=== PATIENT | female | born 1980 | race Caucasian/White ===

== ENCOUNTER 2017-05-31 22:15 | Emergency (ER) | payer BC ==
[~2017-05-31] VITALS: Ht 154.9 cm; Wt 86.5 kg
[~2017-05-31 22:15] MED LIST: CRAN500C4 PO; DICY10CA88 PO; FENO48TA15 PO; METF500T PO
[2017-06-01] MEDS ORDERED: CLIN-100 PO (00:19)
[2017-06-01] MEDS ORDERED: ACET1TAB12 PO (00:19)
[2017-06-01 00:26] VITALS: BP 128/90
== END 2017-06-01 00:27 | disposition home or self-care (01) ==
LOC: ER 22:15
DX: L03.011 Cellulitis of right finger (principal); E78.00 Pure hypercholesterolemia, unspecified; E11.9 Type 2 diabetes mellitus without complications; F17.200 Nicotine dependence, unspecified, uncomplicated; Z88.2 Allergy status to sulfonamides
CPT/HCPCS: 99283

== ENCOUNTER 2017-09-29 09:29 | Emergency (ER) | payer BC ==
[~2017-09-29] VITALS: Ht 162.6 cm; Wt 79.4 kg
[~2017-09-29 09:29] MED LIST changes: +ACET1TAB12 PO
[2017-09-29 09:58] LABS: BASOPHILS # (AUTO) 0.1 X10'3 (0-0.2); BASOPHILS % (AUTO) 0.5 % (0-1); EOSINOPHILS # (AUTO) 0.2 X10'3 (0-0.9); EOSINOPHILS % (AUTO) 1.8 % (0-6); HEMATOCRIT 43.6 % (35.0-45.0); HEMOGLOBIN 15.1 g/dl (12.0-16.0); LYMPHOCYTES # (AUTO) 2.4 X10'3 (1.1-4.8); LYMPHOCYTES % (AUTO) 25.5 % (21-51); MEAN CORPUSCULAR HEMOGLOBIN 31.7 PG (27.0-31.0); MEAN CORPUSCULAR HGB CONC 34.7 % (33.0-36.5); MEAN CORPUSCULAR VOLUME 91.3 FL (78-98); MEAN PLATELET VOLUME 8.1 FL (7.4-10.4); MONOCYTES # (AUTO) 0.6 X10'3 (0-0.9); MONOCYTES % (AUTO) 5.9 % (2-12); NEUTROPHILS # (AUTO) 6.3 X10'3 (1.8-7.7); NEUTROPHILS % (AUTO) 66.3 % (42-75); PLATELET COUNT 318 X10'3 (140-440); RED BLOOD COUNT 4.77 X10'6 (4.20-5.60); RED CELL DISTRIBUTION WIDTH 13.4 % (11.5-14.5); WHITE BLOOD COUNT 9.6 X10'3 (4.5-11.0)
[2017-09-29 10:09] LABS: URINE HCG NEGATIVE (NEG)
[2017-09-29 10:11] LABS: CLARITY,URINE CLEAR (Clear); COLOR,URINE YELLOW (Yellow); GLUCOSE, URINE NEGATIVE (Neg); KETONES,URINE NEGATIVE (Neg); LEUKOCYTE ESTERASE ,URINE NEGATIVE (Neg); NITRITES, URINE NEGATIVE (Neg); OCCULT BLOOD,URINE NEGATIVE (Neg); PROTEIN,URINE NEGATIVE (Neg); UROBILINOGEN,URINE 0.2 E.U/dL (0.2-1.0)
[2017-09-29 10:16] LABS: UA COLLECTION TYPE CLN CATCH MIDSTREAM
[2017-09-29 10:20] LABS: ALANINE AMINOTRANSFERASE 19 U/L (12-78); ALBUMIN 3.6 G/DL (3.4-5.0); ALKALINE PHOSPHATASE 49 IU/L (46-116); ANION GAP 10 (8-16); ASPARTATE AMINO TRANSFERASE 11 U/L (10-37); BILIRUBIN,TOTAL 0.3 MG/DL (0.1-1.0); BLOOD UREA NITROGEN 7 MG/DL (7-18); BUN/CREATININE RATIO 8.2 (6.6-38.0); CALCIUM 8.6 MG/DL (8.5-10.1); CHLORIDE 107 MMOL/L (99-107); CREATININE 0.85 MG/DL (0.40-0.90); GLUCOSE 108 MG/DL (70-104); POTASSIUM 4.6 MMOL/L (3.5-5.1); SODIUM 142 MMOL/L (135-145); TOTAL CARBON DIOXIDE 25.5 MMOL/L (24-32); TOTAL PROTEIN 7.3 G/DL (6.4-8.2); eGFR 74 ML/MIN
[2017-09-29] MEDS ORDERED: HYDROcodone/acetaminophen 10/325mg tab PO ONE (10:45)
[2017-09-29] MEDS ORDERED: METR500T4 PO (11:53)
[2017-09-29] MEDS ORDERED: DOXY100C43 PO (11:53)
[2017-09-29 12:23] VITALS: BP 120/74
== END 2017-09-29 12:26 | disposition home or self-care (01) ==
LOC: ER 09:30
DX: R10.30 Lower abdominal pain, unspecified (principal); F17.210 Nicotine dependence, cigarettes, uncomplicated; E78.00 Pure hypercholesterolemia, unspecified; E11.9 Type 2 diabetes mellitus without complications; Z90.49 Acquired absence of other specified parts of digestive tract; Z88.2 Allergy status to sulfonamides; Z79.899 Other long term (current) drug therapy; Z79.84 Long term (current) use of oral hypoglycemic drugs
CPT/HCPCS: 36415; 76856; 80053; 81003; 81025; 85025; 85610; 87210; 87491; 99285

== ENCOUNTER 2017-12-25 23:30 | Emergency (ER) | payer BC, OTHER ==
[~2017-12-25] VITALS: Ht 160 cm; Wt 91.0 kg
[2017-12-25 23:43] VITALS: BP 116/80
[2017-12-26] MEDS ORDERED: ondansetron 4mg rapidly disintigrating tab PO ONE (00:05)
[2017-12-26] MEDS ORDERED: acetaminophen 325mg tablet PO ONE (00:35)
== END 2017-12-26 00:42 | disposition home or self-care (01) ==
LOC: ER 23:31
DX: S06.0X0A Concussion without loss of consciousness, initial encounter (principal); E78.00 Pure hypercholesterolemia, unspecified; E11.9 Type 2 diabetes mellitus without complications; Z90.49 Acquired absence of other specified parts of digestive tract; Z88.2 Allergy status to sulfonamides; Z79.84 Long term (current) use of oral hypoglycemic drugs; Z79.899 Other long term (current) drug therapy; W22.8XXA Striking against or struck by other objects, initial encounter; Y93.89 Activity, other specified; Y92.89 Other specified places as the place of occurrence of the external cause; Y99.8 Other external cause status
CPT/HCPCS: 99283

== ENCOUNTER 2018-02-20 08:28 | Emergency (ER) | payer BC, OTHER ==
[~2018-02-20] VITALS: Ht 157.5 cm; Wt 92.0 kg
[2018-02-20 08:30] VITALS: BP 126/87
[2018-02-20] MEDS ORDERED: ipratropium/albuterol 3ml nebule NEB ONE (08:50)
[2018-02-20] MEDS ORDERED: BENZ-16 PO (08:57)
[2018-02-20] MEDS ORDERED: AMOX-580 PO (09:25)
[2018-02-20] MEDS ORDERED: ALBU8.5H8 IH (09:34)
== END 2018-02-20 09:39 | disposition home or self-care (01) ==
LOC: ER 08:28
DX: J20.9 Acute bronchitis, unspecified (principal); R09.81 Nasal congestion; H92.03 Otalgia, bilateral; E78.00 Pure hypercholesterolemia, unspecified; E11.9 Type 2 diabetes mellitus without complications; F17.200 Nicotine dependence, unspecified, uncomplicated; Z88.2 Allergy status to sulfonamides; Z90.49 Acquired absence of other specified parts of digestive tract; Z87.11 Personal history of peptic ulcer disease; Z87.440 Personal history of urinary (tract) infections; Z79.899 Other long term (current) drug therapy
CPT/HCPCS: 94640; 94760; 99283

== ENCOUNTER 2018-06-15 18:38 | Emergency (ER) | payer MEDICAID ==
[~2018-06-15] VITALS: Ht 157.5 cm; Wt 88.4 kg
[~2018-06-15 18:38] MED LIST changes: +ALBU8.5H8 IH; +BENZ-16 PO; +MONVCR VG
[2018-06-15 19:07] VITALS: BP 138/90
[2018-06-15 19:44] LABS: BASOPHILS # (AUTO) 0.1 X10'3 (0-0.2); BASOPHILS % (AUTO) 0.5 % (0-1); EOSINOPHILS # (AUTO) 0.3 X10'3 (0-0.9); EOSINOPHILS % (AUTO) 1.8 % (0-6); HEMATOCRIT 47.4 % (35.0-45.0); LYMPHOCYTES # (AUTO) 3.6 X10'3 (1.1-4.8); LYMPHOCYTES % (AUTO) 24.4 % (21-51); MEAN CORPUSCULAR HEMOGLOBIN 31.1 PG (27.0-31.0); MEAN CORPUSCULAR HGB CONC 33.7 g/dL (33.0-36.5); MEAN CORPUSCULAR VOLUME 92.1 FL (78-98); MEAN PLATELET VOLUME 8.3 FL (7.4-10.4); MONOCYTES # (AUTO) 0.7 X10'3 (0-0.9); NEUTROPHILS # (AUTO) 10.2 X10'3 (1.8-7.7); NEUTROPHILS % (AUTO) 68.3 % (42-75); PLATELET COUNT 407 X10'3 (140-440); RED BLOOD COUNT 5.14 X10'6 (4.20-5.60); RED CELL DISTRIBUTION WIDTH 13.3 % (11.5-14.5); WHITE BLOOD COUNT 14.9 X10'3 (4.5-11.0)
[2018-06-15 19:54] LABS: ALANINE AMINOTRANSFERASE 27 U/L (12-78); ALBUMIN 4.1 G/DL (3.4-5.0); ALBUMIN/GLOBULIN RATIO 0.9 (1.1-1.5); ALKALINE PHOSPHATASE 61 IU/L (46-116); ANION GAP 10 (8-16); ASPARTATE AMINO TRANSFERASE 14 U/L (10-37); BILIRUBIN,TOTAL 0.5 MG/DL (0.1-1.0); BLOOD UREA NITROGEN 12 MG/DL (7-18); BUN/CREATININE RATIO 13.2 (6.6-38.0); CALCIUM 9.9 MG/DL (8.5-10.1); CHLORIDE 102 MMOL/L (99-107); CREATININE 0.91 MG/DL (0.40-0.90); GLUCOSE 108 MG/DL (70-104); POTASSIUM 4.1 MMOL/L (3.5-5.1); PROTHROMBIN TIME 9.9 SECONDS (9.0-12.0); SODIUM 140 MMOL/L (135-145); TOTAL CARBON DIOXIDE 28.3 MMOL/L (24-32); TOTAL PROTEIN 8.5 G/DL (6.4-8.2); eGFR 68 ML/MIN
[2018-06-15 20:11] LABS: TOTAL CELLS COUNTED 100
[2018-06-15 20:12] LABS: PLATELET ESTIMATE NORMAL
[2018-06-15] MEDS ORDERED: HYDROcodone/acetaminophen 10/325mg tab PO ONE (21:50)
[2018-06-15 21:56] LABS: CLARITY,URINE CLEAR (Clear); COLOR,URINE YELLOW (Yellow); GLUCOSE, URINE NEGATIVE (Neg); KETONES,URINE NEGATIVE (Neg); LEUKOCYTE ESTERASE ,URINE NEGATIVE (Neg); NITRITES, URINE NEGATIVE (Neg); OCCULT BLOOD,URINE NEGATIVE (Neg); PH,URINE 5.5 (4.8-8.0); PROTEIN,URINE NEGATIVE (Neg); UROBILINOGEN,URINE 0.2 E.U/dL (0.2-1.0)
[2018-06-15 21:57] LABS: UA COLLECTION TYPE CLN CATCH MIDSTREAM; URINE HCG NEGATIVE (NEG)
== END 2018-06-15 22:17 | disposition home or self-care (01) ==
LOC: ER 18:39
DX: T81.89XA Other complications of procedures, not elsewhere classified, initial encounter (principal); R10.30 Lower abdominal pain, unspecified; R30.9 Painful micturition, unspecified; R68.83 Chills (without fever); E78.00 Pure hypercholesterolemia, unspecified; E11.9 Type 2 diabetes mellitus without complications; F17.200 Nicotine dependence, unspecified, uncomplicated; Z88.2 Allergy status to sulfonamides; Z79.899 Other long term (current) drug therapy; Z90.49 Acquired absence of other specified parts of digestive tract; Z87.11 Personal history of peptic ulcer disease; Z87.440 Personal history of urinary (tract) infections; Z98.890 Other specified postprocedural states; Y83.8 Other surgical procedures as the cause of abnormal reaction of the patient, or of later complication, without mention of misadventure at the time of the procedure; Y92.89 Other specified places as the place of occurrence of the external cause
CPT/HCPCS: 36415; 80053; 81003; 81025; 85025; 85610; 99283

== ENCOUNTER 2019-02-08 19:07 | Emergency (ER) | payer BC, MEDICAID ==
[~2019-02-08] VITALS: Ht 157.5 cm; Wt 100.0 kg
[~2019-02-08 19:07] MED LIST changes: -MONVCR VG; +ONDA4TAB6 PO
[2019-02-08 19:33] LABS: BASOPHILS # (AUTO) 0.1 X10'3 (0-0.2); EOSINOPHILS # (AUTO) 0.3 X10'3 (0-0.9); NEUTROPHILS # (AUTO) 10.5 X10'3 (1.8-7.7)
[2019-02-08 19:35] LABS: HEMATOCRIT 44.5 % (35.0-45.0); HEMOGLOBIN 15.2 g/dl (12.0-16.0); LYMPHOCYTES # (AUTO) 3.5 X10'3 (1.1-4.8); LYMPHOCYTES % (AUTO) 22.7 % (21-51); MEAN CORPUSCULAR HEMOGLOBIN 31.2 PG (27.0-31.0); MEAN CORPUSCULAR HGB CONC 34.2 g/dL (33.0-36.5); MEAN CORPUSCULAR VOLUME 91.2 FL (78-98); MEAN PLATELET VOLUME 8.5 FL (7.4-10.4); MONOCYTES % (AUTO) 6.6 % (2-12); NEUTROPHILS % (AUTO) 67.7 % (42-75); PLATELET COUNT 426 X10'3 (140-440); RED BLOOD COUNT 4.87 X10'6 (4.20-5.60); RED CELL DISTRIBUTION WIDTH 13.8 % (11.5-14.5); WHITE BLOOD COUNT 15.4 X10'3 (4.5-11.0)
[2019-02-08 19:43] LABS: CLARITY,URINE CLEAR (Clear); COLOR,URINE YELLOW (Yellow); GLUCOSE, URINE NEGATIVE (Neg); KETONES,URINE TRACE mg/dl (Neg); LEUKOCYTE ESTERASE ,URINE NEGATIVE (Neg); NITRITES, URINE NEGATIVE (Neg); OCCULT BLOOD,URINE NEGATIVE (Neg); PH,URINE 5.5 (4.8-8.0); PROTEIN,URINE NEGATIVE (Neg); UA COLLECTION TYPE CLN CATCH MIDSTREAM; UROBILINOGEN,URINE 0.2 E.U/dL (0.2-1.0)
[2019-02-08 19:48] LABS: ALANINE AMINOTRANSFERASE 42 U/L (12-78); ALBUMIN 3.9 G/DL (3.4-5.0); ALBUMIN/GLOBULIN RATIO 0.9 (1.1-1.5); ALKALINE PHOSPHATASE 72 IU/L (46-116); ANION GAP 9 (8-16); ASPARTATE AMINO TRANSFERASE 18 U/L (10-37); BILIRUBIN,TOTAL 0.3 MG/DL (0.1-1.0); BLOOD UREA NITROGEN 14 MG/DL (7-18); BUN/CREATININE RATIO 14.9 (6.6-38.0); CALCIUM 9.1 MG/DL (8.5-10.1); CHLORIDE 104 MMOL/L (99-107); CREATININE 0.94 MG/DL (0.40-0.90); GLUCOSE 128 MG/DL (70-104); POTASSIUM 4.4 MMOL/L (3.5-5.1); SODIUM 141 MMOL/L (135-145); TOTAL CARBON DIOXIDE 28.5 MMOL/L (24-32); TOTAL PROTEIN 8.2 G/DL (6.4-8.2); eGFR 66 ML/MIN
[2019-02-08 19:52] LABS: URINE HCG NEGATIVE (NEG)
[2019-02-08 20:18] LABS: LIPASE 188 U/L (73-393)
[2019-02-08] MEDS ORDERED: ondansetron/PF 4mg/2ml inj IV ONE (20:25)
[2019-02-08] MEDS ORDERED: normal saline 1000ML IV soln IVB ONE (20:25)
[2019-02-08] MEDS: morphine 4 MG/ML inj SYRINge IV PRN ×2 (20:54→22:11)
[2019-02-08] MEDS ORDERED: SUCR1TAB34 PO (22:06)
[2019-02-08 22:23] VITALS: BP 117/91
== END 2019-02-08 22:27 | disposition home or self-care (01) ==
LOC: ER 19:08
DX: R10.13 Epigastric pain (principal); R11.0 Nausea; E78.00 Pure hypercholesterolemia, unspecified; E11.9 Type 2 diabetes mellitus without complications; Z90.49 Acquired absence of other specified parts of digestive tract; Z98.890 Other specified postprocedural states; Z88.2 Allergy status to sulfonamides; Z79.84 Long term (current) use of oral hypoglycemic drugs; Z79.899 Other long term (current) drug therapy
CPT/HCPCS: 36415; 74176; 80053; 81003; 81025; 83690; 85025; 85610; 93005; 96374; 96375; 96376; 99284; J2270; J2405; J7030

== ENCOUNTER 2019-02-11 22:22 | Emergency (ER) | payer BC ==
[~2019-02-11] VITALS: Ht 157.5 cm; Wt 96.0 kg
[~2019-02-11 22:22] MED LIST changes: +SUCR1TAB34 PO
--- NOTE | 2019-02-11 22:59 | NUR ---
relieving RN for break, clinical laboratory director at bedside
--- NOTE | 2019-02-11 23:00 | NUR ---
pt is 38 yo female c/o upper abd pain, bilateral flank pain, "constant", gallbladder removed 2 years ago, last bowel mvt was today "small...runny and mucous", no dysuria, no fever/chills
--- NOTE | 2019-02-11 23:08 | NUR ---
pt amb with steady gait to restroom
[2019-02-11 23:40] LABS: ALANINE AMINOTRANSFERASE 41 U/L (12-78); ALBUMIN 3.6 G/DL (3.4-5.0); ALBUMIN/GLOBULIN RATIO 0.9 (1.1-1.5); ALKALINE PHOSPHATASE 55 IU/L (46-116); ANION GAP 10 (8-16); ASPARTATE AMINO TRANSFERASE 16 U/L (10-37); BILIRUBIN,TOTAL 0.4 MG/DL (0.1-1.0); BLOOD UREA NITROGEN 12 MG/DL (7-18); CALCIUM 8.9 MG/DL (8.5-10.1); CHLORIDE 105 MMOL/L (99-107); CREATININE 0.86 MG/DL (0.40-0.90); GLUCOSE 110 MG/DL (70-104); LIPASE 120 U/L (73-393); POTASSIUM 3.6 MMOL/L (3.5-5.1); SODIUM 141 MMOL/L (135-145); TOTAL CARBON DIOXIDE 26.3 MMOL/L (24-32); TOTAL PROTEIN 7.5 G/DL (6.4-8.2); eGFR 73 ML/MIN
[2019-02-11 23:49] LABS: URINE HCG NEGATIVE (NEG)
[2019-02-11 23:49] LABS: BASOPHILS # (AUTO) 0.1 X10'3 (0-0.2); BASOPHILS % (AUTO) 0.6 % (0-1); EOSINOPHILS # (AUTO) 0.3 X10'3 (0-0.9); EOSINOPHILS % (AUTO) 2.1 % (0-6); HEMATOCRIT 40.5 % (35.0-45.0); HEMOGLOBIN 13.7 g/dl (12.0-16.0); LYMPHOCYTES # (AUTO) 3.8 X10'3 (1.1-4.8); LYMPHOCYTES % (AUTO) 28.1 % (21-51); MEAN CORPUSCULAR HEMOGLOBIN 30.8 PG (27.0-31.0); MEAN CORPUSCULAR HGB CONC 33.8 g/dL (33.0-36.5); MEAN CORPUSCULAR VOLUME 91.2 FL (78-98); MEAN PLATELET VOLUME 8.5 FL (7.4-10.4); MONOCYTES % (AUTO) 7.3 % (2-12); NEUTROPHILS # (AUTO) 8.5 X10'3 (1.8-7.7); NEUTROPHILS % (AUTO) 61.9 % (42-75); PLATELET COUNT 363 X10'3 (140-440); RED BLOOD COUNT 4.44 X10'6 (4.20-5.60); RED CELL DISTRIBUTION WIDTH 13.8 % (11.5-14.5); WHITE BLOOD COUNT 13.7 X10'3 (4.5-11.0)
[2019-02-12] LABS: CLARITY,URINE CLEAR (Clear); COLOR,URINE YELLOW (Yellow); GLUCOSE, URINE NEGATIVE (Neg); KETONES,URINE NEGATIVE (Neg); LEUKOCYTE ESTERASE ,URINE NEGATIVE (Neg); NITRITES, URINE NEGATIVE (Neg); OCCULT BLOOD,URINE NEGATIVE (Neg); PROTEIN,URINE NEGATIVE (Neg); UROBILINOGEN,URINE 0.2 E.U/dL (0.2-1.0)
[2019-02-12 00:02] LABS: UA COLLECTION TYPE CLN CATCH MIDSTREAM
[2019-02-12] MEDS ORDERED: LIDOcaine Viscous 15ml cup PO ONE (00:05)
[2019-02-12] MEDS ORDERED: mag hydrox/Alum hydrox/simeth 30ml oral suspension PO ONE (00:05)
[2019-02-12] MEDS ORDERED: famotidine 20mg tablet PO ONE (00:05)
[2019-02-12] MEDS ORDERED: FAMO-129 PO (00:20)
[2019-02-12 01:27] VITALS: BP 103/73
== END 2019-02-12 01:30 | disposition home or self-care (01) ==
LOC: ER 22:22
DX: R10.84 Generalized abdominal pain (principal); E78.00 Pure hypercholesterolemia, unspecified; E11.9 Type 2 diabetes mellitus without complications; Z90.49 Acquired absence of other specified parts of digestive tract; Z98.890 Other specified postprocedural states; Z88.2 Allergy status to sulfonamides; Z79.84 Long term (current) use of oral hypoglycemic drugs; Z79.899 Other long term (current) drug therapy
CPT/HCPCS: 36415; 80053; 81003; 81025; 83690; 85025; 99283

== ENCOUNTER 2019-07-05 19:53 | Emergency (ER) | payer BC ==
[~2019-07-05] VITALS: Ht 157.5 cm; Wt 95.5 kg
[~2019-07-05 19:53] MED LIST changes: +FAMO-129 PO
[2019-07-05] MEDS ORDERED: ketorolac trometh inj. 60 MG/2 ML VIAL IM ONE (20:25)
[2019-07-05] MEDS ORDERED: ondansetron 4mg rapidly disintigrating tab PO ONE (20:25)
[2019-07-05 20:34] LABS: BASOPHILS # (AUTO) 0.1 X10'3 (0-0.2); BASOPHILS % (AUTO) 0.9 % (0-1); EOSINOPHILS # (AUTO) 0.2 X10'3 (0-0.9); EOSINOPHILS % (AUTO) 1.6 % (0-6); HEMATOCRIT 43.4 % (35.0-45.0); HEMOGLOBIN 14.6 g/dl (12.0-16.0); LYMPHOCYTES # (AUTO) 3.9 X10'3 (1.1-4.8); MEAN CORPUSCULAR HEMOGLOBIN 29.9 PG (27.0-31.0); MEAN CORPUSCULAR HGB CONC 33.7 g/dL (33.0-36.5); MEAN CORPUSCULAR VOLUME 88.6 FL (78-98); MEAN PLATELET VOLUME 8.2 FL (7.4-10.4); MONOCYTES # (AUTO) 0.8 X10'3 (0-0.9); NEUTROPHILS # (AUTO) 8.3 X10'3 (1.8-7.7); NEUTROPHILS % (AUTO) 62.5 % (42-75); PLATELET COUNT 395 X10'3 (140-440); RED BLOOD COUNT 4.89 X10'6 (4.20-5.60); RED CELL DISTRIBUTION WIDTH 14.1 % (11.5-14.5); WHITE BLOOD COUNT 13.3 X10'3 (4.5-11.0)
[2019-07-05 20:45] LABS: ALANINE AMINOTRANSFERASE 22 U/L (12-78); ALBUMIN 3.7 G/DL (3.4-5.0); ALKALINE PHOSPHATASE 59 IU/L (46-116); ANION GAP 9 (8-16); ASPARTATE AMINO TRANSFERASE 11 U/L (10-37); BILIRUBIN,TOTAL 0.3 MG/DL (0.1-1.0); BLOOD UREA NITROGEN 10 MG/DL (7-18); BUN/CREATININE RATIO 10.9 (6.6-38.0); CALCIUM 9.2 MG/DL (8.5-10.1); CHLORIDE 106 MMOL/L (99-107); CREATININE 0.92 MG/DL (0.40-0.90); GLUCOSE 131 MG/DL (70-104); LIPASE 144 U/L (73-393); POTASSIUM 3.6 MMOL/L (3.5-5.1); SODIUM 141 MMOL/L (135-145); TOTAL CARBON DIOXIDE 25.6 MMOL/L (24-32); TOTAL PROTEIN 7.5 G/DL (6.4-8.2); eGFR 67 ML/MIN
[2019-07-05 21:15] LABS: CLARITY,URINE CLEAR (Clear); COLOR,URINE YELLOW (Yellow); GLUCOSE, URINE NEGATIVE (Neg); KETONES,URINE NEGATIVE (Neg); LEUKOCYTE ESTERASE ,URINE NEGATIVE (Neg); NITRITES, URINE NEGATIVE (Neg); OCCULT BLOOD,URINE TRACE-INTACT (Neg); PROTEIN,URINE NEGATIVE (Neg); UROBILINOGEN,URINE 0.2 E.U/dL (0.2-1.0)
[2019-07-05 21:16] LABS: URINE HCG NEGATIVE (NEG)
[2019-07-05 21:20] LABS: UA COLLECTION TYPE CLN CATCH MIDSTREAM
[2019-07-05 21:22] LABS: WBC,URINE 0-4 /HPF (0-4)
[2019-07-05 21:23] LABS: BACTERIA,URINE FEW /HPF (Neg); MUCUS STRANDS MODERATE /LPF (Neg); RBC,URINE NONE SEEN /HPF (0-2); SQUAMOUS EPITHELIAL CELL,UR MODERATE /LPF (FEW)
[2019-07-05] MEDS ORDERED: HYDR-3965 PO (21:28)
[2019-07-05] MEDS ORDERED: ONDA8TAB6 PO (21:28)
[2019-07-05] MEDS ORDERED: BISA-78 PO (21:28)
[2019-07-05 21:40] VITALS: BP 110/67
== END 2019-07-05 21:42 | disposition home or self-care (01) ==
LOC: ER 19:57
DX: R10.31 Right lower quadrant pain (principal); R11.2 Nausea with vomiting, unspecified; E78.00 Pure hypercholesterolemia, unspecified; K21.9 Gastro-esophageal reflux disease without esophagitis; E11.9 Type 2 diabetes mellitus without complications; Z90.49 Acquired absence of other specified parts of digestive tract; Z98.890 Other specified postprocedural states; Z88.2 Allergy status to sulfonamides; Z79.899 Other long term (current) drug therapy
CPT/HCPCS: 36415; 80053; 81001; 81025; 83690; 85025; 96372; 99283; J1885

== ENCOUNTER 2020-02-13 19:27 | Emergency (ER) | payer BC ==
[~2020-02-13] VITALS: Ht 157.5 cm; Wt 93.0 kg
[~2020-02-13 19:27] MED LIST changes: +BISA-78 PO; +ONDA8TAB6 PO
[2020-02-13 19:56] VITALS: BP 130/87
[2020-02-13 20:25] LABS: CLARITY,URINE CLEAR (Clear); COLOR,URINE YELLOW (Yellow); GLUCOSE, URINE NEGATIVE (Neg); KETONES,URINE NEGATIVE (Neg); LEUKOCYTE ESTERASE ,URINE NEGATIVE (Neg); NITRITES, URINE NEGATIVE (Neg); OCCULT BLOOD,URINE NEGATIVE (Neg); PH,URINE 5.5 (4.8-8.0); PROTEIN,URINE NEGATIVE (Neg); UROBILINOGEN,URINE 0.2 E.U/dL (0.2-1.0)
[2020-02-13 20:26] LABS: UA COLLECTION TYPE CLN CATCH MIDSTREAM
[2020-02-13 20:27] LABS: URINE HCG NEGATIVE (NEG)
[2020-02-13] MEDS ORDERED: ketorolac tromethamine 15mg/ml inj. IM ONE (20:40)
[2020-02-13] MEDS ORDERED: orphenadrine citrate 60mg/2ml inj. IM ONE (20:40)
[2020-02-13] MEDS ORDERED: NAPR-56 PO (20:59)
[2020-02-13] MEDS ORDERED: CYCL-1 PO (20:59)
[2020-02-13] MEDS ORDERED: diazepam 5mg tablet PO ONE (21:00)
== END 2020-02-13 21:28 | disposition home or self-care (01) ==
LOC: ER 19:28
DX: S39.012A Strain of muscle, fascia and tendon of lower back, initial encounter (principal); E78.00 Pure hypercholesterolemia, unspecified; K21.9 Gastro-esophageal reflux disease without esophagitis; E11.9 Type 2 diabetes mellitus without complications; Z87.11 Personal history of peptic ulcer disease; Z87.440 Personal history of urinary (tract) infections; Z90.49 Acquired absence of other specified parts of digestive tract; Z98.890 Other specified postprocedural states; Z88.2 Allergy status to sulfonamides; Z79.899 Other long term (current) drug therapy; X58.XXXA Exposure to other specified factors, initial encounter; Y93.89 Activity, other specified; Y92.89 Other specified places as the place of occurrence of the external cause; Y99.8 Other external cause status
CPT/HCPCS: 81003; 81025; 96372; 99283; J1885

== ENCOUNTER 2020-03-29 11:28 | Emergency (ER) | payer BC ==
[~2020-03-29] VITALS: Ht 162.6 cm; Wt 90.0 kg
[~2020-03-29 11:28] MED LIST changes: +CYCL-1 PO
[2020-03-29] MEDS ORDERED: AMOX-422 PO (12:39)
[2020-03-29] MEDS ORDERED: HYDR-4353 PO (12:39)
[2020-03-29] MEDS ORDERED: IBUP-1984 PO (12:39)
== END 2020-03-29 13:39 | disposition home or self-care (01) ==
LOC: ER 11:28
DX: J36 Peritonsillar abscess (principal); R43.8 Other disturbances of smell and taste; R50.9 Fever, unspecified; E78.00 Pure hypercholesterolemia, unspecified; K21.9 Gastro-esophageal reflux disease without esophagitis; E11.9 Type 2 diabetes mellitus without complications; Z87.11 Personal history of peptic ulcer disease; Z87.440 Personal history of urinary (tract) infections; Z90.49 Acquired absence of other specified parts of digestive tract; Z98.890 Other specified postprocedural states; Z88.2 Allergy status to sulfonamides; Z79.2 Long term (current) use of antibiotics; Z79.899 Other long term (current) drug therapy
CPT/HCPCS: 87081; 87880; 99283

== ENCOUNTER 2020-10-11 12:15 | Emergency (ER) | payer BC ==
[~2020-10-11] VITALS: Ht 154.9 cm; Wt 89.5 kg
[2020-10-11 12:21] VITALS: BP 141/86
[2020-10-11] MEDS ORDERED: AMOX-422 PO (14:35)
[2020-10-11] MEDS ORDERED: PRED20TA PO (14:35)
== END 2020-10-11 14:53 | disposition home or self-care (01) ==
LOC: ER 12:16
DX: J01.80 Other acute sinusitis (principal); K21.9 Gastro-esophageal reflux disease without esophagitis; E11.9 Type 2 diabetes mellitus without complications; E78.00 Pure hypercholesterolemia, unspecified; Z20.822 Contact with and (suspected) exposure to COVID-19; Z88.0 Allergy status to penicillin; Z79.899 Other long term (current) drug therapy
CPT/HCPCS: 87635; 99283; C9803

== ENCOUNTER 2020-11-02 15:21 | Emergency (ER) | payer BC ==
[~2020-11-02] VITALS: Ht 154.9 cm; Wt 90.8 kg
[2020-11-02 15:30] VITALS: BP 143/91
[2020-11-02] MEDS ORDERED: ketorolac trometh. 30mg/ml inj. IM ONE (17:40)
[2020-11-02] MEDS ORDERED: CYCL-1 PO (17:46)
== END 2020-11-02 17:55 | disposition home or self-care (01) ==
LOC: ER 15:22
DX: M25.511 Pain in right shoulder (principal); E78.00 Pure hypercholesterolemia, unspecified; K21.9 Gastro-esophageal reflux disease without esophagitis; Z88.2 Allergy status to sulfonamides; Z79.899 Other long term (current) drug therapy; X58.XXXA Exposure to other specified factors, initial encounter; Y93.89 Activity, other specified; Y92.89 Other specified places as the place of occurrence of the external cause; Y99.8 Other external cause status
CPT/HCPCS: 73030; 96372; 99283; J1885

== ENCOUNTER 2020-12-30 16:12 | Emergency (ER) | payer BC ==
[~2020-12-30] VITALS: Ht 157.5 cm; Wt 92.4 kg
[~2020-12-30 16:12] MED LIST changes: +ALBU8.5H17 IH; -ALBU8.5H8 IH
[2020-12-30 18:09] LABS: BASOPHILS # (AUTO) 0.1 X10'3 (0-0.2); BASOPHILS % (AUTO) 0.9 % (0-1); EOSINOPHILS # (AUTO) 0.2 X10'3 (0-0.9); EOSINOPHILS % (AUTO) 1.5 % (0-6); HEMATOCRIT 43.7 % (35.0-45.0); HEMOGLOBIN 14.7 g/dl (12.0-16.0); LYMPHOCYTES # (AUTO) 4.4 X10'3 (1.1-4.8); MEAN CORPUSCULAR HEMOGLOBIN 30.4 PG (27.0-31.0); MEAN CORPUSCULAR HGB CONC 33.6 g/dL (33.0-36.5); MEAN CORPUSCULAR VOLUME 90.5 FL (78-98); MONOCYTES # (AUTO) 1.1 X10'3 (0-0.9); MONOCYTES % (AUTO) 7.4 % (2-12); NEUTROPHILS # (AUTO) 9.3 X10'3 (1.8-7.7); NEUTROPHILS % (AUTO) 61.2 % (42-75); PLATELET COUNT 389 X10'3 (140-440); RED BLOOD COUNT 4.83 X10'6 (4.20-5.60); RED CELL DISTRIBUTION WIDTH 14.1 % (11.5-14.5); WHITE BLOOD COUNT 15.2 X10'3 (4.5-11.0)
[2020-12-30 18:24] LABS: ALANINE AMINOTRANSFERASE 29 U/L (12-78); ALBUMIN 3.9 G/DL (3.4-5.0); ALKALINE PHOSPHATASE 55 IU/L (46-116); ANION GAP 11 (8-16); ASPARTATE AMINO TRANSFERASE 16 U/L (10-37); BILIRUBIN,TOTAL 0.4 MG/DL (0.1-1.0); BLOOD UREA NITROGEN 12 MG/DL (7-18); BUN/CREATININE RATIO 13.6 (6.6-38.0); CHLORIDE 106 MMOL/L (99-107); CREATININE 0.88 MG/DL (0.40-0.90); GLUCOSE 96 MG/DL (70-104); MAGNESIUM 2.2 MG/DL (1.5-2.4); POTASSIUM 3.9 MMOL/L (3.5-5.1); SODIUM 143 MMOL/L (135-145); TOTAL CARBON DIOXIDE 25.9 MMOL/L (24-32); TOTAL PROTEIN 7.7 G/DL (6.4-8.2); eGFR 70 ML/MIN
[2020-12-30] MEDS ORDERED: ondansetron 4mg rapidly disintigrating tab PO ONE (20:50)
[2020-12-30] MEDS ORDERED: morphine 4 MG/ML inj SYRINge IM ONE (20:50)
[2020-12-30 21:08] VITALS: BP 120/86
[2020-12-30] MEDS ORDERED: ONDA4TAB6 PO (21:45)
[2020-12-30] MEDS ORDERED: HYDR-3965 PO (21:45)
== END 2020-12-30 21:56 | disposition home or self-care (01) ==
LOC: ER 16:13
DX: M50.21 Other cervical disc displacement, high cervical region (principal); R51.9 Headache, unspecified; E78.00 Pure hypercholesterolemia, unspecified; K21.9 Gastro-esophageal reflux disease without esophagitis; E11.9 Type 2 diabetes mellitus without complications; Z87.11 Personal history of peptic ulcer disease; Z87.440 Personal history of urinary (tract) infections; Z88.2 Allergy status to sulfonamides; Z79.899 Other long term (current) drug therapy
CPT/HCPCS: 36415; 72125; 80053; 83735; 84145; 85025; 85651; 96372; 99284; J2270

== ENCOUNTER 2021-02-01 06:07 | Emergency (ER) | payer BC, OTHER ==
[~2021-02-01] VITALS: Ht 157.5 cm; Wt 90.9 kg
[2021-02-01] MEDS ORDERED: iohexol 300mg/ml 100ml inj. ONE (07:03)
[2021-02-01 07:53] LABS: CLARITY,URINE SLIGHTLY CLOUDY (Clear); COLOR,URINE YELLOW (Yellow); GLUCOSE, URINE NEGATIVE (Neg); PROTEIN,URINE NEGATIVE (Neg); UA COLLECTION TYPE OTHER
[2021-02-01 07:56] LABS: KETONES,URINE NEGATIVE (Neg); OCCULT BLOOD,URINE NEGATIVE (Neg)
[2021-02-01 07:57] LABS: LEUKOCYTE ESTERASE ,URINE NEGATIVE (Neg); NITRITES, URINE NEGATIVE (Neg); UROBILINOGEN,URINE 0.2 E.U/dL (0.2-1.0)
[2021-02-01 07:58] LABS: SQUAMOUS EPITHELIAL CELL,UR FEW /LPF (FEW)
[2021-02-01 07:59] LABS: BACTERIA,URINE 1+ /HPF (Neg); RBC,URINE 0-2 /HPF (0-2); WBC,URINE 0-4 /HPF (0-4)
[2021-02-01] MEDS ORDERED: ketorolac trometh inj. 60 MG/2 ML VIAL IM ONE (08:50)
[2021-02-01] MEDS ORDERED: HYDROcodone/acetaminophen 5mg/325mg tablet PO ONE (08:50)
[2021-02-01] MEDS ORDERED: diazepam 5mg tablet PO ONE (08:50)
[2021-02-01 08:52] LABS: BASOPHILS # (AUTO) 0.1 X10'3 (0-0.2); BASOPHILS % (AUTO) 0.9 % (0-1); EOSINOPHILS # (AUTO) 0.2 X10'3 (0-0.9); EOSINOPHILS % (AUTO) 2.3 % (0-6); HEMATOCRIT 42.4 % (35.0-45.0); LYMPHOCYTES # (AUTO) 2.5 X10'3 (1.1-4.8); LYMPHOCYTES % (AUTO) 27.9 % (21-51); MEAN CORPUSCULAR HEMOGLOBIN 30.7 PG (27.0-31.0); MEAN CORPUSCULAR HGB CONC 33.1 g/dL (33.0-36.5); MEAN CORPUSCULAR VOLUME 92.9 FL (78-98); MEAN PLATELET VOLUME 8.4 FL (7.4-10.4); MONOCYTES # (AUTO) 0.8 X10'3 (0-0.9); NEUTROPHILS # (AUTO) 5.4 X10'3 (1.8-7.7); NEUTROPHILS % (AUTO) 59.9 % (42-75); PLATELET COUNT 312 X10'3 (140-440); RED BLOOD COUNT 4.57 X10'6 (4.20-5.60); RED CELL DISTRIBUTION WIDTH 13.6 % (11.5-14.5)
[2021-02-01] MEDS: MESSAGE TO NURSING PO NR ×2 (08:54→09:21)
[2021-02-01 08:58] LABS: HCG SERUM QL NEGATIVE
[2021-02-01 09:02] LABS: PARTIAL THROMBOPLASTIN TIME 26 SECONDS (22-32)
[2021-02-01 09:07] LABS: ALANINE AMINOTRANSFERASE 23 U/L (12-78); ALBUMIN 3.6 G/DL (3.4-5.0); ALKALINE PHOSPHATASE 54 IU/L (46-116); ANION GAP 13 (8-16); ASPARTATE AMINO TRANSFERASE 10 U/L (10-37); BILIRUBIN,TOTAL 0.4 MG/DL (0.1-1.0); BLOOD UREA NITROGEN 13 MG/DL (7-18); BUN/CREATININE RATIO 14.8 (6.6-38.0); CALCIUM 8.6 MG/DL (8.5-10.1); CHLORIDE 107 MMOL/L (99-107); CREATININE 0.88 MG/DL (0.40-0.90); GLUCOSE 88 MG/DL (70-104); POTASSIUM 4.5 MMOL/L (3.5-5.1); SODIUM 144 MMOL/L (135-145); TOTAL CARBON DIOXIDE 23.8 MMOL/L (24-32); TOTAL PROTEIN 7.1 G/DL (6.4-8.2); eGFR 70 ML/MIN
[2021-02-01 09:09] VITALS: BP 124/87
[2021-02-01] MEDS ORDERED: CYCL-1 PO (09:26)
[2021-02-01] MEDS ORDERED: HYDR-3964 PO (09:26)
== END 2021-02-01 09:47 | disposition home or self-care (01) ==
LOC: ER 06:07
DX: S16.1XXA Strain of muscle, fascia and tendon at neck level, initial encounter (principal); S20.219A Contusion of unspecified front wall of thorax, initial encounter; R51.9 Headache, unspecified; E78.00 Pure hypercholesterolemia, unspecified; K21.9 Gastro-esophageal reflux disease without esophagitis; F17.200 Nicotine dependence, unspecified, uncomplicated; Z90.49 Acquired absence of other specified parts of digestive tract; Z87.11 Personal history of peptic ulcer disease; Z88.2 Allergy status to sulfonamides; Z79.899 Other long term (current) drug therapy; V87.7XXA Person injured in collision between other specified motor vehicles (traffic), initial encounter; Y93.89 Activity, other specified; Y92.89 Other specified places as the place of occurrence of the external cause; Y99.8 Other external cause status
CPT/HCPCS: 36415; 70450; 71250; 72125; 74176; 80053; 81001; 84703; 85025; 85610; 85730; 96372; 99285; J1885; Q9967

== ENCOUNTER 2022-02-04 14:03 | Emergency (ER) | payer BC ==
[~2022-02-04] VITALS: Ht 157.5 cm; Wt 85.5 kg
[~2022-02-04 14:03] MED LIST changes: +CIPR7.5D EACH EAR; +FLUT16SP2 BOTHNARES
[2022-02-04 14:26] VITALS: BP 146/92
[2022-02-04] MEDS: morphine 4 MG/ML inj SYRINge IM ONE ×2 (16:00→16:10)
[2022-02-04] MEDS ORDERED: diazepam 5mg tablet PO ONE (16:25)
--- NOTE | 2022-02-04 16:47 | NUR ---
po med given
[2022-02-04] MEDS ORDERED: HYDR-3965 PO (18:13)
== END 2022-02-04 18:30 | disposition home or self-care (01) ==
LOC: ER 14:03
DX: G89.29 Other chronic pain (principal); M54.6 Pain in thoracic spine; E78.00 Pure hypercholesterolemia, unspecified; K21.9 Gastro-esophageal reflux disease without esophagitis; E11.9 Type 2 diabetes mellitus without complications; Z88.2 Allergy status to sulfonamides; Z79.899 Other long term (current) drug therapy; Z79.2 Long term (current) use of antibiotics; Z79.1 Long term (current) use of non-steroidal anti-inflammatories (NSAID)
CPT/HCPCS: 96372; 99283; J2270

== ENCOUNTER 2022-10-15 13:01 | Emergency (ER) | payer BC ==
[~2022-10-15] VITALS: Ht 154.9 cm; Wt 90.9 kg
[2022-10-15 13:08] VITALS: BP 138/86
[2022-10-15] MEDS ORDERED: ondansetron 4mg rapidly disintigrating tab PO ONE (17:00)
[2022-10-15] MEDS ORDERED: HYDROcodone/acetaminophen 5mg/325mg tablet PO ONE (17:00)
[2022-10-15] MEDS ORDERED: ketorolac trometh inj. 60 MG/2 ML VIAL IM ONE (17:05)
[2022-10-15] MEDS ORDERED: IBUP-1984 PO (17:59)
== END 2022-10-15 18:37 | disposition home or self-care (01) ==
LOC: ER 13:02
DX: M25.461 Effusion, right knee (principal); E78.00 Pure hypercholesterolemia, unspecified; K21.9 Gastro-esophageal reflux disease without esophagitis; E11.9 Type 2 diabetes mellitus without complications; F17.200 Nicotine dependence, unspecified, uncomplicated; Z90.49 Acquired absence of other specified parts of digestive tract; Z98.890 Other specified postprocedural states; Z88.2 Allergy status to sulfonamides; Z79.899 Other long term (current) drug therapy
CPT/HCPCS: 73564; 96372; 99283; J1885; A6449

== ENCOUNTER 2023-02-12 18:04 | Emergency (ER) | payer BC ==
[~2023-02-12] VITALS: Ht 157.5 cm; Wt 95.0 kg
[2023-02-12] MEDS ORDERED: dexamethasone sod phosphate 10mg/ml inj PO STA (19:28)
[2023-02-12 19:52] VITALS: TEMP 99.9
[2023-02-12 19:57] LABS: STREP A SCREEN POSITIVE (Neg)
[2023-02-12] MEDS ORDERED: amox tr/potassium clavulanate 875/125mg TAB PO ONE (20:20)
[2023-02-12] MEDS ORDERED: AMOX-580 PO (20:21)
--- NOTE | 2023-02-12 20:29 | NUR ---
MD aware of elevated heart rate upon discharge. No further oders obtained.
[2023-02-12 21:27] VITALS: BP 132/67; PULSE 118; RESP 16; O2SAT 98
--- NOTE | 2023-02-12 21:35 | NUR ---
REVIEWED LVNS ASSESSMENT, AGREE WITH ASSESSMENT.
== END 2023-02-12 20:33 | disposition home or self-care (01) ==
LOC: ER 18:04
DX: J02.0 Streptococcal pharyngitis (principal); Z20.822 Contact with and (suspected) exposure to COVID-19; E78.00 Pure hypercholesterolemia, unspecified; K21.9 Gastro-esophageal reflux disease without esophagitis; E11.9 Type 2 diabetes mellitus without complications; Z88.2 Allergy status to sulfonamides; Z79.2 Long term (current) use of antibiotics; Z79.1 Long term (current) use of non-steroidal anti-inflammatories (NSAID); Z79.899 Other long term (current) drug therapy; Z90.49 Acquired absence of other specified parts of digestive tract
CPT/HCPCS: 36415; 87502; 87503; 87811; 87880; 99283; J1100

== ENCOUNTER 2023-04-04 08:15 | Emergency (ER) | payer BC ==
[~2023-04-04] VITALS: Ht 157.5 cm; Wt 93.0 kg
[2023-04-04 08:18] VITALS: BP 129/85; PULSE 96; TEMP 98.5; O2SAT 100
[2023-04-04] MEDS ORDERED: acetaminophen 325mg tablet PO ONE (09:40)
[2023-04-04] MEDS ORDERED: ondansetron 4mg rapidly disintigrating tab PO ONE (09:40)
[2023-04-04 09:44] LABS: BASOPHILS # (AUTO) 0.1 X10'3 (0-0.2); BASOPHILS % (AUTO) 1.1 % (0-1); EOSINOPHILS # (AUTO) 0.5 X10'3 (0-0.9); EOSINOPHILS % (AUTO) 4.2 % (0-6); HEMATOCRIT 44.6 % (35.0-45.0); HEMOGLOBIN 15.1 g/dl (12.0-16.0); LYMPHOCYTES # (AUTO) 3.7 X10'3 (1.1-4.8); MEAN CORPUSCULAR HGB CONC 33.9 g/dL (33.0-36.5); MEAN CORPUSCULAR VOLUME 91.4 FL (78-98); MEAN PLATELET VOLUME 7.9 FL (7.4-10.4); MONOCYTES # (AUTO) 0.9 X10'3 (0-0.9); MONOCYTES % (AUTO) 7.4 % (2-12); NEUTROPHILS # (AUTO) 7.4 X10'3 (1.8-7.7); NEUTROPHILS % (AUTO) 58.3 % (42-75); PLATELET COUNT 430 X10'3 (140-440); RED BLOOD COUNT 4.88 X10'6 (4.20-5.60); RED CELL DISTRIBUTION WIDTH 14.7 % (11.5-14.5); WHITE BLOOD COUNT 12.7 X10'3 (4.5-11.0)
[2023-04-04 09:54] LABS: ALANINE AMINOTRANSFERASE 42 U/L (12-78); ALBUMIN 3.6 G/DL (3.4-5.0); ALBUMIN/GLOBULIN RATIO 0.8 (1.1-1.5); ALKALINE PHOSPHATASE 56 IU/L (46-116); ANION GAP 10 (8-16); ASPARTATE AMINO TRANSFERASE 30 U/L (10-37); BILIRUBIN,TOTAL 0.6 MG/DL (0.1-1.0); BLOOD UREA NITROGEN 9 MG/DL (7-18); BUN/CREATININE RATIO 11.4 (10.0-20.0); C-REACTIVE PROTEIN 0.53 MG/DL (0.0-0.5); CALCIUM 8.8 MG/DL (8.5-10.1); CHLORIDE 101 MMOL/L (99-107); CREATININE 0.79 MG/DL (0.40-0.90); GLUCOSE 118 MG/DL (70-104); POTASSIUM 4.1 MMOL/L (3.5-5.1); SODIUM 137 MMOL/L (135-145); TOTAL CARBON DIOXIDE 25.9 MMOL/L (24-32); TOTAL PROTEIN 8.2 G/DL (6.4-8.2); eCRCL 72 ML/MIN; eGFR 79 ML/MIN
[2023-04-04 09:55] LABS: HCG SERUM QL NEGATIVE
[2023-04-04 10:09] VITALS: RESP 17
[2023-04-04] MEDS ORDERED: ALBU18HF2 INH (10:11)
[2023-04-04] MEDS ORDERED: METH4TAB81 PO (10:11)
[2023-04-04] MEDS ORDERED: GUAI400T92 PO (10:11)
== END 2023-04-04 10:30 | disposition home or self-care (01) ==
LOC: ER 08:16
DX: B34.9 Viral infection, unspecified (principal); E78.00 Pure hypercholesterolemia, unspecified; K21.9 Gastro-esophageal reflux disease without esophagitis; Z88.5 Allergy status to narcotic agent; Z79.899 Other long term (current) drug therapy
CPT/HCPCS: 36415; 71045; 80053; 84703; 85025; 86140; 87502; 87503; 87811; 99284; J7030

== ENCOUNTER 2023-06-17 22:19 | Emergency (ER) | payer BC ==
[~2023-06-17] VITALS: Ht 157.5 cm; Wt 94.5 kg
[~2023-06-17 22:19] MED LIST changes: +ALBU18HF2 INH; +GUAI400T92 PO; +METH4TAB81 PO
[2023-06-17 22:31] VITALS: BP 146/94; PULSE 88; TEMP 97.6; O2SAT 98
[2023-06-17] MEDS: dicyclomine 10 MG capsule PO ONE (22:40)
[2023-06-17] MEDS: mag hydrox/Alum hydrox/simeth 30ml oral suspension PO ONE (22:40)
[2023-06-17 23:08] LABS: BASOPHILS % (AUTO) 0.2 % (0-1); EOSINOPHILS # (AUTO) 0.5 X10'3 (0-0.9); EOSINOPHILS % (AUTO) 4.3 % (0-6); HEMATOCRIT 39.1 % (35.0-45.0); HEMOGLOBIN 13.1 g/dl (12.0-16.0); LYMPHOCYTES # (AUTO) 4.8 X10'3 (1.1-4.8); LYMPHOCYTES % (AUTO) 38.7 % (21-51); MEAN CORPUSCULAR HEMOGLOBIN 30.7 PG (27.0-31.0); MEAN CORPUSCULAR HGB CONC 33.5 g/dL (33.0-36.5); MEAN CORPUSCULAR VOLUME 91.7 FL (78-98); MEAN PLATELET VOLUME 7.7 FL (7.4-10.4); MONOCYTES # (AUTO) 0.8 X10'3 (0-0.9); MONOCYTES % (AUTO) 6.5 % (2-12); NEUTROPHILS # (AUTO) 6.2 X10'3 (1.8-7.7); NEUTROPHILS % (AUTO) 50.3 % (42-75); PLATELET COUNT 419 X10'3 (140-440); RED BLOOD COUNT 4.27 X10'6 (4.20-5.60); RED CELL DISTRIBUTION WIDTH 14.2 % (11.5-14.5); WHITE BLOOD COUNT 12.3 X10'3 (4.5-11.0)
[2023-06-17 23:17] LABS: HCG SERUM QL NEGATIVE
[2023-06-17 23:18] LABS: BILIRUBIN,URINE NEGATIVE (Neg); CLARITY,URINE CLEAR (Clear); COLOR,URINE YELLOW (Yellow); GLUCOSE, URINE NEGATIVE (Neg); KETONES,URINE NEGATIVE (Neg); LEUKOCYTE ESTERASE ,URINE NEGATIVE (Neg); NITRITES, URINE NEGATIVE (Neg); OCCULT BLOOD,URINE NEGATIVE (Neg); PROTEIN,URINE NEGATIVE (Neg); UROBILINOGEN,URINE 0.2 E.U/dL (0.2-1.0)
[2023-06-17 23:20] LABS: ALANINE AMINOTRANSFERASE 39 U/L (12-78); ALBUMIN 3.6 G/DL (3.4-5.0); ALBUMIN/GLOBULIN RATIO 0.9 (1.1-1.5); ALKALINE PHOSPHATASE 58 IU/L (46-116); ANION GAP 6 (8-16); ASPARTATE AMINO TRANSFERASE 25 U/L (10-37); BILIRUBIN,TOTAL 0.3 MG/DL (0.1-1.0); BLOOD UREA NITROGEN 16 MG/DL (7-18); BUN/CREATININE RATIO 16.2 (10.0-20.0); CALCIUM 8.2 MG/DL (8.5-10.1); CHLORIDE 104 MMOL/L (99-107); CREATININE 0.99 MG/DL (0.40-0.90); GLUCOSE 101 MG/DL (70-104); LIPASE 33 U/L (16-77); POTASSIUM 3.9 MMOL/L (3.5-5.1); SODIUM 139 MMOL/L (135-145); TOTAL CARBON DIOXIDE 29.2 MMOL/L (24-32); TOTAL PROTEIN 7.6 G/DL (6.4-8.2); eCRCL 57 ML/MIN; eGFR 61 ML/MIN
[2023-06-17 23:23] LABS: UA COLLECTION TYPE CLN CATCH MIDSTREAM
[2023-06-18] MEDS ORDERED: PRED20TA PO (00:14)
[2023-06-18] MEDS: LIDOcaine Viscous 15ml cup MM PRN (00:15)
[2023-06-18 00:19] VITALS: RESP 16
== END 2023-06-18 00:20 | disposition home or self-care (01) ==
LOC: ER 22:20
DX: R10.13 Epigastric pain (principal); J06.9 Acute upper respiratory infection, unspecified; E78.00 Pure hypercholesterolemia, unspecified; K21.9 Gastro-esophageal reflux disease without esophagitis; E03.9 Hypothyroidism, unspecified; E11.9 Type 2 diabetes mellitus without complications; Z88.5 Allergy status to narcotic agent; Z88.2 Allergy status to sulfonamides; Z79.899 Other long term (current) drug therapy
CPT/HCPCS: 36415; 80053; 81003; 83690; 84703; 85025; 99283

== ENCOUNTER 2023-06-23 22:19 | Emergency (ER) | payer BC ==
[~2023-06-23] VITALS: Ht 157.5 cm; Wt 100.0 kg
[~2023-06-23 22:19] MED LIST changes: +PRED20TA PO
[2023-06-24] MEDS ORDERED: HYDR-3965 PO (00:09)
[2023-06-24] MEDS: ketorolac trometh inj. 60 MG/2 ML VIAL IM ONE (00:30)
[2023-06-24 00:32] VITALS: BP 138/78; PULSE 82; RESP 17; TEMP 98; O2SAT 98
== END 2023-06-24 00:35 | disposition home or self-care (01) ==
LOC: ER 22:20
DX: R07.89 Other chest pain (principal); E78.00 Pure hypercholesterolemia, unspecified; K21.9 Gastro-esophageal reflux disease without esophagitis; E11.9 Type 2 diabetes mellitus without complications; Z88.5 Allergy status to narcotic agent; Z88.2 Allergy status to sulfonamides; Z79.2 Long term (current) use of antibiotics; Z79.1 Long term (current) use of non-steroidal anti-inflammatories (NSAID); Z79.899 Other long term (current) drug therapy
CPT/HCPCS: 71101; 96372; 99283; J1885

== ENCOUNTER 2023-10-11 15:30 | Emergency (ER) | payer BC ==
[~2023-10-11] VITALS: Ht 157.5 cm; Wt 110.7 kg
[~2023-10-11 15:30] MED LIST changes: -PRED20TA PO
[2023-10-11 15:37] VITALS: TEMP 99.3
[2023-10-11 16:01] LABS: URINE HCG NEGATIVE (NEG)
[2023-10-11 16:02] LABS: BILIRUBIN,URINE NEGATIVE (Neg); CLARITY,URINE SLIGHTLY CLOUDY (Clear); COLOR,URINE YELLOW (Yellow); GLUCOSE, URINE NEGATIVE (Neg); KETONES,URINE NEGATIVE (Neg); LEUKOCYTE ESTERASE ,URINE NEGATIVE (Neg); NITRITES, URINE NEGATIVE (Neg); OCCULT BLOOD,URINE NEGATIVE (Neg); PROTEIN,URINE NEGATIVE (Neg); UROBILINOGEN,URINE 0.2 E.U/dL (0.2-1.0)
[2023-10-11 16:13] LABS: UA COLLECTION TYPE CLN CATCH MIDSTREAM
[2023-10-11 16:14] LABS: SQUAMOUS EPITHELIAL CELL,UR MODERATE /LPF (FEW)
[2023-10-11 16:15] LABS: BACTERIA,URINE FEW /HPF (Neg); RBC,URINE 0-2 /HPF (0-2); WBC,URINE 0-4 /HPF (0-4)
[2023-10-11 16:16] LABS: AMORPHOUS PHOSPHATES 1+
[2023-10-11] MEDS: mag hydrox/Alum hydrox/simeth 30ml oral suspension PO ONE (17:23)
[2023-10-11] MEDS: LIDOcaine 2% Viscous 15ml cup MM PRN (17:23)
[2023-10-11] MEDS: dicyclomine 10 MG capsule PO ONE (17:25)
[2023-10-11 17:32] LABS: BASOPHILS # (AUTO) 0.1 X10'3 (0-0.2); BASOPHILS % (AUTO) 0.6 % (0-1); EOSINOPHILS # (AUTO) 0.4 X10'3 (0-0.9); EOSINOPHILS % (AUTO) 4.5 % (0-6); HEMATOCRIT 36.5 % (35.0-45.0); HEMOGLOBIN 12.4 g/dl (12.0-16.0); LYMPHOCYTES # (AUTO) 2.3 X10'3 (1.1-4.8); LYMPHOCYTES % (AUTO) 22.6 % (21-51); MEAN CORPUSCULAR HEMOGLOBIN 31.2 PG (27.0-31.0); MEAN CORPUSCULAR HGB CONC 33.9 g/dL (33.0-36.5); MEAN CORPUSCULAR VOLUME 92.3 FL (78-98); MONOCYTES # (AUTO) 0.8 X10'3 (0-0.9); MONOCYTES % (AUTO) 7.6 % (2-12); NEUTROPHILS # (AUTO) 6.4 X10'3 (1.8-7.7); NEUTROPHILS % (AUTO) 64.7 % (42-75); PLATELET COUNT 397 X10'3 (140-440); RED BLOOD COUNT 3.96 X10'6 (4.20-5.60); RED CELL DISTRIBUTION WIDTH 14.1 % (11.5-14.5); WHITE BLOOD COUNT 9.9 X10'3 (4.5-11.0)
[2023-10-11 17:44] LABS: APTT 26 SECONDS (22-32); INR 0.9 INR; PROTHROMBIN TIME 10.2 SECONDS (9.0-12.0)
[2023-10-11 17:48] LABS: ALANINE AMINOTRANSFERASE 63 U/L (12-78); ALBUMIN 3.3 G/DL (3.4-5.0); ALBUMIN/GLOBULIN RATIO 0.8 (1.1-1.5); ALKALINE PHOSPHATASE 63 IU/L (46-116); ANION GAP 10 (8-16); ASPARTATE AMINO TRANSFERASE 38 U/L (10-37); BILIRUBIN,TOTAL 0.3 MG/DL (0.1-1.0); BLOOD UREA NITROGEN 9 MG/DL (7-18); BUN/CREATININE RATIO 10.6 (10.0-20.0); CALCIUM 8.4 MG/DL (8.5-10.1); CHLORIDE 100 MMOL/L (99-107); CREATININE 0.85 MG/DL (0.40-0.90); GLUCOSE 122 MG/DL (70-104); POTASSIUM 4.1 MMOL/L (3.5-5.1); SODIUM 135 MMOL/L (135-145); TOTAL CARBON DIOXIDE 25.3 MMOL/L (24-32); TOTAL PROTEIN 7.3 G/DL (6.4-8.2); eCRCL 66 ML/MIN; eGFR 72 ML/MIN
[2023-10-11 17:53] LABS: LIPASE 22 U/L (16-77); PRO BRAIN NATRIURETIC PEPTIDE 56 PG/ML (0-125)
[2023-10-11 18:06] LABS: HCG SERUM QL NEGATIVE
[2023-10-11 20:10] VITALS: BP 149/96; PULSE 94; RESP 14; O2SAT 94
== END 2023-10-11 20:33 | disposition home or self-care (01) ==
LOC: ER 15:31
DX: K21.9 Gastro-esophageal reflux disease without esophagitis (principal); R60.0 Localized edema; E78.00 Pure hypercholesterolemia, unspecified; E11.9 Type 2 diabetes mellitus without complications; Z90.49 Acquired absence of other specified parts of digestive tract; Z88.2 Allergy status to sulfonamides; Z88.8 Allergy status to other drugs, medicaments and biological substances; Z79.899 Other long term (current) drug therapy; Z79.84 Long term (current) use of oral hypoglycemic drugs
CPT/HCPCS: 36415; 71045; 80053; 81001; 81025; 83690; 83880; 84484; 84703; 85025; 85610; 85730; 93005; 93970; 99285

== ENCOUNTER 2024-02-08 08:57 | Emergency (ER) | payer BC ==
[~2024-02-08] VITALS: Ht 157.5 cm; Wt 105.9 kg
[2024-02-08] MEDS: ketorolac trometh 15mg/ml vial 15 MG/ML ML IM ONE (11:08)
[2024-02-08] MEDS: diphenhydrAMINE 25mg capsule PO ONE (11:08)
[2024-02-08] MEDS: HYDROcodone/acetaminophen 5mg/325mg tablet PO ONE (11:09)
[2024-02-08] MEDS: metoclopramide 10mg tablet PO ONE (11:09)
[2024-02-08] MEDS ORDERED: FIOCOC PO (11:26)
[2024-02-08 11:42] VITALS: BP 128/78; PULSE 70; RESP 18; TEMP 98.1; O2SAT 99
== END 2024-02-08 11:44 | disposition home or self-care (01) ==
LOC: ER 08:59
DX: G43.909 Migraine, unspecified, not intractable, without status migrainosus (principal); E78.00 Pure hypercholesterolemia, unspecified; K21.9 Gastro-esophageal reflux disease without esophagitis; E11.9 Type 2 diabetes mellitus without complications; E03.9 Hypothyroidism, unspecified; Z87.442 Personal history of urinary calculi; Z98.890 Other specified postprocedural states; Z90.49 Acquired absence of other specified parts of digestive tract; Z79.899 Other long term (current) drug therapy; Z88.6 Allergy status to analgesic agent; Z88.2 Allergy status to sulfonamides; Z88.8 Allergy status to other drugs, medicaments and biological substances; Z88.1 Allergy status to other antibiotic agents
CPT/HCPCS: 96372; 99284; J1885; Q0163

== ENCOUNTER 2024-02-17 12:33 | Emergency (ER) | payer BC ==
[~2024-02-17] VITALS: Ht 157.5 cm; Wt 100.0 kg
[~2024-02-17 12:33] MED LIST changes: +FIOCOC PO
[2024-02-17 12:36] VITALS: TEMP 97.5
[2024-02-17] MEDS: diphenhydrAMINE 50 mg/ml inj IM ONE (15:18)
[2024-02-17] MEDS: acetaminophen 325mg tablet PO ONE (15:19)
[2024-02-17] MEDS: ketorolac trometh 15mg/ml vial 15 MG/ML ML IM ONE (15:19)
[2024-02-17] MEDS ORDERED: CYCL-1 PO (15:44)
[2024-02-17] MEDS ORDERED: IBUP-1984 PO (15:44)
[2024-02-17 16:01] VITALS: BP 135/83; PULSE 84; RESP 16; O2SAT 93
== END 2024-02-17 16:07 | disposition home or self-care (01) ==
LOC: ER 12:33
DX: R51.9 Headache, unspecified (principal); E78.00 Pure hypercholesterolemia, unspecified; E11.9 Type 2 diabetes mellitus without complications; G89.29 Other chronic pain; K21.9 Gastro-esophageal reflux disease without esophagitis; E07.9 Disorder of thyroid, unspecified; F17.210 Nicotine dependence, cigarettes, uncomplicated; Z88.2 Allergy status to sulfonamides; Z88.8 Allergy status to other drugs, medicaments and biological substances; Z79.1 Long term (current) use of non-steroidal anti-inflammatories (NSAID); Z79.899 Other long term (current) drug therapy; Z88.5 Allergy status to narcotic agent; Z90.49 Acquired absence of other specified parts of digestive tract
CPT/HCPCS: 70450; 96372; 99285; J1200; J1885

== ENCOUNTER 2024-06-27 11:09 | Emergency (ER) | payer BC ==
[~2024-06-27] VITALS: Ht 157.5 cm; Wt 98.2 kg
[2024-06-27 11:35] VITALS: BP 136/83; PULSE 100; RESP 18; TEMP 97.6; O2SAT 98
== END 2024-06-27 13:48 | disposition left against medical advice (07) ==
LOC: ER 11:10
DX: R61 Generalized hyperhidrosis (principal); Z88.2 Allergy status to sulfonamides; Z88.5 Allergy status to narcotic agent; Z53.21 Procedure and treatment not carried out due to patient leaving prior to being seen by health care provider

== ENCOUNTER 2024-09-18 20:58 | Inpatient (IN) | payer BC ==
[~2024-09-18] VITALS: Ht 157.5 cm; Wt 96.2 kg
[2024-09-18 21:22] LABS: BASOPHILS % (AUTO) 0.5 % (0-1); EOSINOPHILS # (AUTO) 0.1 X10'3 (0-0.9); EOSINOPHILS % (AUTO) 1.5 % (0-6); HEMATOCRIT 43.6 % (35.0-45.0); HEMOGLOBIN 15.3 g/dl (12.0-16.0); LYMPHOCYTES # (AUTO) 0.7 X10'3 (1.1-4.8); LYMPHOCYTES % (AUTO) 10.4 % (21-51); MEAN CORPUSCULAR HEMOGLOBIN 30.7 PG (27.0-31.0); MEAN CORPUSCULAR HGB CONC 35.1 g/dL (33.0-36.5); MEAN CORPUSCULAR VOLUME 87.4 FL (78-98); MEAN PLATELET VOLUME 7.9 FL (7.4-10.4); MONOCYTES # (AUTO) 0.9 X10'3 (0-0.9); MONOCYTES % (AUTO) 12.6 % (2-12); NEUTROPHILS # (AUTO) 5.3 X10'3 (1.8-7.7); PLATELET COUNT 553 X10'3 (140-440); RED BLOOD COUNT 4.98 X10'6 (4.20-5.60); RED CELL DISTRIBUTION WIDTH 13.9 % (11.5-14.5)
[2024-09-18 21:37] LABS: ALANINE AMINOTRANSFERASE 81 U/L (12-78); ALBUMIN 3.4 G/DL (3.4-5.0); ALBUMIN/GLOBULIN RATIO 0.8 (1.1-1.5); ALKALINE PHOSPHATASE 57 IU/L (46-116); ANION GAP 8 (8-16); ASPARTATE AMINO TRANSFERASE 40 U/L (10-37); BILIRUBIN,TOTAL 1.3 MG/DL (0.1-1.0); BLOOD UREA NITROGEN 25 MG/DL (7-18); BUN/CREATININE RATIO 23.6 (10.0-20.0); CALCIUM 8.8 MG/DL (8.5-10.1); CHLORIDE 90 MMOL/L (99-107); CREATININE 1.06 MG/DL (0.40-0.90); GLUCOSE 140 MG/DL (70-104); LIPASE 12 U/L (16-77); POTASSIUM 3.8 MMOL/L (3.5-5.1); SODIUM 129 MMOL/L (135-145); TOTAL PROTEIN 7.7 G/DL (6.4-8.2); eCRCL 52 ML/MIN; eGFR 56 ML/MIN
[2024-09-18 22:54] LABS: URINE HCG NEGATIVE (NEG)
[2024-09-18 22:57] LABS: BILIRUBIN,URINE SMALL (Neg); CLARITY,URINE CLEAR (Clear); COLOR,URINE YELLOW (Yellow); GLUCOSE, URINE 100 mg/dl (Neg); KETONES,URINE NEGATIVE (Neg); LEUKOCYTE ESTERASE ,URINE NEGATIVE (Neg); NITRITES, URINE NEGATIVE (Neg); OCCULT BLOOD,URINE NEGATIVE (Neg); PH,URINE 5.5 (4.8-8.0); PROTEIN,URINE TRACE mg/dl (Neg)
[2024-09-18 23:02] LABS: UA COLLECTION TYPE CLN CATCH MIDSTREAM
[2024-09-18 23:08] LABS: BACTERIA,URINE 1+ /HPF (Neg); SQUAMOUS EPITHELIAL CELL,UR FEW /LPF (FEW); WBC CLUMPS,URINE FEW /HPF (NEGATIVE)
[2024-09-18 23:09] LABS: WBC CASTS 0-3 /LPF (NEGATIVE)
[2024-09-18] MEDS: fentaNYL/PF 50MCG/1 ML 2ML syringe IV ONE (23:25)
[2024-09-19] VITALS (22 sets, daily range): BP systolic 104–147; BP diastolic 55–88; PULSE 84–105; RESP 14–18; TEMP 96.5–98.6; O2SAT 92–99
--- NOTE | 2024-09-19 01:52 | Physician Documentation ---
History of Present Illness ~ Chief Complaint: Abdominal Pain w/vomiting Stated Complaint: ABD PAIN Time Seen by MD: 01:49 Primary Medical Doctor: DONIS Mode of Arrival: EMS HPI Patient presents to the emergency room for evaluation of abdominal pain and vomiting. Patient had recent hysterectomy that has laparoscopic in reports that they removed everything out of the vagina. No fevers. Not passing gas. She had her surgery performed in [facility] in [place] by Dr. Gold Medication Reconciliation Allergies: Coded Allergies: morphine (Verified Allergy, Mild, itchy, 09/18/24) Sulfa (Sulfonamide Antibiotics) (Verified Allergy, Unknown, 09/18/24) latex (Verified Allergy, Unknown, 09/18/24) Scheduled Acetaminophen with Codeine (Tylenol with Codeine #3 Tablet), 1 TAB PO Q4HPRN Benzonatate* (Tessalon Perles*), 1 TAB-CAP PO TID Bisacodyl (Dulcolax), 4 TAB PO ONCE Ciprofloxacin HCl/Dexameth (Ciprodex Otic Suspension), 2 DROP EACH EAR TID Codeine/Butalbit/Acetamin/Caff (Dnjvvo-Lnbm-Wqbavqbrvch-Codein), 1 CAP PO Q12H Cranberry Extract (Cranberry), 1 CAP PO DAILY, (Reported) Cyclobenzaprine* (Cyclobenzaprine*), 1 TAB PO Q8H Cyclobenzaprine* (Cyclobenzaprine*), 1 TAB PO HS Cyclobenzaprine* (Cyclobenzaprine*), 1 TAB PO HS Famotidine (Pepcid), 1 TAB PO DAILY Fenofibrate Nanocrystallized* (Tricor*), 134 MG PO DAILY, (Reported) Fluticasone Propionate (Flonase), 2 SPRAYS BOTHNARES DAILY Guaifenesin (Guaifenesin), 1 TAB PO Q8H Metformin Hcl* (Glucophage*), 1 TAB PO BIDAC, (Reported) Methylprednisolone (Medrol Dosepak), 0 PO UD Ondansetron Hcl (Zofran), 1 TAB PO Q6H Ondansetron Hcl (Zofran), 1 TAB PO Q8H Ondansetron Hcl (Zofran), 1 TAB PO Q6H Sucralfate (Carafate), 1 TAB PO Q6H Scheduled PRN Albuterol Sulfate (Proair Hfa), 2 PUFFS IH Q6H PRN for SOB or wheezing Albuterol Sulfate (Ventolin Hfa), 2 PUFFS INH Q4HPRN PRN for wheezing Cyclobenzaprine* (Cyclobenzaprine*), 1 TAB PO TID PRN for muscle spasms Dicyclomine Hcl* (Bentyl*), 1 CAP PO PRN PRN for IBS, (Reported) Past Medical History Past Medical History: High Cholesterol, GERD, Inflammatory Bowel Dz, Peptic Ulcer Disease, UTI, Diabetes, Thyroid (unspecified) Past Surgical History: abdominal surgery, cholecystectomy, other Smoking Status: Never smoker Alcohol Use: None Drug Use: none Lives with: Family Lives In: Home Occupation: employed Review of Systems ROS All review of systems negative except as per HPI Physical Exam Vital Signs: Temperature: 98.7, Source: Temporal, Heart Rate: 100, Respiratory Rate: 16, BP: 121/61, Pulse Oximetry: 95, Weight: 96.250 Oxygen Flow Rate: 0 Physical Exam General: Patient is awake, alert, oriented x4 in no acute distress, actively vomiting Head: Normocephalic and atraumatic. Eyes: Conjunctival normal. EOMI. PERRL. ENT: Mucous membranes moist. Neck: Supple, trachea is midline. Chest: Clear to auscultation bilaterally without rales, rhonchi, or wheezes. There is no accessory muscle use or retractions. Cardiac: Tachycardic and regular without murmurs, gallops, or rubs. Abd: Soft, nondistended, diffuse abdominal tenderness to palpation without peritonitis Progress Results/Orders Results/Orders Orders - BRIAN MUNOZ MD Cult Urine + [place] Ct (09/18/24 23:09) Ct Abdomen Pelvis (09/19/24 02:26) Nasal Gastric Tube (09/19/24 03:14) Completed Orders - BRIAN MUNOZ MD Hcg, Ur Ql (09/18/24 21:08) Cbc/Diff (09/18/24 21:08) BMP (09/18/24 21:08) Lipase (09/18/24 21:08) CMP (09/18/24 21:08) Ua W/Microscopic, Cult If Ind (09/18/24 22:35) Fentanyl/Pf (Fentanyl 0.05 Mg/Ml Syringe (09/18/24 23:20) Fentanyl/Pf (Fentanyl 0.05 Mg/Ml Syringe (09/19/24 01:50) Prochlorperazine Inj (Compazine Inj) (09/19/24 01:55) Diphenhydramine Inj (Benadryl Inj.) (09/19/24 01:55) Ct Abdomen Pelvis (09/19/24 02:26) Normal Saline 1000ml (Sodium Chloride 10 (09/19/24 02:00) Iohexol 300mg/Ml 100ml Inj. (Omnipaque-3 (09/19/24 02:00) LA (09/19/24 03:10) Fentanyl/Pf (Fentanyl 0.05 Mg/Ml Syringe (09/19/24 03:15) Ceftriaxone/C5x-Qbuclfna 1gm (Rocephin 1 (09/19/24 03:45) Medications Received in ER Medications (Trade) Dose Ordered Sig/Aaron Route PRN Reason Start Time Stop Time Status Last Admin Dose Admin (fentaNYL 0.05 MG/ML syringe) 50 mcg ONCE ONCE IV 09/18/24 23:20 09/18/24 23:21 DC 09/18/24 23:25 50 MCG (fentaNYL 0.05 MG/ML syringe) 50 mcg ONCE ONCE IV 09/19/24 01:50 09/19/24 02:09 DC 09/19/24 02:25 50 MCG (Compazine inj) 10 mg ONCE ONCE IV 09/19/24 01:55 09/19/24 01:56 DC 09/19/24 02:02 10 MG (Benadryl inj.) 25 mg ONCE ONCE IV 09/19/24 01:55 09/19/24 01:56 DC 09/19/24 02:02 25 MG (sodium chloride 1000ml IV soln) 2,000 ml ONCE ONCE IVB 09/19/24 02:00 09/19/24 02:01 DC 09/19/24 02:26 2,000 ML (fentaNYL 0.05 MG/ML syringe) 50 mcg ONCE ONCE IV 09/19/24 03:15 09/19/24 03:18 DC 09/19/24 04:47 50 MCG Ceftriaxone Sodium 50 ml @ 100 mls/hr ONCE ONCE IV 09/19/24 03:45 09/19/24 04:14 DC 09/19/24 04:55 100 MLS/HR Vital Signs 09/18/24 09/18/24 09/18/24 09/18/24 21:03 21:25 21:26 22:56 Temp 98.7 98.7 Pulse 100 100 104 Resp 16 16 16 18 B/P (MAP) 139/84 139/114 (122) 151/92 (111) Pulse Ox 95 95 95 O2 Flow Rate 0 0 09/19/24 09/19/24 09/19/24 09/19/24 00:04 01:34 02:29 05:18 Pulse 100 100 101 96 Resp 14 16 16 18 B/P (MAP) 127/83 (98) 121/61 (81) 144/87 (106) 122/66 (84) Pulse Ox 92 95 94 93 O2 Flow Rate 2.0 Laboratory Tests Test 09/18/24 21:15 09/18/24 22:35 09/19/24 00:42 White Blood Count 7.0 Red Blood Count 4.98 Hemoglobin 15.3 Hematocrit 43.6 Mean Corpuscular Volume 87.4 Mean Corpuscular Hemoglobin 30.7 Mean Corpuscular Hemoglobin Concent 35.1 Red Cell Distribution Width 13.9 Platelet Count 553 H Mean Platelet Volume 7.9 Neutrophils (%) (Auto) 75.0 Lymphocytes (%) (Auto) 10.4 L Monocytes (%) (Auto) 12.6 H Eosinophils (%) (Auto) 1.5 Basophils (%) (Auto) 0.5 Neutrophils # (Auto) 5.3 Lymphocytes # (Auto) 0.7 L Monocytes # (Auto) 0.9 Eosinophils # (Auto) 0.1 Basophils # (Auto) 0.0 CBC Comment Sodium Level 129 L Potassium Level 3.8 Chloride Level 90 L Carbon Dioxide Level 31.0 Anion Gap 8 Blood Urea Nitrogen 25 H Creatinine 1.06 H Estimated GFR/1.73 m2 56 BUN/Creatinine Ratio 23.6 H Glucose Level 140 H Calcium Level 8.8 Total Bilirubin 1.3 H Aspartate Amino Transf (AST/SGOT) 40 H Alanine Aminotransferase (ALT/SGPT) 81 H Alkaline Phosphatase 57 Total Protein 7.7 Albumin 3.4 Globulin 4.3 Albumin/Globulin Ratio 0.8 L Lipase 12 L Chemistry Comments Urine Specimen Description Cln catch midstream Urine Color Yellow Urine Clarity Clear Urine pH 5.5 Urine Specific [place] 1.025 Urine Protein Trace Urine Glucose (UA) 100 H Urine Ketones Negative Urine Occult Blood Negative Urine Nitrite Negative Urine Bilirubin Small Urine Urobilinogen 1.0 Urine Leukocyte Esterase Negative Urine RBC 3-10 Urine WBC 10-20 H Urine WBC Clumps Few Urine Squamous Epithelial Cells Few Urine Bacteria 1+ Urine White Blood Cell Casts 0-3 Urine Culture Indicated Indicated Volume Urine Centrifuged 10 ml Urine HCG, Qualitative Negative Urine Comment Lactic Acid Level 1.2 Microbiology Date/Time Source Procedure Growth Status 09/18/24 23:09 Urine Clean Catch Midstream Urine Culture - Preliminary Culture received. Resulted Medical Decision Making Findings Patient presented to the emergency room with abdominal pain and vomiting status post hysterectomy. Differentials include but are not limited to intra-abdominal infection, small-bowel obstruction, pancreatitis, gastritis, adverse medication reaction, dehydration therefore emergent labs and imaging indicated. CT scan shows small bowel obstruction affiliated with periumbilical hernia. NG tube place along with IV fluids initiated. I have personally spoken with Dr. Foley he will be seeing patient today as she will need surgical intervention. Patient also noted to have a urinary tract infection antibiotics initiated. Departure Impression: Primary Impression: Small bowel obstruction Additional Impressions: Urinary tract infection Hernia Referrals: NO PRIMARY CARE PROVIDER (PCP) Critical Care Note Total Time (mins): 54 Critical Care Note The very real possibility of a deterioration of this patient's condition required the highest level of my preparedness for sudden, emergent intervention. I provided critical care services, which included medication orders, frequent reevaluations of the patient's condition and response to treatment, ordering and reviewing test results, and discussing the case with various consultants. Excludes time spent performing separately billable procedures. The critical care time associated with the care of the patient was 54 minutes not counting procedures Signature Scribe Signature: No scribe Attestation: The note accurately reflects work and decisions made by me.Brian Munoz MD 09/19/24 05:54 BRIAN MUNOZ MD September 19, 2024 01:52
[2024-09-19] MEDS ORDERED: iohexol 300mg/ml 100ml inj. ONE (02:00)
[2024-09-19] MEDS: diphenhydrAMINE 50 mg/ml inj IV ONE (02:02)
[2024-09-19] MEDS: proCHLORperazine 10 MG/2 ml inj IV ONE (02:02)
[2024-09-19] MEDS: fentaNYL/PF 50MCG/1 ML 2ML syringe IV ONE ×2 (02:25→04:47)
[2024-09-19] MEDS: normal saline 1000ML IV soln IVB ONE (02:26)
--- NOTE | 2024-09-19 03:00 | RADIOLOGY REPORT ---
Exam: CT CT ABDOMEN PELVIS W/ IV CONTRAST History: abd pain, rescent hysterectomy Comparison Study: CT CHEST ABDOMEN PELVIS on DOS: 02/01/21, CT ABDOMEN PELVIS on DOS: 02/08/19 TECHNIQUE: A digital supervisor pairing and inspecting image was obtained. During the uneventful, intravenous administration of 1 00 cc contrast material, multislice data acquisition was obtained through the abdomen and pelvis. The data set was subsequently reconstructed into axial images. Images were reviewed on a work station us ing a combination of axial and multiplanar using a variety of window levels and settings. All CT scans at this medical facility are performed using dose modulation techniques as appropriate t o a performed exam including the following: Automated exposure control was utilized; adjustment of th e MA and/or KV according to patient size; and use of iterative reconstruction technique. Radiation Dose Information: CT Dose: CTDI volume is 34.4 mGy. Dose-length product is 1790.8 mGy*cm FINDINGS: Imaged portions of the lung bases appear unremarkable. There is hepatic steatosis along the falciform ligament. Previous cholecystectomy without intra or extrahepatic biliary dilatation. Spleen, pancrea s and adrenal glands appear unremarkable. The kidneys enhance symmetrically without hydronephrosis o r focal lesion. Multiple dilated loops of small bowel measuring up to 4.3 cm. There is small bowel containing 6.4 x 3.3 cm ventral abdominal wall hernia just lateral to the umbilicus on the left resulting in small-bow el obstruction. No evidence of pneumatosis or perforation. The colon appears collapsed. No free flui d. No suspicious osseous lesion. IMPRESSION: 1. 6.4 x 3.3 cm obstructing small bowel containing ventral abdominal wall hernia just left lateral to the umbilicus 2. Mild hepatic steatosis.
[2024-09-19] MEDS: CefTRIAXone/D5W-Rocephin 1gm 50 ML IV ONE (04:55)
[2024-09-19] MEDS ORDERED: hydrALAZINE 20mg/ml inj. IV PRN (06:25)
[2024-09-19] MEDS ORDERED: labetalol 20mg/4ml (5mg/ml) syringe IV PRN (06:25)
[2024-09-19] MEDS ORDERED: ondansetron/PF 4mg/2ml inj IV PRN ×2 (06:25→08:35)
[2024-09-19] MEDS ORDERED: HYDROmorphone/PF 0.2 MG/ML SYRINGE IV PRN ×2 (06:25)
[2024-09-19] MEDS: ringers solution, lacted 1,000 ML IV SCH ×2 (06:25→10:39)
[2024-09-19] MEDS ORDERED: BUPIVAcaine 2.5mg/ml inj 50ml vial (contains preservative) ONE (06:33)
[2024-09-19] MEDS ORDERED: BUPIVACAINE liposomal/PF 13.3 MG/ML 10mL vial IM ONE (06:33)
[2024-09-19] MEDS ORDERED: LIDOcaine 1% 30ml preserv. free vial ONE (06:33)
[2024-09-19] MEDS: ceFAZolin 2gm in dextrose, iso 50 ML IV ONE (06:55)
[2024-09-19] MEDS ORDERED: fentaNYL /PF 50mcg/ml 5ml ampule ONE (06:57)
[2024-09-19] MEDS ORDERED: MIDAZolam 1 MG/ML 5ML VIAL ONE (06:57)
[2024-09-19] MEDS ORDERED: succinylcholine 20mg/ml inj IV ONE (06:58)
[2024-09-19] MEDS ORDERED: rocuronium 10mg/ml inj IV ONE (06:58)
[2024-09-19] MEDS ORDERED: propofol inj 20 ML IV ONE (06:59)
[2024-09-19] MEDS ORDERED: dexamethasone sod phosphate 4mg/ml inj. ONE (06:59)
[2024-09-19] MEDS ORDERED: LIDOcaine 2% (20mg/ml) 5ml vial ONE (06:59)
[2024-09-19] MEDS ORDERED: sevoflurane 250ml liquid IH ONE (07:00)
--- NOTE | 2024-09-19 07:10 | HISTORY AND PHYSICAL ---
History & Physical Providers to CC CC: SHELDON MANSFIELD MD ~ History of Present Illness Reason for Admit\Complaint: Incarcerated incisional hernia with bowel obstruction History of Present Illness 44-year-old woman presents to the emergency room. This is her 3rd reported returned to the emergency room since laparoscopic-assisted hysterectomy one week ago. Nausea, vomiting and food intolerance. Abdominal distention and periumbilical pain. CT scan today/this morning shows loop of small bowel herniated through a ventral defect near the umbilicus with resulting small bowel obstruction. Urgent surgical consultation Evaluating the patient, she has a nasogastric tube in place draining dark green thick fluid She is visibly uncomfortable but awake and alert No dyspnea Patient reports noted surgery one week ago today. Since two days after surgery she has had periumbilical worsening pain, nausea and vomiting. Abdominal distention. No fevers or chills No black or bloody stools No hematemesis I reviewed the CT scan that shows an infraumbilical fascial defect with loop of small intestine herniated through this area with resulting small bowel obstruction Allergies: Coded Allergies: morphine (Verified Allergy, Mild, itchy, 09/18/24) Sulfa (Sulfonamide Antibiotics) (Verified Allergy, Unknown, 09/18/24) latex (Verified Allergy, Unknown, 09/18/24) Home Medications Home Medications Active Cyclobenzaprine* (Cyclobenzaprine HCl) 10 Mg Tablet 1 Tab PO HS 30 Days Gvvlhb-Vlcp-Aygcklcgwpr-Codein (Acetam/Butalbital/Caffeine/Codeine) 50 Mg-325 Mg-40 Mg-30 Mg Capsule 1 Cap PO Q12H 30 Days FALL RISK Guaifenesin 400 Mg Tablet 1 Tab PO Q8H 5 Days Ventolin Hfa (Albuterol Sulfate) 90 Mcg Hfa.aer.ad 2 Puffs INH Q4HPRN PRN 30 Days Medrol Dosepak (Methylprednisolone) 4 Mg Tab.ds.pk 0 PO UD take 6 Pills Day 1, 5 Pills Day 2, 4 Pills Day 3, 3 Pills Day 4, 2 Pills Day 5 and 1 pill Day 6 Ciprodex Otic Suspension (Ciprofloxacin HCl/Dexameth) 7.5 Ml Drops.susp 2 Drop EACH EAR TID 7 Days Flonase (Fluticasone Propionate) 16 Gm [place].susp 2 Sprays BOTHNARES DAILY 30 Days Cyclobenzaprine* (Cyclobenzaprine HCl) 10 Mg Tablet 1 Tab PO TID PRN 5 Days Zofran (Ondansetron Hcl) 4 Mg Tablet 1 Tab PO Q6H 5 Days Cyclobenzaprine* (Cyclobenzaprine HCl) 10 Mg Tablet 1 Tab PO HS 30 Days Cyclobenzaprine* (Cyclobenzaprine HCl) 10 Mg Tablet 1 Tab PO Q8H 10 Days Zofran (Ondansetron Hcl) 8 Mg Tablet 1 Tab PO Q8H Dulcolax (Bisacodyl) 5 Mg Tablet.dr 4 Tab PO ONCE 1 Days Pepcid (Famotidine) 20 Mg Tablet 1 Tab PO DAILY Carafate (Sucralfate) 1 Gm Tablet 1 Tab PO Q6H 30 Days Zofran (Ondansetron Hcl) 4 Mg Tablet 1 Tab PO Q6H 5 Days Proair Hfa (Albuterol Sulfate) 1 Puff Inh 2 Puffs IH Q6H PRN Tessalon Perles* (Benzonatate) 100 Mg Capsule 1 Tab-Cap PO TID 20 Days Tylenol with Codeine #3 Tablet (Acetaminophen with Codeine) 1 Each Tablet 1 Tab PO Q4HPRN 5 Days 1 - 2 tabs po Q 4 - 6 hours PRN pain Reported Bentyl* (Dicyclomine HCl) 10 Mg Capsule 1 Cap PO PRN PRN Cranberry (Cranberry Extract) 500 Mg Capsule 1 Cap PO DAILY Tricor* (Fenofibrate) 48 Mg Tablet 134 Mg PO DAILY Glucophage* (Metformin HCl) 500 Mg Tablet 1 Tab PO BIDAC Past Medical History Past Medical History Hypercholesterolemia Gastroesophageal reflux disease Inflammatory bowel disease Gastroesophageal reflux disease Peptic ulcer disease Type 2 diabetes Hypothyroidism Past Surgical History Surgical History Comment Laparoscopic-assisted vaginal hysterectomy Laparoscopic cholecystectomy Past Social History Social History Comment Negative x3 Health Maintenance Health Maintenance Not applicable ROS ROS Reviewed and negative with the exception of those found in the history of present illness Exam Vitals: Vital Signs Date Time Temp Pulse Resp B/P (MAP) Pulse Ox O2 Delivery O2 Flow Rate FiO2 09/19/24 05:18 96 18 122/66 (84) 93 09/19/24 02:29 2.0 09/18/24 21:25 98.7 General: 44-year-old female She is overweight No acute distress Visibly uncomfortable HEENT: No scleral icterus or conjunctival injection Neck: Supple and nontender Chest: Lungs clear to auscultation bilaterally Cardiovascular: Regular rate and rhythm Abdomen: Abdomen softly distended There are surgical incisions, fresh, with Steri-Strips in place Periumbilical ecchymosis There is a supraumbilical incision Extremities: Well-perfused without edema Central Nervous System: Grossly intact Musculoskeletal: 5/5 strength in all four extremities Skin: Warm and dry Diagnostic Data Last Recorded Lab Results: [id number]/18/[id number] Counseling Services Smoking & Tobacco Cessation: N/A Advance Care Planning Advanced Care planning: N/A Problems: (1) Incarcerated incisional hernia (2) Small bowel obstruction Status: Acute Assessment & Plan: This appears to be related, despite her recent surgery, to a previous surgical scar just below the umbilicus. Likely from her previous cholecystectomy The risks, benefits, and alternatives to a robotic assisted, laparoscopic possible open incarcerated incisional hernia repair, possible laparotomy and bowel resection were discussed with the patient. Risks include, but are not limited to, bleeding, infection, injury to intra-abdominal structures, leakage from the intestine and the need for additional surgery. Patient verbalized understanding and wishes to proceed with surgery. We will do so urgently this morning. SHELDON MANSFIELD MD September 19, 2024 07:10
[2024-09-19] MEDS ORDERED: ceFAZolin 1000mg inj ONE ×2 (07:30)
[2024-09-19] MEDS ORDERED: sugammadex 200mg/2ml injection IV ONE (08:06)
[2024-09-19] MEDS: BUPIVAcaine/PF 2.5 mg/ml (0.25%) 30ml vial IJ ONE (08:30)
--- NOTE | 2024-09-19 08:30 | OPERATIVE REPORT ---
Operative Report Providers to CC CC: RD MANSFIELD MD ~ Date of Procedure: September 19, 2024 Pre-Operative Diagnosis: Incarcerated incisional hernia with sbo Post-Operative Diagnosis SAME as PRE-Op Procedure Performed Robotic assisted, laparoscopic repair of 4 cm incarcerated incisional hernia Bilateral transversus abdominis plane nerve blocks by injection using 266 mg of Exparel Surgeon: Rd Mansfield MD FACS Aircraft Engine Mechanic Supervisor None Anesthesiologist: Bobby Mauricio Type of Anesthesia: General Findings: Infraumbilical fascial defect with incarcerated loop of small intestine Viable small bowel Wound Class I Complications None Prosthetics\Implants used: None Estimated Blood Loss: Minimal Specimen Removed: Large hernia sac excised and discarded Description of Procedure: Patient was brought to the operating room and identified by the nursing staff and the attending physician. Patient was placed supine and a general anesthesia was induced. Preoperative antibiotics were given. The abdomen was prepped and draped in the standard sterile fashion. Through a left subcostal stab incision the abdomen was accessed with a Veress needle technique. Abdomen was insufflated without incident. The incision was lengthened to accommodate a 12 mm optical trocar and the abdomen was entered under laparoscopic visualization. The abdomen was surveyed laparoscopically. There was a loop of small bowel tented up and herniated through the fascial defect just below the level of the umbilicus. Multiple attempts at reducing this with external compr ession were unsuccessful consistent with incarcerated state. Under laparoscopic visualization, robotic trochars were placed in the left lateral and left lower quadrant. The da John robotic arm was docked to the patient and instruments guided intra-abdominally under laparoscopic visualization. Using an atraumatic grasper and gentle traction, I was not able to reduce the bowel, even with external compression. I was able to slide a robotic grasper along side the bowel, exposing the abdominal wall. The midline fascia was divided with monopolar michelle, expanding the fascial defect. With this expansion, I was able to successfully reduce the small bowel. There was slight evidence of some strangulation, however, the bowel appeared completely viable without any evidence of perforation. There was a fair amount of inflammatory fluid within the hernia sac. Peristalsis was noted through the reduced segment. Defect measured 4 cm in length. Fascial edges were freshened and the hernia sac was mobilized out of the hernia space, completely excised and set aside. No mesh was used. Fascial defect(s) were then reapproximated with running, nonabsorbable, 0V lock suture. Good fascial apposition was obtained without significant tension. The da John instruments were then removed and the robot undocked from the patient. Bilateral transversus abdominis plane nerve blocks by injection were then placed under laparoscopic visualization using a combination of Marcaine and 266 mg of Exparel. The left subcostal trocar was removed and its fascia closed percutaneously with 0 Vicryl suture under laparoscopic visualization. Remaining trochars were removed after the abdomen was allowed to deflate. Skin was closed at all sites with 4-0 Monocryl sutures and dressed with sterile dressings. Patient was awakened and taken to the postanesthesia care unit in stable condition. Counts repoted as correct: Yes RD MANSFIELD MD September 19, 2024 08:30
[2024-09-19] MEDS ORDERED: dextrose 50%-water 50ml dispensing syringe IV PRN ×4 (08:35→10:10)
[2024-09-19] MEDS ORDERED: naloxone 0.4 mg/ml inj IV PRN (08:35)
[2024-09-19] MEDS ORDERED: DEXTROSE 15 GM of carb/4 tabs (each vial/BOTTLE has 4 tablets) PO PRN ×4 (08:35→10:10)
[2024-09-19] MEDS ORDERED: glucagon, human recombinant 1mg kit SUBCUT PRN ×2 (08:35→10:10)
[2024-09-19] MEDS ORDERED: HYDROmorphone inj. 0.5 MG/0.5 ML DISP.SYRIN IV PRN (08:35)
[2024-09-19] MEDS: fentaNYL/PF 50MCG/1 ML 2ML syringe IV PRN ×2 (08:49→09:40)
[2024-09-19 09:33] LABS: HEMOGLOBIN A1C 5.7 % (4.5-6.2)
[2024-09-19] MEDS ORDERED: potassium Cl 40MEQ/1/2NS 520ml 520 ML IV PRN (10:10)
[2024-09-19] MEDS ORDERED: magnesium sulf-water 2g/50mL 50 ML IV PRN (10:10)
[2024-09-19] MEDS ORDERED: magnesium Cl slow-release 64mg tablet PO PRN ×2 (10:10)
[2024-09-19] MEDS ORDERED: magnesium sulf-water 4G/100mL 100 ML IV PRN ×2 (10:10)
[2024-09-19] MEDS ORDERED: potassium Cl 20 mEq SR tablet PO PRN (10:10)
--- NOTE | 2024-09-19 10:11 | CONSULTATION REPORT ---
Consult Providers to CC ~ History of Present Illness Reason for Admit\Complaint: ABDOMINAL PAIN History of Present Illness HISTORY OF PRESENT ILLNESS PATIENT IS A 44-YEAR-OLD FEMALE THAT HAD A LAPAROSCOPIC CHOLECYSTECTOMY DONE WITH DR. MANSFIELD IN 2017. PATIENT RETURNS WITH ABDOMINAL PAIN DISCOMFORT NOTED TO HAVE AN INCARCERATED INCISIONAL HERNIA DR. MANSFIELD TOOK HER TO THE OR FOR REPAIR OF HERNIA. PATIENT POSTOP HAS AN NG-TUBE IN PLACE SHE STATES THE PAIN IS BEARABLE THE COMES AND GOES. PAIN MEDICATIONS ARE HELPING. HAD SOME NAUSEA EARLY HERE AREA WHICH IS NOW SETTLED. SHE DENIES ANY OTHER ASSOCIATED SYMPTOMS. SHE DENIES ANY FLATULENCE OR BOWEL MOVEMENT YET. SHE DOES NOT REMEMBER WHEN HER LAST BOWEL MOVEMENT WAS. Allergies: Coded Allergies: morphine (Verified Allergy, Mild, itchy, 09/18/24) Sulfa (Sulfonamide Antibiotics) (Verified Allergy, Unknown, 09/18/24) latex (Verified Allergy, Unknown, 09/18/24) Home Medications Home Medications Active Cyclobenzaprine* (Cyclobenzaprine HCl) 10 Mg Tablet 1 Tab PO HS 30 Days Cxyzos-Gugo-Ehmelsppwxv-Codein (Acetam/Butalbital/Caffeine/Codeine) 50 Mg-325 Mg-40 Mg-30 Mg Capsule 1 Cap PO Q12H 30 Days FALL RISK Guaifenesin 400 Mg Tablet 1 Tab PO Q8H 5 Days Ventolin Hfa (Albuterol Sulfate) 90 Mcg Hfa.aer.ad 2 Puffs INH Q4HPRN PRN 30 Days Medrol Dosepak (Methylprednisolone) 4 Mg Tab.ds.pk 0 PO UD take 6 Pills Day 1, 5 Pills Day 2, 4 Pills Day 3, 3 Pills Day 4, 2 Pills Day 5 and 1 pill Day 6 Ciprodex Otic Suspension (Ciprofloxacin HCl/Dexameth) 7.5 Ml Drops.susp 2 Drop EACH EAR TID 7 Days Flonase (Fluticasone Propionate) 16 Gm Poneto.susp 2 Sprays BOTHNARES DAILY 30 Days Cyclobenzaprine* (Cyclobenzaprine HCl) 10 Mg Tablet 1 Tab PO TID PRN 5 Days Zofran (Ondansetron Hcl) 4 Mg Tablet 1 Tab PO Q6H 5 Days Cyclobenzaprine* (Cyclobenzaprine HCl) 10 Mg Tablet 1 Tab PO HS 30 Days Cyclobenzaprine* (Cyclobenzaprine HCl) 10 Mg Tablet 1 Tab PO Q8H 10 Days Zofran (Ondansetron Hcl) 8 Mg Tablet 1 Tab PO Q8H Dulcolax (Bisacodyl) 5 Mg Tablet.dr 4 Tab PO ONCE 1 Days Pepcid (Famotidine) 20 Mg Tablet 1 Tab PO DAILY Carafate (Sucralfate) 1 Gm Tablet 1 Tab PO Q6H 30 Days Zofran (Ondansetron Hcl) 4 Mg Tablet 1 Tab PO Q6H 5 Days Proair Hfa (Albuterol Sulfate) 1 Puff Inh 2 Puffs IH Q6H PRN Tessalon Perles* (Benzonatate) 100 Mg Capsule 1 Tab-Cap PO TID 20 Days Tylenol with Codeine #3 Tablet (Acetaminophen with Codeine) 1 Each Tablet 1 Tab PO Q4HPRN 5 Days 1 - 2 tabs po Q 4 - 6 hours PRN pain Reported Bentyl* (Dicyclomine HCl) 10 Mg Capsule 1 Cap PO PRN PRN Cranberry (Cranberry Extract) 500 Mg Capsule 1 Cap PO DAILY Tricor* (Fenofibrate) 48 Mg Tablet 134 Mg PO DAILY Glucophage* (Metformin HCl) 500 Mg Tablet 1 Tab PO BIDAC Past Medical History Past Medical History PAST MEDICAL HISTORY SIGNIFICANT FOR PREDIABETES MORBID OBESITY HYPERTENSION PAST SURGICAL HISTORY SHE HAS HAD C-SPINE TO DISC SURGERY TOTAL HYSTERECTOMY A CHOLECYSTOSTOMY LAPAROSCOPICALLY IN [address] MANSFIELD AND HER MOST RECENT TODAY INCARCERATED INCISIONAL HERNIA REPAIR SOCIAL HISTORY QUIT SMOKING THREE YEARS AGO DENIES ANY RECENT ETOH ABUSE HAS A 4-YEAR-OLD CHILD AT HOME SHE IS TRYING TO MAKE A GOOD EXAMPLE FOR DENIES ANY HISTORY OF DRUG ABUSE HAS A BOYFRIEND THAT SHE LIVES WITH. FAMILY HISTORY-BOTH PARENTS HAVE HYPERTENSION AND FATHER ALSO HAS HYPER CHOLESTEROLEMIA SHE THINKS SHE HAS SOME CANCER IN THE FAMILY BUT SHE DOES NOT KNOW WHO HAS WHAT. REVIEW OF SYSTEMS IS NEGATIVE FOR ALL 10 SYSTEMS REVIEWED EXCEPT FOR HISTORY OF PRESENT ILLNESS. Exam Vitals: Vital Signs Date Time Temp Pulse Resp B/P (MAP) Pulse Ox O2 Delivery O2 Flow Rate FiO2 09/19/24 09:40 16 09/19/24 09:40 93 119/73 (88) 94 Nasal Cannula 2.0 09/19/24 08:25 99.0 General: PATIENT IS ALERT AND ORIENTED X4 IN NO ACUTE DISTRESS LYING DOWN COMFORTABLY SPEAKING IN FULL SENTENCES NG-TUBE IN PLACE TO WALL SUCTIONING HEENT NORMOCEPHALIC NONTRAUMATIC HEAD PERRLA. EOMI. HAS EITHER A SUNBURN ON HER CHEEKS OR HAS ROSACEA. [facility] FIRST AND SECOND HEART SOUNDS ARE REGULAR RATE RHYTHM NO MURMURS GALLOPS OR RUBS RESPIRATORY SYSTEM IS CLEAR TO AUSCULTATE BILATERALLY NO RALES RHONCHI CRACKLES OR WHEEZING ABDOMEN IS SOFT OBESE BOWEL SOUNDS ARE DIMINISHED SURGICAL SITE BANDAGING IS CLEAN PLUS ONE TENDERNESS ON THE SURGICAL SITE EXTREMITIES NO CLUBBING CYANOSIS OR EDEMA NEUROLOGICAL EXAM NO FOCAL DEFICITS Diagnostic Data Last Recorded Lab Results: 09/18/[id number] Additional Plan Assessment and plan -incarcerated incisional hernia STATUS POST REPAIR WITH DR. MANSFIELD PATIENT IS DOING WELL POSTOP NG-TUBE TO SUCTION -PAIN CONTINUE P.R.N. PAIN MEDS -NAUSEA CONTINUE P.R.N. NAUSEA MEDICATIONS -DIABETES VERSUS PREDIABETES CHECK HEMOGLOBIN A1C CHECK ACCU-CHEKS Q.A.C. Q.H.S. START THE PATIENT ON HYPER/HYPOGLYCEMIA PROTOCOL -MORBID OBESITY PATIENT WOULD BENEFIT FROM WEIGHT LOSS --HYPERTENSION UNABLE TO RESUME HOME MEDS AT THIS TIME WE WILL CONTINUE HYDRALAZINE P.R.N. --NUTRITION PATIENT IS NPO STATUS POST SURGERY --PATIENT HAS BEEN STARTED ON DVT PROPHYLAXIS WITH THE SCDS --HYPONATREMIA MONITOR PATIENT IS ON RINGER LACTATE RIGHT NOW --THROMBOCYTOSIS-PROBABLY REACTIVE MONITOR I WOULD LIKE TO TAKE THIS OPPORTUNITY TO THANK DR. MANSFIELD FOR ALLOWING ME THE CARE OF THIS PATIENT WE WILL CONTINUE TO FOLLOW THE PATIENT ALONG WITH YOU DEBRA BARBOSA MD September 19, 2024 10:11
[2024-09-19] MEDS: HYDROmorphone 1 mg/ml syringe IV PRN (10:35)
--- NOTE | 2024-09-19 11:56 | Visit Coding Note ---
Date of Service: September 19, 2024 Billing Provider: DEBRA BARBOSA MD Common Visit Codes: [id number] INP/OBS CARE (HIGH) Inpatient Consultation Codes: [id number] CONSULT <45MIN DEBRA BARBOSA MD September 19, 2024 11:56
[2024-09-19] MEDS: heparin, porcine 5000 units/ml vial SQ SCH (20:38)
[2024-09-20] VITALS (8 sets, daily range): BP systolic 107–129; BP diastolic 71–72; PULSE 76–89; RESP 18–20; TEMP 98–98.1; O2SAT 93–97
[2024-09-20 04:21] LABS: BASOPHILS # (AUTO) 0.1 X10'3 (0-0.2); BASOPHILS % (AUTO) 0.7 % (0-1); EOSINOPHILS # (AUTO) 0.3 X10'3 (0-0.9); EOSINOPHILS % (AUTO) 3.8 % (0-6); HEMATOCRIT 36.3 % (35.0-45.0); HEMOGLOBIN 12.4 g/dl (12.0-16.0); LYMPHOCYTES # (AUTO) 1.5 X10'3 (1.1-4.8); MEAN CORPUSCULAR HEMOGLOBIN 30.2 PG (27.0-31.0); MEAN CORPUSCULAR HGB CONC 34.2 g/dL (33.0-36.5); MEAN CORPUSCULAR VOLUME 88.3 FL (78-98); MEAN PLATELET VOLUME 7.8 FL (7.4-10.4); MONOCYTES # (AUTO) 1.1 X10'3 (0-0.9); MONOCYTES % (AUTO) 14.9 % (2-12); NEUTROPHILS # (AUTO) 4.6 X10'3 (1.8-7.7); NEUTROPHILS % (AUTO) 60.6 % (42-75); PLATELET COUNT 406 X10'3 (140-440); RED BLOOD COUNT 4.11 X10'6 (4.20-5.60); RED CELL DISTRIBUTION WIDTH 13.8 % (11.5-14.5); WHITE BLOOD COUNT 7.5 X10'3 (4.5-11.0)
[2024-09-20 04:37] LABS: ALANINE AMINOTRANSFERASE 38 U/L (12-78); ALBUMIN 2.6 G/DL (3.4-5.0); ALBUMIN/GLOBULIN RATIO 0.8 (1.1-1.5); ALKALINE PHOSPHATASE 40 IU/L (46-116); ANION GAP 7 (8-16); ASPARTATE AMINO TRANSFERASE 21 U/L (10-37); BILIRUBIN,TOTAL 0.4 MG/DL (0.1-1.0); BLOOD UREA NITROGEN 12 MG/DL (7-18); BUN/CREATININE RATIO 16.7 (10.0-20.0); CALCIUM 7.6 MG/DL (8.5-10.1); CHLORIDE 99 MMOL/L (99-107); CREATININE 0.72 MG/DL (0.40-0.90); GLUCOSE 114 MG/DL (70-104); MAGNESIUM 2.3 MG/DL (1.5-2.4); POTASSIUM 3.4 MMOL/L (3.5-5.1); SODIUM 137 MMOL/L (135-145); TOTAL CARBON DIOXIDE 30.9 MMOL/L (24-32); eCRCL 77 ML/MIN; eGFR 87 ML/MIN
[2024-09-20] MEDS: potassium Cl 20 mEq SR tablet PO PRN (07:03)
--- NOTE | 2024-09-20 11:01 | DISCHARGE SUMMARY ---
Discharge Summary Providers to CC CC: RD MANSFIELD MD ~ Discharge Summary Admission Diagnosis: Incarcerated incisional hernia with sbo Hospital Course DATE OF ADMISSION: September 19, 2024 DATE OF DISCHARGE: September 20, 2024 Discharge Diagnosis\Comment: Incarcerated incisional hernia Operations\Procedures: Robotic assisted, laparoscopic incarcerated incisional hernia repair Consultants: Rd Mansfield MD FACS Complications: None Condition on DC: Stable Discharge Summary: Patient was admitted with CT scan findings of incarcerated midline hernia with t he small bowel and small bowel obstruction. One week prior she had undergone laparoscopic-assisted vaginal hysterectomy. Intraoperatively, she was found to have an infraumbilical hernia that was containing omentum. This was reduced by the surgeon during surgery to allow access to the pelvis for his surgical approach. Postoperatively, patient developed abdominal pain, nausea and vomiting. Apparently, a loop of small intestine re herniated fat through that fascial defect and caused a bowel obstruction. This was reduced by me surgically yesterday and patient had resolution of her obstructive symptoms. Hernia was primarily repaired and has a moderate likelihood of recurrence. She will follow up with me as an outpatient. *Problems/Diagnosis: (1) Incarcerated incisional hernia Status: Acute (2) Small bowel obstruction Status: Acute Total Time Spent on D/C: Up to 30 Minutes Counseling Services Smoking & Tobacco Cessation: N/A RD MANSFIELD MD September 20, 2024 11:01
[2024-09-20] MEDS ORDERED: PER5325T PO (11:02)
[2024-09-20] MEDS: oxyCODONE/APAP 5-325mg tablet PO PRN (11:37)
[2024-09-20] MEDS: albuterol 2.5 MG/3 ML nebule NEB PRN (14:24)
--- NOTE | 2024-09-20 15:34 | PROGRESS NOTE ---
Daily Progress Note Providers to CC ~ Antibiotic Timeout Antibiotic Ordered?: No Subjective Chief complaint none I have had four small bowel movements that were soft. Positive flatulence decreased abdominal pain Review of systems negative for all 10 systems reviewed Objective Vital Signs Date Time Temp Pulse Resp B/P (MAP) Pulse Ox O2 Delivery O2 Flow Rate FiO2 09/20/24 15:28 20 09/20/24 14:33 80 Room Air 0.0 21 09/20/24 14:26 97 09/20/24 11:00 98.1 129/72 (91) Result Diagram: 09/20/24 0407 09/20/24 040 Patient is alert and oriented x4 in no acute distress HEENT normocephalic nontraumatic head CVS first and second heart sounds are regular rate rhythm no murmurs gallops or rubs Respiratory system is clear to auscultate bilaterally Abdomen is soft surgical sites clean bandaging in place abdominal binder in place bowel sounds are positive Extremities no clubbing cyanosis or edema Problem\Assessment\Plan Additional Plan Assessment and plan -incarcerated incisional hernia postop day 1. Today STATUS POST REPAIR WITH DR. MANSFIELD PATIENT IS DOING WELL POSTOP NG-TUBE TO SUCTION was discontinued Plan is for discharge home later today -PAIN CONTINUE P.R.N. PAIN MEDS -NAUSEA CONTINUE P.R.N. NAUSEA MEDICATIONS -DIABETES VERSUS PREDIABETES CHECK HEMOGLOBIN A1C CHECK ACCU-CHEKS Q.A.C. Q.H.S. START THE PATIENT ON HYPER/HYPOGLYCEMIA PROTOCOL -MORBID OBESITY PATIENT WOULD BENEFIT FROM WEIGHT LOSS --HYPERTENSION UNABLE TO RESUME HOME MEDS AT THIS TIME WE WILL CONTINUE HYDRALAZINE P.R.N. --NUTRITION PATIENT IS NPO STATUS POST SURGERY --PATIENT HAS BEEN STARTED ON DVT PROPHYLAXIS WITH THE SCDS --HYPONATREMIA resolved MONITOR PATIENT IS ON RINGER LACTATE RIGHT NOW --THROMBOCYTOSIS-PROBABLY REACTIVE Resolved Date of Service: September 20, 2024 Billing Provider: DEBRA BARBOSA MD Common Visit Codes: [id number] INP/OBS CARE(HIGH) DEBRA BARBOSA MD September 20, 2024 15:34
== END 2024-09-20 17:14 | disposition home or self-care (01) | DRG 354 ==
LOC: ER 20:59 → PAS IN 09-19 06:57 → SUR 3N 09-19 09:59
PROVIDERS: ADMIT Surgery; ATTEND Surgery
PROC: 8E0W4CZ Robotic Assisted Procedure of Trunk Region, Percutaneous Endoscopic Approach (ICD-10-PCS; 2024-09-19)
PROC: 0D9670Z Drainage of Stomach with Drainage Device, Via Natural or Artificial Opening (ICD-10-PCS; 2024-09-19)
PROC: 3E0T3BZ Introduction of Anesthetic Agent into Peripheral Nerves and Plexi, Percutaneous Approach (ICD-10-PCS; 2024-09-19)
PROC: BW211ZZ Computerized Tomography (CT Scan) of Abdomen and Pelvis using Low Osmolar Contrast (ICD-10-PCS; 2024-09-19)
PROC: 0WQF4ZZ Repair Abdominal Wall, Percutaneous Endoscopic Approach (ICD-10-PCS; principal; 2024-09-19 07:00)
DX: K43.0 Incisional hernia with obstruction, without gangrene (principal); E87.1 Hypo-osmolality and hyponatremia; N39.0 Urinary tract infection, site not specified; E03.9 Hypothyroidism, unspecified; E66.01 Morbid (severe) obesity due to excess calories; E11.9 Type 2 diabetes mellitus without complications; I10 Essential (primary) hypertension; D75.839 Thrombocytosis, unspecified; E78.00 Pure hypercholesterolemia, unspecified; K21.9 Gastro-esophageal reflux disease without esophagitis; Z88.5 Allergy status to narcotic agent; Z88.2 Allergy status to sulfonamides; Z91.040 Latex allergy status; Z79.899 Other long term (current) drug therapy; Z79.84 Long term (current) use of oral hypoglycemic drugs; Z90.49 Acquired absence of other specified parts of digestive tract; Z87.11 Personal history of peptic ulcer disease; Z90.710 Acquired absence of both cervix and uterus
CPT/HCPCS: 99291; Z7506; Z7508; 36415; 74177; 80053; 81001; 81025; 82948; 83036; 83605; 83690; 83735; 85025; 87081; 87088; 94640; 94760; A4215; A4615; A4618; G0378; J0330; J0666; J0690; J0696; J0780; J1100; J1171; J1200; J1644; J2003; J2250; J2405; J2704; J3010; J3490; J7030; J7120; Q9967

== ENCOUNTER 2024-09-24 20:43 | Emergency (ER) | payer BC ==
[~2024-09-24] VITALS: Ht 157.5 cm; Wt 91.8 kg
[~2024-09-24 20:43] MED LIST changes: -ACET1TAB12 PO; -BENZ-16 PO; -BISA-78 PO; -CIPR7.5D EACH EAR; -CRAN500C4 PO; -CYCL-1 PO; -DICY10CA88 PO; -FAMO-129 PO; -FIOCOC PO; -FLUT16SP2 BOTHNARES; -GUAI400T92 PO; -METH4TAB81 PO; +PER5325T PO; -SUCR1TAB34 PO
[2024-09-24 21:54] LABS: BASOPHILS % (AUTO) 0.1 % (0-1); EOSINOPHILS # (AUTO) 0.3 X10'3 (0-0.9); EOSINOPHILS % (AUTO) 3.6 % (0-6); HEMATOCRIT 38.2 % (35.0-45.0); HEMOGLOBIN 12.7 g/dl (12.0-16.0); LYMPHOCYTES # (AUTO) 3.3 X10'3 (1.1-4.8); LYMPHOCYTES % (AUTO) 38.4 % (21-51); MEAN CORPUSCULAR HEMOGLOBIN 29.7 PG (27.0-31.0); MEAN CORPUSCULAR HGB CONC 33.4 g/dL (33.0-36.5); MEAN CORPUSCULAR VOLUME 88.8 FL (78-98); MEAN PLATELET VOLUME 8.1 FL (7.4-10.4); MONOCYTES # (AUTO) 0.8 X10'3 (0-0.9); MONOCYTES % (AUTO) 9.7 % (2-12); NEUTROPHILS # (AUTO) 4.1 X10'3 (1.8-7.7); NEUTROPHILS % (AUTO) 48.2 % (42-75); PLATELET COUNT 545 X10'3 (140-440); RED CELL DISTRIBUTION WIDTH 13.5 % (11.5-14.5); WHITE BLOOD COUNT 8.6 X10'3 (4.5-11.0)
[2024-09-24 22:10] LABS: ALANINE AMINOTRANSFERASE 27 U/L (12-78); ALBUMIN/GLOBULIN RATIO 0.7 (1.1-1.5); ALKALINE PHOSPHATASE 69 IU/L (46-116); ANION GAP 7 (8-16); ASPARTATE AMINO TRANSFERASE 13 U/L (10-37); BILIRUBIN,TOTAL 0.3 MG/DL (0.1-1.0); BLOOD UREA NITROGEN 7 MG/DL (7-18); BUN/CREATININE RATIO 10.8 (10.0-20.0); CALCIUM 8.6 MG/DL (8.5-10.1); CHLORIDE 106 MMOL/L (99-107); CREATININE 0.65 MG/DL (0.40-0.90); GLUCOSE 101 MG/DL (70-104); LIPASE 94 U/L (16-77); POTASSIUM 3.8 MMOL/L (3.5-5.1); SODIUM 143 MMOL/L (135-145); TOTAL PROTEIN 7.3 G/DL (6.4-8.2); eCRCL 86 ML/MIN; eGFR > 90 ML/MIN
--- NOTE | 2024-09-25 00:27 | Physician Documentation ---
History of Present Illness Chief Complaint: Abdominal Pain Stated Complaint: POST OP COMPLICATIONS Time Seen by MD: 23:59 Primary Medical Doctor: DONIS Source: patient HPI 44-year-old female presenting with abdominal pain. She tells me that within the last week, she has had 2 abdominal surgeries including for a small-bowel obstruction as well as a hysterectomy. Both were laparoscopic. She presents today with severe generalized abdominal pain, left worse than right. She states that she had been on Percocet for a couple of days after surgery but no longer has any pain medication. The pain has become severe, it is difficult for her to move. She has only been drinking fluids and a clear liquid diet. No definite fevers. No vomiting. Last bowel movement was small. No dysuria. No other infectious symptoms. No vaginal bleeding or discharge. Medication Reconciliation Allergies: Coded Allergies: morphine (Verified Allergy, Mild, itchy, 09/18/24) Sulfa (Sulfonamide Antibiotics) (Verified Allergy, Unknown, 09/18/24) latex (Verified Allergy, Unknown, 09/18/24) Scheduled Fenofibrate Nanocrystallized* (Tricor*), 134 MG PO DAILY, (Reported) Metformin Hcl* (Glucophage*), 1 TAB PO BIDAC, (Reported) Ondansetron Hcl (Zofran), 1 TAB PO Q6H Ondansetron Hcl (Zofran), 1 TAB PO Q8H Ondansetron Hcl (Zofran), 1 TAB PO Q6H Scheduled PRN Albuterol Sulfate (Proair Hfa), 2 PUFFS IH Q6H PRN for SOB or wheezing Albuterol Sulfate (Ventolin Hfa), 2 PUFFS INH Q4HPRN PRN for wheezing Oxycodone Hcl IR* (Oxycodone IR*), 1 TAB PO TID PRN PRN for pain Oxycodone Hcl/Acetaminophen 5/325 MG* (Percocet 5/325 MG*), 1 TAB PO Q4H PRN for moderate or severe pain 4-10 Discontinued Medications Acetaminophen with Codeine (Tylenol with Codeine #3 Tablet), 1 TAB PO Q4HPRN Discontinued Reason: patient no longer taking Benzonatate* (Tessalon Perles*), 1 TAB-CAP PO TID Discontinued Reason: patient no longer taking Bisacodyl (Dulcolax), 4 TAB PO ONCE Discontinued Reason: patient no longer taking Codeine/Butalbit/Acetamin/Caff (Liuaoh-Qxix-Vyltlwvkwvj-Codein), 1 CAP PO Q12H Discontinued Reason: patient no longer taking Cranberry Extract (Cranberry), 1 CAP PO DAILY, (Reported) Discontinued Reason: ADR (Adverse Drug Rxn) Cyclobenzaprine* (Cyclobenzaprine*), 1 TAB PO Q8H Discontinued Reason: patient no longer taking Cyclobenzaprine* (Cyclobenzaprine*), 1 TAB PO HS Discontinued Reason: patient no longer taking Cyclobenzaprine* (Cyclobenzaprine*), 1 TAB PO TID PRN for muscle spasms Discontinued Reason: ADR (Adverse Drug Rxn) Cyclobenzaprine* (Cyclobenzaprine*), 1 TAB PO HS Discontinued Reason: patient no longer taking Dicyclomine Hcl* (Bentyl*), 1 CAP PO PRN PRN for IBS, (Reported) Discontinued Reason: patient no longer taking Famotidine (Pepcid), 1 TAB PO DAILY Discontinued Reason: patient no longer taking Fluticasone Propionate (Flonase), 2 SPRAYS BOTHNARES DAILY Discontinued Reason: patient no longer taking Guaifenesin (Guaifenesin), 1 TAB PO Q8H Discontinued Reason: patient no longer taking Methylprednisolone (Medrol Dosepak), 0 PO UD Discontinued Reason: patient no longer taking Sucralfate (Carafate), 1 TAB PO Q6H Discontinued Reason: patient no longer taking Past Medical History Past Medical History: High Cholesterol, GERD, Inflammatory Bowel Dz, Peptic Ulcer Disease, UTI, Diabetes, Thyroid (unspecified) Past Surgical History: abdominal surgery, cholecystectomy, other Patient History: Patient reports no known family medical history. Alcohol Use: None Drug Use: none Lives with: Family Lives In: Home Occupation: employed Review of Systems Constitutional: Denies: fever Gastrointestinal: Reports: abdomen distended, abdominal pain; Denies: vomiting Physical Exam Vital Signs: Temperature: 98.6, Heart Rate: 86, Respiratory Rate: 16, BP: 145/85, Pulse Oximetry: 97, Weight: 91.820 Oxygen Flow Rate: 0 Physical Exam General: This is a very uncomfortable appearing middle-aged woman lying in bed, does not appear to want to move HEENT: Atraumatic, oropharynx appears dry Heart: Regular rate and rhythm, normal-appearing peripheral perfusion Lungs: normal work of breathing, normal oxygen saturation on room air Abdomen: The abdomen is soft and mildly distended. She has multiple p ostsurgical scars with Steri-Strips in place. No significant surrounding erythema at these sites. She has significant tenderness to palpation diffusely, left worse than right Skin: She does appear somewhat diaphoretic Neuro: Alert and oriented, no focal deficits Psychiatric: Appears uncomfortable but is cooperative with exam Progress Results/Orders Results/Orders Orders - LIZETTE HANEY MD Urinalysis, Cult If Indicated (09/24/24 21:05) Hcg, Ur Ql (09/24/24 21:05) Normal Saline 1000ml (Sodium Chloride 10 (09/25/24 00:15) Ct Abdomen Pelvis (09/25/24 00:18) Completed Orders - LIZETTE HANEY MD Cbc/Diff (09/24/24 21:05) Lipase (09/24/24 21:05) CMP (09/24/24 21:05) Hydromorphone 1 Mg/Ml/Pf (Dilaudid Inj.) (09/25/24 00:15) Ondansetron Inj. (Zofran 4mg/2ml Vial) (09/25/24 00:15) Vital Signs 09/24/24 21:00 Temp 98.6 Pulse 86 Resp 16 B/P (MAP) 145/85 Pulse Ox 97 O2 Flow Rate 0 Laboratory Tests Test 09/24/24 21:37 White Blood Count 8.6 Red Blood Count 4.30 Hemoglobin 12.7 Hematocrit 38.2 Mean Corpuscular Volume 88.8 Mean Corpuscular Hemoglobin 29.7 Mean Corpuscular Hemoglobin Concent 33.4 Red Cell Distribution Width 13.5 Platelet Count 545 H Mean Platelet Volume 8.1 Neutrophils (%) (Auto) 48.2 Lymphocytes (%) (Auto) 38.4 Monocytes (%) (Auto) 9.7 Eosinophils (%) (Auto) 3.6 Basophils (%) (Auto) 0.1 Neutrophils # (Auto) 4.1 Lymphocytes # (Auto) 3.3 Monocytes # (Auto) 0.8 Eosinophils # (Auto) 0.3 Basophils # (Auto) 0.0 CBC Comment Sodium Level 143 Potassium Level 3.8 Chloride Level 106 Carbon Dioxide Level 30.0 Anion Gap 7 L Blood Urea Nitrogen 7 Creatinine 0.65 Estimated GFR/1.73 m2 > 90 BUN/Creatinine Ratio 10.8 Glucose Level 101 Calcium Level 8.6 Total Bilirubin 0.3 Aspartate Amino Transf (AST/SGOT) 13 Alanine Aminotransferase (ALT/SGPT) 27 Alkaline Phosphatase 69 Total Protein 7.3 Albumin 3.0 L Globulin 4.3 Albumin/Globulin Ratio 0.7 L Lipase 94 H Chemistry Comments Re-Evaluation Re-Evaluation : Re-Evaluation Time: 04:54 Re-Evaluation: Improved Progress The patient is sitting up in bed, states that her pain is significantly improved. I had a shared decision-making conversation with her, after which she would like to try to just have pain medicine and go home. On repeat abdominal exam at this time, she does not have peritoneal findings. She also tells me that she actually has chronic pain in multiple locations and has been on chronic opiate pain medications although she currently is out. EKG/XRAY/CT/US/VASC/MRI CT : Impression I personally reviewed the CT scan, and this shows inflammatory changes around the bowel, with some mild fluid, and a fluid collection in the abdominal wall, possibly seroma related to recent surgery Medical Decision Making Additional Comments Differential includes postsurgical complication including abscess or infection, bowel obstruction or ileus, constipation, recurrent hernia, colitis, dehydration, electrolyte derangement, UTI, pyelonephritis Assessment The patient presents with significant abdominal pain after recent surgeries and in the setting of running out of her pain medications. She was given IV fluids, pain and nausea medications. Labs were obtained which show no significant leukocytosis, and only very mildly elevated lipase. A CT scan was obtained which shows inflammatory changes as well as postsurgical changes. Given her lack of fever, leukocytosis, or overlying skin changes to the abdomen, I feel that it postsurgical infection seems less likely. She was given symptomatic treatment with good improvement. I had a shared decision-making conversation with her, I did offer to have her stay and have a surgeon evaluate her in the morning. I discussed the option for antibiotics. Following this discussion, she told me she would prefer to just go home with pain medication. She will continue with a liquid diet. She will follow up with her primary doctor on Wednesday as scheduled. I will prescribe her pain medications to get her through the weekend. She will return to the ER if she does develop worsening symptoms. Departure Disposition: HOME / SELF CARE / HOMELESS Impression: Primary Impression: Abdominal pain Condition: Improved Referrals: NO PRIMARY CARE PROVIDER (PCP) Prescriptions Oxycodone Hcl IR* (Oxycodone IR*) 5 Mg Tablet 1 TAB PO TID PRN PRN for pain for 3 Days, #9 TAB Prov: LIZETTE HANEY MD 09/25/24 Education Educated: Patient Educated regarding: diagnosis, treatment, need for follow up Signature Scribe Signature: dinora Attestation: LIZETTE Castellanos MD September 25, 2024 00:27
[2024-09-25] MEDS ORDERED: iohexol 300mg/ml 100ml inj. ONE (00:39)
[2024-09-25 00:56] LABS: URINE HCG NEGATIVE (NEG)
[2024-09-25 01:09] LABS: BILIRUBIN,URINE NEGATIVE (Neg); CLARITY,URINE CLEAR (Clear); COLOR,URINE YELLOW (Yellow); GLUCOSE, URINE NEGATIVE (Neg); KETONES,URINE NEGATIVE (Neg); LEUKOCYTE ESTERASE ,URINE NEGATIVE (Neg); NITRITES, URINE NEGATIVE (Neg); OCCULT BLOOD,URINE NEGATIVE (Neg); PROTEIN,URINE NEGATIVE (Neg); UROBILINOGEN,URINE 0.2 E.U/dL (0.2-1.0)
[2024-09-25 01:11] LABS: UA COLLECTION TYPE CLN CATCH MIDSTREAM
[2024-09-25] MEDS: HYDROmorphone 1 mg/ml syringe IV ONE ×2 (01:31→02:19)
[2024-09-25] MEDS: ondansetron/PF 4mg/2ml inj IV ONE (01:31)
[2024-09-25] MEDS: normal saline 1000ml 1,000 ML IV ONE (01:31)
--- NOTE | 2024-09-25 01:41 | RADIOLOGY REPORT ---
CLINICAL HISTORY: Significant left-sided abdominal pain, recent abdominal surgery, hysterectomy. Smal l-bowel obstruction and umbilical hernia repair on September 18 TECHNIQUE: CT of the abdomen and pelvis was performed with intravenous contrast. 100 mL Omnipaque 300 injected This exam was performed according to our departmental dose optimization program. Up-to-date CT equipment and radiation dose reduction techniques are utilized as appropriate. CTDIVol: 0.14 + 33.77 mGy DLP: 1745.7 mGy-cm WID: COMPARISON: CT CT ABDOMEN PELVIS W/ IV CONTRAST on DOS: 09/19/24 FINDINGS: Lower Thorax: Normal-sized heart without pericardial effusion. Sub 5 mm subpleural left lower lobe pu lmonary nodule on series 2, image 9. Linear bibasilar scarring or atelectasis. Liver and Biliary system: Hepatomegaly with the right lobe of the liver measuring 23 cm craniocaudal. Focal steatosis in the hepatic parenchyma adjacent to the fissure for the falciform ligament. Major portal veins are patent. Prior cholecystectomy. There is no biliary ductal dilatation. Spleen: Unremarkable. Adrenal Glands and Kidneys: Mild thickening of the jnov-dvharfr-hbnf-right adrenal glands. No hydrone phrosis or nephrolithiasis. Pancreas and Retroperitoneum: Unremarkable. Aorta and Major Vessels: Aortoiliac vessels are patent and normal caliber. Bowel, Mesentery and Peritoneal space: The small and large bowel loops are normal caliber. Appendix i s unremarkable. There are scattered fluid-filled small and large bowel loops. Wall thickening of scat tered small bowel loops. Mild ascites. No free intraperitoneal air or well-formed fluid collection. Pelvis: Prior hysterectomy. Urinary bladder is mildly distended. There is no pelvic lymphadenopathy. Abdominal wall and Osseous Structures: Body wall edema. There has been interval repair of an infraumb ilical abdominal wall hernia to the left of midline. There is a fluid and gas collection in the left anterior abdominal wall at the location of the hernia repair, measuring 2.2 x 6.3 by 8.3 cm on series 2, image 95 and series 602, image 82. Multilevel lower thoracic and lumbar spondylosis. IMPRESSION: 1. Interval repair of an infraumbilical abdominal wall hernia, to the left of midline. Resolution of small bowel obstruction since prior. 2. Fluid and gas collection in the left anterior abdominal wall at the site of hernia repair which co uld be a postoperative fluid collection or developing abscess. 3. Wall thickening of scattered small bowel loops and fluid-filled small and large bowel loops which could be infectious or inflammatory enterocolitis. 4. Hepatomegaly. 5. Mild ascites and body wall edema.
[2024-09-25] MEDS ORDERED: OXYC-658 PO (04:56)
[2024-09-25] MEDS: oxyCODONE IR 5mg (immed. release) tablet PO ONE (05:18)
[2024-09-25 05:28] VITALS: BP 134/80; PULSE 70; RESP 16; TEMP 97.6; O2SAT 99
== END 2024-09-25 05:36 | disposition home or self-care (01) ==
LOC: ER 20:44
DX: R10.84 Generalized abdominal pain (principal); E11.9 Type 2 diabetes mellitus without complications; E78.00 Pure hypercholesterolemia, unspecified; Z88.2 Allergy status to sulfonamides; Z88.5 Allergy status to narcotic agent; Z88.8 Allergy status to other drugs, medicaments and biological substances; Z90.49 Acquired absence of other specified parts of digestive tract
CPT/HCPCS: 36415; 74177; 80053; 81003; 81025; 83690; 85025; 96361; 96374; 96375; 96376; 99285; J1171; J2405; J7030; Q9967

== ENCOUNTER 2024-10-03 11:21 | Emergency (ER) | payer BC ==
[~2024-10-03] VITALS: Ht 157.5 cm; Wt 85.7 kg
[2024-10-03 11:57] LABS: BASOPHILS # (AUTO) 0.1 X10'3 (0-0.2); EOSINOPHILS # (AUTO) 0.5 X10'3 (0-0.9); EOSINOPHILS % (AUTO) 5.8 % (0-6); HEMATOCRIT 37.6 % (35.0-45.0); HEMOGLOBIN 12.4 g/dl (12.0-16.0); LYMPHOCYTES # (AUTO) 2.3 X10'3 (1.1-4.8); LYMPHOCYTES % (AUTO) 26.4 % (21-51); MEAN CORPUSCULAR HEMOGLOBIN 29.5 PG (27.0-31.0); MEAN CORPUSCULAR HGB CONC 33.1 g/dL (33.0-36.5); MEAN CORPUSCULAR VOLUME 89.2 FL (78-98); MONOCYTES # (AUTO) 0.6 X10'3 (0-0.9); MONOCYTES % (AUTO) 6.4 % (2-12); NEUTROPHILS # (AUTO) 5.2 X10'3 (1.8-7.7); NEUTROPHILS % (AUTO) 60.4 % (42-75); PLATELET COUNT 467 X10'3 (140-440); RED BLOOD COUNT 4.22 X10'6 (4.20-5.60); RED CELL DISTRIBUTION WIDTH 14.5 % (11.5-14.5); WHITE BLOOD COUNT 8.6 X10'3 (4.5-11.0)
[2024-10-03 12:27] LABS: ALANINE AMINOTRANSFERASE 42 U/L (12-78); ALBUMIN 3.5 G/DL (3.4-5.0); ALBUMIN/GLOBULIN RATIO 0.9 (1.1-1.5); ALKALINE PHOSPHATASE 62 IU/L (46-116); ANION GAP 8 (8-16); ASPARTATE AMINO TRANSFERASE 22 U/L (10-37); BILIRUBIN,TOTAL 0.3 MG/DL (0.1-1.0); BLOOD UREA NITROGEN 8 MG/DL (7-18); CALCIUM 9.3 MG/DL (8.5-10.1); CHLORIDE 104 MMOL/L (99-107); CREATININE 0.73 MG/DL (0.40-0.90); GLUCOSE 101 MG/DL (70-104); LIPASE 54 U/L (16-77); SODIUM 139 MMOL/L (135-145); TOTAL CARBON DIOXIDE 27.2 MMOL/L (24-32); TOTAL PROTEIN 7.5 G/DL (6.4-8.2); eCRCL 76 ML/MIN; eGFR 86 ML/MIN
[2024-10-03] MEDS ORDERED: iohexol 300mg/ml 100ml inj. ONE (15:07)
[2024-10-03] MEDS: ondansetron/PF 4mg/2ml inj IV ONE (15:45)
[2024-10-03] MEDS: HYDROmorphone 1 mg/ml syringe IV ONE (15:46)
[2024-10-03 15:51] LABS: BILIRUBIN,URINE NEGATIVE (Neg); CLARITY,URINE CLEAR (Clear); COLOR,URINE YELLOW (Yellow); GLUCOSE, URINE NEGATIVE (Neg); KETONES,URINE NEGATIVE (Neg); LEUKOCYTE ESTERASE ,URINE NEGATIVE (Neg); NITRITES, URINE NEGATIVE (Neg); OCCULT BLOOD,URINE NEGATIVE (Neg); PROTEIN,URINE NEGATIVE (Neg); UROBILINOGEN,URINE 0.2 E.U/dL (0.2-1.0)
[2024-10-03 15:53] LABS: UA COLLECTION TYPE CLN CATCH MIDSTREAM
--- NOTE | 2024-10-03 15:59 | RADIOLOGY REPORT ---
Exam: CT CT ABDOMEN PELVIS W/ IV CONTRAST History: post-op abdominal pain Comparison Study: CT CT ABDOMEN PELVIS W/ IV CONTRAST on DOS: 09/25/24, CT CT ABDOMEN PELVIS W/ IV CON TRAST on DOS: 09/19/24, CT CHEST ABDOMEN PELVIS on DOS: 02/01/21 TECHNIQUE: Multidetector CT of the abdomen and pelvis with IV contrast. Axial, coronal and sagittal m ultiplanar reformats were obtained from the axial data set by the technologist. Radiation Dose Information: CT Dose: CTDI volume is 33.42 mGy. Dose-length product is 1750.41 mGy*cm FINDINGS: The lung bases are clear. Partially visualized heart is unremarkable. Status post cholecystectomy. Moderate hepatomegaly. Spleen, pancreas and adrenal glands unremarkable. Mild bilateral pelviectasis. Bilateral ureters and urinary bladder unremarkable. Status post hysterectomy. Stomach is unremarkable. Mild wall thickening of proximal and mid small bowel loops. The small-bowel loops are fluid-filled and nondistended. Appendix is not definitely visualized. Mild distal rectal wall thickening. Otherwise, large bowel is unremarkable. No evidence of intraperitoneal free air. Trace ascites. No evidence of aortic aneurysm or dissection. No significant lymphadenopathy. There is marginal increase in size of the fluid collection over the left paramedian ventral abdominal subcutaneous fat adjacent to the area of hernia repair measuring about 2.9 x 6.8 by 8.4 cm with inte rval resolution of the internal focus of air. The fluid collection previously measured 3.1 x 6.1 x 7 .8 cm. Line minimal body wall edema. Small fat containing midline ventral upper abdominal hernia. Sma ll fat containing umbilical hernia. No destructive osseous lesions are noted. IMPRESSION: Slight interval increase in size in the fluid collection of the left ventral lower abdominal subcutan eous fat area of prior hernia with interval resolution of the internal Foci of air. Finding may repr esent postoperative seroma with abscess thought less likely but not completely excluded. Mild wall thickening proximal and mid small bowel loops which may represent enteritis. Mild distal rectal wall thickening which may be due to inadequate distention proctitis not excluded. Trace ascites.
[2024-10-03 16:03] LABS: URINE HCG NEGATIVE (NEG)
[2024-10-03 16:37] VITALS: BP 114/85; PULSE 84; RESP 16; O2SAT 97
--- NOTE | 2024-10-03 17:37 | Physician Documentation ---
History of Present Illness Chief Complaint: Abdominal Pain Stated Complaint: POST OP PAIN Time Seen by MD: 13:43 Primary Medical Doctor: DONIS Mode of Arrival: Ambulatory HPI Patient is here for abdominal pain. She recently had a hysterectomy for a uterine cancer. She did not need chemoradiation therapy. Last week she had a hernia and a bowel obstruction that has repaired. It is today she has a abdominal pain. She has been vomiting. Does not feel like her obstruction seems to be worse in the left upper quadrant. No fever or chills or any other symptoms. Medication Reconciliation Allergies: Coded Allergies: morphine (Verified Allergy, Mild, itchy, 09/18/24) Sulfa (Sulfonamide Antibiotics) (Verified Allergy, Unknown, 09/18/24) latex (Verified Allergy, Unknown, 09/18/24) Scheduled Fenofibrate Nanocrystallized* (Tricor*), 134 MG PO DAILY, (Reported) Metformin Hcl* (Glucophage*), 1 TAB PO BIDAC, (Reported) Ondansetron Hcl (Zofran), 1 TAB PO Q6H Ondansetron Hcl (Zofran), 1 TAB PO Q8H Ondansetron Hcl (Zofran), 1 TAB PO Q6H Scheduled PRN Albuterol Sulfate (Proair Hfa), 2 PUFFS IH Q6H PRN for SOB or wheezing Albuterol Sulfate (Ventolin Hfa), 2 PUFFS INH Q4HPRN PRN for wheezing Oxycodone Hcl/Acetaminophen 5/325 MG* (Percocet 5/325 MG*), 1 TAB PO Q4H PRN for moderate or severe pain 4-10 Discontinued Medications Oxycodone Hcl IR* (Oxycodone IR*), 1 TAB PO TID PRN PRN for pain Discontinued Reason: Auto Discontinued Past Medical History Past Medical History: High Cholesterol, GERD, Inflammatory Bowel Dz, Peptic Ulcer Disease, UTI, Diabetes, Thyroid (unspecified) Past Surgical History: abdominal surgery, cholecystectomy, other Patient History: Patient reports no known family medical history. Alcohol Use: None Drug Use: none Lives with: Family Lives In: Home Occupation: employed Physical Exam Vital Signs: Temperature: 97.3, Source: Temporal, Heart Rate: 84, Respiratory Rate: 16, BP: 114/85, Pulse Oximetry: 97, Weight: 85.700 Oxygen Flow Rate: 0 Physical Exam General: Awake and Alert, no acute distress. HEENT: Conjunctiva pink, Sclera clear, Mucus Membranes moist. Neck: Supple without masses and tenderness. Resp: Unlabored. Lungs clear to auscultation bilaterally. Heart: Regular Rate and rhythm, normal S1 and S2 without murmur, rub or gallop. Abdomen: Soft nondistended some mild tenderness in the left upper quadrant without rebound or guarding or peritoneal signs. Extremities: No cyanosis,clubbing or edema. Skin: Warm and Dry. Neuro: GCS 15; no focal deficits Progress Results/Orders Results/Orders Orders - JODY YORK MD Ct Abdomen Pelvis (10/03/24 15:22) Completed Orders - JODY YORK MD Urinalysis, Cult If Indicated (10/03/24 11:27) Hcg, Ur Ql (10/03/24 11:27) Cbc/Diff (10/03/24 11:27) BMP (10/03/24 11:27) Lipase (10/03/24 11:27) CMP (10/03/24 11:27) Ct Abdomen Pelvis (10/03/24 15:22) Iohexol 300mg/Ml 100ml Inj. (Omnipaque-3 (10/03/24 15:07) Hydromorphone 1 Mg/Ml/Pf (Dilaudid Inj.) (10/03/24 15:35) Ondansetron Inj. (Zofran 4mg/2ml Vial) (10/03/24 15:35) Medications Received in ER Medications (Trade) Dose Ordered Sig/Aaron Route PRN Reason Start Time Stop Time Status Last Admin Dose Admin (Dilaudid inj.) 1 mg ONCE ONCE IV 10/03/24 15:35 10/03/24 15:36 DC 10/03/24 15:46 1 MG (Zofran 4mg/2ml vial) 4 mg ONCE ONCE IV 10/03/24 15:35 10/03/24 15:36 DC 10/03/24 15:45 4 MG Vital Signs 10/03/24 10/03/24 10/03/24 10/03/24 11:23 13:42 13:43 15:39 Temp 97.3 97.3 97.3 Pulse 95 87 80 Resp 15 16 15 B/P (MAP) 131/91 127/84 (98) 126/84 (98) Pulse Ox 98 97 98 O2 Flow Rate 0 0 10/03/24 10/03/24 15:46 16:37 Temp 97.3 Pulse 84 Resp 16 16 B/P (MAP) 114/85 (95) Pulse Ox 97 O2 Flow Rate 0 Laboratory Tests Test 10/03/24 11:49 10/03/24 15:08 White Blood Count 8.6 Red Blood Count 4.22 Hemoglobin 12.4 Hematocrit 37.6 Mean Corpuscular Volume 89.2 Mean Corpuscular Hemoglobin 29.5 Mean Corpuscular Hemoglobin Concent 33.1 Red Cell Distribution Width 14.5 Platelet Count 467 H Mean Platelet Volume 8.0 Neutrophils (%) (Auto) 60.4 Lymphocytes (%) (Auto) 26.4 Monocytes (%) (Auto) 6.4 Eosinophils (%) (Auto) 5.8 Basophils (%) (Auto) 1.0 Neutrophils # (Auto) 5.2 Lymphocytes # (Auto) 2.3 Monocytes # (Auto) 0.6 Eosinophils # (Auto) 0.5 Basophils # (Auto) 0.1 CBC Comment Sodium Level 139 Potassium Level 4.0 Chloride Level 104 Carbon Dioxide Level 27.2 Anion Gap 8 Blood Urea Nitrogen 8 Creatinine 0.73 Estimated GFR/1.73 m2 86 BUN/Creatinine Ratio 11.0 Glucose Level 101 Calcium Level 9.3 Total Bilirubin 0.3 Aspartate Amino Transf (AST/SGOT) 22 Alanine Aminotransferase (ALT/SGPT) 42 Alkaline Phosphatase 62 Total Protein 7.5 Albumin 3.5 Globulin 4.0 Albumin/Globulin Ratio 0.9 L Lipase 54 Chemistry Comments Urine Specimen Description Cln catch midstream Urine Color Yellow Urine Clarity Clear Urine pH 6.0 Urine Specific [place] <=1.005 Urine Protein Negative Urine Glucose (UA) Negative Urine Ketones Negative Urine Occult Blood Negative Urine Nitrite Negative Urine Bilirubin Negative Urine Urobilinogen 0.2 Urine Leukocyte Esterase Negative Urine Culture Indicated Not ind Volume Urine Centrifuged 10 ml Urine HCG, Qualitative Negative Urine Comment Medical Decision Making Findings Patient is here for abdominal pain had surgery last week to repair a hernia causing obstruction. She was given IV Dilaudid for pain fluids. Patient's labs are all normal. CT scan shows a small fluid collection in the ventral but does not appear to be an abscess she is afebrile. There is a small amount of thickening of the small bowel wall consistent with enteritis. This point she does not have anything that requires surgery are IV antibiotics patient is going to be discharged clear liquids Zofran I wrote a script for a few [place]. Returned for fever worsening symptoms or any concerns follow up with her PCP. Departure Disposition: HOME / SELF CARE / HOMELESS Impression: Primary Impression: Abdominal pain Condition: Stable Discharge Instructions: Abdominal Pain (Nonspecific) Referrals: NO PRIMARY CARE PROVIDER (PCP) Education Educated: Patient Educated regarding: diagnosis, treatment, prognosis, need for follow up Signature Scribe Signature: no scribe Attestation: no geneibe JODY YORK MD Oct 03, 2024 17:37
[2024-10-03] MEDS ORDERED: HYDR-3965 PO (17:39)
[2024-10-03] MEDS ORDERED: ONDA-243 PO (17:39)
[2024-10-03 17:52] VITALS: TEMP 97.3
== END 2024-10-03 17:52 | disposition home or self-care (01) ==
LOC: ER 11:22
DX: R10.84 Generalized abdominal pain (principal); R11.10 Vomiting, unspecified; E11.9 Type 2 diabetes mellitus without complications; E78.00 Pure hypercholesterolemia, unspecified; K21.9 Gastro-esophageal reflux disease without esophagitis; Z85.42 Personal history of malignant neoplasm of other parts of uterus; Z88.2 Allergy status to sulfonamides; Z88.5 Allergy status to narcotic agent; Z90.49 Acquired absence of other specified parts of digestive tract; Z91.040 Latex allergy status; Z79.84 Long term (current) use of oral hypoglycemic drugs; Z79.899 Other long term (current) drug therapy
CPT/HCPCS: 36415; 74177; 80053; 81003; 81025; 83690; 85025; 96374; 96375; 99285; J1171; J2405; Q9967

== ENCOUNTER 2024-10-10 19:13 | Inpatient (IN) | payer BC ==
[~2024-10-10] VITALS: Ht 157.5 cm; Wt 87.0 kg
[~2024-10-10 19:13] MED LIST changes: +HYDR-3965 PO; +ONDA-243 PO
[2024-10-10 19:40] LABS: BASOPHILS # (AUTO) 0.1 X10'3 (0-0.2); BASOPHILS % (AUTO) 1.2 % (0-1); EOSINOPHILS # (AUTO) 0.5 X10'3 (0-0.9); EOSINOPHILS % (AUTO) 5.2 % (0-6); HEMATOCRIT 38.6 % (35.0-45.0); LYMPHOCYTES # (AUTO) 3.5 X10'3 (1.1-4.8); LYMPHOCYTES % (AUTO) 36.1 % (21-51); MEAN CORPUSCULAR HEMOGLOBIN 29.8 PG (27.0-31.0); MEAN CORPUSCULAR HGB CONC 33.8 g/dL (33.0-36.5); MEAN CORPUSCULAR VOLUME 88.3 FL (78-98); MEAN PLATELET VOLUME 8.4 FL (7.4-10.4); MONOCYTES # (AUTO) 0.8 X10'3 (0-0.9); MONOCYTES % (AUTO) 8.1 % (2-12); NEUTROPHILS # (AUTO) 4.8 X10'3 (1.8-7.7); NEUTROPHILS % (AUTO) 49.4 % (42-75); PLATELET COUNT 387 X10'3 (140-440); RED BLOOD COUNT 4.37 X10'6 (4.20-5.60); RED CELL DISTRIBUTION WIDTH 14.1 % (11.5-14.5); WHITE BLOOD COUNT 9.7 X10'3 (4.5-11.0)
[2024-10-10 19:55] LABS: ALANINE AMINOTRANSFERASE 32 U/L (12-78); ALKALINE PHOSPHATASE 60 IU/L (46-116); ANION GAP 8 (8-16); ASPARTATE AMINO TRANSFERASE 20 U/L (10-37); BILIRUBIN,TOTAL 0.6 MG/DL (0.1-1.0); BLOOD UREA NITROGEN 14 MG/DL (7-18); BUN/CREATININE RATIO 14.9 (10.0-20.0); CALCIUM 9.7 MG/DL (8.5-10.1); CHLORIDE 105 MMOL/L (99-107); CREATININE 0.94 MG/DL (0.40-0.90); GLUCOSE 101 MG/DL (70-104); LIPASE 87 U/L (16-77); POTASSIUM 4.9 MMOL/L (3.5-5.1); SODIUM 144 MMOL/L (135-145); TOTAL CARBON DIOXIDE 31.3 MMOL/L (24-32); eCRCL 59 ML/MIN; eGFR 64 ML/MIN
[2024-10-10 23:38] LABS: BILIRUBIN,URINE NEGATIVE (Neg); CLARITY,URINE CLEAR (Clear); COLOR,URINE YELLOW (Yellow); GLUCOSE, URINE NEGATIVE (Neg); KETONES,URINE NEGATIVE (Neg); LEUKOCYTE ESTERASE ,URINE SMALL (Neg); NITRITES, URINE NEGATIVE (Neg); OCCULT BLOOD,URINE NEGATIVE (Neg); PROTEIN,URINE NEGATIVE (Neg); UROBILINOGEN,URINE 0.2 E.U/dL (0.2-1.0)
[2024-10-10 23:40] LABS: URINE HCG NEGATIVE (NEG)
[2024-10-10 23:44] LABS: UA COLLECTION TYPE CLN CATCH MIDSTREAM
[2024-10-10 23:47] LABS: RBC,URINE 0-2 /HPF (0-2); WBC,URINE 20-30 /HPF (0-4)
[2024-10-10 23:48] LABS: BACTERIA,URINE 2+ /HPF (Neg); SQUAMOUS EPITHELIAL CELL,UR MODERATE /LPF (FEW)
[2024-10-11] MEDS ORDERED: iohexol 300mg/ml 100ml inj. ONE (01:04)
--- NOTE | 2024-10-11 01:46 | RADIOLOGY REPORT ---
Exam: CT CT ABDOMEN PELVIS W/ IV CONTRAST History: ABD PAIN COMPARISON: CT CT ABDOMEN PELVIS W/ IV CONTRAST on DOS: 10/03/24, CT CT ABDOMEN PELVIS W/ IV CONTRAST o n DOS: 09/25/24, CT CT ABDOMEN PELVIS W/ IV CONTRAST on DOS: 09/19/24, CT CHEST ABDOMEN PELVIS on DOS: 02/01/21, CT ABDOMEN PELVIS on DOS: 02/08/19 Technique: Multidetector spiral CT of the abdomen and pelvis was performed from lung bases to pubic s ymphysis. Intravenous contrast was administered during this examination. Portal venous imaging was o btained. Axial, coronal and sagittal multiplanar reformats were performed by the technologist on a [employer] workstation. Radiation Dose : 1. Abdomen/Pelvis: CTDIvol 31.43 mGy, DLP 1589.65 mGy*cm. CONTRAST: Type of contrast: Omnipaque 300 Contrast injected: 100 ml Findings: Lung Bases: No acute or significant lung base finding. Normal heart size. No pleural or pericardial effusion. Liver: The liver remains enlarged, measuring 21.7 cm in craniocaudal dimension. Mild diffuse hepatic steatosis. No focal lesions. Normal hepatic vascular enhancement. Gallbladder and Biliary Tree: Status post cholecystectomy. Spleen: Unremarkable Pancreas: The pancreas is normal in appearance without focal lesions or abnormal enhancement. Adrenal Glands: Unremarkable Kidneys: No hydronephrosis. Bladder: Unremarkable Bowel: The stomach is grossly normal in appearance. Small bowel and colon are normal in caliber and d istribution. The appendix is normal. Ascites: Absent Lymphadenopathy: No mesenteric, retroperitoneal or periportal lymphadenopathy. Abdominal Wall and Mesentery: Slight interval decrease in size of left paramedian ventral abdominal w all subcutaneous fluid collection now measuring 6.4 x 3.0 cm in the axial plane and 8.7 cm craniocaud al (previously measuring 6.8 x 2.9 x 8.4 cm). The appearance of this collection is most consistent wi th a postoperative seroma, although abscess can not be completely excluded. Vasculature: The visualized abdominal aorta is normal in size and caliber. Abdominal and pelvic vess els demonstrate normal enhancement. Pelvic Organs: Unremarkable, status post hysterectomy Musculoskeletal: No aggressive focal bony lesions, acute fractures or dislocation. IMPRESSION: 1. Slight interval decrease in size of left paramedian ventral abdominal wall subcutaneous fluid sowmya ection thought to likely represent a postoperative seroma. Although this collection is less likely to represent an abscess, abscess can not be completely excluded in the setting. 2. Hepatomegaly and hepatic steatosis. Radiation optimization: All CT scans at this facility use at least one of these dose optimization efe hniques: automated exposure control mA and/or kV adjustment per patient size (includes targeted exam s where dose is matched to clinical indication) or iterative reconstruction.
[2024-10-11] MEDS: ketorolac trometh 30MG/ML vial 30 MG/ML VIAL IV ONE (02:40)
[2024-10-11] MEDS: ondansetron/PF 4mg/2ml inj IV ONE (02:41)
[2024-10-11] MEDS: normal saline 1000ML IV soln IVB ONE (02:42)
[2024-10-11] MEDS ORDERED: PANT40SU2 PO (02:51)
[2024-10-11] MEDS ORDERED: LYR75C PO (02:51)
[2024-10-11] MEDS ORDERED: ALPR-624 PO (02:51)
[2024-10-11] MEDS: HYDROmorphone/PF 0.2 MG/ML SYRINGE IV ONE (03:11)
[2024-10-11] MEDS ORDERED: potassium Cl 40MEQ/1/2NS 520ml 520 ML IV PRN (03:15)
[2024-10-11] MEDS ORDERED: acetaminophen 325mg tablet PO PRN (03:15)
[2024-10-11] MEDS ORDERED: magnesium sulf-water 4G/100mL 100 ML IV PRN (03:15)
[2024-10-11] MEDS ORDERED: potassium Cl 20 mEq SR tablet PO PRN ×2 (03:15)
[2024-10-11] MEDS ORDERED: magnesium sulf-water 2g/50mL 50 ML IV PRN (03:15)
[2024-10-11] MEDS ORDERED: mag hydrox/Alum hydrox/simeth 30ml oral suspension PO PRN (03:15)
[2024-10-11] MEDS ORDERED: morphine 2 MG/ML inj. syringe IV PRN ×2 (03:15)
[2024-10-11] MEDS ORDERED: magnesium hydroxide 30ml (MOM) UD suspension PO PRN (03:15)
[2024-10-11] MEDS ORDERED: magnesium Cl slow-release 64mg tablet PO PRN (03:15)
--- NOTE | 2024-10-11 04:16 | HISTORY AND PHYSICAL-Residence ---
History & Physical Providers to CC Resident Creating Document: JOEY DAUGHERTY RES ~ History of Present Illness Primary Medical Doctor: DONIS Reason for Admit\\Complaint: Abdominal pain History of Present Illness 44 years old female presented to the ED for abdominal pain. This is the 2nd time the patient came to the ED waiting last 10 days. Patient had history of incarcerated incisional hernia with small bowel obstruction who underwent laparoscopic incarcerated incisional hernia repair by Dr. Foley at 09/19. She reported she had abdominal pain after surgery however waiting last week her pain has been getting worse which is located on the left upper quadrant and the severity of the pain is 10/10, it is constant, radiated to the back and exacerbated with any movement. Patient also reported anorexia and she lost weight waiting last 10 days. She also reported one time vomiting last night. She denied any chest pain shortness of breath fever chills. Allergies: Coded Allergies: morphine (Verified Allergy, Mild, itchy, 10/10/24) Sulfa (Sulfonamide Antibiotics) (Verified Allergy, Unknown, 10/10/24) latex (Verified Allergy, Unknown, 10/10/24) Home Medications Home Medications Active Zofran (Ondansetron Hcl) 8 Mg Tablet 1 Tab PO Q8H Zofran (Ondansetron Hcl) 4 Mg Tablet 1 Tab PO Q6H 5 Days Proair Hfa (Albuterol Sulfate) 1 Puff Inh 2 Puffs IH Q6H PRN Reported Xanax (Alprazolam) 0.5 Mg Tablet 1 Tab PO QDAY PRN PRN 30 Days LYRICA capsule (Pregabalin) 75 Mg Capsule 1 Cap PO Q12H 30 Days Protonix (Pantoprazole Sodium) 40 Mg Suspdr.pkt 40 Mg PO Tricor* (Fenofibrate) 48 Mg Tablet 134 Mg PO DAILY Glucophage* (Metformin HCl) 500 Mg Tablet 1 Tab PO BIDAC Past Medical History Past Medical History 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 Past Social History Smoking: Quit greater than 1 year Alcohol Use: None Drug Use: None Lives with: Family Lives In: Home Occupation: employed ROS ROS The history of present illness included a review of system, which yielded relevant positives and negatives Exam Vitals: Vital Signs Date Time Temp Pulse Resp B/P (MAP) Pulse Ox O2 Delivery O2 Flow Rate FiO2 10/11/24 03:11 21 10/11/24 01:10 10/10/24 23:35 97 98 0 10/10/24 19:21 98.7 General: General: Awake and Alert, mild acute distress. HEENT: Conjunctiva pink, Sclera clear, Mucus Membranes moist Neck: Supple without masses and tenderness. Resp: Lungs clear to auscultation bilaterally. Heart: Regular Rate and rhythm, normal S1 and S2 Abdomen: Soft, mild tenderness on left upper quadrant Extremities: No cyanosis,clubbing or edema. Skin: Warm and Dry. Neurological: Speech is clear, alert, and oriented x 4, no gross neurological deficits Diagnostic Data Last Recorded Lab Results: 10/10/24193410/10/241934 Advance Care Planning Advanced Care plannin - 30 Minutes Additional Plan 44 years old female with history presented with abdominal pain. Abdominal pain No leukocytosis Lactic acid and procalcitonin is pending Patient had history of incarcerated incisional hernia with bowel obstruction underwent hernia repair on 09/[address] Foley Abdominal pelvic CT scan with IV contrast: 1 . Slight interval decrease in size of left paramedian ventral abdominal wall subcutaneous fluid collection thought to likely represent a postoperative seroma. Although this collection is less likely to represent an abscess, abscess can not be completely excluded in the setting. 2. Hepatomegaly and hepatic steatosis On-call surgeon Dr. Arcos was consulted by ED physician, who recommended admit patient, surgeon was Dr. Foley Ceftriaxone and metronidazole started, follow blood culture and procalcitonin and lactic acid Continue IV fluid 100 mL/hour Possible UTI No leukocytosis UA positive for WBC 20-30, urine culture is pending Patient reported low abdominal pain/pressure Ceftriaxone started, follow culture Other comorbidities, dyslipidemia Continue home medication after reconciliation Code Status: full DVT prophylaxis: SCDs Analgesia/sedation: Dilaudid, allergic to morphine Line/tube: Peripheral GI prophylaxis: None Nutrition: NPO Prognosis: Guarded Disposition: Continue monitoring patient in ortho floor, pending surgical consultation Joey Daugherty MD Internal Medicine Resident Attending Physician Attestation Evaluation via HIPAA compliant AV device. I discussed the case with the resident and I agree with the resident"s documentation. 44-year-old woman with a history of incarcerated ventral hernia s/p laparoscopic repair on September 19 with postoperative abdominal pain and seroma at the surgical site. The treatment plan includes: Urgent surgical consultation. Ceftiraxone/metronidazole antimicrobial therapy for the possibility that the seroma represents an infected fluid collection. Multimodal pain control. LMWH DVT prophylaxis. Time spent 50 minutes. Date of Service: Oct 11, 2024 Billing Provider: ANGELINE WHITE MD, [place], RES Oct 11, 2024 04:16 ANGELINE WHITE MD Oct 11, 2024 05:01
[2024-10-11] MEDS: normal saline 1000ml 1,000 ML IV SCH (05:32)
--- NOTE | 2024-10-11 05:37 | Physician Documentation ---
History of Present Illness ~ Chief Complaint: Abdominal Pain Stated Complaint: SIDE PAIN Time Seen by MD: 23:38 Primary Medical Doctor: DONIS Source: patient Mode of Arrival: POV Exam Limitations: no limitations HPI Patient in with worsening abdominal pain over the past few weeks. Back on September 19 she had a small bowel obstruction and was taken to the OR and ended up with a hernia repair. No resection was needed. One week prior to that she had a total hysterectomy for cervical cancer. No further treatment was done for that. Following the hernia surgery she had worsening pain and today is her 3rd ER visit since that time. She states the pain is on her left side and is exquisite even just to touch. She has had a combination of constipation and diarrhea. No bloody stools. No vomiting. No fever. Medication Reconciliation Allergies: Coded Allergies: morphine (Verified Allergy, Mild, itchy, 10/10/24) Sulfa (Sulfonamide Antibiotics) (Verified Allergy, Unknown, 10/10/24) latex (Verified Allergy, Unknown, 10/10/24) Scheduled Fenofibrate Nanocrystallized* (Tricor*), 134 MG PO DAILY, (Reported) Metformin Hcl* (Glucophage*), 1 TAB PO BIDAC, (Reported) Ondansetron Hcl (Zofran), 1 TAB PO Q6H Ondansetron Hcl (Zofran), 1 TAB PO Q8H Pregabalin (LYRICA capsule), 1 CAP PO Q12H, (Reported) Scheduled PRN Albuterol Sulfate (Proair Hfa), 2 PUFFS IH Q6H PRN for SOB or wheezing Alprazolam (Xanax), 1 TAB PO QDAY PRN PRN for anxiety, (Reported) Miscellaneous Medications Pantoprazole Sodium (Protonix), 40 MG PO, (Reported) Discontinued Medications Albuterol Sulfate (Ventolin Hfa), 2 PUFFS INH Q4HPRN PRN for wheezing Discontinued Reason: patient no longer taking Hydrocodone Bit/Acetaminophen 5/325 MG ([place] 5/325 MG), 1 TAB PO Q6H PRN for pain Discontinued Reason: Out of medication ONDANSETRON ODT 4mg tablet (Ondansetron Odt), 1 TAB PO Q6H PRN PRN for nausea/vomiting Discontinued Reason: Other Ondansetron Hcl (Zofran), 1 TAB PO Q6H Discontinued Reason: Other Oxycodone Hcl/Acetaminophen 5/325 MG* (Percocet 5/325 MG*), 1 TAB PO Q4H PRN for moderate or severe pain 4-10 Discontinued Reason: patient no longer taking Past Medical History Past Medical History: High Cholesterol, GERD, Inflammatory Bowel Dz, Peptic Ulcer Disease, UTI, Diabetes, Thyroid (unspecified) Past Surgical History: abdominal surgery, cholecystectomy, other Patient History: Patient reports no known family medical history. Smoking Status: Former smoker Alcohol Use: None Drug Use: none Lives with: Family Lives In: Home Occupation: employed Review of Systems All Other Systems at this time: Reviewed and Negative Physical Exam Vital Signs: Temperature: 98.7, Source: Oral, Heart Rate: 97, Respiratory Rate: 21, BP: 148/67, Pulse Oximetry: 98, Weight: 87.000 Oxygen Flow Rate: 0 Physical Exam General: Alert and oriented x4, well-appearing, well-nourished, uncomfortable appearing HEENT: Normocephalic, atraumatic, no visible or palpable masses or depression, extraocular movements intact, PERRLA, no scleral icterus, neck is supple and nontender, mucous membranes moist Heart: Regular rate and rhythm, no murmurs, rubs or gallops Lungs: Clear to auscultation bilaterally, normal work of breathing Abdomen: Soft, exquisitely tender on the left side, no palpable masses, normal bowel sounds Back: Spine is without deformity or tenderness, no CVA tenderness Extremities: Full range of motion, no acute deformity, peripheral pulses intact, no cyanosis or edema Musculoskeletal: Normal gait, normal tone Neurologic: Cranial nerves 2-12 are intact, reflexes normal Psychiatric: Alert and oriented x4, judgment and insight normal, normal mood and affect Skin: Good turgor, no rashes Progress Results/Orders Results/Orders Orders - ALEX DREW MD Ct Abdomen Pelvis (10/11/24 01:00) Page Hospitalist (10/11/24 02:30) Fill Out Med Reconciliation (10/11/24 02:30) Completed Orders - ALEX DREW MD Ondansetron Inj. (Zofran 4mg/2ml Vial) (10/11/24 00:40) Ketorolac Trometh 30mg/Ml Vial (Toradol (10/11/24 00:40) Normal Saline 1000ml (Sodium Chloride 10 (10/11/24 00:40) Ct Abdomen Pelvis (10/11/24 01:00) Iohexol 300mg/Ml 100ml Inj. (Omnipaque-3 (10/11/24 01:04) Hydromorphone/Pf 0.2mg/Ml Inj. (Dilaudid (10/11/24 02:55) Medications Received in ER Medications (Trade) Dose Ordered Sig/Aaron Route PRN Reason Start Time Stop Time Status Last Admin Dose Admin (Zofran 4mg/2ml vial) 4 mg ONCE ONCE IV 10/11/24 00:40 10/11/24 00:41 DC 10/11/24 02:41 4 MG (Toradol inj. 30mg/ml) 30 mg ONCE ONCE IV 10/11/24 00:40 10/11/24 00:41 DC 10/11/24 02:40 30 MG (sodium chloride 1000ml IV soln) 1,000 ml ONCE ONCE IVB 10/11/24 00:40 10/11/24 00:41 DC 10/11/24 02:42 1,000 ML (Dilaudid 0.2 Mg/ ml Syringe) 1 mg ONCE ONCE IV 10/11/24 02:55 10/11/24 02:56 DC 10/11/24 03:11 1 MG Vital Signs 10/10/24 10/10/24 10/11/24 10/11/24 19:21 23:35 01:10 02:40 Temp 98.7 Pulse 103 97 Resp 18 16 23 B/P (MAP) 130/83 148/67 (94) Pulse Ox 98 98 O2 Flow Rate 0 0 10/11/24 03:11 Resp 21 Laboratory Tests Test 10/10/24 19:35 10/10/24 23:23 White Blood Count 9.7 Red Blood Count 4.37 Hemoglobin 13.0 Hematocrit 38.6 Mean Corpuscular Volume 88.3 Mean Corpuscular Hemoglobin 29.8 Mean Corpuscular Hemoglobin Concent 33.8 Red Cell Distribution Width 14.1 Platelet Count 387 Mean Platelet Volume 8.4 Neutrophils (%) (Auto) 49.4 Lymphocytes (%) (Auto) 36.1 Monocytes (%) (Auto) 8.1 Eosinophils (%) (Auto) 5.2 Basophils (%) (Auto) 1.2 H Neutrophils # (Auto) 4.8 Lymphocytes # (Auto) 3.5 Monocytes # (Auto) 0.8 Eosinophils # (Auto) 0.5 Basophils # (Auto) 0.1 CBC Comment Sodium Level 144 Potassium Level 4.9 Chloride Level 105 Carbon Dioxide Level 31.3 Anion Gap 8 Blood Urea Nitrogen 14 Creatinine 0.94 H Estimated GFR/1.73 m2 64 BUN/Creatinine Ratio 14.9 Glucose Level 101 Calcium Level 9.7 Total Bilirubin 0.6 Aspartate Amino Transf (AST/SGOT) 20 Alanine Aminotransferase (ALT/SGPT) 32 Alkaline Phosphatase 60 Total Protein 8.0 Albumin 4.0 Globulin 4.0 Albumin/Globulin Ratio 1.0 L Lipase 87 H Chemistry Comments Urine Specimen Description Cln catch midstream Urine Color Yellow Urine Clarity Clear Urine pH 6.0 Urine Specific [place] >=1.030 Urine Protein Negative Urine Glucose (UA) Negative Urine Ketones Negative Urine Occult Blood Negative Urine Nitrite Negative Urine Bilirubin Negative Urine Urobilinogen 0.2 Urine Leukocyte Esterase Small H Urine RBC 0-2 Urine WBC 20-30 H Urine Squamous Epithelial Cells Moderate Urine Bacteria 2+ Urine Culture Indicated Indicated Volume Urine Centrifuged 10 ml Urine HCG, Qualitative Negative Urine Comment Microbiology Date/Time Source Procedure Growth Status 10/10/24 23:48 Urine Clean Catch Midstream Urine Culture - Preliminary Culture received. Resulted Medical Decision Making Additional Comments Differential includes but is not limited to: Small-bowel obstruction, gastroenteritis, dehydration, electrolyte derangement, colitis, abscess, seroma Departure Admitted to Inpatient Unit: yes, to hospitalist Admission Level of Care: Med/Surg Impression: Primary Impression: Abdominal pain Additional Impression: Postoperative seroma Qualified Codes: K91.872 - Postprocedural seroma of a digestive system organ or structure following a digestive system procedure Condition: Stable Additional Instructions: Patient and with her 3rd ER visit since surgery on September 19. Each visit she has had a CT scan that showed a worsening likely seroma at the site of the hernia repair. Less likely abscess per CT. Each visit she has not shown any signs of infection. Normal white cell count and no fever. Likely seroma that is worsening and causing pain. Patient given pain medication in the ED and is otherwise stable. Discussed with surgeon on-call Dr. Driscoll. She will be admitted to the hospitalist team. Referrals: NO PRIMARY CARE PROVIDER (PCP) Education Educated: Patient Educated regarding: diagnosis Signature Scribe Signature: No scribe Attestation: No scribe ALEX DREW MD Oct 11, 2024 05:37
[2024-10-11 05:38] LABS: APTT 27 SECONDS (22-32); MAGNESIUM 1.6 MG/DL (1.5-2.4); POTASSIUM 3.9 MMOL/L (3.5-5.1); PROTHROMBIN TIME 10.6 SECONDS (9.0-12.0)
[2024-10-11] MEDS: docusate sod 100mg capsule PO SCH (07:11)
[2024-10-11] MEDS: K and/or MAG REPLACEMENT MC SCH (07:11)
[2024-10-11] MEDS: enoxaparin 40mg/0.4ml syringe SUBCUT SCH (07:11)
[2024-10-11] MEDS: HYDROmorphone/PF 0.2 MG/ML SYRINGE IV PRN (07:52)
[2024-10-11] MEDS: metroNIDAZOLE-Flagyl 500mg/NS 100 ML IV SCH (07:52)
[2024-10-11] MEDS: CefTRIAXone/D5W-Rocephin 1gm 50 ML IV SCH (07:52)
[2024-10-11] MEDS: HYDROmorphone inj. 0.5 MG/0.5 ML DISP.SYRIN IV PRN (10:21)
[2024-10-11] MEDS ORDERED: POLY119P2 PO (16:24)
[2024-10-11] MEDS ORDERED: PANT-47 PO (16:36)
[2024-10-11 18:00] VITALS: BP 120/75; PULSE 74; RESP 16; TEMP 98.1; O2SAT 97
--- NOTE | 2024-10-11 18:11 | PROGRESS NOTE ---
Progress Note ID Providers to CC ~ Progress Note Progress Note: pt seen-needs seroma aspiration ROSE BLANTON MD Oct 11, 2024 18:11
[2024-10-11] MEDS: ondansetron/PF 4mg/2ml inj IV PRN (19:51)
[2024-10-11 20:00] VITALS: RESP 16; O2SAT 97
[2024-10-11 22:00] VITALS: BP 102/60; PULSE 88; RESP 14; TEMP 98.5; O2SAT 96
[2024-10-12] VITALS (10 sets, daily range): BP systolic 96–136; BP diastolic 54–87; PULSE 69–88; RESP 15–18; TEMP 97.2–98.1; O2SAT 96–97
[2024-10-12 04:52] LABS: BASOPHILS # (AUTO) 0.1 X10'3 (0-0.2); EOSINOPHILS # (AUTO) 0.5 X10'3 (0-0.9); EOSINOPHILS % (AUTO) 7.9 % (0-6); HEMATOCRIT 35.8 % (35.0-45.0); HEMOGLOBIN 11.8 g/dl (12.0-16.0); LYMPHOCYTES # (AUTO) 1.9 X10'3 (1.1-4.8); LYMPHOCYTES % (AUTO) 28.8 % (21-51); MEAN CORPUSCULAR HEMOGLOBIN 29.8 PG (27.0-31.0); MEAN CORPUSCULAR HGB CONC 33.1 g/dL (33.0-36.5); MEAN CORPUSCULAR VOLUME 89.9 FL (78-98); MEAN PLATELET VOLUME 8.5 FL (7.4-10.4); MONOCYTES # (AUTO) 0.7 X10'3 (0-0.9); MONOCYTES % (AUTO) 10.7 % (2-12); NEUTROPHILS # (AUTO) 3.3 X10'3 (1.8-7.7); NEUTROPHILS % (AUTO) 51.6 % (42-75); PLATELET COUNT 314 X10'3 (140-440); RED BLOOD COUNT 3.98 X10'6 (4.20-5.60); RED CELL DISTRIBUTION WIDTH 14.1 % (11.5-14.5); WHITE BLOOD COUNT 6.5 X10'3 (4.5-11.0)
[2024-10-12 05:01] LABS: PROTHROMBIN TIME 10.5 SECONDS (9.0-12.0)
[2024-10-12 05:15] LABS: ALANINE AMINOTRANSFERASE 36 U/L (12-78); ALBUMIN 3.1 G/DL (3.4-5.0); ALKALINE PHOSPHATASE 43 IU/L (46-116); ANION GAP 10 (8-16); ASPARTATE AMINO TRANSFERASE 23 U/L (10-37); BILIRUBIN,TOTAL 0.4 MG/DL (0.1-1.0); BLOOD UREA NITROGEN 9 MG/DL (7-18); BUN/CREATININE RATIO 14.5 (10.0-20.0); CALCIUM 8.6 MG/DL (8.5-10.1); CHLORIDE 109 MMOL/L (99-107); CREATININE 0.62 MG/DL (0.40-0.90); GLUCOSE 109 MG/DL (70-104); MAGNESIUM 1.8 MG/DL (1.5-2.4); POTASSIUM 4.6 MMOL/L (3.5-5.1); SODIUM 147 MMOL/L (135-145); TOTAL CARBON DIOXIDE 27.9 MMOL/L (24-32); TOTAL PROTEIN 6.2 G/DL (6.4-8.2); eCRCL 90 ML/MIN; eGFR > 90 ML/MIN
--- NOTE | 2024-10-12 07:17 | ELECTROCARDIOGRAPH REPORT ---
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 Aden Urias Measurements Intervals [place] Rate: 74 P: 62 NH: 126 QRS: 64 QRSD: 92 T: 63 QT: 398 QTc: 442 Interpretive Statements Sinus rhythm Electronically Signed On 10-13-2024 8:19:[address] Aden Urias Please click the below link to view image of tracing.
[2024-10-12] MEDS: sodium chloride 0.45% 1,000 ML IV SCH (08:15)
--- NOTE | 2024-10-12 09:29 | RADIOLOGY REPORT ---
CHEST RADIOGRAPH Indication: surgery Technique: Single frontal view of the chest was obtained Comparison: DI CHEST,SINGLE VIEW on DOS: 10/11/23, DI CHEST,SINGLE VIEW on DOS: 04/04/23 FINDINGS: Lines and Tubes: None Lungs: No focal consolidation. Pleura: No effusion. No pneumothorax. Cardiomediastinal contours: Unremarkable Bones: No acute osseous abnormality. IMPRESSION: No acute cardiopulmonary disease.
--- NOTE | 2024-10-12 10:22 | PROGRESS NOTE ---
Progress Note ID Providers to CC ~ Progress Note Progress Note: awaiting seroma drainage per ROSE Booth MD Oct 12, 2024 10:22
--- NOTE | 2024-10-12 15:28 | PROGRESS NOTE ---
Progress Note - Angio Providers to CC ~ Angio Progress Note: Mostly dark blood in near midline lower abd seroma/hematoma. Total of 37cc of bloody fluid obtained. Sent to lab for C and S. LIZETTE BECKWITH MD Oct 12, 2024 15:28
--- NOTE | 2024-10-12 16:58 | RADIOLOGY REPORT ---
Ultrasound-guided anterior abdominal seroma/hematoma aspiration HISTORY: Along the midline anterior abdominal wall there is a subcutaneous fat well-defined low density fluid collection presumed to be seroma/hematoma versus abscess. After explanation of the above procedure and informed consent, patient was prepped and draped in usual sterile fashion. Utilizing ultrasound guidance and a 5 Wolof aspiration catheter entry was gained into the anterior aspect of a fairly well-defined low-density fluid collection. Dark bloody fluid was obtained with total volume of 37 cc until collapsed. There is no evidence of mo pus. A total of 5 cc 1% lidocaine solution used for local anesthesia. Sample sent to laboratory for analysis. There were no immediate complications. IMPRESSION: Midline low anterior abdominal wall hematoma aspirated until collapsed. Sample sent to laboratory for analysis.
--- NOTE | 2024-10-12 19:24 | PROGRESS NOTE- Residence ---
Progress Note - Resident Providers to CC Resident Creating Document: DARIUSELY GONZALEZ RES ~ Antibiotic Timeout Antibiotic Ordered?: Yes Subjective Patient was seen and examined at the bedside. She mentions that she continues to have pain in the left upper quadrant. Seroma aspiration was done at the bedside and Mostly dark blood was removed in near midline lower abd seroma/hematoma. Total of 37cc of bloody fluid obtained. Sent to lab for C and S. repeat lipase ordered to rule out pancreatitis. Objective Vital Signs Date Time Temp Pulse Resp B/P (MAP) Pulse Ox O2 Delivery O2 Flow Rate FiO2 10/12/24 17:44 18 10/12/24 12:16 74 103/64 (77) 97 Room Air 10/12/24 11:54 97.2 10/12/24 03:35 0 21 Result Diagram: 10/12/2442010/12/24420 General: Awake and Alert, mild acute distress. HEENT: Conjunctiva pink, Sclera clear, Mucus Membranes moist Neck: Supple without masses and tenderness. Resp: Lungs clear to auscultation bilaterally. Heart: Regular Rate and rhythm, normal S1 and S2 Abdomen: Soft, moderate tenderness in the left upper quadrant. Abdomen covered with dressing after serum aspiration. Laparoscopic port mccann in the abdomen Extremities: No cyanosis,clubbing or edema. Skin: Warm and Dry. Neurological: Speech is clear, alert, and oriented x 4, no gross neurological deficits Coagulation Studies Laboratory Tests Test 10/11/24 05:06 10/12/24 04:34 Activated Partial Thromboplast Time 27 SECONDS (22-32) Prothrombin Time 10.5 SECONDS (9.0-12.0) INR International Normalized Ratio 1.0 INR Coagulation Comments Assessment Assessment 44 years old female presented to the ED for abdominal pain. This is the 2nd time the patient came to the ED waiting last 10 days. Patient had history of incarcerated incisional hernia with small bowel obstruction who underwent laparoscopic incarcerated incisional hernia repair by Dr. Foley at 09/19. She reported she had abdominal pain after surgery however waiting last week her pain has been getting worse which is located on the left upper quadrant and the severity of the pain is 10/10, it is constant, radiated to the back and exacerbated with any movement. Patient also reported anorexia and she lost weight waiting last 10 days. She also reported one time vomiting last night. She denied any chest pain shortness of breath fever chills. Plan Plan Postoperative seroma following gallbladder surgery Abscess ruled out No leukocytosis Lactic acid and procalcitonin is pending Patient had history of incarcerated incisional hernia with bowel obstruction underwent hernia repair on 09/[address] Foley Abdominal pelvic CT scan with IV contrast: 1 . Slight interval decrease in size of left paramedian ventral abdominal wall subcutaneous fluid collection thought to likely represent a postoperative seroma. Although this collection is less likely to represent an abscess, abscess can not be completely excluded in the setting. 2. Hepatomegaly and hepatic steatosis On-call surgeon Dr. Arcos was consulted by ED physician, who recommended admit patient, surgeon was Dr. Foley Ceftriaxone and metronidazole started, follow blood culture, procalcitonin and lactic acid are within normal limits Continue IV fluid half NS 100 mL/hour Possible UTI No leukocytosis UA positive for WBC 20-30, urine culture is pending Patient reported low abdominal pain/pressure Ceftriaxone started, follow culture Other comorbidities, dyslipidemia Medication reconciliation done. Restarted Lyrica, pantoprazole, metformin, fenofibrate, Xanax Code Status: full DVT prophylaxis: SCDs Analgesia/sedation: Dilaudid, allergic to morphine Line/tube: Peripheral GI prophylaxis: None Nutrition: Carb controlled diet Prognosis: Guarded Disposition: Continue monitoring patient in surgical floor, anticipated discharge tomorrow Ely Gonzalez MD Internal Medicine Resident Date of Service: Oct 12, 2024 Billing Provider: KELLY DOCKERY MD, DEEPIKA BANDI, RES Oct 12, 2024 19:24
[2024-10-12] MEDS ORDERED: ALPRAZolam 0.5mg tablet PO PRN (19:35)
[2024-10-12] MEDS ORDERED: albuterol 2.5 MG/3 ML nebule NEB PRN (19:35)
[2024-10-12] MEDS ORDERED: non-formulary drug (Ondansetron Hcl (Zofran) 1 TAB) PO SCH (20:00)
[2024-10-12] MEDS: pregabalin 75mg capsule PO SCH (21:33)
[2024-10-13] MEDS: ondansetron 4mg rapidly disintigrating tab PO SCH
[2024-10-13 02:00] VITALS: BP 104/70; PULSE 78; RESP 14; TEMP 97.8; O2SAT 94
[2024-10-13 06:42] LABS: BASOPHILS # (AUTO) 0.1 X10'3 (0-0.2); EOSINOPHILS # (AUTO) 0.5 X10'3 (0-0.9); EOSINOPHILS % (AUTO) 8.6 % (0-6); HEMATOCRIT 34.6 % (35.0-45.0); HEMOGLOBIN 11.3 g/dl (12.0-16.0); LYMPHOCYTES # (AUTO) 1.8 X10'3 (1.1-4.8); LYMPHOCYTES % (AUTO) 30.8 % (21-51); MEAN CORPUSCULAR HEMOGLOBIN 29.4 PG (27.0-31.0); MEAN CORPUSCULAR HGB CONC 32.8 g/dL (33.0-36.5); MEAN CORPUSCULAR VOLUME 89.6 FL (78-98); MEAN PLATELET VOLUME 9.5 FL (7.4-10.4); MONOCYTES # (AUTO) 0.7 X10'3 (0-0.9); MONOCYTES % (AUTO) 11.8 % (2-12); NEUTROPHILS # (AUTO) 2.8 X10'3 (1.8-7.7); NEUTROPHILS % (AUTO) 47.8 % (42-75); PLATELET COUNT 297 X10'3 (140-440); RED BLOOD COUNT 3.86 X10'6 (4.20-5.60); WHITE BLOOD COUNT 5.9 X10'3 (4.5-11.0)
[2024-10-13 06:53] LABS: ALANINE AMINOTRANSFERASE 35 U/L (12-78); ALBUMIN 3.4 G/DL (3.4-5.0); ALBUMIN/GLOBULIN RATIO 1.1 (1.1-1.5); ALKALINE PHOSPHATASE 45 IU/L (46-116); ANION GAP 10 (8-16); ASPARTATE AMINO TRANSFERASE 24 U/L (10-37); BILIRUBIN,TOTAL 0.5 MG/DL (0.1-1.0); BLOOD UREA NITROGEN 7 MG/DL (7-18); BUN/CREATININE RATIO 12.7 (10.0-20.0); CALCIUM 8.6 MG/DL (8.5-10.1); CHLORIDE 108 MMOL/L (99-107); CREATININE 0.55 MG/DL (0.40-0.90); GLUCOSE 118 MG/DL (70-104); MAGNESIUM 1.6 MG/DL (1.5-2.4); POTASSIUM 4.3 MMOL/L (3.5-5.1); SODIUM 143 MMOL/L (135-145); TOTAL CARBON DIOXIDE 24.6 MMOL/L (24-32); TOTAL PROTEIN 6.5 G/DL (6.4-8.2); eCRCL 101 ML/MIN; eGFR > 90 ML/MIN
[2024-10-13] MEDS ORDERED: CEPH-585 PO (07:33)
[2024-10-13] MEDS ORDERED: fenofibrate 48mg tablet PO SCH ×2 (08:00→09:00)
[2024-10-13] MEDS ORDERED: non-formulary drug (Polyethylene Glycol 3350 (Miralax) 17 GM) PO SCH (08:00)
[2024-10-13] MEDS: HYDROcodone/acetaminophen 5mg/325mg tablet PO PRN (08:13)
[2024-10-13] MEDS: pantoprazole 40mg Tablet.DR PO SCH (08:13)
[2024-10-13] MEDS: metFORMIN 500mg tablet PO SCH (08:16)
[2024-10-13] MEDS ORDERED: fenofibrate 145mg tablet PO SCH (08:54)
[2024-10-13] MEDS ORDERED: polyethylene glycol 3350 17gm powd pack PO SCH (08:57)
[2024-10-13 10:00] VITALS: BP 124/83; PULSE 77; RESP 18; TEMP 97.7; O2SAT 97
[2024-10-13] MEDS: fenofibrate 48mg tablet PO ONE (10:32)
[2024-10-13] MEDS: polyethylene glycol 3350 17gm powd pack PO ONE (10:32)
[2024-10-13 12:05] VITALS: RESP 15; O2SAT 96
[2024-10-13 14:30] VITALS: RESP 18
--- NOTE | 2024-10-15 18:06 | DISCHARGE SUMMARY-Residence ---
Discharge Summary Providers to CC Resident Creating Document: ELY MCCOYI, RES ~ Discharge Summary Admission Diagnosis: abdominal wall subcutaneous fluid collection Hospital Course DATE OF ADMISSION: 10/11/2024 DATE OF DISCHARGE: 10/13/2024 Discharge Diagnosis\Comment: Postoperative seroma following gallbladder surgery Abscess ruled out Possible UTI Other comorbidities, dyslipidemia Operations\Procedures: Procedure: Ultrasound-guided anterior abdominal seroma/hematoma aspiration HISTORY: Along the midline anterior abdominal wall there is a subcutaneous fat well-defined low density fluid collection presumed to be seroma/hematoma versus abscess. After explanation of the above procedure and informed consent, patient was prepped and draped in usual sterile fashion. Utilizing ultrasound guidance and a 5 Setswana aspiration catheter entry was gained into the anterior aspect of a fairly well-defined low-density fluid collection. Dark bloody fluid was obtained with total volume of 37 cc until collapsed. There is no evidence of mo pus. A total of 5 cc 1% lidocaine solution used for local anesthesia. Sample sent to laboratory for analysis. There were no immediate complications. IMPRESSION: Midline low anterior abdominal wall hematoma aspirated until collapsed. Sample sent to laboratory for analysis. Consultants: Dr. Aguiar, Dr. Padilla Complications: none Condition on DC: Stable New Medications: Cephalexin*Monohydrate* (Keflex*) 500 Mg Capsule 1 CAP PO Q12H for 5 Days, #10 CAP Continued Medications: Albuterol Sulfate (Proair Hfa) 1 Puff Inh 2 PUFFS IH Q6H PRN for SOB or wheezing, #1 INHALER Alprazolam (Xanax) 0.5 Mg Tablet 1 TAB PO QDAY PRN PRN for anxiety for 30 Days, #30 TAB 0 Refills Fenofibrate Nanocrystallized* (Tricor*) 48 Mg Tablet 134 MG PO DAILY, TAB Metformin Hcl* (Glucophage*) 500 Mg Tablet 2 TAB PO BIDAC, TAB Ondansetron Hcl (Zofran) 4 Mg Tablet 1 TAB PO Q6H for 5 Days, #20 TAB Ondansetron Hcl (Zofran) 8 Mg Tablet 1 TAB PO Q8H, #15 TAB Pantoprazole Sodium (PROTONIX tablet) 40 Mg Tablet.dr 1 TAB PO DAILY for 30 Days, #30 TAB 0 Refills Polyethylene Glycol 3350 (Miralax) 17 Gram/Dose Powder 17 GM PO DAILY for constipation, #255 GM 0 Refills dissolve in water Pregabalin (LYRICA capsule) 75 Mg Capsule 1 CAP PO Q12H for 30 Days, #60 CAP 0 Refills Discharge Summary: 44 years old female presented to the ED for abdominal pain. This is the 2nd time the patient came to the ED waiting last 10 days. Patient had history of incarcerated incisional hernia with small bowel obstruction who underwent laparoscopic incarcerated incisional hernia repair by Dr. Foley at 09/19. She reported she had abdominal pain after surgery however waiting last week her pain has been getting worse which is located on the left upper quadrant and the severity of the pain is 10/10, it is constant, radiated to the back and exacerbated with any movement. Patient also reported anorexia and she lost weight waiting last 10 days. She also reported one time vomiting last night. She denied any chest pain shortness of breath fever chills. Hospital course: Postoperative seroma following gallbladder surgery, Abscess ruled out, No leukocytosis, Lactic acid and procalcitonin is within normal limits. Patient had history of incarcerated incisional hernia with bowel obstruction underwent hernia repair on 09/[address] Folye. Abdominal pelvic CT scan with IV contrast: 1 . Slight interval decrease in size of left paramedian ventral abdominal wall subcutaneous fluid collection thought to likely represent a postoperative seroma. Although this collection is less likely to represent an abscess, abscess can not be completely excluded in the setting. 2. Hepatomegaly and hepatic steatosis. On-call surgeon Dr. Arcos was consulted. Case referred to interventional radiologist Dr. padilla who performed ultrasound-guided aspiration of the hematoma. Possible UTI. No leukocytosis. UA positive for WBC 20-30, urine culture negative. dyslipidemia. Restarted home medication Lyrica, pantoprazole, metformin, fenofibrate, Xanax Vital Signs Date Time Temp Pulse Resp B/P (MAP) Pulse Ox O2 Delivery O2 Flow Rate FiO2 10/13/24 14:30 18 10/13/24 12:05 96 Room Air 10/13/24 10:00 97.7 77 124/83 (97) 10/12/24 03:35 0 21 Laboratory Tests Test 10/12/24 04:21 10/12/24 04:34 10/12/24 07:13 10/12/24 12:33 White Blood Count 6.5 X10'3 Red Blood Count 3.98 X10'6 Hemoglobin 11.8 g/dl Hematocrit 35.8 % Mean Corpuscular Volume 89.9 FL Mean Corpuscular Hemoglobin 29.8 PG Mean Corpuscular Hemoglobin Concent 33.1 g/dL Red Cell Distribution Width 14.1 % Platelet Count 314 X10'3 Mean Platelet Volume 8.5 FL Neutrophils (%) (Auto) 51.6 % Lymphocytes (%) (Auto) 28.8 % Monocytes (%) (Auto) 10.7 % Eosinophils (%) (Auto) 7.9 % Basophils (%) (Auto) 1.0 % Neutrophils # (Auto) 3.3 X10'3 Lymphocytes # (Auto) 1.9 X10'3 Monocytes # (Auto) 0.7 X10'3 Eosinophils # (Auto) 0.5 X10'3 Basophils # (Auto) 0.1 X10'3 CBC Comment Sodium Level 147 MMOL/L Potassium Level 4.6 MMOL/L Chloride Level 109 MMOL/L Carbon Dioxide Level 27.9 MMOL/L Anion Gap 10 Blood Urea Nitrogen 9 MG/DL Creatinine 0.62 MG/DL Estimated GFR/1.73 m2 > 90 ML/MIN BUN/Creatinine Ratio 14.5 Glucose Level 109 MG/DL Calcium Level 8.6 MG/DL Magnesium Level 1.8 MG/DL Total Bilirubin 0.4 MG/DL Aspartate Amino Transf (AST/SGOT) 23 U/L Alanine Aminotransferase (ALT/SGPT) 36 U/L Alkaline Phosphatase 43 IU/L Total Protein 6.2 G/DL Albumin 3.1 G/DL Globulin 3.1 G/DL Albumin/Globulin Ratio 1.0 Chemistry Comments Prothrombin Time 10.5 SECONDS INR International Normalized Ratio 1.0 INR Coagulation Comments Glucometer 113 mg/dl 97 mg/dl Test 10/12/24 21:41 10/13/24 05:51 Lipase 44 U/L White Blood Count 5.9 X10'3 Red Blood Count 3.86 X10'6 Hemoglobin 11.3 g/dl Hematocrit 34.6 % Mean Corpuscular Volume 89.6 FL Mean Corpuscular Hemoglobin 29.4 PG Mean Corpuscular Hemoglobin Concent 32.8 g/dL Red Cell Distribution Width 14.0 % Platelet Count 297 X10'3 Mean Platelet Volume 9.5 FL Neutrophils (%) (Auto) 47.8 % Lymphocytes (%) (Auto) 30.8 % Monocytes (%) (Auto) 11.8 % Eosinophils (%) (Auto) 8.6 % Basophils (%) (Auto) 1.0 % Neutrophils # (Auto) 2.8 X10'3 Lymphocytes # (Auto) 1.8 X10'3 Monocytes # (Auto) 0.7 X10'3 Eosinophils # (Auto) 0.5 X10'3 Basophils # (Auto) 0.1 X10'3 CBC Comment Sodium Level 143 MMOL/L Potassium Level 4.3 MMOL/L Chloride Level 108 MMOL/L Carbon Dioxide Level 24.6 MMOL/L Anion Gap 10 Blood Urea Nitrogen 7 MG/DL Creatinine 0.55 MG/DL Estimated GFR/1.73 m2 > 90 ML/MIN BUN/Creatinine Ratio 12.7 Glucose Level 118 MG/DL Calcium Level 8.6 MG/DL Magnesium Level 1.6 MG/DL Total Bilirubin 0.5 MG/DL Aspartate Amino Transf (AST/SGOT) 24 U/L Alanine Aminotransferase (ALT/SGPT) 35 U/L Alkaline Phosphatase 45 IU/L Total Protein 6.5 G/DL Albumin 3.4 G/DL Globulin 3.1 G/DL Albumin/Globulin Ratio 1.1 Chemistry Comments Physical examination at discharge: General: Awake and Alert, mild acute distress. HEENT: Conjunctiva pink, Sclera clear, Mucus Membranes moist Neck: Supple without masses and tenderness. Resp: Lungs clear to auscultation bilaterally. Heart: Regular Rate and rhythm, normal S1 and S2 Abdomen: Soft, nontender. Abdomen covered with dressing after serum aspiration. Laparoscopic port mccann in the abdomen Extremities: No cyanosis,clubbing or edema. Skin: Warm and Dry. Neurological: Speech is clear, alert, and oriented x 4, no gross neurological deficits Abdomen CT: 1. Slight interval decrease in size of left paramedian ventral abdominal wall subcutaneous fluid collection thought to likely represent a postoperative seroma. Although this collection is less likely to represent an abscess, abscess can not be completely excluded in the setting. 2. Hepatomegaly and hepatic steatosis. Discharge instructions: Follow up with your PCP and Dr. Foley in a week. Follow up with culture sensitivity results of the aspirated dark blood like fluid. Return to the ED if you have worsening abdominal pain or distention. *Problems/Diagnosis: (1) Abdominal pain Status: Acute (2) Postoperative seroma Status: Acute (3) GERD (gastroesophageal reflux disease) Status: Acute Total Time Spent on D/C: > 30 Minutes Date of Service: Oct 13, 2024 Billing Provider: KELLY DOCKERY MD Problem Qualifiers (1) Postoperative seroma: Surgical complication system/body Area: digestive system Procedure type: digestive system Qualified Codes: K91.872 - Postprocedural seroma of a digestive system organ or structure following a digestive system procedure ELY MCCOY, RES Oct 13, 2024 14:44
== END 2024-10-13 16:20 | disposition home or self-care (01) | DRG 920 ==
LOC: ER 19:14 → UNDOADMIN 10-11 03:28 → ED HOLD 10-11 03:28 → SUR 3N 10-11 16:36
PROVIDERS: ADMIT Family Medicine; ATTEND Family Medicine
PROC: BW211ZZ Computerized Tomography (CT Scan) of Abdomen and Pelvis using Low Osmolar Contrast (ICD-10-PCS; 2024-10-11)
PROC: 0W9F3ZZ Drainage of Abdominal Wall, Percutaneous Approach (ICD-10-PCS; principal; 2024-10-12)
DX: K91.872 Postprocedural seroma of a digestive system organ or structure following a digestive system procedure (principal); N39.0 Urinary tract infection, site not specified; Y83.8 Other surgical procedures as the cause of abnormal reaction of the patient, or of later complication, without mention of misadventure at the time of the procedure; E78.5 Hyperlipidemia, unspecified; E11.9 Type 2 diabetes mellitus without complications; K21.9 Gastro-esophageal reflux disease without esophagitis; Y92.89 Other specified places as the place of occurrence of the external cause; Z87.891 Personal history of nicotine dependence; Z88.5 Allergy status to narcotic agent; Z87.11 Personal history of peptic ulcer disease
CPT/HCPCS: 10030; 36415; 71045; 74177; 80053; 81001; 81025; 82948; 83605; 83690; 83735; 84132; 84145; 85025; 85610; 85730; 87040; 87070; 87081; 87088; 93005; 96361; 96374; 96375; 96376; 99285; A4615; G0378; J0696; J1171; J1650; J1885; J2405; J3490; J7030; Q9967

== ENCOUNTER 2024-10-18 14:03 | Observation (INO) | payer BC ==
[~2024-10-18] VITALS: Ht 157.5 cm; Wt 86.7 kg
[~2024-10-18 14:03] MED LIST changes: -ALBU18HF2 INH; +ALPR-624 PO; +CEPH-585 PO; -HYDR-3965 PO; +LYR75C PO; -ONDA-243 PO; +PANT-47 PO; -PER5325T PO; +POLY119P2 PO
--- NOTE | 2024-10-18 14:22 | Physician Documentation ---
History of Present Illness Chief Complaint: Abdominal Pain Stated Complaint: SIDE PAIN/BLOOD IN URINE Primary Medical Doctor: DONIS RUBALCAVA Patient presents to the emergency room for evaluation of abdominal pain. Patient has had a complicated history over the past two months with repair of hernia associated with a bowel obstruction as well as a total hysterectomy. Patient developed a seroma associated with her hernia repair which required drainage just in the past 1-[address] Douglas via needle aspiration. Since that time pain has been increasing and patient states this feels different than before in his traveling around her side. Denies fevers. Taking ibuprofen and Tylenol with limited benefit. Medication Reconciliation Allergies: Coded Allergies: morphine (Verified Allergy, Mild, itchy, 10/10/24) Sulfa (Sulfonamide Antibiotics) (Verified Allergy, Unknown, 10/10/24) latex (Verified Allergy, Unknown, 10/10/24) Scheduled Duloxetine HCl (Duloxetine HCl), 1 CAP PO BID, (Reported) Fenofibrate Nanocrystallized* (Tricor*), 134 MG PO DAILY, (Reported) Metformin Hcl* (Glucophage*), 2 TAB PO BIDAC, (Reported) Pantoprazole Sodium (PROTONIX tablet), 1 TAB PO DAILY, (Reported) Polyethylene Glycol 3350 (Miralax), 17 GM PO DAILY, (Reported) Pregabalin (LYRICA capsule), 1 CAP PO Q12H, (Reported) Scheduled PRN Albuterol Sulfate (Proair Hfa), 2 PUFFS IH Q6H PRN for SOB or wheezing Alprazolam (Xanax), 1 TAB PO QDAY PRN PRN for anxiety, (Reported) Discontinued Medications Cephalexin*Monohydrate* (Keflex*), 1 CAP PO Q12H Discontinued Reason: patient no longer taking Ondansetron Hcl (Zofran), 1 TAB PO Q6H Discontinued Reason: patient no longer taking Ondansetron Hcl (Zofran), 1 TAB PO Q8H Discontinued Reason: completed med therapy Past Medical History Past Medical History: High Cholesterol, GERD, Inflammatory Bowel Dz, Peptic Ulcer Disease, UTI, Diabetes, Thyroid (unspecified) Past Surgical History: abdominal surgery, cholecystectomy, other Patient History: Patient reports no known family medical history. Alcohol Use: None Drug Use: none Lives with: Family Lives In: Home Occupation: employed Review of Systems ROS All review of systems negative except as per HPI Physical Exam Vital Signs: Temperature: 97.1, Source: Temporal, Heart Rate: 101, Respiratory Rate: 18, BP: 135/81, Pulse Oximetry: 98, Weight: 86.700 Oxygen Flow Rate: 0 Physical Exam General: Patient is awake, alert, oriented x4 in no acute distress Head: Normocephalic and atraumatic. Eyes: Conjunctival normal. EOMI. PERRL. ENT: Mucous membranes moist. Neck: Supple, trachea is midline. Chest: Clear to auscultation bilaterally without rales, rhonchi, or wheezes. There is no accessory muscle use or retractions. Cardiac: RRR without murmurs, gallops, or rubs. Abd: Soft, nondistended, positive tenderness to palpation to mid abdomen along to left abdomen but no mo cellulitis. Progress Results/Orders Results/Orders Vital Signs 10/18/24 14:13 Temp 97.1 Pulse 101 Resp 18 B/P (MAP) 135/81 Pulse Ox 98 O2 Flow Rate 0 Medical Decision Making Findings Patient presents to the emergency room with abdominal pain as per HPI. Differentials include but are not limited to infection, seroma, intra-abdominal pathologies such as obstruction pancreatitis cholecystitis therefore emergent labs and imaging ordered. Patient has had a reaccumulation of room again. We will admit for definitive management. Departure Admitted to Inpatient Unit: yes, to hospitalist Impression: Primary Impression: Postoperative seroma Referrals: NO PRIMARY CARE PROVIDER (PCP) Additional Comment Medical Screen Exam LOWER ABD PAIN RADIATING TO LEFT SIDE OF ABD, PATIENT HAD A SEROMA DRAINED LAST WEEK WHERE SHE WAS HOSPITALIZED BUT THE PAIN HAS NOW RETURNED. +NAUSEA, ABD DISTENTION, DENIES FEVER +DIAPHORESIS AND HEMATURIA. HX HERNIA REPAIR 09/19/24, TOTAL HYSTERECTOMY 09/12/24. History: This is a 44-year-old female who has had recent abdominal surgery presenting with left lower quadrant abdominal pain described as pressure and bloating. Patient reports nausea and diaphoresis though reports no fever. Patient reports hernia repair on September 19, 2024 and total hysterectomy on September 12, 2024 Exam: VITALS: Reviewed and as above. GENERAL: Alert, nontoxic appearing, no apparent distress. RESPIRATORY: No increased work of breathing, no respiratory distress, speaking in full clear sentences MSE performed in triage and patient returned to ED lobby by nursing staff The note accurately reflects work and decisions made by me.BROOKS Tony 10/18/24 14:21 Signature Scribe Signature: No scribe Attestation: The note accurately reflects work and decisions made by me.Brian Munoz MD 10/19/24 00:38 SHELDON MENDEZ Oct 18, 2024 14:21 BRIAN MUNOZ MD Oct 18, 2024 19:00
[2024-10-18 14:47] LABS: BASOPHILS # (AUTO) 0.1 X10'3 (0-0.2); BASOPHILS % (AUTO) 0.9 % (0-1); EOSINOPHILS # (AUTO) 0.4 X10'3 (0-0.9); EOSINOPHILS % (AUTO) 4.5 % (0-6); HEMATOCRIT 40.6 % (35.0-45.0); HEMOGLOBIN 13.4 g/dl (12.0-16.0); LYMPHOCYTES # (AUTO) 2.7 X10'3 (1.1-4.8); LYMPHOCYTES % (AUTO) 28.3 % (21-51); MEAN CORPUSCULAR HEMOGLOBIN 29.3 PG (27.0-31.0); MEAN CORPUSCULAR HGB CONC 33.1 g/dL (33.0-36.5); MEAN CORPUSCULAR VOLUME 88.4 FL (78-98); MEAN PLATELET VOLUME 8.7 FL (7.4-10.4); MONOCYTES # (AUTO) 0.6 X10'3 (0-0.9); MONOCYTES % (AUTO) 6.8 % (2-12); NEUTROPHILS # (AUTO) 5.6 X10'3 (1.8-7.7); NEUTROPHILS % (AUTO) 59.5 % (42-75); PLATELET COUNT 466 X10'3 (140-440); RED BLOOD COUNT 4.59 X10'6 (4.20-5.60); RED CELL DISTRIBUTION WIDTH 14.3 % (11.5-14.5); WHITE BLOOD COUNT 9.5 X10'3 (4.5-11.0)
[2024-10-18 15:04] LABS: ALANINE AMINOTRANSFERASE 36 U/L (12-78); ALKALINE PHOSPHATASE 54 IU/L (46-116); ANION GAP 14 (8-16); ASPARTATE AMINO TRANSFERASE 17 U/L (10-37); BILIRUBIN,TOTAL 0.6 MG/DL (0.1-1.0); BLOOD UREA NITROGEN 11 MG/DL (7-18); BUN/CREATININE RATIO 11.2 (10.0-20.0); CALCIUM 9.3 MG/DL (8.5-10.1); CHLORIDE 104 MMOL/L (99-107); CREATININE 0.98 MG/DL (0.40-0.90); GLUCOSE 137 MG/DL (70-104); LIPASE 39 U/L (16-77); POTASSIUM 4.2 MMOL/L (3.5-5.1); SODIUM 143 MMOL/L (135-145); TOTAL CARBON DIOXIDE 24.7 MMOL/L (24-32); eCRCL 57 ML/MIN; eGFR 61 ML/MIN
[2024-10-18 15:38] LABS: BILIRUBIN,URINE NEGATIVE (Neg); CLARITY,URINE SLIGHTLY CLOUDY (Clear); COLOR,URINE YELLOW (Yellow); GLUCOSE, URINE NEGATIVE (Neg); KETONES,URINE TRACE mg/dl (Neg); LEUKOCYTE ESTERASE ,URINE TRACE (Neg); NITRITES, URINE NEGATIVE (Neg); OCCULT BLOOD,URINE TRACE-INTACT (Neg); PH,URINE 5.5 (4.8-8.0); PROTEIN,URINE NEGATIVE (Neg); UROBILINOGEN,URINE 0.2 E.U/dL (0.2-1.0)
[2024-10-18 15:44] LABS: UA COLLECTION TYPE CLN CATCH MIDSTREAM
[2024-10-18 16:02] LABS: WBC,URINE 30-50 /HPF (0-4)
[2024-10-18 16:03] LABS: BACTERIA,URINE FEW /HPF (Neg); CAL OXALATE CRYSTALS 4+ /HPF (NEGATIVE); SQUAMOUS EPITHELIAL CELL,UR MODERATE /LPF (FEW)
[2024-10-18 16:04] LABS: RENAL CELLS, URINE FEW /HPF
[2024-10-18] MEDS ORDERED: iohexol 300mg/ml 100ml inj. ONE (19:05)
[2024-10-18] MEDS: ondansetron/PF 4mg/2ml inj IV ONE (19:08)
[2024-10-18] MEDS: fentaNYL/PF 50MCG/1 ML 2ML syringe IV ONE (19:08)
--- NOTE | 2024-10-18 20:15 | RADIOLOGY REPORT ---
Exam: CT CT ABDOMEN PELVIS W/ IV CONTRAST History: abd pain after seroma drainage Comparison Study: CT CT ABDOMEN PELVIS W/ IV CONTRAST on DOS: 10/11/24, CT CT ABDOMEN PELVIS W/ IV CON TRAST on DOS: 10/03/24, CT CT ABDOMEN PELVIS W/ IV CONTRAST on DOS: 09/25/24 TECHNIQUE: A digital partition assembly machine operator image was obtained. During the uneventful, intravenous administration of c ontrast material, multislice data acquisition was obtained through the abdomen and pelvis. The data s et was subsequently reconstructed into axial images. Images reviewed on a wrist examination is an exa mination of axial and multiplanar reformations using a variety of window levels and settings. RADIATION DOSE: DLP 1493.56 mGy.cm; CTDI vol 30.43 mGy. Findings: Lungs: The lung bases are clear. Heart: No cardiomegaly or pericardial effusion. Liver: The liver measures 20.4 cm in craniocaudal dimension. Fatty infiltration of the liver. Gallbladder: Cholecystectomy. Spleen: Unremarkable Pancreas: Unremarkable Adrenals: Unremarkable Kidneys: Unremarkable GI tract: Unremarkable : Unremarkable. Vasculature: Unremarkable Lymphadenopathy: Absent Peritoneum: No ascites Musculoskeletal: Mild to moderate multilevel degenerative changes of the thoracolumbar spine. Soft tissues: 2.1 x 6.2 x 8.4 cm focal fluid collection along the anterior abdominal wall with rim en hancement in minimal adjacent inflammatory changes. Impression: 1. No acute abdominopelvic abnormalities. 2. Hepatomegaly with hepatic steatosis. 3. 2.1 x 6.2 x 8.4 cm anterior abdominal wall seroma versus developing abscess with minimal adjacent inflammatory changes.
[2024-10-18] MEDS ORDERED: DULO60CA65 PO (22:01)
[2024-10-18] MEDS ORDERED: acetaminophen 325mg tablet PO PRN (22:15)
[2024-10-18] MEDS ORDERED: magnesium sulf-water 4G/100mL 100 ML IV PRN (22:15)
[2024-10-18] MEDS ORDERED: mag hydrox/Alum hydrox/simeth 30ml oral suspension PO PRN (22:15)
[2024-10-18] MEDS ORDERED: magnesium sulf-water 2g/50mL 50 ML IV PRN (22:15)
[2024-10-18] MEDS ORDERED: magnesium hydroxide 30ml (MOM) UD suspension PO PRN (22:15)
[2024-10-18] MEDS ORDERED: morphine 2 MG/ML inj. syringe IV PRN ×2 (22:15→22:30)
[2024-10-18] MEDS ORDERED: ondansetron/PF 4mg/2ml inj IV PRN (22:15)
[2024-10-18] MEDS ORDERED: potassium Cl 20 mEq SR tablet PO PRN ×2 (22:15)
[2024-10-18] MEDS ORDERED: magnesium Cl slow-release 64mg tablet PO PRN (22:15)
[2024-10-18] MEDS ORDERED: potassium Cl 40MEQ/1/2NS 520ml 520 ML IV PRN (22:15)
--- NOTE | 2024-10-18 22:26 | HISTORY AND PHYSICAL-Residence ---
History & Physical Providers to CC Resident Creating Document: AGUSTINAERIKALEN ANGEL, RES CC: SURESH JOSEPH MD ~ History of Present Illness Primary Medical Doctor: DONIS Reason for Admit\Complaint: Abdominal pain History of Present Illness A 44-year-old female with past medical history of prediabetes, hypertriglyceridemia presents to the ED in view of abdominal pain present in the right lower quadrant radiating to the lower abdomen and to the left upper and lower quadrant with a severity of 10/10, sharp and continuous in character since yesterday. Patient underwent total abdominal hysterectomy on the 12 of September for uterine cancer followed by hernia repair on the 18 of September after she had a bowel obstruction. She developed seroma post surgery and was treated with I and D by Dr. Braga (interventional radiologist). Patient's abdominal pain does not change in intensity with a bowel movement. Patient complains of blood in the urine, no burning micturition, no fever chills, vomitings. Patient endorses four episodes of diarrhea for the last two days which were watery and dark brown in color. Patient denies travel or similar symptoms in the family. Did not undergo chemotherapy or radiation for uterine cancer. Allergies: Coded Allergies: morphine (Verified Allergy, Mild, itchy, 10/10/24) Sulfa (Sulfonamide Antibiotics) (Verified Allergy, Unknown, 10/10/24) latex (Verified Allergy, Unknown, 10/10/24) Home Medications Home Medications Active Proair Hfa (Albuterol Sulfate) 1 Puff Inh 2 Puffs IH Q6H PRN Reported Duloxetine HCl 60 Mg Capsule.dr 1 Cap PO BID 30 Days PROTONIX tablet (Pantoprazole Sodium) 40 Mg Tablet.dr 1 Tab PO DAILY 30 Days Miralax (Polyethylene Glycol 3350) 17 Gram/Dose Powder 17 Gm PO DAILY dissolve in water Xanax (Alprazolam) 0.5 Mg Tablet 1 Tab PO QDAY PRN PRN 30 Days LYRICA capsule (Pregabalin) 75 Mg Capsule 1 Cap PO Q12H 30 Days Tricor* (Fenofibrate) 48 Mg Tablet 134 Mg PO DAILY Glucophage* (Metformin HCl) 500 Mg Tablet 2 Tab PO BIDAC Past Medical History Past Medical History Diabetes Hypertriglyceridemia Anxiety Uterine cancer in HGB and Past Surgical History Surgical History Comment Neck surgery for disc prolapse Cholecystectomy Total abdominal hysterectomy Hernia repair Seroma I and D Family History Family History: Patient reports no known family medical history. Past Social History Social History Comment Smoked one pack of cigarettes for a month for the last 15 years, quit three years ago Does not consume alcohol, marijuana or drugs Lives at home with boyfriend and daughter Smoking: Quit greater than 1 year Alcohol Use: None Drug Use: None Lives with: Family Lives In: Home Occupation: employed ROS ROS All other systems reviewed in full and negative except for the pertinent positives mentioned in the HPI Exam Vitals: Vital Signs Date Time Temp Pulse Resp B/P (MAP) Pulse Ox O2 Delivery O2 Flow Rate FiO2 10/18/24 20:38 82 14 112/60 (77) 97 10/18/24 17:38 97.1 0 General: General: Bili obese woman, Alert, awake, oriented, in acute distress HEENT: PERRLA, no icterus, pallor, lymphadenopathy, carotid bruit Respiratory system: Bilateral vesicular breath sounds heard, no adventitious breath sounds CVS: S1-S2 heard, no murmurs/rubs/gallop GI: Tenderness in the right lower quadrant, lower abdomen, left upper and lower quadrants, multiple surgical scars present all over the abdomen, Soft, no organomegaly, no guarding/rigidity, hypoactive bowel sounds present Neuro: No focal neurological deficits present Extremities: No edema cyanosis clubbing/deformities Skin: Warm and dry Diagnostic Data Last Recorded Lab Results: 10/19/24 0357 10/19/24 0357 Advance Care Planning Advanced Care plannin - 30 Minutes (I spent 20 minutes discussing various resuscitative measures and the patient decided to be full code) Additional Plan Assessment: A 44-year-old female with past medical history of prediabetes and hypertriglyceridemia presented to the ED in view of abdominal pain. Patient is admitted for the evaluation management of abdominal seroma postop. Plan: Postoperative abdominal seroma Abscess, rule out CT abdomen pelvis:2.1 x 6.2 x 8.4 cm anterior abdominal wall seroma versus developing abscess with minimal adjacent inflammatory changes. Negative lipase IV fluids at 100 cc/hour Pain management IV Zofran for nausea and vomitings Dr. Aguiar recommended to follow up with Dr. Foley in the morning after admission UTI Urinalysis positive for leukocyte esterase and patient is asymptomatic Started the patient on IV Rocephin 2 g Follow up with urine culture Mild prerenal KEILY probably secondary to renal tubular stasis Mildly elevated creatinine IV fluids at 100 cc/hour Continue to monitor BMP Code status: Full code Diet: NPO after midnight DVT prophylaxis: SCD Disposition: Admit to ortho, follow up with Dr. Foley in [facility]. Alen Joshi MD Internal Medicine, PGY 1 Date of Service: Oct 18, 2024 Billing Provider: SURESH JOSEPH MD Common Visit Codes: 99513-[id number] INP/OBS CARE (HIGH) Assessment/Plan Assessment Patient evaluated with the help of residents. Discussed the case with them. Reviewed notes by resident. Agree with her assessments and plans. I also reviewed the patient's records. This included labs radiology and notes from other providers. No additional points at this time. Will continue the current care plan. General surgery to see the patient. ALEN JOSHI, RES Oct 18, 2024 22:26 SURESH JOSEPH MD Oct 19, 2024 06:34
[2024-10-18 22:59] LABS: ALANINE AMINOTRANSFERASE 33 U/L (12-78); ALBUMIN 3.7 G/DL (3.4-5.0); ALBUMIN/GLOBULIN RATIO 1.1 (1.1-1.5); ALKALINE PHOSPHATASE 48 IU/L (46-116); ANION GAP 7 (8-16); ASPARTATE AMINO TRANSFERASE 24 U/L (10-37); BILIRUBIN,TOTAL 0.6 MG/DL (0.1-1.0); BLOOD UREA NITROGEN 10 MG/DL (7-18); BUN/CREATININE RATIO 12.5 (10.0-20.0); CALCIUM 8.7 MG/DL (8.5-10.1); CHLORIDE 103 MMOL/L (99-107); GLUCOSE 107 MG/DL (70-104); POTASSIUM 3.6 MMOL/L (3.5-5.1); SODIUM 138 MMOL/L (135-145); TOTAL PROTEIN 7.2 G/DL (6.4-8.2); eCRCL 70 ML/MIN; eGFR 77 ML/MIN
[2024-10-18 23:10] VITALS: BP 128/80; PULSE 95; RESP 18; TEMP 98.1; O2SAT 95
[2024-10-18] MEDS: normal saline 1000ml 1,000 ML IV SCH (23:24)
[2024-10-18] MEDS: HYDROcodone/acetaminophen 5mg/325mg tablet PO PRN (23:25)
[2024-10-18] MEDS: CefTRIAXone 2gm/D5W 50ml BAG 50 ML IV SCH (23:27)
[2024-10-19] MEDS: HYDROmorphone inj. 0.5 MG/0.5 ML DISP.SYRIN IV PRN (03:47)
[2024-10-19 04:41] LABS: BASOPHILS # (AUTO) 0.1 X10'3 (0-0.2); EOSINOPHILS # (AUTO) 0.4 X10'3 (0-0.9); EOSINOPHILS % (AUTO) 4.5 % (0-6); HEMATOCRIT 36.1 % (35.0-45.0); LYMPHOCYTES # (AUTO) 3.1 X10'3 (1.1-4.8); LYMPHOCYTES % (AUTO) 39.4 % (21-51); MEAN CORPUSCULAR HEMOGLOBIN 29.5 PG (27.0-31.0); MEAN CORPUSCULAR HGB CONC 33.2 g/dL (33.0-36.5); MEAN CORPUSCULAR VOLUME 88.8 FL (78-98); MEAN PLATELET VOLUME 8.9 FL (7.4-10.4); MONOCYTES # (AUTO) 0.6 X10'3 (0-0.9); MONOCYTES % (AUTO) 7.3 % (2-12); NEUTROPHILS # (AUTO) 3.8 X10'3 (1.8-7.7); NEUTROPHILS % (AUTO) 47.8 % (42-75); PLATELET COUNT 356 X10'3 (140-440); RED BLOOD COUNT 4.07 X10'6 (4.20-5.60); RED CELL DISTRIBUTION WIDTH 14.1 % (11.5-14.5)
[2024-10-19 04:55] LABS: ALBUMIN 3.4 G/DL (3.4-5.0); ANION GAP 9 (8-16); BLOOD UREA NITROGEN 8 MG/DL (7-18); BUN/CREATININE RATIO 10.8 (10.0-20.0); CALCIUM 8.8 MG/DL (8.5-10.1); CHLORIDE 105 MMOL/L (99-107); CREATININE 0.74 MG/DL (0.40-0.90); GLUCOSE 105 MG/DL (70-104); MAGNESIUM 1.7 MG/DL (1.5-2.4); POTASSIUM 3.5 MMOL/L (3.5-5.1); SODIUM 142 MMOL/L (135-145); TOTAL CARBON DIOXIDE 27.6 MMOL/L (24-32); eCRCL 75 ML/MIN; eGFR 84 ML/MIN
[2024-10-19 06:00] VITALS: BP 108/69; PULSE 75; RESP 14; TEMP 97.7; O2SAT 94
--- NOTE | 2024-10-19 07:40 | PROGRESS NOTE ---
Progress Note Dictate Providers to CC CC: SHELDON MANSFIELD MD ~ Progress Note: Patient is a 44-year-old woman who is about one month out from robotic assisted, laparoscopic reduction and repair of an incarcerated ventral hernia with resulting small bowel obstruction No mesh was used Postoperative seroma is expected and conservative management is successful in 84.2% of cases with resolution typically occurring within 2-3 months postoperative. Last week, patient was admitted and Interventional Radiology aspirated the fluid collection. Gram stain and culture was sterile Patient returned yesterday with the abdominal pain. CT scan shows no concerning findings. I was contacted yesterday evening by the emergency room for recommendations. I recommended the following: -no surgical issues -please do not refer for IR drainage Patient has no signs of infection This is relatively acute as the surgery was only about a month ago Indications for drainage include size progression, persistence longer than 3-6 months, or signs of infection. No acute surgical issues Patient is safe for discharge from a surgical standpoint Recommend abdominal binders or pressure dressings, however, but watchful waiting alone should prove sufficient. Patient can follow up with me in 1-2 months if this has persisted as I discussed with her in the office a couple of weeks ago. Antibiotic Ordered?: N/A Objective Vitals Vital Signs Date Time Temp Pulse Resp B/P (MAP) Pulse Ox O2 Delivery O2 Flow Rate FiO2 10/19/24 06:00 97.7 75 14 108/69 (82) 94 Room Air 10/18/24 17:38 0 Lab Results: 10/19/24 0357 10/19/24 0357 SHELDON MANSFIELD MD Oct 19, 2024 07:40
[2024-10-19] MEDS: K and/or MAG REPLACEMENT MC SCH (07:57)
[2024-10-19] MEDS: docusate sod 100mg capsule PO SCH (07:59)
[2024-10-19 10:00] VITALS: BP 102/62; PULSE 78; RESP 17; TEMP 98.4; O2SAT 94
[2024-10-19] MEDS ORDERED: HYDR-3964 PO (10:38)
--- NOTE | 2024-10-19 10:42 | DISCHARGE SUMMARY ---
Discharge Summary Providers to CC ~ Discharge Summary Admission Diagnosis: Postoperative Seroma Hospital Course DATE OF ADMISSION: 10/18/24 DATE OF DISCHARGE:10/19/24 Discharge Diagnosis\Comment: POSTOPERATIVE SEROMA Operations\Procedures: NONE Consultants: DR. MANSFIELD Complications: NONE Condition on DC: Stable New Medications: Hydrocodone Bit/Acetaminophen (Hydrocodon-Acetaminophen 5-325) 5 Mg-325 Mg Tablet 1 TAB PO Q8H PRN for MODERATE PAIN 4-6, #30 TAB Continued Medications: Albuterol Sulfate (Proair Hfa) 1 Puff Inh 2 PUFFS IH Q6H PRN for SOB or wheezing, #1 INHALER Alprazolam (Xanax) 0.5 Mg Tablet 1 TAB PO QDAY PRN PRN for anxiety for 30 Days, #30 TAB 0 Refills Duloxetine HCl (Duloxetine HCl) 60 Mg Capsule.dr 1 CAP PO BID for 30 Days, #30 CAP 0 Refills Fenofibrate Nanocrystallized* (Tricor*) 48 Mg Tablet 134 MG PO DAILY, TAB Metformin Hcl* (Glucophage*) 500 Mg Tablet 2 TAB PO BIDAC, TAB Pantoprazole Sodium (PROTONIX tablet) 40 Mg Tablet.dr 1 TAB PO DAILY for 30 Days, #30 TAB 0 Refills Polyethylene Glycol 3350 (Miralax) 17 Gram/Dose Powder 17 GM PO DAILY for constipation, #255 GM 0 Refills dissolve in water Pregabalin (LYRICA capsule) 75 Mg Capsule 1 CAP PO Q12H for 30 Days, #60 CAP 0 Refills Discharge Summary: Primary Medical Doctor: [facility] Reason for Admit\Complaint: Abdominal pain History of Present Illness A 44-year-old female with past medical history of prediabetes, hypertriglyceridemia presents to the ED in view of abdominal pain present in the right lower quadrant radiating to the lower abdomen and to the left upper and lower quadrant with a severity of 10/10, sharp and continuous in character since yesterday. Patient underwent total abdominal hysterectomy on the 12 of September for uterine cancer followed by hernia repair on the 18 of September after she had a bowel obstruction. She developed seroma post surgery and was treated with I and D by Dr. Braga (interventional radiologist). Patient's abdominal pain does not change in intensity with a bowel movement. Patient complains of blood in the urine, no burning micturition, no fever chills, vomitings. Patient endorses four episodes of diarrhea for the last two days which were watery and dark brown in color. Patient denies travel or similar symptoms in the family. Did not undergo chemotherapy or radiation for uterine cancer. PATIENT IS ALERT AND ORIENTED X4 IN NO ACUTE DISTRESS LYING DOWN COMFORTABLY SPEAKING IN FULL SENTENCES HEENT NORMOCEPHALIC NONTRAUMATIC HEAD PERRLA. EOMI. CVS FIRST AND SECOND HEART SOUNDS REGULAR RATE RHYTHM NO MURMURS GALLOPS OR RUBS RESPIRATORY SYSTEM IS CLEAR TO AUSCULTATE BILATERALLY NO RALES RHONCHI CRACKLES OR WHEEZING ABDOMEN PLUS ONE TENDERNESS OVER SURGICAL SITE NO REBOUND NO RIGIDITY NO VOLUNTARY GUARDING BOWEL SOUNDS ARE POSITIVE EXTREMITIES NO CLUBBING CYANOSIS OR EDEMA HOSPITAL COURSE PATIENT IS A 44-YEAR-OLD THAT HAD UNDERGONE A TOTAL HYSTERECTOMY WITH THE HERNIA REPAIR ON August AND A SMALL BOWEL OBSTRUCTION ON August DEVELOPED A POSTSURGICAL SEROMA DR. MANSFIELD WAS CONSULTED DID NOT BELIEVE PATIENT NEEDED ANY SURGICAL INTERVENTION. PATIENT HAD NO SIGN OF INFECTION NO ANTIBIOTICS WERE NECESSARY PATIENT WAS DISCHARGED HOME WITH ADVICE FOR CLOSE FOLLOW UP WITH DR. MANSFIELD AN OUTPATIENT SHE ALREADY HAS AN APPOINTMENT WITH HIM. I DID GIVE HER SOME PAIN MEDICATIONS TILL HER NEXT APPOINTMENT WITH HER PCP OR SURGEON. *Problems/Diagnosis: (1) Postoperative seroma Status: Acute Total Time Spent on D/C: > 30 Minutes Date of Service: Oct 19, 2024 Billing Provider: DEBRA BARBOSA MD Common Visit Codes: 81845-TRE/OBS DISCH DAY >30min DEBRA BARBOSA MD Oct 19, 2024 10:42
== END 2024-10-19 12:37 | disposition home or self-care (01) ==
LOC: ER 14:04 → INTOOBSV 21:33 → ED HOLD 21:33 → SUR 3N 23:05
PROVIDERS: ADMIT Internal Medicine Critical Care Medicine; ATTEND Internal Medicine Critical Care Medicine
DX: K91.872 Postprocedural seroma of a digestive system organ or structure following a digestive system procedure (principal); E11.9 Type 2 diabetes mellitus without complications; E78.00 Pure hypercholesterolemia, unspecified; R61 Generalized hyperhidrosis; K21.9 Gastro-esophageal reflux disease without esophagitis; Z79.84 Long term (current) use of oral hypoglycemic drugs; Z79.899 Other long term (current) drug therapy; Z87.11 Personal history of peptic ulcer disease; Z90.710 Acquired absence of both cervix and uterus; Z88.5 Allergy status to narcotic agent; Z88.2 Allergy status to sulfonamides; Z91.040 Latex allergy status
CPT/HCPCS: 36415; 74177; 80048; 80053; 81001; 83690; 83735; 85025; 87081; 87088; 96365; 96375; 96376; 99285; G0378; J0696; J1171; J2405; J3010; J7030; Q9967; 96374

== ENCOUNTER 2024-11-01 08:53 | Inpatient (IN) | payer BC ==
[~2024-11-01] VITALS: Ht 157.5 cm; Wt 85.1 kg
[~2024-11-01 08:53] MED LIST changes: -CEPH-585 PO; +DULO60CA65 PO; +HYDR-3964 PO; -ONDA4TAB6 PO; -ONDA8TAB6 PO
[2024-11-01 09:46] LABS: MEAN PLATELET VOLUME 8.5 FL (7.4-10.4); RED CELL DISTRIBUTION WIDTH 14.3 % (11.5-14.5)
[2024-11-01 09:56] LABS: LEUKOCYTE ESTERASE ,URINE SMALL (Neg); NITRITES, URINE NEGATIVE (Neg); OCCULT BLOOD,URINE TRACE-LYSED (Neg); URINE HCG NEGATIVE (NEG)
[2024-11-01 10:00] LABS: CREATININE 0.83 MG/DL (0.40-0.90); TOTAL CARBON DIOXIDE 24.8 MMOL/L (24-32); eCRCL 67 ML/MIN; eGFR 74 ML/MIN
[2024-11-01 10:02] LABS: UA COLLECTION TYPE NON-SPECIFIED
[2024-11-01 10:08] LABS: MUCUS STRANDS FEW /LPF (Neg); SQUAMOUS EPITHELIAL CELL,UR MODERATE /LPF (FEW)
[2024-11-01 10:14] LABS: RENAL CELLS, URINE FEW /HPF; WBC CLUMPS,URINE FEW /HPF (NEGATIVE)
--- NOTE | 2024-11-01 12:49 | Physician Documentation ---
History of Present Illness Chief Complaint: Abdominal Pain Stated Complaint: ABD PAIN Time Seen by MD: 10:50 OK to notify your PCP?: Yes Primary Medical Doctor: DONIS Source: patient, RN/, RN notes reviewed, old records Exam Limitations: no limitations HPI 44 year old female with a history of recent small bowel obstruction and hysterectomy seen in bed 11 presents to the emergency department for complaints of abdominal pain. Patient states that her pain is present throughout her abdomen. She states that she has been having hematuria as well as bloody stools for three days. Additionally she has been struggling with constipation due to her IBS. Patient denies any fevers or chills. She states that in August she had a hysterectomy due to uterine cancer an PVC and one week later a bowel obstruction surgery. Patient denies any other associated symptoms at this time. Patient denies any other alleviating or exacerbating factors. Medication Reconciliation Allergies: Coded Allergies: morphine (Verified Allergy, Mild, itchy, 10/10/24) Sulfa (Sulfonamide Antibiotics) (Verified Allergy, Unknown, 10/10/24) latex (Verified Allergy, Unknown, 10/10/24) Scheduled Duloxetine HCl (Duloxetine HCl), 1 CAP PO BID, (Reported) Fenofibrate Nanocrystallized* (Tricor*), 134 MG PO DAILY, (Reported) Metformin Hcl* (Glucophage*), 2 TAB PO BIDAC, (Reported) Oxycodone Hcl/Acetaminophen 5/325 MG* (Percocet 5/325 MG*), 1 TAB PO Q4H, (Reported) Pantoprazole Sodium (PROTONIX tablet), 1 TAB PO DAILY, (Reported) Polyethylene Glycol 3350 (Miralax), 17 GM PO DAILY, (Reported) Pregabalin (LYRICA capsule), 1 CAP PO Q12H, (Reported) Scheduled PRN Albuterol Sulfate (Proair Hfa), 2 PUFFS IH Q6H PRN for SOB or wheezing Alprazolam (Xanax), 1 TAB PO QDAY PRN PRN for anxiety, (Reported) Hydrocodone Bit/Acetaminophen (Hydrocodon-Acetaminophen 5-325), 1 TAB PO Q8H PRN for MODERATE PAIN 4-6 ONDANSETRON ODT 4mg tablet (Ondansetron Odt), 1 TAB PO Q6H PRN for nausea/vomiting, (Reported) Past Medical History Past Medical History: High Cholesterol, GERD, Inflammatory Bowel Dz, Peptic Ulcer Disease, UTI, Diabetes, Thyroid (unspecified) Past Surgical History: abdominal surgery, cholecystectomy, other Patient History: Patient reports no known family medical history. Smoking Status: Former smoker Alcohol Use: None Drug Use: none Lives with: Family Lives In: Home Occupation: employed Review of Systems All Other Systems at this time: Reviewed and Negative ROS As stated above in the HPI, otherwise all systems are reviewed and negative. Physical Exam Vital Signs: RN Vital Signs have been reviewed: Yes, Temperature: 98.3, Source: Oral, Heart Rate: 88, Respiratory Rate: 16, BP: 124/81, Pulse Oximetry: 98, Weight: 85.100 Oxygen Flow Rate: 0 Pulse Oximetry Reflects: adequate oxygenation Physical Exam General: The patient is well developed, well nourished, nontoxic appearing and is in no acute distress. Skin: Maud, warm and dry with no rashes. HEENT: Head was normocephalic and atraumatic. Eyes - pupils equal, round, reactive to light and accommodation. Extraocular movements were intact. Conjunctivae were nonicteric. Ears - bilateral tympanic membranes were normal. The mouth and oropharynx were clear with moist mucous membranes. There were no pharyngeal exudates or erythema. Neck: Supple and nontender. There was no jugular venous distention, lymph adenopathy, thyromegaly or masses. Chest: Clear to auscultation bilaterally without wheezes, rales or rhonchi. No accessory muscle use. No dullness to percussion. Heart: Rate regular and rhythmic. S1, S2. No murmurs. Palpation of the chest wall was normal. No rubs or thrills. Abdomen: Left upper quadrant abdominal pain. Hyperactive bowel sounds. No guarding or rebound. No hepatosplenomegaly or palpable masses. Extremities: No cyanosis, clubbing or edema. The patient moves all extremities. Pulses were equal and symmetric. Neurologic: Cranial nerves II-XII were intact. Sensation was intact to light touch throughout. Motor strength was 5/5 in all four extremities. Deep tendon reflexes were intact in both upper and lower extremities. Psychologic: The patient was oriented to person, place and time. The patient demonstrated appropriate judgement and insight. Progress Progress Note 1548: The case was discussed with Dr. Mota who was informed on the patient and kindly agreed to admission. Results/Orders Reviewed/noted all lab results: Yes Results/Orders Orders - RAFFY DOUGLAS MD Cult Urine + [place] [address] (11/01/24 10:20) Culture Blood (11/01/24 12:45) Procalcitonin (11/01/24 12:45) Lacticsepsis (11/01/24 12:45) Completed Orders - RAFFY DOUGLAS MD Hcg, Ur Ql (11/01/24 08:59) Cbc/Diff (11/01/24 08:59) BMP (11/01/24 08:59) Lipase (11/01/24 08:59) CMP (11/01/24 08:59) Ua W/Microscopic, Cult If Ind (11/01/24 09:43) Hydromorphone 1 Mg/Ml/Pf (Dilaudid Inj.) (11/01/24 10:30) Normal Saline 1000ml (Sodium Chloride 10 (11/01/24 12:45) Medications Received in ER Medications (Trade) Dose Ordered Sig/Aaron Route PRN Reason Start Time Stop Time Status Last Admin Dose Admin (Dilaudid inj.) 1 mg ONCE ONCE IV 11/01/24 10:30 11/01/24 10:31 DC 11/01/24 10:39 1 MG Vital Signs 11/01/24 11/01/24 11/01/24 11/01/24 08:57 09:04 09:04 10:24 Temp 98.3 Pulse 102 96 88 Resp 18 16 16 16 B/P (MAP) 156/96 131/89 (103) 124/81 (95) Pulse Ox 99 99 98 O2 Flow Rate 0 0 0 11/01/24 10:39 Resp 16 Laboratory Tests Test 11/01/24 09:33 11/01/24 09:43 White Blood Count 9.9 Red Blood Count 4.87 Hemoglobin 14.5 Hematocrit 42.9 Mean Corpuscular Volume 88.2 Mean Corpuscular Hemoglobin 29.8 Mean Corpuscular Hemoglobin Concent 33.8 Red Cell Distribution Width 14.3 Platelet Count 340 Mean Platelet Volume 8.5 Neutrophils (%) (Auto) 74.0 Lymphocytes (%) (Auto) 18.4 L Monocytes (%) (Auto) 5.4 Eosinophils (%) (Auto) 1.4 Basophils (%) (Auto) 0.8 Neutrophils # (Auto) 7.3 Lymphocytes # (Auto) 1.8 Monocytes # (Auto) 0.5 Eosinophils # (Auto) 0.1 Basophils # (Auto) 0.1 CBC Comment Sodium Level 142 Potassium Level 3.8 Chloride Level 106 Carbon Dioxide Level 24.8 Anion Gap 11 Blood Urea Nitrogen 9 Creatinine 0.83 Estimated GFR/1.73 m2 74 BUN/Creatinine Ratio 10.8 Glucose Level 132 H Calcium Level 9.3 Total Bilirubin 0.5 Aspartate Amino Transf (AST/SGOT) 23 Alanine Aminotransferase (ALT/SGPT) 30 Alkaline Phosphatase 50 Total Protein 8.2 Albumin 4.1 Globulin 4.1 Albumin/Globulin Ratio 1.0 L Lipase 43 Chemistry Comments Urine Specimen Description Non-specified Urine Color Yellow Urine Clarity Slightly cloudy Urine pH 6.0 Urine Specific [place] 1.025 Urine Protein Negative Urine Glucose (UA) Negative Urine Ketones Trace H Urine Occult Blood Trace-lysed Urine Nitrite Negative Urine Bilirubin Negative Urine Urobilinogen 0.2 Urine Leukocyte Esterase Small H Urine RBC 0-2 Urine WBC 20-30 H Urine WBC Clumps Few Urine Squamous Epithelial Cells Moderate Urine Transitional Epithelial Cells Few Urine Renal Cells Few Urine Bacteria 1+ Urine Coarse Granular Casts Urine Mucus Few Urine Culture Indicated Indicated Volume Urine Centrifuged 10 ml Urine HCG, Qualitative Negative Urine Comment Microbiology Date/Time Source Procedure Growth Status 11/01/24 10:20 Urine Nonspecified Urine Culture - Preliminary Culture received. Resulted Re-Evaluation Re-Evaluation : Re-Evaluation: Unchanged Progress Patient has persisting abdominal pain at this time. She is requiring additional pain medications. Patient continued to have abdominal pain laboratory work was obtained. Patient just has a hysterectomy followed by hernia repair he is now having abdominal pain discomfort possible infection possible exacerbation of ulcerative colitis irritable bowel syndrome versus postoperative complications. IV lines were established fluids were given. Laboratory work was obtained. Patient's tox screen was positive for marijuana chemistry was reassuring. Eileen ent's magnesium however was low at 1.4 chemistries are within normal limits potassium 3.8. LFTs were also reassuring. CBC showed no signs of anemia or leukocytosis. Patient was given the fluids as mentioned Zofran narcotics and then presented to the hospitalist for further workup and care. Later patient received magnesium from the hospitalist. Patient had no signs of postoperative infection. Continuous gold beater interpretation shows sinus tachycardia heart rate 100s, abnormal, my interpretation. Pulse oximetry monitor interpretation shows normal oxygenation 99% room air, normal, my interpretation. EKG/XRAY/CT/US/VASC/MRI CT : Impression CLINICAL INFORMATION: Abdominal pain. TECHNIQUE: Axial CT images of the abdomen and pelvis were obtained without IV contrast. Coronal and sagittal reformatted images were obtained, reviewed, and s tored. Evaluation of the parenchymal organs is limited without IV contrast. Evaluation of the bowel and mesentery is limited without oral contrast. All CT scans at this medical facility are performed using dose modulation techniques as appropriate to a performed exam including the following: Automated exposure control was utilized; adjustment of the MA and/or KV according to patient size; and use of iterative reconstruction technique. CTDIvol = 29.55 mGy DLP = 1432.57 mGy-cm COMPARISON: CT CT ABDOMEN PELVIS W/ IV CONTRAST on DOS: 10/18/24, CT CT ABDOMEN PELVIS W/ IV CONTRAST on DOS: 10/11/24, CT CT ABDOMEN PELVIS W/ IV CONTRAST on DOS: 10/03/24 FINDINGS: Lung bases: Lung bases are clear. Liver: Grossly unremarkable in its noncontrast enhanced appearance. No abnormal density or focal lesion identified. Biliary: Cholecystectomy. Spleen: Unremarkable. Pancreas: Grossly unremarkable in its noncontrast enhanced appearance. Adrenal glands: Unremarkable. No mass. Kidneys: No hydronephrosis. No renal or ureteral calculi. Aorta/Vascular: No aneurysm or significant calcification. Retroperitoneum: No mass or lymphadenopathy. Bowel/mesentery: Nonspecific nondilated fluid-filled small bowel loops. No small bowel obstruction. Appendix is visualized and appears unremarkable. Scattered smallcolonic diverticula without adjacent inflammatory changes to suggest diverticulitis. Pelvic organs: Uterus is surgically absent. Bladder: Grossly unremarkable. Abdominal wall: Fluid collection in the ventral abdominal wall near the midline measures 1.8 x 5.6 x 7.6 cm, compared to 1.9 x 6.3 x 8.7 cm on the prior exam, likely postoperative seroma or hematoma. Bones: No acute fracture or suspicious intraosseous lesion. IMPRESSION: 1. Nonspecific nondilated fluid-filled small bowel loops. Findings may be seen with ileus or enteritis in the appropriate clinical setting. No small bowel obstruction. 2. Scattered colonic diverticula without adjacent inflammatory changes to suggest diverticulitis. 3. Interval decrease in size in a fluid collection in the ventral abdominal wall, likely postoperative seroma or hematoma. Correlate with clinical findings. 4. Additional findings as described above. Electronically Signed by:JAYME ARTIS DO Date & Time: 11/01/24 1336 Medical Decision Making Additional info obtained from: old records Differential Dx:Considerations: Include: Aortic dissection, Appendicitis, Bowel obstruction, Cholangitis, Cholelithasis, Constipation, Diverticular disease, Esophageal rupture, Esophagitis, Gastritis/PUD, Gastroenteritis, GI hemorrhage, Hernia, Hepatitis, Inflammatory BD, Ischemic bowel, Pancreatitis, PID, Urinary tract infection, Urolithiasis, Other Departure Time of Disposition: 15:49 Disposition: 09 ADMITTED INPATIENT Admitted to Inpatient Unit: yes, to hospitalist Admission Level of Care: Med/Surg with Tele Impression: Primary Impression: Ileus Additional Impressions: Abdominal pain Qualified Codes: R10.84 - Generalized abdominal pain Hypomagnesemia Condition: Fair Referrals: NO PRIMARY CARE PROVIDER (PCP) Education Educated: Patient Educated regarding: diagnosis, treatment, need for follow up Signature Scribe Signature: Scribed for Raffy Douglas MD by Nabila Sotomayor . 11/01/24 13:02 Attestation: The note accurately reflects work and decisions made by me.Raffy Douglas MD 11/01/24 12:49 RAFFY DOUGLAS MD Nov 01, 2024 12:49 NABILA MARROQUIN Nov 01, 2024 13:02
[2024-11-01] MEDS: normal saline 1000ML IV soln IV ONE (13:07)
--- NOTE | 2024-11-01 13:38 | RADIOLOGY REPORT ---
CLINICAL INFORMATION: Abdominal pain. TECHNIQUE: Axial CT images of the abdomen and pelvis were obtained without IV contrast. Coronal and s agittal reformatted images were obtained, reviewed, and stored. Evaluation of the parenchymal organs is limited without IV contrast. Evaluation of the bowel and mesentery is limited without oral contras t. All CT scans at this medical facility are performed using dose modulation techniques as appropriat e to a performed exam including the following: Automated exposure control was utilized; adjustment of the MA and/or KV according to patient size; and use of iterative reconstruction technique. CTDIvol = 29.55 mGy DLP = 1432.57 mGy-cm COMPARISON: CT CT ABDOMEN PELVIS W/ IV CONTRAST on DOS: 10/18/24, CT CT ABDOMEN PELVIS W/ IV CONTRAST on DOS: 10/11/24, CT CT ABDOMEN PELVIS W/ IV CONTRAST on DOS: 10/03/24 FINDINGS: Lung bases: Lung bases are clear. Liver: Grossly unremarkable in its noncontrast enhanced appearance. No abnormal density or focal lesi on identified. Biliary: Cholecystectomy. Spleen: Unremarkable. Pancreas: Grossly unremarkable in its noncontrast enhanced appearance. Adrenal glands: Unremarkable. No mass. Kidneys: No hydronephrosis. No renal or ureteral calculi. Aorta/Vascular: No aneurysm or significant calcification. Retroperitoneum: No mass or lymphadenopathy. Bowel/mesentery: Nonspecific nondilated fluid-filled small bowel loops. No small bowel obstruction. A ppendix is visualized and appears unremarkable. Scattered smallcolonic diverticula without adjacent inflammatory changes to suggest diverticulitis. Pelvic organs: Uterus is surgically absent. Bladder: Grossly unremarkable. Abdominal wall: Fluid collection in the ventral abdominal wall near the midline measures 1.8 x 5.6 x 7.6 cm, compared to 1.9 x 6.3 x 8.7 cm on the prior exam, likely postoperative seroma or hematoma. Bones: No acute fracture or suspicious intraosseous lesion. IMPRESSION: 1. Nonspecific nondilated fluid-filled small bowel loops. Findings may be seen with ileus or enteriti s in the appropriate clinical setting. No small bowel obstruction. 2. Scattered colonic diverticula without adjacent inflammatory changes to suggest diverticulitis. 3. Interval decrease in size in a fluid collection in the ventral abdominal wall, likely postoperativ e seroma or hematoma. Correlate with clinical findings. 4. Additional findings as described above.
--- NOTE | 2024-11-01 15:43 | HISTORY AND PHYSICAL ---
History & Physical Providers to CC Chief complaint, abdominal pain, bloody stools ~ History of Present Illness Reason for Admit\Complaint: As above History of Present Illness This is a 44 year old female with a history of recent small bowel obstruction and hysterectomy , status post ventral hernia repair by Dr. Foley October 2024, diabetes mellitus type 2 poor control, irritable bowel syndrome with constipation, chronic pain syndrome on home opioids, ex-smoker, history of peptic ulcer disease, dyslipidemia, thyroid mass, diverticulosis, presented today to emergency department chief complaint abdominal pain; in addition patient presents to the emergency department for complaints of abdominal pain. Patient states that her pain is present throughout her abdomen. She states that she has been having hematuria as well as bloody stools for three days. Additionally she has been struggling with constipation due to her IBS. Patient denies any fevers or chills. She states that in August she had a hysterectomy due to uterine cancer an PVC and one week later a bowel obstruction surgery. Patient denies any other associated symptoms at this time. Patient denies any other alleviating or exacerbating factors. In emergency department she was evaluated by physician was diagnosed with ileus/enteritis/lower GI bleed/abdominal wall seroma hematoma, and decision was made to admit patient for further evaluation and treatment. No additional complaint or concern. Allergies: Coded Allergies: morphine (Verified Allergy, Mild, itchy, 10/10/24) Sulfa (Sulfonamide Antibiotics) (Verified Allergy, Unknown, 10/10/24) latex (Verified Allergy, Unknown, 10/10/24) Active prescriptions I reviewed and reconciled Home Medications Home Medications Active Hydrocodon-Acetaminophen 5-325 (Hydrocodone Bit/Acetaminophen) 5 Mg-325 Mg Tablet 1 Tab PO Q8H PRN Proair Hfa (Albuterol Sulfate) 1 Puff Inh 2 Puffs IH Q6H PRN Reported Duloxetine HCl 60 Mg Capsule.dr 1 Cap PO BID 30 Days PROTONIX tablet (Pantoprazole Sodium) 40 Mg Tablet.dr 1 Tab PO DAILY 30 Days Miralax (Polyethylene Glycol 3350) 17 Gram/Dose Powder 17 Gm PO DAILY dissolve in water Xanax (Alprazolam) 0.5 Mg Tablet 1 Tab PO QDAY PRN PRN 30 Days LYRICA capsule (Pregabalin) 75 Mg Capsule 1 Cap PO Q12H 30 Days Tricor* (Fenofibrate) 48 Mg Tablet 134 Mg PO DAILY Glucophage* (Metformin HCl) 500 Mg Tablet 2 Tab PO BIDAC Past Medical History Past Medical History As in HPI, Past Surgical History Surgical History Comment Cholecystectomy Family History Family History: Family history was reviewed; no changes noted. Past Social History Social History Comment Deny illicit drug abuse tobacco alcohol use, live with the family good social support Health Maintenance Health Maintenance Noncontributory ROS ROS Constitutional : no fever , no chills, or weakness. No diaphoresis. Allergic/Immunologic, no lymphadenopathy, no hives, no skin eruptions. Eyes, no recent visual changes, no eye pain, no photophobia. Ears, nose, mouth, throat, no sore throat, no nosebleed, no ear pain. Cardiovascular, no palpitations, skipped beats, chest pain, no peripheral edema, Respiratory, no dyspnea, orthopnea, cough, hemoptysis, chest wall pain. Gastrointestinal, positive for abdominal pain, no nausea, vomiting, positive for constipation , no diarrhea. : no dysuria, hematuria, pelvic pain, urethral d/c. Endocrine, no polyuria, polydipsia, recent unintentional weight gain or loss. Hematologic/Lymphatic, no petechiae, no enlarged lymph nodes, no bone pain. Integumentary, no rash, no skin lesions, Musculoskeletal, no muscle aches, or pain, no muscle cramps, no recent change in gait Neurological, no dizziness, no headache, no syncope, no paresthesia. Psychiatric, no delusions, visual hallucinations, or hearing hallucinations. ROS - in rest is as in HPI. Exam Vitals: Vital Signs Date Time Temp Pulse Resp B/P (MAP) Pulse Ox O2 Delivery O2 Flow Rate FiO2 11/01/24 12:00 78 17 117/81 (93) 95 0 11/01/24 08:57 98.3 Vital signs, stable ,afebrile. Pulse Oximetry reflects adequate oxygenation. BMI is 34, weight 85 kg General: well developed, well nourished. Awake , alert, and oriented x4, resting comfortably in the bed, in no acute distress . Skin: Warm, dry, no pallor, no rash or petechiae. HEENT: Atraumatic, normocephalic, EOMI, anicteric sclera B; pink conjunctiva; PERRLA, normal oropharynx, moist oral and nasal mucosa. Tympanic membrane , nose , throat clear. Neck: Trachea midline. Supple, full range of motion, no JVD, bruit , hepatojugular reflex , lymphadenopathy or masses, or other lesions Cardiac: Regular rhythm, regular rate no murmurs, rubs, or gallops. Normal S1 and S2, no S3 noticed. PMI is normal. Respiratory: Equal breath sounds bilaterally, no tachypnea; lungs clear to auscultation bilaterally, no wheezing ,rub or rales, or crackles. Chest wall is symmetric and without deformity. No signs of trauma. Chest wall is nontender. No signs of respiratory distress. Resonance is normal upon percussion bilaterally. Gastrointestinal: Abdomen symmetric, non-distended, soft, mild tender to palpation periumbilically, normal bowel sounds x4 quadrant, normoactive, no hepatosplenomegaly , no masses , no bruit, no flank pain bilaterally. No voluntary guarding, rebound, or rigidity. No tenderness to percussion. No pulsatile masses. Equal femoral pulses. No Mac's sign or McBurney point tenderness. Back; no CVA tenderness bilaterally, no deformities. Neck and back are without deformity as well. No tenderness noted on palpation of the spinous processes. Spinous processes are midline. Cervical, thoracic, and lumbar paraspinal muscles are not tender and are without spasm. : Deferred by patient Musculoskeletal: Extremities, normal range of motion, non-tender, muscle strength 5/5 x 4. Negative Homans signs bilaterally on lower extremity. Distal pulses full symmetrical, no clubbing, cyanosis , edema. Neurological: Speech is clear, alert, and oriented x 4. No motor or sensory deficit, deep tendon reflexes normal, cerebellar intact. Cranial nerves II-XII intact. Psych: Alert and or appropriate, normal affect. Vascular: Good distal pulses, which are equal x4; capillary refill less than 2 seconds. Lymphatic, no lymphadenopathy. Diagnostic Data Last Recorded Lab Results: 11/01/2493211/01/24932 Advance Care Planning Advanced Care plannin - 30 Minutes Additional Plan Assessment Postoperative abdominal wall seroma/hematoma Acute ileus/enteritis UTI Lower GI bleed Irritable bowel syndrome associated with chronic constipation in exacerbation Chronic pain syndrome on home opioids Dehydration associated with ketonuria Diabetes mellitus type 2 poor control Additional comorbidities, recent hysterectomy in abdominal wall hernia repair, history of cholecystectomy, ex-smoker, hematuria, bloody stool, peptic ulcer disease, dyslipidemia, thyroid mass, diverticulosis Plan IV fluids, antibiotics Pain control, IV p.o. analgesics Laxatives Hyperglycemia sliding scale May need GI doctor evaluation Consulted Dr. Foley, recommended continue medical therapy, no surgical intervention indicated now Reconciled home medications DVT gastropathy prophylaxis addressed Sepsis Screening Reassessment Date: Nov 01, 2024 Date of Service: Nov 01, 2024 Billing Provider: NIRANJAN FOURNIER MD Common Visit Codes: 60415-[id number] INP/OBS CARE (HIGH) Secondary Visit Codes: 96603-[id number] CARE PLAN 30 MINUTES NIRANJAN FOURNIER MD Nov 01, 2024 15:43
[2024-11-01] MEDS: normal saline 1000ML IV soln IVB ONE (15:51)
[2024-11-01] MEDS: ondansetron/PF 4mg/2ml inj IV ONE (15:51)
[2024-11-01] MEDS ORDERED: potassium Cl 40MEQ/1/2NS 520ml 520 ML IV PRN (16:50)
[2024-11-01] MEDS ORDERED: magnesium sulf-water 2g/50mL 50 ML IV PRN (16:50)
[2024-11-01] MEDS ORDERED: mag hydrox/Alum hydrox/simeth 30ml oral suspension PO PRN (16:50)
[2024-11-01] MEDS ORDERED: potassium Cl 20 mEq SR tablet PO PRN ×2 (16:50)
[2024-11-01] MEDS ORDERED: acetaminophen 650mg rectal suppository RC PRN (16:50)
[2024-11-01] MEDS ORDERED: magnesium hydroxide 30ml (MOM) UD suspension PO PRN (16:50)
[2024-11-01] MEDS ORDERED: magnesium sulf-water 4G/100mL 100 ML IV PRN (16:50)
[2024-11-01] MEDS ORDERED: bisacodyl 10mg suppository rectal RC PRN (16:50)
[2024-11-01] MEDS ORDERED: metoclopramide 5 mg/ml inj IV PRN (16:50)
[2024-11-01] MEDS ORDERED: ondansetron/PF 4mg/2ml inj IV PRN (16:50)
[2024-11-01] MEDS ORDERED: ondansetron 4mg rapidly disintigrating tab PO PRN (16:50)
[2024-11-01] MEDS ORDERED: magnesium Cl slow-release 64mg tablet PO PRN (16:50)
[2024-11-01] MEDS ORDERED: acetaminophen 1,000mg/100ml IV 100 ML IV PRN (17:00)
[2024-11-01] MEDS ORDERED: DEXTROSE 15 GM of carb/4 tabs (each vial/BOTTLE has 4 tablets) PO PRN ×2 (17:00)
[2024-11-01] MEDS ORDERED: glucagon, human recombinant 1mg kit SUBCUT PRN (17:00)
[2024-11-01] MEDS ORDERED: dextrose 50%-water 50ml dispensing syringe IV PRN ×2 (17:00)
[2024-11-01] MEDS: INSULIN LISPRO 100 UNIT/ML INSULN.PEN MULTI-DOSE SQ SCH (17:00)
[2024-11-01 17:27] LABS: APTT 27 SECONDS (22-32); INR 1.1 INR
[2024-11-01 17:38] LABS: PHOSPHORUS 3.2 MG/DL (2.3-4.5); PRO BRAIN NATRIURETIC PEPTIDE < 30 PG/ML (0-125)
[2024-11-01 18:01] LABS: URINE AMPHETAMINE SCREEN NEGATIVE (Neg); URINE BARBITUATE SCREEN NEGATIVE (Neg); URINE BENZODIAZEPINES SCREEN NEGATIVE (Neg); URINE CANNABINOID SCREEN POSITIVE (Neg); URINE COCAINE SCREEN NEGATIVE (Neg); URINE METHADONE SCREEN NEGATIVE (Neg); URINE OPIATE SCREEN NEGATIVE (Neg); URINE PHENCYCLIDINE SCREEN NEGATIVE (Neg)
[2024-11-01] MEDS: ringers solution, lacted 1,000 ML IV ONE (19:45)
[2024-11-01] MEDS: normal saline 1000ml 1,000 ML IV SCH (19:47)
[2024-11-01] MEDS: HYDROmorphone inj. 0.5 MG/0.5 ML DISP.SYRIN IV PRN (19:48)
[2024-11-01] MEDS: magnesium citrate 296ml oral solution PO ONE (19:49)
[2024-11-01] MEDS: K and/or MAG REPLACEMENT MC SCH (19:57)
[2024-11-01] MEDS ORDERED: ONDA-243 PO (20:03)
[2024-11-01] MEDS ORDERED: PER5325T PO (20:03)
[2024-11-01] MEDS: pantoprazole 40mg Tablet.DR PO SCH (20:07)
[2024-11-01] MEDS: docusate sod 100mg capsule PO SCH (20:07)
[2024-11-01] MEDS: lactulose 20gm/30ml cup PO SCH (20:07)
[2024-11-01 20:30] VITALS: BP 143/87; PULSE 85; RESP 18; TEMP 98.3; O2SAT 97
[2024-11-01] MEDS: polyethylene glycol 3350 17gm powd pack PO SCH (20:46)
[2024-11-01] MEDS: insulin glargine (Lantus) pen - multi-dose SQ SCH (20:52)
[2024-11-02 05:01] LABS: MEAN PLATELET VOLUME 8.3 FL (7.4-10.4); RED CELL DISTRIBUTION WIDTH 14.1 % (11.5-14.5)
[2024-11-02 05:12] LABS: CREATININE 0.77 MG/DL (0.40-0.90); TOTAL CARBON DIOXIDE 29.6 MMOL/L (24-32); eCRCL 72 ML/MIN; eGFR 81 ML/MIN
[2024-11-02 06:00] VITALS: BP 134/86; PULSE 77; RESP 16; TEMP 97.9; O2SAT 98
[2024-11-02] MEDS: CefTRIAXone 2gm/D5W 50ml BAG 50 ML IV SCH (07:34)
[2024-11-02 08:00] VITALS: RESP 18; O2SAT 96
[2024-11-02 10:00] VITALS: BP 106/65; PULSE 83; RESP 18; TEMP 96.7; O2SAT 96
[2024-11-02] MEDS ORDERED: HYDROcodone/acetaminophen 10/325mg tab PO PRN (13:50)
[2024-11-02] MEDS: HYDROcodone/acetaminophen 5mg/325mg tablet PO PRN (14:21)
--- NOTE | 2024-11-02 17:19 | PROGRESS NOTE ---
Daily Progress Note Providers to CC ~ chief complaint, mild abdominal pain, feels better today Central Line/PICC still needed: No Daily-Non Protocol Daily Indications Met/Not Met: F/C Indications Not Met Antibiotic Timeout Antibiotic Ordered?: Yes MRSA Education MRSA Education Provided to pt: Yes Subjective As above Objective Vital Signs Date Time Temp Pulse Resp B/P (MAP) Pulse Ox O2 Delivery O2 Flow Rate FiO2 11/02/24 14:21 16 11/02/24 10:00 96.7 83 106/65 (79) 96 Room Air 11/01/24 22:33 0.0 Vital signs, stable ,afebrile. Pulse Oximetry reflects adequate oxygenation. General: well developed, well nourished. Awake , alert, and oriented x4, resting comfortably in the bed, in no acute distress . Skin: Warm, dry, no pallor, no rash or petechiae. HEENT: Atraumatic, normocephalic, EOMI, anicteric sclera B; pink conjunctiva; PERRLA, normal oropharynx, moist oral and nasal mucosa. Tympanic membrane , nose , throat clear. Neck: Trachea midline. Supple, full range of motion, no JVD, bruit , hepatojugular reflex , lymphadenopathy or masses, or other lesions Cardiac: Regular rhythm, regular rate no murmurs, rubs, or gallops. Normal S1 and S2, no S3 noticed. PMI is normal. Respiratory: Equal breath sounds bilaterally, no tachypnea; lungs clear to auscultation bilaterally, no wheezing ,rub or rales, or crackles. Chest wall is symmetric and without deformity. No signs of trauma. Chest wall is nontender. No signs of respiratory distress. Resonance is normal upon percussion bilaterally. Gastrointestinal: Abdomen symmetric, non-distended, soft, mild tender to palpation periumbilically, normal bowel sounds x4 quadrant, normoactive, no hepatosplenomegaly , no masses , no bruit, no flank pain bilaterally. No voluntary guarding, rebound, or rigidity. No tenderness to percussion. No pulsatile masses. Equal femoral pulses. No Mac's sign or McBurney point tenderness. Back; no CVA tenderness bilaterally, no deformities. Neck and back are without deformity as well. No tenderness noted on palpation of the spinous processes. Spinous processes are midline. Cervical, thoracic, and lumbar paraspinal muscles are not tender and are without spasm. Musculoskeletal: Extremities, normal range of motion, non-tender, muscle strength 5/5 x 4. Negative Homans signs bilaterally on lower extremity. Distal pulses full symmetrical, no clubbing, cyanosis , edema. Neurological: Speech is clear, alert, and oriented x 4. No motor or sensory deficit, deep tendon reflexes normal, cerebellar intact. Cranial nerves II-XII intact. Psych: Alert and or appropriate, normal affect. Vascular: Good distal pulses, which are equal x4; capillary refill less than 2 seconds. Lymphatic, no lymphadenopathy. Result Diagram: 11/02/243 11/02/24 0443 Coagulation Studies Laboratory Tests Test 11/01/24 17:05 Prothrombin Time 11.3 SECONDS (9.0-12.0) INR International Normalized Ratio 1.1 INR Activated Partial Thromboplast Time 27 SECONDS (22-32) Coagulation Comments Problem\Assessment\Plan Assessment Postoperative abdominal wall seroma/hematoma Acute ileus/enteritis, resolving UTI Lower GI bleed, resolved Irritable bowel syndrome associated with chronic constipation in exacerbation Chronic pain syndrome on home opioids Dehydration associated with ketonuria Diabetes mellitus type 2 poor control Additional comorbidities, recent hysterectomy in abdominal wall hernia repair, history of cholecystectomy, ex-smoker, hematuria, bloody stool, peptic ulcer disease, dyslipidemia, thyroid mass, diverticulosis Plan IV fluids, antibiotics Pain control, IV p.o. analgesics Laxatives Hyperglycemia sliding scale Consulted Dr. Foley, recommended continue medical therapy, no surgical intervention indicated now Reconciled home medications DVT gastropathy prophylaxis addressed Sepsis Screening Reassessment Date: Nov 02, 2024 Date of Service: Nov 02, 2024 Billing Provider: NIRANJAN FOURNIER MD Common Visit Codes: [id number] INP/OBS CARE(HIGH) NIRANJAN FOURNIER MD Nov 02, 2024 17:19
[2024-11-02 18:00] VITALS: BP 132/87; PULSE 95; RESP 16; TEMP 97.9; O2SAT 99
[2024-11-02 22:00] VITALS: BP 122/81; PULSE 89; RESP 16; TEMP 97.9; O2SAT 95
[2024-11-03 05:45] LABS: MEAN PLATELET VOLUME 8.6 FL (7.4-10.4); RED CELL DISTRIBUTION WIDTH 14.4 % (11.5-14.5)
[2024-11-03 05:48] LABS: CREATININE 0.73 MG/DL (0.40-0.90); TOTAL CARBON DIOXIDE 25.3 MMOL/L (24-32); eCRCL 76 ML/MIN; eGFR 86 ML/MIN
[2024-11-03 06:00] VITALS: BP 109/72; PULSE 96; RESP 16; TEMP 97.6; O2SAT 97
[2024-11-03 06:33] VITALS: RESP 16; O2SAT 97
[2024-11-03 10:00] VITALS: BP 120/70; PULSE 96; RESP 16; TEMP 97.9; O2SAT 97
[2024-11-03 11:16] VITALS: RESP 16
[2024-11-03] MEDS ORDERED: CEPH500C3 PO (11:54)
[2024-11-03] MEDS ORDERED: HYDR-3965 PO ×2 (11:54→13:01)
[2024-11-03] MEDS ORDERED: LYR75C PO (13:01)
--- NOTE | 2024-11-03 14:21 | DISCHARGE SUMMARY ---
Discharge Summary Providers to CC No new complaint today, asking to be discharged home ~ Discharge Summary Assessment Postoperative abdominal wall seroma/hematoma Acute ileus/enteritis UTI Irritable bowel syndrome associated with chronic constipation in exacerbation Chronic pain syndrome on home opioids in exacerbation Dehydration associated with ketonuria Diabetes mellitus type 2 poor control Additional comorbidities, recent hysterectomy in abdominal wall hernia repair, history of cholecystectomy, ex-smoker, hematuria, bloody stool, peptic ulcer d isease, dyslipidemia, thyroid mass, diverticulosis Admission Diagnosis: Abdom pain Admission Diagnosis Comment: Postoperative abdominal wall seroma/hematoma Acute ileus/enteritis UTI Irritable bowel syndrome associated with chronic constipation in exacerbation Chronic pain syndrome on home opioids in exacerbation Dehydration associated with ketonuria Diabetes mellitus type 2 poor control Additional comorbidities, recent hysterectomy in abdominal wall hernia repair, history of cholecystectomy, ex-smoker, hematuria, bloody stool, peptic ulcer disease, dyslipidemia, thyroid mass, diverticulosis Hospital Course DATE OF ADMISSION: November 02, 2023 DATE OF DISCHARGE: November 04, 2023 Discharge Diagnosis\Comment: Postoperative abdominal wall seroma/hematoma Acute ileus/enteritis UTI Irritable bowel syndrome associated with chronic constipation in exacerbation Chronic pain syndrome on home opioids in exacerbation Dehydration associated with ketonuria Diabetes mellitus type 2 poor control Additional comorbidities, recent hysterectomy in abdominal wall hernia repair, history of cholecystectomy, ex-smoker, hematuria, bloody stool, peptic ulcer disease, dyslipidemia, thyroid mass, diverticulosis Operations\Procedures: Non Consultants: Non Complications: Non Condition on DC: Stable Discharge Summary: This is a 44 year old female with a history of recent small bowel obstruction and hysterectomy , status post ventral hernia repair by Dr. Foley October 2024, diabetes mellitus type 2 poor control, irritable bowel syndrome with constipation, chronic pain syndrome on home opioids, ex-smoker, history of peptic ulcer disease, dyslipidemia, thyroid mass, diverticulosis, presented today to emergency department chief complaint abdominal pain; in addition patient presents to the emergency department for complaints of abdominal pain. Patient states that her pain is present throughout her abdomen. She states that she has been having hematuria as well as bloody stools for three days. Additionally she has been struggling with constipation due to her IBS. Patient denies any fevers or chills. She states that in August she had a hysterectomy due to uterine cancer an PVC and one week later a bowel obstruction surgery. Patient denies any other associated symptoms at this time. Patient denies any other alleviating or exacerbating factors. In emergency department she was evaluated by physician was diagnosed with ileus/enteritis/lower GI bleed/abdominal wall seroma hematoma, and decision was made to admit patient for further evaluation and treatment. No additional complaint or concern. To admission patient was extensively evaluated and treated today she feels better has no complaint asking to be discharged home, she will be discharged in stable condition medication reconciled, follow-up with surgeon, PCP, in two days, return to emergency department if condition worsens, today on physical exam, Vital signs, stable ,afebrile. Pulse Oximetry reflects adequate oxygenation. General: well developed, well nourished. Awake , alert, and oriented x4, resting comfortably in the bed, in no acute distress . Skin: Warm, dry, no pallor, no rash or petechiae. HEENT: Atraumatic, normocephalic, EOMI, anicteric sclera B; pink conjunctiva; PERRLA, normal oropharynx, moist oral and nasal mucosa. Tympanic membrane , nose , throat clear. Neck: Trachea midline. Supple, full range of motion, no JVD, bruit , hepatojugular reflex , lymphadenopathy or masses, or other lesions Cardiac: Regular rhythm, regular rate no murmurs, rubs, or gallops. Normal S1 and S2, no S3 noticed. PMI is normal. Respiratory: Equal breath sounds bilaterally, no tachypnea; lungs clear to auscultation bilaterally, no wheezing ,rub or rales, or crackles. Chest wall is symmetric and without deformity. No signs of trauma. Chest wall is nontender. No signs of respiratory distress. Resonance is normal upon percussion bilaterally. Gastrointestinal: Abdomen symmetric, non-distended, soft, non-tender, normal bowel sounds x4 quadrant, normoactive, no hepatosplenomegaly , no masses , no bruit, no flank pain bilaterally. No voluntary guarding, fatuma ound, or rigidity. No tenderness to percussion. No pulsatile masses. Equal femoral pulses. No Mac's sign or McBurney point tenderness. Back; no CVA tenderness bilaterally, no deformities. Neck and back are without deformity as well. No tenderness noted on palpation of the spinous processes. Spinous processes are midline. Cervical, thoracic, and lumbar paraspinal muscle s are not tender and are without spasm. Musculoskeletal: Extremities, normal range of motion, non-tender, muscle strength 5/5 x 4. Negative Homans signs bilaterally on lower extremity. Distal pulses full symmetrical, no clubbing, cyanosis , edema. Neurological: Speech is clear, alert, and oriented x 4. No motor or sensory deficit, deep tendon reflexes normal, cerebellar intact. Cranial nerves II-XII intact. Psych: Alert and or appropriate, normal affect. Vascular: Good distal pulses, which are equal x4; capillary refill less than 2 seconds. Lymphatic, no lymphadenopathy. *Problems/Diagnosis: (1) Acute urinary tract infection Status: Acute (2) Postoperative seroma Status: Acute Total Time Spent on D/C: > 30 Minutes Date of Service: Nov 03, 2024 Billing Provider: NIRANJAN FOURNIER MD Common Visit Codes: 56639-VSU/OBS DISCH DAY >30min NIRANJAN FOURNIER MD Nov 03, 2024 14:21
== END 2024-11-03 14:00 | disposition home or self-care (01) | DRG 920 ==
LOC: ER 08:54 → ED HOLD 16:56 → ORTHO 4S 20:27
PROVIDERS: ADMIT Family Medicine; ATTEND Family Medicine
PROC: BW211ZZ Computerized Tomography (CT Scan) of Abdomen and Pelvis using Low Osmolar Contrast (ICD-10-PCS; principal; 2024-11-01)
DX: L76.34 Postprocedural seroma of skin and subcutaneous tissue following other procedure (principal); K56.7 Ileus, unspecified; N39.0 Urinary tract infection, site not specified; L76.32 Postprocedural hematoma of skin and subcutaneous tissue following other procedure; K52.9 Noninfective gastroenteritis and colitis, unspecified; E78.00 Pure hypercholesterolemia, unspecified; E11.65 Type 2 diabetes mellitus with hyperglycemia; E83.42 Hypomagnesemia; K21.9 Gastro-esophageal reflux disease without esophagitis; Y83.8 Other surgical procedures as the cause of abnormal reaction of the patient, or of later complication, without mention of misadventure at the time of the procedure; G89.4 Chronic pain syndrome; E86.0 Dehydration; Z87.891 Personal history of nicotine dependence; Z87.11 Personal history of peptic ulcer disease; Z90.710 Acquired absence of both cervix and uterus; Z88.2 Allergy status to sulfonamides; Z88.5 Allergy status to narcotic agent; Z90.49 Acquired absence of other specified parts of digestive tract; Z85.42 Personal history of malignant neoplasm of other parts of uterus; Y92.89 Other specified places as the place of occurrence of the external cause; Z91.040 Latex allergy status
CPT/HCPCS: 36415; 74176; 80053; 80305; 81001; 81025; 82948; 83605; 83690; 83735; 83880; 84100; 84145; 84443; 85025; 85610; 85730; 87040; 87081; 87088; 99285; G0378; J0696; J1171; J1815; J2405; J7030; J7120

== ENCOUNTER 2024-11-25 12:17 | Inpatient (IN) | payer BC ==
[~2024-11-25] VITALS: Ht 157.5 cm; Wt 85.7 kg
[~2024-11-25 12:17] MED LIST changes: +HYDR-3965 PO; +ONDA-243 PO; +PER5325T PO
--- NOTE | 2024-11-25 12:30 | Physician Documentation ---
History of Present Illness Stated Complaint: "BACK/ABD PAIN AND FEEL LIKE PASSING OUT" OK to notify your PCP?: Yes Primary Medical Doctor: DONIS HPI 44-year-old female with multiple complaints 1 of which was while at work she started to experience upper left quadrant pain, back pain with history of neck surgery with diaphoresis. Patient states that she has had history of bowel obstruction and an umbilical hernia repair as well Chief Complaint: Chest Pain and abdominal pain Caveat: None Independent Historians: None History of Present Illness: Patient is a 44-year-old woman who was at work when she developed severe epigastric and upper abdominal pain radiating to the neck and left chest pain. Patient is sweaty. She describes the pain as constant and sharp. Patient's pain is really not worse with movement. Associated with nausea. No vomiting or diarrhea. No blood in the stool. Review of systems: All systems were reviewed and are negative except for what is indicated in the history of present illness. Past Medical History: Hypertriglyceridemia Past Surgical History: Total hysterectomy, small-bowel obstruction resulting in partial colectomy-both surgeries in August per patient, cholecystectomy Social History: Quit smoking three years ago, no alcohol use, no drug use Medications: Reviewed as documented Nursing Notes Allergies: Reviewed as documented in Nursing Notes Medication Reconciliation Allergies: Coded Allergies: morphine (Verified Allergy, Mild, itchy, 11/25/24) TOLERATED MORPHINE 01/2022 Sulfa (Sulfonamide Antibiotics) (Verified Allergy, Unknown, 10/10/24) latex (Verified Allergy, Unknown, 10/10/24) Scheduled Duloxetine HCl (Duloxetine HCl), 1 CAP PO BID, (Reported) Fenofibrate Nanocrystallized* (Tricor*), 134 MG PO DAILY, (Reported) Metformin Hcl* (Glucophage*), 2 TAB PO BIDAC, (Reported) Oxycodone Hcl/Acetaminophen 5/325 MG* (Percocet 5/325 MG*), 1 TAB PO Q4H, (Reported) Pantoprazole Sodium (PROTONIX tablet), 1 TAB PO DAILY, (Reported) Polyethylene Glycol 3350 (Miralax), 17 GM PO DAILY, (Reported) Pregabalin (LYRICA capsule), 1 CAP PO Q12H Scheduled PRN Albuterol Sulfate (Proair Hfa), 2 PUFFS IH Q6H PRN for SOB or wheezing Alprazolam (Xanax), 1 TAB PO QDAY PRN PRN for anxiety, (Reported) Hydrocodone Bit/Acetaminophen (Hydrocodon-Acetaminophen 5-325), 1 TAB PO Q8H PRN for MODERATE PAIN 4-6 Hydrocodone Bit/Acetaminophen 5/325 MG (Hunker 5/325 MG), 1 TAB PO Q4-6 hours PRN for moderate or severe pain ONDANSETRON ODT 4mg tablet (Ondansetron Odt), 1 TAB PO Q6H PRN for nausea/vomiting, (Reported) Past Medical History Past Medical History: High Cholesterol, GERD, Inflammatory Bowel Dz, Peptic Ulcer Disease, UTI, Diabetes, Thyroid (unspecified) Past Surgical History: abdominal surgery, cholecystectomy, other Patient History: Patient reports no known family medical history. Alcohol Use: None Drug Use: none Lives with: Family Lives In: Home Occupation: employed Review of Systems All Other Systems at this time: Reviewed and Negative ROS Patient denies any other acute symptoms other than above. All other systems are negative Gastrointestinal: Reports: see HPI Physical Exam Vital Signs: RN Vital Signs have been reviewed: Yes Pulse Oximetry Reflects: adequate oxygenation Physical Exam General Appearance: SEVERE DISTRESS, ACUTELY ILL-APPEARING HEENT: Normal OP, moist oral mucosa, PERRL, EOMI Neck: supple, normal ROM, trachea midline Pulmonary: No respiratory distress, CTA, BS equal Cardiac: TACHYCARDIC, REGULAR RHYTHM, no murmur, rub or gallop, GI: nondistended, soft, UPPER ABDOMINAL TENDERNESS, MASS VERSUS AORTA, normal bowel sounds, no guarding, no rebound Extremities: normal ROM, no swelling, non-tender Skin: intact, DIAPHORETIC, warm, no rashes Neuro: AAOx3, speech is clear, no focal motor weakness Psych: normal affect, good eye contact, no apparent hallucination, normal speech Medical Decision Making Findings Differential diagnosis includes but is not limited to: AAA, AORTIC DISSECTION, PULMONARY EMBOLUS, ACUTE CORONARY SYNDROME EKG independent interpretation: Performed at 12:27 p.m.. SVT, heart rate to 23, normal axis, subtle minimal ST-depression in some precordial leads Repeat EKG independent interpretation, indication ongoing chest pain with elevated troponin: Performed at 3:27 p.m.. Normal sinus rhythm, heart rate 92, normal axis, normal ST segments. Abnormal R-wave progression Chest x-ray, indication: Chest pain Independent interpretation: Lungs are clear, Normal mediastinum, normal cardiac silhouette, no acute cardiopulmonary process. CTA CHEST ABDOMEN AND PELVIS, INDICATION: CHEST PAIN AND ABDOMINAL PAIN IMPRESSION: No acute intrathoracic or intraabdominal abnormality. No pulmonary embolus seen. 3.3 cm right thyroid nodule. Small ventral abdominal wall hernia contains fluid measures up to 3.7 cm. Laboratory data independent interpretation: CBC: Leukocytosis of 13.4 CMP: Anion gap of 17, elevated BUN creatinine of 24 and 1.98. There is no history of renal insufficiency or kidney disease and no baseline to compare to. Coags: PTT normal 10.7, INR normal one, PTT normal 26 Urinalysis: Emergency department course/medical decision-making: Patient is a 44-year-old woman who presents with acute abdominal pain and chest pain. Patient was immediately placed on desktop support engineer and sent to CT for a CTA of the chest abdomen and pelvis which is negative. Patient's original heart rate was in the 200s. I was not aware that. When I saw the patient after triage the patient had already been provided vagal maneuvers and I saw heart rate of 130 and sinus tach. Patient's heart rate has since improved. However the patient remains in pain, 8/10. There are no ischemic changes on the EKG. Patient's 1st troponin was negative in her 2nd troponin is 154. Patient will be given aspirin. We will recommend admission. Test results and treatment plan unknown. Although I do not suspect an acute coronary syndrome. I suspect the troponin may be elevated just secondary to her tachycardia that she has had. We will repeat the EKG and troponins. We will also admit for intractable abdominal pain and chest pain that has ongoing. 3:20 P.M.: PATIENT'S BLOOD PRESSURE HAS DROPPED TO THE 90S. PATIENT IS BEING GIVEN A 2 L OF BLOOD PRESSURE. PATIENT ISN'T THOUGHT TO BE SEPTIC. PATIENT IS NOT THOUGHT TO BE HAVING A GI BLEED. Consultation/communications: 3:15 p.m.: Case discussed with our resident hospitalist, Dr. Acuña. She will evaluate the patient for admission. Departure Time of Disposition: 15:00 Disposition: 01 HOME / SELF CARE / HOMELESS Impression: Primary Impression: SVT (supraventricular tachycardia) Additional Impressions: Elevated troponin Intractable abdominal pain Intractable chest pain Education Educated: Patient Educated regarding: diagnosis, treatment Signature Scribe Signature: NO SCRIBE Attestation: NO SCRIBE REESE CHAMBERS NP Nov 25, 2024 12:30 KEDAR FOSTER MD Nov 25, 2024 13:06
--- NOTE | 2024-11-25 12:39 | ELECTROCARDIOGRAPH REPORT ---
[facility] Test Date: 2024-11-25 Test Time: 12:27:25 Pat Name: MEGAN SOTELO Department: EMERGENCY ROOM Room: ED 3 Gender: F Sleep Medicine Physician: GIORGIO : 1980 Requested By: KEDAR FOSTER Order Number: [id number] Reading MD: Dr. Raffy Douglas Measurements Intervals [place] Rate: 223 P: 240 MO: 53 QRS: 63 QRSD: 76 T: 59 QT: 248 QTc: 478 Interpretive Statements Supraventricular tachycardia Low voltage, precordial leads ST depression, probably rate related Electronically Signed On 11-25-2024 18:54:[address] Raffy Douglas Please click the below link to view image of tracing.
[2024-11-25] MEDS: normal saline 1000ML IV soln IVB ONE ×2 (12:43→14:58)
[2024-11-25] MEDS: morphine 4 MG/ML inj SYRINge IV PRN (12:43)
[2024-11-25] MEDS: ondansetron/PF 4mg/2ml inj IV ONE ×2 (12:43→14:58)
[2024-11-25 13:05] LABS: MEAN PLATELET VOLUME 8.4 FL (7.4-10.4); RED CELL DISTRIBUTION WIDTH 14.6 % (11.5-14.5)
[2024-11-25 13:15] LABS: APTT 26 SECONDS (22-32); INR 1.0 INR
[2024-11-25 13:17] LABS: CREATININE 1.98 MG/DL (0.40-0.90); TOTAL CARBON DIOXIDE 23.0 MMOL/L (24-32); eCRCL 28 ML/MIN; eGFR 27 ML/MIN
--- NOTE | 2024-11-25 13:31 | RADIOLOGY REPORT ---
CHEST RADIOGRAPH Indication: chest pain Technique: Single frontal view of the chest was obtained Comparison: DI CHEST,SINGLE VIEW on DOS: 10/12/24, DI CHEST,SINGLE VIEW on DOS: 10/11/23, DI CHEST,SING LE VIEW on DOS: 04/04/23 FINDINGS: Lines and Tubes: None Lungs: No focal consolidation. Pleura: No effusion. No pneumothorax. Cardiomediastinal contours: Unremarkable Bones: No acute osseous abnormality. Cervical fixation hardware is noted. Chronic fracture deformity of the right distal clavicle. IMPRESSION: No acute cardiopulmonary disease.
--- NOTE | 2024-11-25 14:00 | RADIOLOGY REPORT ---
CT CTA CHEST ABDOMEN PELVIS W/ IV CONTRAST INDICATION: chest and abdominal pain EXAM DATE: 11/25/2024 01:11 PM COMPARISON: CT CT ABDOMEN PELVIS on DOS: 11/01/24, CT CT ABDOMEN PELVIS W/ IV CONTRAST on DOS: 10/18/24, CT CT ABDOMEN PELVIS W/ IV CONTRAST on DOS: 10/11/24 RADIATION DOSE: CTDIvol: 25 mGy, DLP: 1746 mGy*cm PROCEDURE: Helical CT images were obtained of the chest, abdomen, and pelvis with intravenous contras t. Sagittal and coronal reconstructions are provided. ORAL CONTRAST: None. ADDITIONAL IMAGES / REFORMATS: None All CT scans at this medical facility are performed using dose modulation techniques as appropriate t o a performed exam including the following: Automated exposure control was utilized; adjustment of th e MA and/or KV according to patient size; and use of iterative reconstruction technique. FINDINGS: CHEST: BONES: Scattered degenerative changes are noted in the visualized osseous structures. CHEST WALL: Normal. SOFT TISSUES: 3.3 cm right thyroid nodule. MEDIASTINUM: Normal. HEART: Normal. VESSELS: Normal. LYMPH NODES: Normal. PLEURA: Normal. AIRWAYS: Normal. LUNG: Normal. ABDOMEN AND PELVIS: BONES: Scattered degenerative changes are noted in the visualized osseous structures. LIVER: Normal. GALLBLADDER AND BILIARY TREE: Amita clips are seen. No intra- or extrahepatic biliary ductal dilation . PANCREAS: Normal. SPLEEN: Normal. BOWEL: Normal. Normal appendix. ADRENALS: Normal. KIDNEYS AND URETER: Normal. BLADDER: Normal. REPRODUCTIVE ORGANS: Absent uterus. LYMPH NODES:No lymphadenopathy. PERITONEUM: No ascites or free air. No other fluid collection. VESSELS: Normal RETROPERITONEUM: Normal. ABDOMINAL WALL: Small ventral abdominal wall hernia contains fluid measures up to 3.7 cm. IMPRESSION: No acute intrathoracic or intraabdominal abnormality. No pulmonary embolus seen. 3.3 cm right thyroid nodule. Small ventral abdominal wall hernia contains fluid measures up to 3.7 cm.
[2024-11-25] MEDS: ketorolac trometh 15mg/ml vial 15 MG/ML ML IV ONE (14:59)
[2024-11-25] MEDS ORDERED: HYDROcodone/acetaminophen 5mg/325mg tablet PO PRN (15:20)
[2024-11-25] MEDS ORDERED: potassium Cl 40MEQ/1/2NS 520ml 520 ML IV PRN (15:20)
[2024-11-25] MEDS ORDERED: potassium Cl 20 mEq SR tablet PO PRN ×2 (15:20)
[2024-11-25] MEDS ORDERED: ondansetron 4mg rapidly disintigrating tab PO PRN (15:20)
[2024-11-25] MEDS ORDERED: mag hydrox/Alum hydrox/simeth 30ml oral suspension PO PRN (15:20)
[2024-11-25] MEDS ORDERED: magnesium sulf-water 2g/50mL 50 ML IV PRN (15:20)
[2024-11-25] MEDS ORDERED: magnesium sulf-water 4G/100mL 100 ML IV PRN (15:20)
[2024-11-25] MEDS ORDERED: magnesium hydroxide 30ml (MOM) UD suspension PO PRN (15:20)
[2024-11-25] MEDS ORDERED: ondansetron/PF 4mg/2ml inj IV PRN (15:20)
[2024-11-25] MEDS ORDERED: PERFLUTREN PROTEIN-A MICROSPHR (Optison) 0.22 MG/ML 3ML VIAL IV ONE (15:20)
--- NOTE | 2024-11-25 15:29 | ELECTROCARDIOGRAPH REPORT ---
[facility] Test Date: 2024-11-25 Test Time: 15:27:48 Pat Name: MEGAN SOTELO Department: [facility] Patient ID: [id number] Room: ED 3 Gender: F Failure Analysis Technician: : 1980 Requested By: KEDAR FOSTER Order Number: [id number] Reading MD: Dr. Raffy Douglas Measurements Intervals [place] Rate: 92 P: 43 NC: 141 QRS: 59 QRSD: 88 T: 63 QT: 359 QTc: 445 Interpretive Statements Sinus rhythm Abnormal R-wave progression, early transition Electronically Signed On 11-25-2024 18:53:[address] Raffy Douglas Please click the below link to view image of tracing.
[2024-11-25] MEDS ORDERED: aminophylline 250mg/10ml inj. IV PRN (15:35)
[2024-11-25] MEDS ORDERED: metoprolol tartrate 1mg/ml inj IV PRN (15:35)
[2024-11-25] MEDS ORDERED: normal saline 1000ml 1,000 ML IV STA (15:58)
[2024-11-25 16:12] LABS: CHOL/HDL RATIO 2.9 (0.00-4.99); LDL CHOLESTEROL 76 MG/DL (50-100)
[2024-11-25] MEDS: LidoCAINE 2% Topical Jelly 11mL syringe (UROJET) TOP ONE (16:15)
--- NOTE | 2024-11-25 16:16 | HISTORY AND PHYSICAL ---
History & Physical Providers to ~ History of Present Illness Reason for Admit\Complaint: SVT, abd pain, NSTEMI History of Present Illness Paris Pascal is a 44-year-old female with past medical history of recent total hysterectomy and incarcerated incisional hernia with SBO s/p laparoscopic incarcerated incisional hernia repair on 09/19/24 and post-op seroma s/p ultrasound-guided needle aspiration in October who presented to the ED with chief complaint of acute onset severe epigastric and left upper and lower quadrant abdominal pain x 1 day. Patient denies prior CA/CAD, CVA, cardiac arrhythmia, DVT/PE, or GIB. Patient also reports acute onset chest pain, palpitations, nausea, but denies shortness of breath, vomiting constipation or diarrhea. Initial finding are notable for EKG indicating SVT at 223bpm without ST elevation/depression, elevated and uptrending troponin series. Patient was converted to sinus at 92bpm after valsalva maneuver in ED. CTA chest/abdomen/pelvis is unremarkable. Patient is to be admitted for further workups and treatment. Allergies: Coded Allergies: morphine (Verified Allergy, Mild, itchy, 11/25/24) TOLERATED MORPHINE 01/2022 Sulfa (Sulfonamide Antibiotics) (Verified Allergy, Unknown, 10/10/24) latex (Verified Allergy, Unknown, 10/10/24) Home Medications Home Medications Active [place] 5/325 MG (Acetaminophen/Hydrocodone Bitart) 5 Mg/325 Mg Tablet 1 Tab PO Q4-6 HOURS PRN LYRICA capsule (Pregabalin) 75 Mg Capsule 1 Cap PO Q12H 10 Days Hydrocodon-Acetaminophen 5-325 (Hydrocodone Bit/Acetaminophen) 5 Mg-325 Mg Tablet 1 Tab PO Q8H PRN Proair Hfa (Albuterol Sulfate) 1 Puff Inh 2 Puffs IH Q6H PRN Reported Ondansetron Odt (Ondansetron HCl) 4 Mg Tab.rapdis 1 Tab PO Q6H PRN Percocet 5/325 MG* (Oxycodone/Acetaminophen) 5 Mg/325 Mg Tablet 1 Tab PO Q4H Duloxetine HCl 60 Mg Capsule.dr 1 Cap PO BID 30 Days PROTONIX tablet (Pantoprazole Sodium) 40 Mg Tablet.dr 1 Tab PO DAILY 30 Days Miralax (Polyethylene Glycol 3350) 17 Gram/Dose Powder 17 Gm PO DAILY dissolve in water Xanax (Alprazolam) 0.5 Mg Tablet 1 Tab PO QDAY PRN PRN 30 Days Tricor* (Fenofibrate) 48 Mg Tablet 134 Mg PO DAILY Glucophage* (Metformin HCl) 500 Mg Tablet 2 Tab PO BIDAC Past Surgical History Surgical History Comment Total hysterectomy Cholecystectomy Incarcerated incisional hernia repair Family History Family History: Patient reports no known family medical history. Past Social History Social History Comment Alcohol: Denies Tobacco: Former smoker, quit 3 years ago, 15 pack year history Illicit drug use: Denies Living situation: Lives at home with boyfriend ROS ROS Other than positives in HPI, all 14 review of systems are negative Exam Vitals: Vital Signs Date Time Temp Pulse Resp B/P (MAP) Pulse Ox O2 Delivery O2 Flow Rate FiO2 11/25/24 15:43 96 12 110/71 (84) 98 0 11/25/24 14:01 98.5 General: A&Ox 3, NAD HEENT: Normocephalic, PERRLA Neck: Supple, trachea midline, no JVD Chest: Clear to auscultation bilaterally Cardiovascular: RRR, S1&S2 Abdomen: Tender medial, left upper quadrant and left lower quadrant with palpation; negative rebound tenderness Extremities: No cyanosis/clubbing/or edema Central Nervous System: CN II-XII intact, no focal deficits Musculoskeletal: No paraspinal muscle tenderness, no muscle spasm Skin: Warm and intact Diagnostic Data Last Recorded Lab Results: 11/25/24 1250 11/25/24 1250 Diagnostic Data: Laboratory Tests Test 11/25/24 12:50 Prothrombin Time 10.7 SECONDS (9.0-12.0) INR International Normalized Ratio 1.0 INR Activated Partial Thromboplast Time 26 SECONDS (22-32) D-Dimer 0.45 MG/L FEU (0-0.50) D-Dimer Comment Coagulation Comments Additional Plan Assessment & Plan SVT NSTEMI Prerenal KEILY 2/2 vasomotor nephropathy Acute urinary retention SIRS Hx incarcerated hernia and SBO s/p laparoscopic hernia repair (09/19/24) Hx postop ventral wall seroma/hematoma s/p aspiration -EKG SVT 223bpm s/p Valsalva maneuver now sinus, trops [id number], pBNP wnl, TSH/T4 wnl, UDS negative -CTA chest/abd/pelv shows no acute abdomen, no PE, normal bladder/ureter/kidneys; UA negative UTI; CXR negative -start bbx, aspirin, statin, prn nitroglycerin, IVF, Daily, PPI -follow TTE, Lexiscan, UA w/ culture and lytes, UDS, repeat EKG in am -consulted director of in service education Dr. Abdul -will start heparin drip HLD Prediabetes -pending med rec DVT/VTE prophylaxis: heparin Code status: Full code I spent a total of 35 minutes discussing Advanced Care Planning measures with the patient. Advance care planning: Discussed with patient the importance of advance care planning in case of emergent situation. We discussed various resuscitative measures/ ACP with the patient at the time of admission. Patient voiced understanding and patient has decided on a full code status Date of Service: Nov 25, 2024 Billing Provider: SYLVIE LAINEZ Common Visit Codes: [id number] INP/OBS CARE (HIGH) Secondary Visit Codes: [id number] CARE PLAN 30 MINUTES SYLVIE LAINEZ Nov 25, 2024 16:16
[2024-11-25] MEDS: HYDROcodone/acetaminophen 10/325mg tab PO PRN (16:28)
[2024-11-25] MEDS: ringers solution, lacted 1,000 ML IV ONE (16:29)
[2024-11-25 17:29] LABS: LEUKOCYTE ESTERASE ,URINE NEGATIVE (Neg); NITRITES, URINE NEGATIVE (Neg); OCCULT BLOOD,URINE NEGATIVE (Neg)
[2024-11-25 17:46] LABS: UA COLLECTION TYPE NON-SPECIFIED; URINE AMPHETAMINE SCREEN NEGATIVE (Neg); URINE BARBITUATE SCREEN NEGATIVE (Neg); URINE BENZODIAZEPINES SCREEN NEGATIVE (Neg); URINE CANNABINOID SCREEN NEGATIVE (Neg); URINE COCAINE SCREEN NEGATIVE (Neg); URINE METHADONE SCREEN NEGATIVE (Neg); URINE OPIATE SCREEN POSITIVE (Neg); URINE PHENCYCLIDINE SCREEN NEGATIVE (Neg)
[2024-11-25 17:48] LABS: AMORPHOUS URATES 1+; CREATININE,URINE RANDOM 98.6 MG/DL; MUCUS STRANDS FEW /LPF (Neg); SQUAMOUS EPITHELIAL CELL,UR FEW /LPF (FEW); TOTAL PROTEIN,URINE RANDOM 21.8 MG/DL
[2024-11-25 17:49] LABS: GLUCOSE,URINE RANDOM 33.0 MG/DL
[2024-11-25 17:58] VITALS: BP 137/92; RESP 16; TEMP 99.2; O2SAT 95
[2024-11-25 18:00] VITALS: BP 105/71; PULSE 83; RESP 15; TEMP 97.7; O2SAT 96
[2024-11-25] MEDS: aspirin 81mg, enteric-coated 1 TAB TABLET.DR PO ONE (18:27)
[2024-11-25] MEDS: CefTRIAXone 2gm/D5W 50ml BAG 50 ML IV ONE (18:28)
[2024-11-25 18:56] VITALS: PULSE 92
[2024-11-25 19:07] LABS: PRO BRAIN NATRIURETIC PEPTIDE 70 PG/ML (0-125)
[2024-11-25 20:00] VITALS: RESP 18; O2SAT 97
[2024-11-25] MEDS: K and/or MAG REPLACEMENT MC SCH (20:00)
[2024-11-25] MEDS: docusate sod 100mg capsule PO SCH (21:28)
[2024-11-25] MEDS: heparin, porcine 5000 units/ml vial SQ SCH (21:29)
[2024-11-25] MEDS: HEPARIN DRIP-CARDIAC**PHARMACIST-TO-DOSE IV ONE (21:55)
[2024-11-25 22:00] VITALS: BP 105/69; PULSE 82; RESP 15; TEMP 97.6; O2SAT 95
[2024-11-25] MEDS ORDERED: heparin 10,000 units/1 ML INJ IV ONE (23:15)
[2024-11-25] MEDS ORDERED: heparin 25,000 UNIT/250ml bag 250 ML IV PRN (23:15)
[2024-11-25] MEDS ORDERED: heparin 10,000 units/1 ML INJ IV PRN (23:15)
[2024-11-26] VITALS (14 sets, daily range): BP systolic 79–124; BP diastolic 49–80; PULSE 63–98; RESP 14–17; TEMP 97.2–98.2; O2SAT 93–100
[2024-11-26] MEDS: heparin 25,000 UNIT/250ml bag 250 ML IV PRN ×2 (00:12→08:48)
[2024-11-26] MEDS: MESSAGE TO NURSING IV NR (00:13)
[2024-11-26] MEDS: ringers solution, lacted 1,000 ML IV SCH (00:13)
[2024-11-26] MEDS: oxyCODONE/APAP 5-325mg tablet PO ONE (02:58)
[2024-11-26 07:23] LABS: CREATININE 0.86 MG/DL (0.40-0.90); TOTAL CARBON DIOXIDE 28.1 MMOL/L (24-32); eCRCL 65 ML/MIN; eGFR 71 ML/MIN
[2024-11-26 07:34] LABS: MEAN PLATELET VOLUME 8.8 FL (7.4-10.4); RED CELL DISTRIBUTION WIDTH 14.4 % (11.5-14.5)
[2024-11-26] MEDS: MESSAGE TO NURSING IV ONE (07:50)
[2024-11-26] MEDS ORDERED: heparin 10,000 units/1 ML INJ IV PRN (08:05)
[2024-11-26] MEDS: CefTRIAXone 2gm/D5W 50ml BAG 50 ML IV SCH (08:16)
[2024-11-26] MEDS: aspirin 81mg, enteric-coated 1 TAB TABLET.DR PO SCH (08:16)
--- NOTE | 2024-11-26 09:09 | RADIOLOGY REPORT ---
INDICATION: KEILY, urinary retention TECHNIQUE: Multiple real-time sonographic images of the kidneys and bladder were obtained. COMPARISON: None FINDINGS: RIGHT kidney measures 12.7 cm in length. No hydronephrosis. LEFT kidney measures 11.6 cm in length. No hydronephrosis. No large intraluminal masses are seen in the bladder. Post void residual of 5 cc. IMPRESSION: 1. Unremarkable examination.
--- NOTE | 2024-11-26 09:47 | PROGRESS NOTE ---
Progress Note Dictate Providers to CC ~ Progress Note: I was contacted by the admitting provider regarding patient's admission Patient had an incarcerated periumbilical/incisional hernia about two months ago that I repaired emergently No mesh was used and she had a postoperative seroma which has an occurrence of almost 100% in these cases. This was aspirated and found to contain no bacteria consistent with benign seroma These likely will resolve over 3-4 months Patient was admitted with abdominal pain and found to have elevated troponins A CTA of the chest also showed postoperative changes in the periumbilical area with potential small recurrence This is not unexpected and certainly not an acute surgical issue Patient is aware that she may have a recurrence given no use of mesh considering the emergent state of the last surgery and she will likely require mesh repair down the road At this time, there were no surgical issues noted on the CT scan All findings are consistent with recent emergent repair of an incarcerated/strangulated periumbilical hernia Patient may follow up with me as scheduled in the next couple of months to discuss surgical options and interval repair of her midline hernia Antibiotic Ordered?: N/A Objective Vitals Vital Signs Date Time Temp Pulse Resp B/P (MAP) Pulse Ox O2 Delivery O2 Flow Rate FiO2 11/26/24 09:07 16 11/26/24 08:00 71 11/26/24 07:06 97.2 92/59 (70) 94 Room Air 11/25/24 17:12 0 Lab Results: 11/26/24 0607 11/26/24 0607 Coagulation Studies Laboratory Tests Test 11/25/24 12:50 11/26/24 06:07 Prothrombin Time 10.7 SECONDS (9.0-12.0) INR International Normalized Ratio 1.0 INR Activated Partial Thromboplast Time 26 SECONDS (22-32) D-Dimer 0.45 MG/L FEU (0-0.50) D-Dimer Comment APTT (Heparin Protocol) 37 SECONDS (45-60) L Coagulation Comments SHELDON MANSFIELD MD Nov 26, 2024 09:47
[2024-11-26] MEDS: regadenoson 0.4mg/5ml syringe IV PRN (10:06)
[2024-11-26] MEDS: morphine 4 MG/ML inj SYRINge IV PRN (11:51)
[2024-11-26 13:44] LABS: CHOL/HDL RATIO 2.4 (0.00-4.99); LDL CHOLESTEROL 51 MG/DL (50-100)
--- NOTE | 2024-11-26 14:32 | CARDIOLOGY REPORT ---
APPROVED REPORT EXAM: Comprehensive 2D, Doppler, and color-flow Echocardiogram. 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 135.8 cm/s AoV VTI 25.7 cm AO Peak GR. 7.4 mmHg AO Mean GR. 4 mmHg LVOT VTI 23.75 cm LVOT Peak Tomi. 114.0 cm/s JUN(VTI)/BSA 3.09 cm2/m2 JUN (VTI) 3.09 cm2 Mitral Valve MV E Velocity 74.9 cm/s MV Peak Gr. 3 mmHg MV DECEL TIME 232 ms MV A Velocity 84.9 cm/s MV PHT 64 ms E/A Ratio 0.9 MVA (PHT) 3.44 cm2 MV VMax89.0 cm/s TDI Medial E' P. V 8.70 cm/s E/Medial E' 8.6 Tricuspid Valve TR P. Velocity 205 cm/s RAP ESTIMATE 10 mmHg TR Peak Gr. 17 mmHg RVSP 27 mmHg Pulmonary Vein S1 Velocity 57.7 cm/s D2 Velocity 47.8 cm/s PVa Ncllafym21.8 cm/s PVa [id number] msec LEFT VENTRICLE Normal LV size and wall thickness. Overall systolic function is normal. LVEF is 60-65%. RIGHT VENTRICLE RV is mildly dilated in size with normal function. ATRIA Left atrium is mildly dilated. AORTIC VALVE Trileaflet AV appears mildly sclerotic without stenosis. Trace insufficiency. MITRAL VALVE Mild MV annular calcification without stenosis. Trace regurgitation. TRICUSPID VALVE TV appears structurally normal with mild regurgitation. PULMONIC VALVE Normal PV without stenosis, physiologic insufficiency. GREAT VESSELS Aortic root is normal in size. The IVC is normal in size and collapses greater than 50% with inspirat ion. PERICARDIUM Normal pericardium. No effusion. Other Information Study Quality: Adequate Conclusion LVEF is 60-65%. Normal LV size and wall thickness. Overall systolic function is normal. RV is mildly dilated in size with normal function. Trileaflet AV appears mildly sclerotic without stenosis. Trace insufficiency. Mild MV annular calcification without stenosis. Trace regurgitation. TV appears structurally normal with mild regurgitation. Normal PV without stenosis, physiologic insufficiency. Normal pericardium. No effusion.
--- NOTE | 2024-11-26 15:04 | PROGRESS NOTE ---
Daily Progress Note Providers to CC ~ Antibiotic Timeout Antibiotic Ordered?: No Subjective No acute events overnight. Patient examined at bedside. No new complaints, not in acute distress. Patient denies chest pain, sob, palpitations, abdominal pain, n/v/d. Tele sinus in 60s, hypotensive with systolic in 90s. Labs notable for downtrending Cr on IVF and downtrended troponin today. TTE LVEF 60%, RVSP 27mmHg, no significant valvular heart disease. Lexiscan result pending. Objective Vital Signs Date Time Temp Pulse Resp B/P (MAP) Pulse Ox O2 Delivery O2 Flow Rate FiO2 11/26/24 13:39 72 11/26/24 11:51 16 11/26/24 10:26 99/60 94 Room Air 11/26/24 07:06 97.2 11/25/24 17:12 0 Result Diagram: 11/26/24 0607 11/26/24 0607 Physical Exam General: A&Ox 3, NAD HEENT: Normocephalic, PERRLA Neck: Supple, trachea midline, no JVD Chest: Clear to auscultation bilaterally Cardiovascular: RRR, S1&S2 Abdomen: Tender medial, left upper quadrant and left lower quadrant with palpation; negative rebound tenderness Extremities: No cyanosis/clubbing/or edema Central Nervous System: CN II-XII intact, no focal deficits Musculoskeletal: No paraspinal muscle tenderness, no muscle spasm Skin: Warm and intact Coagulation Studies Laboratory Tests Test 11/25/24 12:50 11/26/24 14:54 Prothrombin Time 10.7 SECONDS (9.0-12.0) INR International Normalized Ratio 1.0 INR Activated Partial Thromboplast Time 26 SECONDS (22-32) D-Dimer 0.45 MG/L FEU (0-0.50) D-Dimer Comment Coagulation Comments Problem\Assessment\Plan Assessment & Plan SVT NSTEMI Prerenal KEILY 2/2 vasomotor nephropathy Acute urinary retention SIRS Hx incarcerated hernia and SBO s/p laparoscopic hernia repair (09/19/24) Hx postop ventral wall seroma/hematoma s/p aspiration Hypotension -EKG SVT 223bpm s/p Valsalva maneuver now sinus, trops [id number], pBNP wnl, TSH/T4 wnl, UDS negative -CTA chest/abd/pelv shows no acute abdomen, no PE, normal bladder/ureter/kidneys; UA negative UTI; CXR negative -start bbx, aspirin, statin, prn nitroglycerin, heparin drip, IVF, Daily, PPI -follow TTE, Lexiscan, UA w/ culture and lytes, UDS, repeat EKG in am -consulted sorting livestock worker Dr. Abdul -11/26: Cr downtrending on IVF, trop downtrended; Tele sinus in 60s. TTE LVEF 60%, RVSP 27mmHg, no significant valvular heart disease. Lexiscan result pending. HLD Prediabetes -pending med rec DVT/VTE prophylaxis: heparin Code status: Full code Date of Service: Nov 26, 2024 Billing Provider: SYLVIE LAINEZ Common Visit Codes: [id number] INP/OBS CARE(HIGH) SYLVIE LAINEZ Nov 26, 2024 15:04
[2024-11-26] MEDS: midodrine 5mg tablet PO SCH (16:00)
--- NOTE | 2024-11-26 16:13 | RADIOLOGY REPORT ---
Procedure: NM NM ROMEO SCAN Exam Date: 11/26/2024 09:03 AM Reason for study/Clinical History: elevated trop, chest pain Comparison Study: None Myocardial Perfusion Study with SPECT Technique: The patient received an intravenous injection of 8 mCi of technetium-99m sestamibi whi le at rest. After a short delay, SPECT tomographic images of the heart were obtained. The patient sandie coreas went to the stress lab where they received an intravenous Lexiscan utilizing standard protocol. 33 mCi of technetium-99m sestamibi was injected intravenously immediately after the start of the i nfusion. Gated SPECT tomographic images of the heart were acquired and processed. Findings: Rotating planar images show no significant attenuation artifact. The left ventricular size is within normal limits. Stress tomographic images demonstrate normal perfusion. Resting tomographic images demonstrate a similar pattern. Gated portion of the study shows normal wall motion and myocardial thickening. Impression: Normal left ventricular size, wall motion, and function, without evidence of infarction or of myocard ium at ischemic risk.
--- NOTE | 2024-11-26 23:15 | CONSULTATION ---
DATE OF CONSULTATION: 11/26/2024 DICTATING PHYSICIAN: WEST Abdul MD CARDIOLOGY CONSULTATION REQUESTING PHYSICIAN: BROOKS Modi REASON FOR EVALUATION: Supraventricular tachycardia. HISTORY OF PRESENT ILLNESS: The patient is a 44-year-old postmenopausal female with mild obesity, suspected sleep apnea, prediabetes, and hyperlipidemia who presented with narrow complex tachycardia with a heart rate of 223 per minute. 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 She came to the emergency room when she was found to be in narrow ____ with vagal maneuver, her heart rate dropped down to 130 per minute and subsequently, she was hospitalized. The patient generally walks about 10-15 minutes everyday 2-3 times a week. Reports dyspnea while going uphill and NYHA dyspnea class 2-3. No history of sustained palpitations. No syncope. No history of congenital rheumatoid arthritis. No history of myocardial infarction or congestive heart failure. PAST MEDICAL HISTORY: * Prediabetes. The patient is on metformin. * Hypertriglyceridemia, on fenofibrate. * Mild obesity. * Suspected sleep apnea, pending sleep study. PAST SURGICAL HISTORY: * History of cervical spine surgery by Dr. Huntley in 2022, still the patient has upper extremity radicular pain. * Cholecystectomy. * On 09/26, had hysterectomy. * The patient also had surgery for a bowel obstruction by Dr. Foley in 2024. MEDICATIONS: Citalopram for anxiety and depression and also on fenofibrate. FAMILY HISTORY: The patient lives with her boyfriend and he got a daughter who is 4-1/2 years old. Her father had an [place]. Father at age 76. Mother at age 48. SOCIAL HISTORY: The patient did smoke one pack per day from age 18 to 41. Occasional alcohol use. No history of substance abuse. REVIEW OF SYSTEMS: HEENT: Wears glasses. No hearing impairment. RESPIRATORY: Exertional shortness of breath. MUSCULOSKELETAL: Occasional arthralgia. CENTRAL NERVOUS SYSTEM: No stroke, TIA or seizure. PSYCHIATRIC: Both have anxiety and depression. SKIN: None. ENDOCRINE: None. PHYSICAL EXAMINATION: GENERAL: The patient is conscious, alert, oriented, currently in normal sinus rhythm. VITAL SIGNS: Pulse ____, blood pressure 100/70. NECK: No JVD. Carotids equally well felt. CARDIAC: Regular rate and rhythm. S1, S2 normal. No S3, S4 or murmur. LUNGS: Clear to auscultation bilaterally. ABDOMEN: Soft. Bowel sounds present. EXTREMITIES: No edema or cyanosis. 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 LABORATORY DATA: Labs include WBC 6.9, hemoglobin 11.1, hematocrit 33.5, platelet count 350. Sodium 138, potassium 4, chloride 104, carbon dioxide 28, BUN 13, creatinine 0.86. Troponins 214, 412, 192. DIAGNOSTIC DATA: Echocardiogram from 11/21/2024, ejection fraction 60-65%, trace AR and MR, mild TR, PS 24 mmHg. IMPRESSION AND PLAN: * A 44-year-old female with narrow complex tachycardia, SVT, currently in normal sinus rhythm. The patient has been put on metoprolol 25 mg p.o. b.i.d. The nature of illness was explained to the patient, option of in future treating with sotalol and if the episodes keep recurring with the option of SVT ablation, risks, benefits and alternative options discussed with the patient. EF normal. * Prediabetes and hyperlipidemia. Continue fenofibrate and metformin. * Mild obesity, DJD, and suspect sleep apnea. Continue pursuing sleep study. Recommend diet, weight loss, and exercise program. WEST Abdul MD TID: [id number] RECEIPT: [id number] BC/VUN/AMI
[2024-11-27 02:00] VITALS: BP 100/57; PULSE 63; RESP 16; TEMP 98.2; O2SAT 99
[2024-11-27 06:09] LABS: MEAN PLATELET VOLUME 8.5 FL (7.4-10.4); RED CELL DISTRIBUTION WIDTH 14.0 % (11.5-14.5)
[2024-11-27 06:32] LABS: CREATININE 0.63 MG/DL (0.40-0.90); TOTAL CARBON DIOXIDE 27.5 MMOL/L (24-32); eCRCL 88 ML/MIN; eGFR > 90 ML/MIN
[2024-11-27] MEDS ORDERED: LOP12.5T PO (07:14)
[2024-11-27] MEDS ORDERED: NALO4SPR BOTHNARES (07:15)
[2024-11-27 08:00] VITALS: RESP 16; O2SAT 98
[2024-11-27 08:53] VITALS: PULSE 97
[2024-11-27] MEDS: metoprolol tartrate 12.5mg (1/2 tablet) PO SCH (08:53)
--- NOTE | 2024-11-27 15:01 | PROGRESS NOTE ---
Progress Note Cardiology Providers to CC ~ Subjective Subjective Patient seen and examined this morning before discharge. Overall patient is doing well on beta blockers. Has not had any recurrence of arrhythmias. Thyroid levels are normal Objective Result Diagram: 11/27/24 0551 11/27/24 0551 Objective General: Normal body habitus, no acute distress, HEENT: Sclerae clear, PERRL, gums without lesions or bleeding, oropharynx clear without erythema or exudate. Neck: Supple without enlargement of the thyroid, or lymphadenopathy, Chest: Normal size and shape, no tenderness, nonlabored breathing, Breath sounds clear to auscultation. Heart: Regular in rate and rhythm, S1 and S2 normal, no S3-S4 or murmurs. Abdomen: Soft, nontender, no organomegaly, bowel sounds present. Extremities: No edema cyanosis or clubbing. Coagulation Studies Laboratory Tests Test 11/25/24 12:50 11/26/24 14:54 Prothrombin Time 10.7 SECONDS (9.0-12.0) INR International Normalized Ratio 1.0 INR Activated Partial Thromboplast Time 26 SECONDS (22-32) D-Dimer 0.45 MG/L FEU (0-0.50) D-Dimer Comment APTT (Heparin Protocol) 48 SECONDS (45-60) Coagulation Comments Problem\Assessment\Plan Additional Plan * 1. A 44-year-old female with narrow complex tachycardia, SVT, currently in normal sinus rhythm. The patient has been put on metoprolol 25 mg p.o. b.i.d. The nature of illness was explained to the patient, option of in future treating with sotalol and if the episodes keep recurring with the option of SVT ablation, risks, benefits and alternative options discussed with the patient. EF normal. 2. * Prediabetes and hyperlipidemia. Continue fenofibrate and metformin. 3. * Mild obesity, DJD, and suspect sleep apnea. Continue pursuing sleep study. Recommend diet, weight loss, and exercise program. \ Patient doing well recommend follow up with PMD and subsequently with a academic interventionist for further follow up. Recommend diet weight loss and exercise program CHAVO GALVEZ MD Nov 27, 2024 15:01
--- NOTE | 2024-11-27 16:23 | DISCHARGE SUMMARY ---
Discharge Summary Providers to CC ~ Discharge Summary Admission Diagnosis: SVT, KEILY, Type II MD, intractable abdominal pain Hospital Course DATE OF ADMISSION: 11/25/24 DATE OF DISCHARGE: 11/27/24 Discharge Diagnosis\Comment: SVT Type II MD Prerenal KEILY 2/2 vasomotor nephropathy Acute urinary retention SIRS Hx incarcerated hernia and SBO s/p laparoscopic hernia repair (09/19/24) Hx postop ventral wall seroma/hematoma s/p aspiration Hypotension HLD Prediabetes Operations\Procedures: None Consultants: Pharmacy Helper Dr. Abdul, Surgeon Rd Mendes Complications: None Condition on DC: Stable New Medications: Naloxone HCl (Narcan) 4 Mg/Actuation [place] 1 SPRAYS BOTHNARES ONCE for 14 Days, #1 EA 0 Refills Metoprolol Tartrate (Lopressor tablet) 25 Mg Tablet 12.5 MG PO BID for 30 Days, #60 TAB Hold for SBP below 100mm Hg Hold for Heart Rate below 60. Continued Medications: Albuterol Sulfate (Proair Hfa) 1 Puff Inh 2 PUFFS IH Q6H PRN for SOB or wheezing, #1 INHALER Alprazolam (Xanax) 0.5 Mg Tablet 1 TAB PO QDAY PRN PRN for anxiety for 30 Days, #30 TAB 0 Refills Duloxetine HCl (Duloxetine HCl) 60 Mg Capsule.dr 1 CAP PO BID for 30 Days, #30 CAP 0 Refills Fenofibrate Nanocrystallized* (Tricor*) 48 Mg Tablet 134 MG PO DAILY, TAB Hydrocodone Bit/Acetaminophen (Hydrocodon-Acetaminophen 5-325) 5 Mg-325 Mg Tablet 1 TAB PO Q8H PRN for MODERATE PAIN 4-6, #30 TAB Metformin Hcl* (Glucophage*) 500 Mg Tablet 2 TAB PO BIDAC, TAB ONDANSETRON ODT 4mg tablet (Ondansetron Odt) 4 Mg Tab.rapdis 1 TAB PO Q6H PRN for nausea/vomiting Pantoprazole Sodium (PROTONIX tablet) 40 Mg Tablet.dr 1 TAB PO DAILY for 30 Days, #30 TAB 0 Refills Polyethylene Glycol 3350 (Miralax) 17 Gram/Dose Powder 17 GM PO DAILY for constipation, #255 GM 0 Refills dissolve in water Pregabalin (LYRICA capsule) 75 Mg Capsule 1 CAP PO Q12H for 10 Days, #20 CAP 0 Refills Discontinued Medications: Hydrocodone Bit/Acetaminophen 5/325 MG ([place] 5/325 MG) 5 Mg/325 Mg Tablet 1 TAB PO Q4-6 hours PRN for moderate or severe pain, #16 TAB Oxycodone Hcl/Acetaminophen 5/325 MG* (Percocet 5/325 MG*) 5 Mg/325 Mg Tablet 1 TAB PO Q4H Discharge Summary: History of Present Illness Paris Pascal is a 44-year-old female with past medical history of recent total hysterectomy and incarcerated incisional hernia with SBO s/p laparoscopic incarcerated incisional hernia repair on 09/19/24 and post-op seroma s/p ultrasound-guided needle aspiration in October who presented to the ED with chief complaint of acute onset severe epigastric and left upper and lower quadrant abdominal pain x 1 day. Patient denies prior MD/CAD, CVA, cardiac arrhythmia, DVT/PE, or GIB. Patient also reports acute onset chest pain, palpitations, nausea, but denies shortness of breath, vomiting constipation or diarrhea. Initial finding are notable for EKG indicating SVT at 223bpm without ST elevation/depression, elevated and uptrending troponin series. Patient was converted to sinus at 92bpm after valsalva maneuver in ED. CTA chest/abdomen/pelvis is unremarkable. Patient is to be admitted for further workups and treatment. Hospital Course Diagnostic findings were notable for findings of renal insufficiency, acute urinary retention evidenced in bladder scan, EKG showing SVT at 223bpm, elevated troponin series. Pertinent negative findings for normal TSH/T4, negative urine toxicology, unremarkable CT abdomen/pelvis, negative urinalysis, negative chest x-ray. SVT was converted with Valsalva maneuver in ED and the patient was started on metoprolol tartrate. Telemetry remained sinus in 50s-60s. Patient was initially started on intravenous fluids, aspirin, bbx, statin, prn nitroglycerin, heparin drip, indwelling catheter, and supportive care. Patient was also treated with intravenous fluids in which kidney function responded well to. TTE revealed LVEF of 60%, RVSP 27mmHg without significant valvular heart disease. Lexiscan resulted negative. Also, on a subsequent day, troponin downtrended. Case was consulted with on-call admitting counselor Dr. Abdul who recommended metoprolol tart as an initial medical management and possible transition to sotalol or ablation if recurrent. Due to hypotension, opioid analgesics were discontinued. Given significant recent history of incarcerated hernia, case was consulted with Dr. Foley. Patient did not experience further complications throughout the entire hospital stay. Patient was seen and examined on the day of discharge. On day of discharge, vss and labs unremarkable. All labs, diagnostic workups, discharge plan discussed with patient in details during visit before discharge. All questions and concerns answered to the best of my professional knowledge. Patient is to be discharged to home to self and to follow-up with PCP and admitting counselor Dr. Abdul within 2 weeks. Physical Exam General: A&Ox 3, NAD HEENT: Normocephalic, PERRLA Neck: Supple, trachea midline, no JVD Chest: Clear to auscultation bilaterally Cardiovascular: RRR, S1&S2 Abdomen: Tender medial, left upper quadrant and left lower quadrant with palpation; negative rebound tenderness Extremities: No cyanosis/clubbing/or edema Central Nervous System: CN II-XII intact, no focal deficits Musculoskeletal: No paraspinal muscle tenderness, no muscle spasm Skin: Warm and intact *Problems/Diagnosis: (1) SVT (supraventricular tachycardia) Status: Acute Total Time Spent on D/C: > 30 Minutes Date of Service: Nov 27, 2024 Billing Provider: SYLVIE LAINEZ Common Visit Codes: 64313-HYA/OBS DISCH DAY >30min SYLVIE LAINEZ Nov 27, 2024 16:17
[2024-11-28] MEDS ORDERED: pantoprazole 40mg Tablet.DR PO SCH (07:30)
== END 2024-11-27 14:15 | disposition home or self-care (01) | DRG 280 ==
LOC: ER 12:18 → ED HOLD 15:29 → PCU 3S 18:00
PROVIDERS: ADMIT Nurse Practitioner Family; ATTEND Nurse Practitioner Family
PROC: 4A02XM4 Measurement of Cardiac Total Activity, External Approach (ICD-10-PCS; principal; 2024-11-25)
PROC: 3E033HZ Introduction of Radioactive Substance into Peripheral Vein, Percutaneous Approach (ICD-10-PCS; 2024-11-25)
PROC: BW251ZZ Computerized Tomography (CT Scan) of Chest, Abdomen and Pelvis using Low Osmolar Contrast (ICD-10-PCS; 2024-11-25)
DX: I47.10 Supraventricular tachycardia, unspecified (principal); N17.0 Acute kidney failure with tubular necrosis; I21.A1 Myocardial infarction type 2; R65.10 Systemic inflammatory response syndrome (SIRS) of non-infectious origin without acute organ dysfunction; E11.9 Type 2 diabetes mellitus without complications; E66.9 Obesity, unspecified; E78.00 Pure hypercholesterolemia, unspecified; R33.9 Retention of urine, unspecified; F17.210 Nicotine dependence, cigarettes, uncomplicated; K21.9 Gastro-esophageal reflux disease without esophagitis; Z79.84 Long term (current) use of oral hypoglycemic drugs; Z79.899 Other long term (current) drug therapy; Z82.49 Family history of ischemic heart disease and other diseases of the circulatory system; Z87.11 Personal history of peptic ulcer disease; Z88.2 Allergy status to sulfonamides; Z90.710 Acquired absence of both cervix and uterus; Z88.5 Allergy status to narcotic agent; Z63.4 Disappearance and death of family member; Z90.49 Acquired absence of other specified parts of digestive tract; Z91.040 Latex allergy status; Z68.34 Body mass index [BMI] 34.0-34.9, adult
CPT/HCPCS: 36415; 71045; 71275; 74174; 76770; 78452; 80053; 80061; 80305; 81001; 82570; 82945; 83690; 83735; 83880; 84133; 84156; 84300; 84439; 84484; 85025; 85379; 85610; 85730; 86885; 86900; 86901; 93005; 93017; 93306; 96361; 96374; 96375; 97116; 97161; 99285; A4353; A9500; C1758; G0378; J0696; J1644; J1885; J2270; J2405; J2470; J2785; J7030; J7040; J7120; Q9967

== ENCOUNTER 2024-12-06 09:08 | Emergency (ER) | payer BC ==
[~2024-12-06] VITALS: Ht 157.5 cm; Wt 85.5 kg
[~2024-12-06 09:08] MED LIST changes: -HYDR-3965 PO; +LOP12.5T PO; +NALO4SPR BOTHNARES; -PER5325T PO
[2024-12-06 09:22] VITALS: TEMP 97.3
[2024-12-06 10:01] LABS: MEAN PLATELET VOLUME 8.2 FL (7.4-10.4); RED CELL DISTRIBUTION WIDTH 14.2 % (11.5-14.5)
--- NOTE | 2024-12-06 10:02 | RADIOLOGY REPORT ---
CHEST RADIOGRAPH Indication: CP Technique: Single frontal view of the chest was obtained Comparison: CT CTA CHEST ABDOMEN PELVIS W/ IV CONTRAST on DOS: 11/25/24, DI CHEST,SINGLE VIEW on DOS: 11/25/24, DI CHEST,SINGLE VIEW on DOS: 10/12/24, DI CHEST,SINGLE VIEW on DOS: 10/11/23, DI CHEST,SINGLE VIEW on DOS: 04/04/23 FINDINGS: Lines and Tubes: None Lungs: No focal consolidation. Pleura: No effusion. No pneumothorax. Cardiomediastinal contours: Unremarkable Bones: No acute osseous abnormality. IMPRESSION: No acute cardiopulmonary disease.
[2024-12-06 10:15] LABS: CREATININE 0.91 MG/DL (0.40-0.90); TOTAL CARBON DIOXIDE 23.9 MMOL/L (24-32); eCRCL 61 ML/MIN; eGFR 67 ML/MIN
--- NOTE | 2024-12-06 10:16 | ELECTROCARDIOGRAPH REPORT ---
[facility] Test Date: 2024-12-06 Test Time: 09:23:28 Pat Name: MEGAN SOTELO Department: EMERGENCY ROOM Room: Gender: F General Assistant: KALI : 1980 Requested By: GILMA HWANG Order Number: [id number] Reading MD: Dr. Raffy Douglas Measurements Intervals [place] Rate: 121 P: 0 MD: 155 QRS: 77 QRSD: 140 T: 48 QT: 375 QTc: 532 Interpretive Statements Sinus tachycardia Atrial premature complexes Nonspecific intraventricular conduction delay Borderline repol abnormality, diffuse leads Electronically Signed On 12-06-2024 22:10:[address] Raffy Douglas Please click the below link to view image of tracing.
[2024-12-06 10:17] LABS: PRO BRAIN NATRIURETIC PEPTIDE 46 PG/ML (0-125)
--- NOTE | 2024-12-06 11:14 | Physician Documentation ---
History of Present Illness General Chief Complaint: Chest Pain Stated Complaint: DIFF BREATHING L ARM PAIN Time Seen by MD: 10:55 Primary Medical Doctor: DONIS Mode of Arrival: POV History of Present Illness Initial Comments The patient is a 44-year-old female with a history of recent small bowel obstruction and hysterectomy , status post ventral hernia repair by Dr. Foley October 2024, diabetes mellitus type 2 poor control, irritable bowel syndrome with constipation, chronic pain syndrome on home opioids, ex-smoker, history of peptic ulcer disease, dyslipidemia, thyroid mass, diverticulosis who presents with chest pain radiating to her back it began about 2 hours ago at the end of an appointment with school social worker. Patient was admitted here November 25 through the . Medication Reconciliation Allergies: Coded Allergies: morphine (Verified Allergy, Mild, itchy, 12/06/24) TOLERATED MORPHINE 01/2022 Sulfa (Sulfonamide Antibiotics) (Verified Allergy, Unknown, 12/06/24) latex (Verified Allergy, Unknown, 12/06/24) Scheduled Duloxetine HCl (Duloxetine HCl), 1 CAP PO BID, (Reported) Fenofibrate Nanocrystallized* (Tricor*), 134 MG PO DAILY, (Reported) Metformin Hcl* (Glucophage*), 2 TAB PO BIDAC, (Reported) Metoprolol Tartrate (Lopressor tablet), 12.5 MG PO BID Naloxone HCl (Narcan), 1 SPRAYS BOTHNARES ONCE Pantoprazole Sodium (PROTONIX tablet), 1 TAB PO DAILY, (Reported) Polyethylene Glycol 3350 (Miralax), 17 GM PO DAILY, (Reported) Pregabalin (LYRICA capsule), 1 CAP PO Q12H Scheduled PRN Albuterol Sulfate (Proair Hfa), 2 PUFFS IH Q6H PRN for SOB or wheezing Alprazolam (Xanax), 1 TAB PO QDAY PRN PRN for anxiety, (Reported) Hydrocodone Bit/Acetaminophen (Hydrocodon-Acetaminophen 5-325), 1 TAB PO Q8H PRN for MODERATE PAIN 4-6 ONDANSETRON ODT 4mg tablet (Ondansetron Odt), 1 TAB PO Q6H PRN for nausea/vomiting, (Reported) Past Medical History Past Medical History: High Cholesterol, GERD, Inflammatory Bowel Dz, Peptic Ulcer Disease, UTI, Diabetes, Thyroid (unspecified) Past Surgical History: abdominal surgery, cholecystectomy, other Smoking: Quit greater than 1 year Alcohol Use: None Drug Use: none Lives with: Family Lives In: Home Occupation: employed Review of Systems ROS Constitutional: Denies chills, fatigue, fever, weight gain or weight loss. HEENT: Denies hearing loss, sinus pressure or visual changes. Respiratory: Denies cough, shortness of breath or wheezing. Cardiovascular: Chest pain Gastrointestinal: Denies abdominal pain, blood in stool, constipation, diarrh ea, heartburn, loss of appetite, nausea or vomiting. Genitourinary: Denies painful urination (dysuria), excessive amount of urine (polyuria) or urinary frequency. Metabolic/Endocrine: Denies cold intolerance, heat intolerance, excessive thirst (polydipsia) or excessive hunger (polyphagia). Neurological: Denies dizziness, extremity numbness, extremity weakness, headaches, seizures or tremors. Psychiatric: Denies anxiety or depression. Integumentary: Denies breast discharge, breast lump, hives, mole change(s), rash or skin lesion. Musculoskeletal: Denies back pain, joint pain, joint swelling or neck pain. Hematologic: Denies easily bleeding, easily bruises, lymphedema or issues with blood clots. Immunologic: Denies food allergies or seasonal allergies. Physical Exam Physical Exam Vital Signs: Temperature: 97.3, Source: Temporal, Heart Rate: 98, Respiratory Rate: 14, BP: 171/94, Pulse Oximetry: 96, Weight: 85.450 Oxygen Flow Rate: 0 Physical Exam Physical Exam Vitals and nursing note reviewed. Constitutional: General: Patient is awake, alert, oriented x 4 in no acute distress and well appearing. Speech is clear and lucid. Appearance: Normal appearance. Patient is not ill-appearing, toxic-appearing or diaphoretic. HENT: Head: Normocephalic and atraumatic. Mouth/Throat: Mouth: Mucous membranes are moist. Pharynx: Oropharynx is clear. Eyes: General: No scleral icterus. Extraocular Movements: Extraocular movements intact. Pupils: Pupils are equal, round, and reactive to light. Neck: Supple, no Kernig or Brudzinski sign. Cardiovascular: Rate and Rhythm: Normal rate and regular rhythm. Heart sounds: No murmur heard. Pulmonary: Effort: No respiratory distress. Breath sounds: No wheezing, rhonchi or rales. Abdominal: General: There is no distension. Palpations: There is no fluid wave, hepatomegaly or mass. Tenderness: There is no abdominal tenderness. There is no guarding. Musculoskeletal: General: No swelling or deformity. Skin: Coloration: Skin is not jaundiced. Findings: No erythema or rash. Neurological: Mental Status: Patient is alert. Progress Results/Orders Results/Orders Orders - GILMA HWANG MD Chest,Single View (12/06/24 09:24) Monitor (12/06/24 09:24) Saline Lock (12/06/24 09:24) Oxygen (12/06/24 09:24) Hs Troponin I W Calculations (12/06/24 12:24) Cta Chest Pe (12/06/24 11:46) Completed Orders - GILMA HWANG MD Chest,Single View (12/06/24 09:24) Cbc/Diff (12/06/24 09:24) BMP (12/06/24 09:24) PBNP (12/06/24 09:24) Electrocardiogram (12/06/24 09:24) Hs Troponin I W Calculations (12/06/24 09:24) Hs Troponin I W Calculations (12/06/24 11:24) Lorazepam Tablet (Ativan Tablet) (12/06/24 10:40) Cta Chest Pe (12/06/24 11:46) Iohexol 350mg/Ml 100ml (Omnipaque 350mg/ (12/06/24 11:30) Medications Received in ER Medications (Trade) Dose Ordered Sig/Aaron Route PRN Reason Start Time Stop Time Status Last Admin Dose Admin (Ativan tablet) 1 mg ONCE ONCE PO 12/06/24 10:40 12/06/24 10:43 DC 12/06/24 10:46 1 MG Vital Signs 12/06/24 12/06/24 12/06/24 12/06/24 09:22 09:45 09:53 10:47 Temp 97.3 Pulse 118 125 98 Resp 18 13 13 14 B/P (MAP) 171/94 171/94 (119) 171/94 (119) Pulse Ox 99 100 96 O2 Flow Rate 0 0 12/06/24 12:14 Pulse 104 Resp 18 B/P (MAP) 138/88 (105) Pulse Ox 99 Laboratory Tests Test 12/06/24 09:29 12/06/24 11:35 White Blood Count 7.9 Red Blood Count 4.45 Hemoglobin 13.0 Hematocrit 39.2 Mean Corpuscular Volume 88.2 Mean Corpuscular Hemoglobin 29.3 Mean Corpuscular Hemoglobin Concent 33.2 Red Cell Distribution Width 14.2 Platelet Count 400 Mean Platelet Volume 8.2 Neutrophils (%) (Auto) 65.5 Lymphocytes (%) (Auto) 25.7 Monocytes (%) (Auto) 5.3 Eosinophils (%) (Auto) 2.6 Basophils (%) (Auto) 0.9 Neutrophils # (Auto) 5.2 Lymphocytes # (Auto) 2.0 Monocytes # (Auto) 0.4 Eosinophils # (Auto) 0.2 Basophils # (Auto) 0.1 CBC Comment Sodium Level 140 Potassium Level 3.6 Chloride Level 107 Carbon Dioxide Level 23.9 L Anion Gap 9 Blood Urea Nitrogen 12 Creatinine 0.91 H Estimated GFR/1.73 m2 67 BUN/Creatinine Ratio 13.2 Glucose Level 180 H Calcium Level 9.1 Troponin I High Sensitivity 5 5 Pro-B-Type Natriuretic Peptide 46 Albumin 3.6 Chemistry Comments Troponin I High Sens Percent Delta 0 Troponin I Hi Sens Absolute Change 0 Medical Decision Making Findings EKG medically necessary in the evaluation of chest pain and interpreted by me at the time of patient evaluation. Rhythm is sinus tachycardia with a rate of 121. Borderline repolarization abnormality Impression: Abnormal EKG. ECG reading does not show any acute signs of obvious ischemia. No evidence of A- V block. No short AK, delta waves, or wide QRS concerning for Ifmbi-Tnkjndruq-Pkfel. No long QT events on my read. I do not see evidence of [place]rug[place] with ST elevations in V1 through V3. No epsilon wave noted. No low voltage suggestive of pericardial effusion. No right ventricular strain pattern. CHEST X-RAY FINDINGS: X-rays were interpreted by me. The lungs are clear. The cardiac and mediastinal contours are within normal limits. There is no evidence of pulmonary vascular congestion, pleural effusions or pneumothorax. The bony thorax appears grossly intact. IMPRESSION: Normal radiographic examination of the chest with no acute cardiopulmonary abnormality. This 44-year-old lady presented with chest pain radiating into her back. A CT study for PE was negative as were two sequential troponins. She was taking [place] and Xanax and has not had that in a few days and arrived quite anxious. I did give her some Ativan. She has remained stable in the emergency department. I feel that she can safely follow up with her PCP. Departure Disposition: HOME / SELF CARE / HOMELESS Impression: Primary Impression: Chest pain with low risk for cardiac etiology Condition: Stable Discharge Instructions: Nonspecific Chest Pain, Adult Referrals: NO PRIMARY CARE PROVIDER (PCP) Signature Scribe Signature: . Attestation: . GILMA HWANG MD Dec 06, 2024 11:14
--- NOTE | 2024-12-06 12:07 | RADIOLOGY REPORT ---
CTA Chest with intravenous contrast INDICATION: PE COMPARISON: CT CTA CHEST ABDOMEN PELVIS W/ IV CONTRAST on DOS: 11/25/24, CT CHEST ABDOMEN PELVIS on DO S: 02/01/21, CT HEAD on DOS: 02/01/21 TECHNIQUE: Multidetector spiral CTA of the chest was performed of the chest with intravenous contrast . PULMONARY ANGIOGRAPHY PROTOCOL was utilized using a bolus-tracking technique centered on the main p ulmonary artery. Axial, coronal and sagittal multiplanar and MIP reformats were performed. CONTRAST: Type of contrast: Omni 350 Contrast injected: 100 ml Radiation dose : Chest: CTDI volume is 22 mGy. Dose-length product is 916 mGy*cm The dose indicators for CT are the volume computed Tomography (CT) dose Index (CTDIvol) and the dose Length product (DLP), and are measured in units of mGy and mGy-cm, respectively. These indicators are not patient dose, but values generated from the CT scanner acquisition factors. The report includes radiation exposure data for exposures received during this examination. Findings: Pulmonary artery: No pulmonary embolism Lower neck: Right thyromegaly. Lungs: No focal consolidation, pleural effusion or pneumothorax. Heart/Vascular Structures: Normal heart size. No pericardial effusion. Lymph Nodes: Subcentimeter mediastinal lymph nodes. Pleura: No pleural effusion or significant pneumothorax. Musculoskeletal: No acute osseous abnormality. Soft tissues: Normal. Upper abdomen: Limited portions of the upper abdomen are unremarkable. IMPRESSION: 1. No pulmonary embolism. 2. No acute thoracic finding. 3. Right thyromegaly. Consider further evaluation with thyroid ultrasound. HS:Y
[2024-12-06 12:14] VITALS: BP 138/88; PULSE 104; RESP 18; O2SAT 99
[2024-12-06] MEDS: HYDROcodone/acetaminophen 5mg/325mg tablet PO ONE (12:45)
== END 2024-12-06 13:01 | disposition home or self-care (01) ==
LOC: ER 09:08
DX: R07.89 Other chest pain (principal); E11.9 Type 2 diabetes mellitus without complications; E78.00 Pure hypercholesterolemia, unspecified; K21.9 Gastro-esophageal reflux disease without esophagitis; Z88.2 Allergy status to sulfonamides; Z88.5 Allergy status to narcotic agent; Z90.49 Acquired absence of other specified parts of digestive tract; Z91.040 Latex allergy status; Z79.899 Other long term (current) drug therapy
CPT/HCPCS: 36415; 71045; 71275; 80048; 83880; 84484; 85025; 93005; 99285; Q9967

== ENCOUNTER 2024-12-21 21:20 | Emergency (ER) | payer BC ==
[~2024-12-21] VITALS: Ht 157.5 cm; Wt 78.8 kg
[~2024-12-21 21:20] MED LIST changes: -ALBU8.5H17 IH; -ALPR-624 PO; +CHOL100017 PO; +ESCI-8 PO; +FENO134C22 PO; -FENO48TA15 PO; -HYDR-3964 PO; -LOP12.5T PO; +LORA-269 PO; -LYR75C PO; -NALO4SPR BOTHNARES; +SOTA80TA73 PO
[2024-12-21 22:26] LABS: MEAN PLATELET VOLUME 7.8 FL (7.4-10.4); RED CELL DISTRIBUTION WIDTH 14.8 % (11.5-14.5)
[2024-12-21 22:43] LABS: CREATININE 1.22 MG/DL (0.40-0.90); TOTAL CARBON DIOXIDE 29.8 MMOL/L (24-32); eCRCL 46 ML/MIN; eGFR 47 ML/MIN
--- NOTE | 2024-12-21 23:02 | Physician Documentation ---
History of Present Illness Chief Complaint: Abdominal Pain Stated Complaint: ABDOMINAL PAIN Primary Medical Doctor: DONSI HPI 44-year-old female with history of total hysterectomy, SBO, and hernia who presents with three days of progressively worsening left-sided abdominal pain, vomiting, and bloody stools. Patient reports last bowel movement this morning. Patient reports no fever. Medication Reconciliation Allergies: Coded Allergies: Sulfa (Sulfonamide Antibiotics) (Verified Allergy, Unknown, 12/21/24) latex (Verified Allergy, Unknown, 12/21/24) Scheduled Cholecalciferol (Vitamin D3) (Vitamin D3), 1 CAP PO DAILY, (Reported) Duloxetine HCl (Duloxetine HCl), 1 CAP PO BID, (Reported) Escitalopram Oxalate (Escitalopram Oxalate), 1 TAB PO DAILY, (Reported) Fenofibrate,Micronized (Fenofibrate), 1 CAP PO DAILY, (Reported) Lorazepam (Ativan), 1 MG PO DAILY, (Reported) Metformin Hcl* (Glucophage*), 2 TAB PO BIDAC, (Reported) Pantoprazole Sodium (PROTONIX tablet), 1 TAB PO DAILY, (Reported) Polyethylene Glycol 3350 (Miralax), 17 GM PO DAILY, (Reported) Sotalol Hcl* (Betapace*), 80 MG PO BID Scheduled PRN ONDANSETRON ODT 4mg tablet (Ondansetron Odt), 1 TAB PO Q6H PRN for nausea/vomiting, (Reported) Past Medical History Past Medical History: High Cholesterol, GERD, Inflammatory Bowel Dz, Peptic Ulcer Disease, UTI, Diabetes, Thyroid (unspecified) Past Surgical History: abdominal surgery, cholecystectomy, other Patient History: Patient reports no known family medical history. Alcohol Use: Sober Drug Use: none Lives with: Family, Other Lives In: Home Occupation: employed, unemployed Review of Systems ROS As stated above in the HPI, otherwise all systems are reviewed and negative. Physical Exam Vital Signs: Temperature: 96.3, Source: Temporal, Heart Rate: 94, Respiratory Rate: 15, BP: 139/94, Pulse Oximetry: 99, Weight: 78.800 Physical Exam VITALS: Reviewed and as above. GENERAL: Alert, nontoxic appearing, no apparent distress. HEENT: RESPIRATORY: No increased work of breathing, no respiratory distress, speaking in full clear sentences CHEST: CV: BACK: GI: MUSCULOSKELETAL: SKIN: NEURO: PSYCH: Progress Results/Orders Results/Orders Vital Signs 12/21/24 21:58 Temp 96.3 Pulse 94 Resp 15 B/P (MAP) 139/94 Pulse Ox 99 Laboratory Tests Test 12/21/24 22:16 White Blood Count 15.6 H Red Blood Count 4.36 Hemoglobin 13.1 Hematocrit 38.7 Mean Corpuscular Volume 88.7 Mean Corpuscular Hemoglobin 30.1 Mean Corpuscular Hemoglobin Concent 33.9 Red Cell Distribution Width 14.8 H Platelet Count 463 H Mean Platelet Volume 7.8 Neutrophils (%) (Auto) 67.5 Lymphocytes (%) (Auto) 22.2 Monocytes (%) (Auto) 8.3 Eosinophils (%) (Auto) 0.9 Basophils (%) (Auto) 1.1 H Neutrophils # (Auto) 10.6 H Lymphocytes # (Auto) 3.5 Monocytes # (Auto) 1.3 H Eosinophils # (Auto) 0.1 Basophils # (Auto) 0.2 CBC Comment Sodium Level 139 Potassium Level 4.5 Chloride Level 102 Carbon Dioxide Level 29.8 Anion Gap 7 L Blood Urea Nitrogen 14 Creatinine 1.22 H Estimated GFR/1.73 m2 47 BUN/Creatinine Ratio 11.5 Glucose Level 131 H Calcium Level 9.6 Total Bilirubin 0.6 Aspartate Amino Transf (AST/SGOT) 16 Alanine Aminotransferase (ALT/SGPT) 25 Alkaline Phosphatase 50 Total Protein 8.4 H Albumin 4.3 Globulin 4.1 Albumin/Globulin Ratio 1.0 L Lipase 39 Chemistry Comments Medical Decision Making Findings Patient presented to the emergency room with chief complaint of abdominal pain. Differentials include but are not limited to constipation, cholecystitis, pancreatitis, appendicitis, diverticulitis therefore emergent labs and imaging indicated. CT scan is reassuring for no intra-abdominal infection. Urine is questionable however patient has no urinary symptoms and he had not feel her abdominal pain is related to urinary tract infection. Cultures for this are pending. Large stool burden noted on CT scan in his symptoms may be due to constipation. Patient endorses bright red blood per rectum. No black stools reported. Hemoglobin reassuring he had not feel she is in danger of bleeding out. He had not suspect upper GI bleed. Increasing stool softeners should help with this as well as constipation. ER precautions discussed. Departure Disposition: HOME / SELF CARE / HOMELESS Impression: Primary Impression: Abdominal pain Additional Impressions: Constipation Bright red blood per rectum Condition: Stable Discharge Instructions: Constipation, Adult, Rectal Bleeding, [id number] Additional Instructions: Increase your stool softeners and constipation medications. Drink plenty of water Referrals: NO PRIMARY CARE PROVIDER (PCP) Signature Scribe Signature: No scribe Attestation: The note accurately reflects work and decisions made by me.Brian Munoz MD 12/22/24 05:07 SHELDON MENDEZ Dec 21, 2024 23:02 BRIAN MUNOZ MD Dec 22, 2024 05:07
[2024-12-22 00:04] LABS: URINE HCG NEGATIVE (NEG)
[2024-12-22 00:27] LABS: LEUKOCYTE ESTERASE ,URINE TRACE (Neg); NITRITES, URINE NEGATIVE (Neg); OCCULT BLOOD,URINE MODERATE (Neg)
[2024-12-22 00:28] LABS: UA COLLECTION TYPE CLN CATCH MIDSTREAM
[2024-12-22 00:37] LABS: MUCUS STRANDS FEW /LPF (Neg); SQUAMOUS EPITHELIAL CELL,UR FEW /LPF (FEW)
[2024-12-22 00:39] LABS: CAL OXALATE CRYSTALS 3+ /HPF (NEGATIVE)
--- NOTE | 2024-12-22 04:52 | RADIOLOGY REPORT ---
Exam: CT CT ABDOMEN PELVIS History: abd pain Comparison Study: CT CT ABDOMEN PELVIS on DOS: 11/01/24, CT CT ABDOMEN PELVIS W/ IV CONTRAST on DOS: , CT CT ABDOMEN PELVIS W/ IV CONTRAST on DOS: 10/11/24, CT CT ABDOMEN PELVIS W/ IV CONTRAST on DO S: 10/03/24, CT CT ABDOMEN PELVIS W/ IV CONTRAST on DOS: 09/25/24 TECHNIQUE: Multidetector CT of the abdomen was performed from lung bases to pubic symphysis. Imaging was performed without IV contrast. Axial, coronal and sagittal multiplanar reformats were obtained fr om the axial data set by the technologist. Radiation Dose Information: Dose-length product is 1587 mGy*cm FINDINGS: Limited sections of the lung bases demonstrate no focal pulmonary mass. The liver, spleen, pancreas, and both adrenal glands demonstrate no acute findings. Hepatomegaly to 19.4 cm. Nodular bilateral adrenal glands. The gallbladder is surgically removed. The stomach is unremarkable. The small bowel loops are not dilated. The appendix is normal. No colonic obstruction. Moderate stool burden which may reflect constipation. Bilateral kidneys are unremarkable. No hydronephrosis. Urinary bladder wall thickening which may reflect cystitis vs partial nondistention; consider correla tion with urinarlysis. No significant lymphadenopathy. Trace free fluid. The aorta and IVC demonstrate no acute findings. Visualized osseous structures demonstrate no acute abnormality. Small fluid containing ventral abdominal hernia next to small fat containing umbilical hernia. IMPRESSION: 1. Urinary bladder wall thickening which may reflect cystitis vs partial nondistention; consider shorty elation with urinarlysis. 2. Trace pelvic free fluid. 3. Moderate stool burden which may reflect constipation.
[2024-12-22 05:43] VITALS: BP 108/77; PULSE 88; RESP 18; TEMP 97.6; O2SAT 98
== END 2024-12-22 05:46 | disposition home or self-care (01) ==
LOC: ER 21:20
DX: K59.00 Constipation, unspecified (principal); K62.5 Hemorrhage of anus and rectum; K21.9 Gastro-esophageal reflux disease without esophagitis; E78.00 Pure hypercholesterolemia, unspecified; E11.9 Type 2 diabetes mellitus without complications; Z88.2 Allergy status to sulfonamides; Z91.040 Latex allergy status; Z79.899 Other long term (current) drug therapy; Z56.0 Unemployment, unspecified; Z90.49 Acquired absence of other specified parts of digestive tract
CPT/HCPCS: 36415; 74176; 80053; 81001; 81003; 81025; 83690; 84145; 85025; 87088; 99284

== ENCOUNTER 2024-12-27 10:10 | Emergency (ER) | payer BC ==
[~2024-12-27] VITALS: Ht 157.5 cm; Wt 90.0 kg
--- NOTE | 2024-12-27 10:29 | ELECTROCARDIOGRAPH REPORT ---
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
[2024-12-27 10:40] VITALS: TEMP 98.4
[2024-12-27 10:41] LABS: MEAN PLATELET VOLUME 7.7 FL (7.4-10.4); RED CELL DISTRIBUTION WIDTH 14.0 % (11.5-14.5)
--- NOTE | 2024-12-27 10:49 | RADIOLOGY REPORT ---
CHEST RADIOGRAPH Indication: CP Technique: Single frontal view of the chest was obtained Comparison: CT CTA CHEST PE W/ IV CONTRAST on DOS: 12/06/24, DI CHEST,SINGLE VIEW on DOS: 12/06/24, CT CT A CHEST ABDOMEN PELVIS W/ IV CONTRAST on DOS: 11/25/24, DI CHEST,SINGLE VIEW on DOS: 11/25/24, DI CHEST ,SINGLE VIEW on DOS: 10/12/24 FINDINGS: Lines and Tubes: None Lungs: No focal consolidation. Pleura: No effusion. No pneumothorax. Cardiomediastinal contours: Unremarkable Bones: No acute osseous abnormality. IMPRESSION: No acute cardiopulmonary disease.
[2024-12-27 11:01] LABS: CREATININE 0.78 MG/DL (0.40-0.90); PRO BRAIN NATRIURETIC PEPTIDE 60 PG/ML (0-125); TOTAL CARBON DIOXIDE 28.2 MMOL/L (24-32); eCRCL 71 ML/MIN; eGFR 80 ML/MIN
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
[2024-12-27] MEDS: ondansetron/PF 4mg/2ml inj IV ONE (13:08)
[2024-12-27] MEDS: normal saline 1000ML IV soln IVB ONE (13:09)
[2024-12-27] MEDS: ketorolac trometh 15mg/ml vial 15 MG/ML ML IV ONE (13:09)
--- NOTE | 2024-12-27 13:09 | RADIOLOGY REPORT ---
Exam: CT CT HEAD History: Headache, new onset, nausea Technique: [address] images through the posterior fossa and the supratentorial compart ment were acquired without contrast and imaged using soft tissue and bone algorithms. RADIATION DOSE: DLP 1118.37 mGy.cm; CTDI vol 62.61 mGy. Comparison: CT CT HEAD on DOS: 12/10/24, CT CT HEAD on DOS: 02/17/24, CT HEAD on DOS: 02/01/21 Findings: There is no evidence of an intracranial hemorrhage, acute large vessel infarct, mass effect, or midli ne shift. The calvarium, orbits, paranasal sinuses, sella, middle ears, and mastoids are unremarkable. The superficial soft tissues are within normal limits. Impression: 1. No acute intracranial abnormality.
[2024-12-27] MEDS: morphine 4 MG/ML inj SYRINge IV ONE ×2 (13:10→14:33)
[2024-12-27 14:41] VITALS: BP 118/90; PULSE 74; RESP 12; O2SAT 96
== END 2024-12-27 14:43 | disposition home or self-care (01) ==
LOC: ER 10:11
DX: R07.89 Other chest pain (principal); R51.9 Headache, unspecified; E11.9 Type 2 diabetes mellitus without complications; E78.00 Pure hypercholesterolemia, unspecified; K21.9 Gastro-esophageal reflux disease without esophagitis; Z88.2 Allergy status to sulfonamides; Z90.49 Acquired absence of other specified parts of digestive tract; Z91.040 Latex allergy status; Z79.899 Other long term (current) drug therapy; Z56.0 Unemployment, unspecified
CPT/HCPCS: 36415; 70450; 71045; 80048; 83880; 84484; 85025; 93005; 96361; 96374; 96375; 96376; 99285; J1885; J2270; J2405; J7030

== ENCOUNTER 2025-01-02 14:38 | Emergency (ER) | payer BC, MEDICAID ==
[~2025-01-02] VITALS: Ht 157.5 cm; Wt 86.7 kg
--- NOTE | 2025-01-02 14:47 | ELECTROCARDIOGRAPH REPORT ---
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 Raffy Douglas Measurements Intervals [place] Rate: 129 P: 54 SC: 109 QRS: 43 QRSD: 80 T: 41 QT: 299 QTc: 438 Interpretive Statements Sinus tachycardia Baseline wander in lead(s) II,III,aVF Electronically Signed On 01-02-2025 18:24:[address] Raffy Douglas Please click the below link to view image of tracing.
[2025-01-02 15:03] LABS: MEAN PLATELET VOLUME 7.2 FL (7.4-10.4); RED CELL DISTRIBUTION WIDTH 14.3 % (11.5-14.5)
--- NOTE | 2025-01-02 15:15 | RADIOLOGY REPORT ---
EXAM: DI CHEST,SINGLE VIEW Indication: CP Technique: Single frontal view of the chest was obtained Comparison: DI CHEST,SINGLE VIEW on DOS: 12/27/24, CT CTA CHEST PE W/ IV CONTRAST on DOS: 12/06/24, DI C HEST,SINGLE VIEW on DOS: 12/06/24, CT CTA CHEST ABDOMEN PELVIS W/ IV CONTRAST on DOS: 11/25/24, DI CHEST ,SINGLE VIEW on DOS: 11/25/24 FINDINGS: Lines and Tubes: None Lungs: No focal consolidation. Pleura: No effusion. No pneumothorax. Cardiomediastinal contours: Unremarkable Bones: No acute osseous abnormality. IMPRESSION: No acute cardiopulmonary disease.
[2025-01-02 15:25] LABS: CREATININE 0.70 MG/DL (0.40-0.90); PRO BRAIN NATRIURETIC PEPTIDE 41 PG/ML (0-125); TOTAL CARBON DIOXIDE 28.8 MMOL/L (24-32); eCRCL 79 ML/MIN; eGFR 90 ML/MIN
--- NOTE | 2025-01-02 15:25 | Physician Documentation ---
History of Present Illness ~ Chief Complaint: Chest Pain Stated Complaint: ABD PAIN CP Primary Medical Doctor: DONIS HPI This is a 44-year-old female with a history of SVT and recent hysterectomy, patient presents with chest pain and symptoms she describes as similar to pre vious episodes of SVT, patient additionally reports abdominal cramping for the past week that radiates to her back and vaginal bleeding with clots today. Medication Reconciliation Allergies: Coded Allergies: Sulfa (Sulfonamide Antibiotics) (Verified Allergy, Unknown, 01/06/25) latex (Verified Allergy, Unknown, 01/06/25) Scheduled Cholecalciferol (Vitamin D3) (Vitamin D3), 1 CAP PO DAILY, (Reported) Duloxetine HCl (Duloxetine HCl), 1 CAP PO BID, (Reported) Escitalopram Oxalate (Escitalopram Oxalate), 1 TAB PO DAILY, (Reported) Fenofibrate,Micronized (Fenofibrate), 1 CAP PO DAILY, (Reported) Lorazepam (Ativan), 1 MG PO DAILY, (Reported) Metformin Hcl* (Glucophage*), 2 TAB PO BIDAC, (Reported) Pantoprazole Sodium (PROTONIX tablet), 1 TAB PO DAILY, (Reported) Polyethylene Glycol 3350 (Miralax), 17 GM PO DAILY, (Reported) Sotalol Hcl* (Betapace*), 80 MG PO BID Scheduled PRN ONDANSETRON ODT 4mg tablet (Ondansetron Odt), 1 TAB PO Q6H PRN for nausea/vomiting, (Reported) Past Medical History Past Medical History: High Cholesterol, GERD, Inflammatory Bowel Dz, Peptic Ulcer Disease, UTI, Diabetes, Thyroid (unspecified) Past Surgical History: abdominal surgery, cholecystectomy, other Patient History: Patient reports no known family medical history. Alcohol Use: Sober Drug Use: none Lives with: Family, Other Lives In: Home Occupation: employed, unemployed Review of Systems ROS As stated above in the HPI, otherwise all systems are reviewed and negative. Physical Exam Vital Signs: RN Vital Signs have been reviewed: Yes, Temperature: 98.1, Source: Oral, Heart Rate: 124, Respiratory Rate: 21, BP: 134/96, Pulse Oximetry: 98, Weight: 86.700 Pulse Oximetry Reflects: adequate oxygenation Physical Exam VITALS: Reviewed and as above. GENERAL: Alert, nontoxic appearing, no apparent distress. HEENT: RESPIRATORY: No increased work of breathing, no respiratory distress, speaking in full clear sentences CHEST: CV: BACK: GI: MUSCULOSKELETAL: SKIN: NEURO: PSYCH: Progress Results/Orders Reviewed/noted all lab results: Yes Results/Orders Laboratory Tests Test 01/02/25 14:51 01/02/25 17:04 White Blood Count 11.8 H Red Blood Count 4.01 L Hemoglobin 11.8 L Hematocrit 35.4 Mean Corpuscular Volume 88.4 Mean Corpuscular Hemoglobin 29.4 Mean Corpuscular Hemoglobin Concent 33.3 Red Cell Distribution Width 14.3 Platelet Count 440 Mean Platelet Volume 7.2 L Neutrophils (%) (Auto) 68.8 Lymphocytes (%) (Auto) 20.5 L Monocytes (%) (Auto) 7.8 Eosinophils (%) (Auto) 2.1 Basophils (%) (Auto) 0.8 Neutrophils # (Auto) 8.1 H Lymphocytes # (Auto) 2.4 Monocytes # (Auto) 0.9 Eosinophils # (Auto) 0.2 Basophils # (Auto) 0.1 CBC Comment Sodium Level 140 Potassium Level 4.5 Chloride Level 102 Carbon Dioxide Level 28.8 Anion Gap 9 Blood Urea Nitrogen 8 Creatinine 0.70 Estimated GFR/1.73 m2 90 BUN/Creatinine Ratio 11.4 Glucose Level 102 Calcium Level 9.4 Troponin I High Sensitivity < 4 L < 4 L Troponin I High Sens Percent Delta Troponin I Hi Sens Absolute Change Pro-B-Type Natriuretic Peptide 41 Albumin 3.8 Chemistry Comments Medical Decision Making Findings MSE performed in triage and patient returned to ED lobby by nursing staff to await available ED room Departure Time of Disposition: 17:57 Disposition: 01 HOME / SELF CARE / HOMELESS Impression: Primary Impression: Abdominal pain Qualified Codes: R10.9 - Unspecified abdominal pain Condition: Stable Discharge Instructions: Abdominal Pain, Adult, [id number] Additional Instructions: Follow up with your regular doctor and access developer. Return to the ER for new or worsening symptoms or other concerns. Education Educated: Patient Educated regarding: diagnosis, treatment, need for follow up Signature Scribe Signature: Scribed for Ohlfs,Chema Lynn MD by Oswaldo Sotomayor . 01/02/25 17:57 SHELDON MENDEZ Jan 02, 2025 15:25 OSWALDO STAPLES Jan 02, 2025 17:57
--- NOTE | 2025-01-02 18:03 | Physician Documentation ---
History of Present Illness General Chief Complaint: Chest Pain Stated Complaint: ABD PAIN CP Time Seen by MD: 17:00 OK to notify your PCP?: No Primary Medical Doctor: DONIS Source: patient, RN notes reviewed, old records Mode of Arrival: POV Exam Limitations: no limitations History of Present Illness Initial Comments 44 year old female, with a history of SVT on sotalol and one other medication," presents complaining of epigastric/mid back pain for the last five days. She has been taking Tylenol and ibuprofen without much relief. She denies any nausea or vomiting. Per old records patient was seen in this ED five days ago for similar symptoms. She was given morphine, Toradol, IV fluids, and Zofran with improvement. She was ultimately discharged after 2 negative troponin. BNP was 60. Medication Reconciliation Allergies: Coded Allergies: Sulfa (Sulfonamide Antibiotics) (Verified Allergy, Unknown, 01/06/25) latex (Verified Allergy, Unknown, 01/06/25) Scheduled Cholecalciferol (Vitamin D3) (Vitamin D3), 1 CAP PO DAILY, (Reported) Duloxetine HCl (Duloxetine HCl), 1 CAP PO BID, (Reported) Escitalopram Oxalate (Escitalopram Oxalate), 1 TAB PO DAILY, (Reported) Fenofibrate,Micronized (Fenofibrate), 1 CAP PO DAILY, (Reported) Lorazepam (Ativan), 1 MG PO DAILY, (Reported) Metformin Hcl* (Glucophage*), 2 TAB PO BIDAC, (Reported) Pantoprazole Sodium (PROTONIX tablet), 1 TAB PO DAILY, (Reported) Polyethylene Glycol 3350 (Miralax), 17 GM PO DAILY, (Reported) Sotalol Hcl* (Betapace*), 80 MG PO BID Scheduled PRN ONDANSETRON ODT 4mg tablet (Ondansetron Odt), 1 TAB PO Q6H PRN for nausea/vomiting, (Reported) Past Medical History Past Medical History: *CARDIOVASCULAR*, Arrhythmia, High Cholesterol, GERD, Inflammatory Bowel Dz, Peptic Ulcer Disease, UTI, Diabetes, Thyroid (unspecified) Past Surgical History: abdominal surgery, cholecystectomy, other Smoking: Quit greater than 1 year, Cigarettes, Less than 1 pack/day Alcohol Use: Sober Drug Use: none Lives with: Family, Other Lives In: Home Occupation: employed, unemployed Review of Systems All Other Systems at this time: Reviewed and Negative ROS As stated above in the HPI, otherwise all systems are reviewed and negative. Physical Exam Physical Exam Vital Signs: RN Vital Signs have been reviewed: Yes, Temperature: 98.1, Source: Oral, Heart Rate: 98, Respiratory Rate: 18, BP: 127/100, Pulse Oximetry: 98, Weight: 86.700 Pulse Oximetry Reflects: adequate oxygenation Physical Exam VITALS: Reviewed and as above. GENERAL: Alert, no apparent distress. HEENT: Normocephalic, atraumatic, PERRL, EOMI, dry mucosa, no erythema RESPIRATORY: Lungs clear, normal breath sounds, no respiratory distress. CHEST: No accessory muscle use, no retractions CV: Teachycardic. Regular rhythm, no edema, no murmur, No: JVD GI: Soft, non-tender, bowels sounds present, no rebound, guarding, or rigidity BACK: No CVA tenderness, or swelling MUSCULOSKELETAL No deformities, no edema SKIN: Warm and dry, no rash NEURO: Oriented x4, No motor or sensory deficit PSYCH: Normal mood and affect, no agitation Progress Results/Orders Reviewed/noted all lab results: Yes Results/Orders Orders - RENETTA MALONEY MD Chest,Single View (01/02/25 14:55) Monitor (01/02/25 14:45) Saline Lock (01/02/25 14:45) Oxygen (01/02/25 14:45) Electrocardiogram (01/02/25 14:45) Completed Orders - RENETTA MALONEY MD Chest,Single View (01/02/25 14:55) Cbc/Diff (01/02/25 14:45) BMP (01/02/25 14:45) PBNP (01/02/25 14:45) Electrocardiogram (01/02/25 14:45) Hs Troponin I W Calculations (01/02/25 14:45) Hs Troponin I W Calculations (01/02/25 16:45) Oxycodone/Acetaminophen Tablet (Percocet (01/02/25 17:55) Ketorolac Trometh 15mg/Ml Vial (Toradol (01/02/25 17:55) Morphine 10mg/Ml Inj. (Morphine Inj.) (01/02/25 18:05) Laboratory Tests Test 01/02/25 14:51 01/02/25 17:04 White Blood Count 11.8 H Red Blood Count 4.01 L Hemoglobin 11.8 L Hematocrit 35.4 Mean Corpuscular Volume 88.4 Mean Corpuscular Hemoglobin 29.4 Mean Corpuscular Hemoglobin Concent 33.3 Red Cell Distribution Width 14.3 Platelet Count 440 Mean Platelet Volume 7.2 L Neutrophils (%) (Auto) 68.8 Lymphocytes (%) (Auto) 20.5 L Monocytes (%) (Auto) 7.8 Eosinophils (%) (Auto) 2.1 Basophils (%) (Auto) 0.8 Neutrophils # (Auto) 8.1 H Lymphocytes # (Auto) 2.4 Monocytes # (Auto) 0.9 Eosinophils # (Auto) 0.2 Basophils # (Auto) 0.1 CBC Comment Sodium Level 140 Potassium Level 4.5 Chloride Level 102 Carbon Dioxide Level 28.8 Anion Gap 9 Blood Urea Nitrogen 8 Creatinine 0.70 Estimated GFR/1.73 m2 90 BUN/Creatinine Ratio 11.4 Glucose Level 102 Calcium Level 9.4 Troponin I High Sensitivity < 4 L < 4 L Troponin I High Sens Percent Delta Troponin I Hi Sens Absolute Change Pro-B-Type Natriuretic Peptide 41 Albumin 3.8 Chemistry Comments EKG/XRAY/CT/US/VASC/MRI EKG : Additional Comment 1446: EKG interpreted by myself to show sinus tachycardia at a rate of 129bpm. Normal axis, no STEMI. Nonspecific ST changes. Chest X-Ray : Additional Comments EXAM: DI CHEST,SINGLE VIEW Indication: CP Technique: Single frontal view of the chest was obtained Comparison: DI CHEST,SINGLE VIEW on DOS: 12/27/24, CT CTA CHEST PE W/ IV CONTRAST on DOS: 12/06/24, DI CHEST,SINGLE VIEW on DOS: 12/06/24, CT CTA CHEST ABDOMEN PELVIS W/ IV CONTRAST on DOS: 11/25/24, DI CHEST,SINGLE VIEW on DOS: 11/25/24 FINDINGS: Lines and Tubes: None Lungs: No focal consolidation. Pleura: No effusion. No pneumothorax. Cardiomediastinal contours: Unremarkable Bones: No acute osseous abnormality. IMPRESSION: No acute cardiopulmonary disease. Reviewed by myself. Medical Decision Making Additional info obtained from: old records (see HPI) Findings Patient has a history of SVT, patient also has multiple visits for abdominal pain the patient has a recent visit for similar in his requesting the same treatment she last time she requesting a shot of Toradol. The patient has a benign exam labs were reviewed imaging was reviewed the patient is hemodynamically stable. The patient's pulse oximetry was interpreted as normal and adequate. The patient's monitor and storage bin tender was interpreted as normal the patient was given a shot of morphine and a shot of Toradol the patient has been advised to return for worsening of her symptoms. Departure Time of Disposition: 17:57 Disposition: 01 HOME / SELF CARE / HOMELESS Impression: Primary Impression: Abdominal pain Qualified Codes: R10.9 - Unspecified abdominal pain Condition: Stable Discharge Instructions: Abdominal Pain, Adult, [id number] Additional Instructions: Follow up with your regular doctor and insulation board back tender. Return to the ER for new or worsening symptoms or other concerns. Education Educated: Patient Educated regarding: diagnosis, treatment, need for follow up Signature Scribe Signature: Scribed for Renetta Maloney MD by Otto Sotomayor . 01/02/25 18:08 Attestation: The note accurately reflects work and decisions made by me.Renetta Maloney MD 01/08/25 15:22 RENETTA MALONEY MD Jan 02, 2025 18:03 OTTO STAPLES Jan 02, 2025 18:16
[2025-01-02] MEDS: morphine 10mg/ml inj. IV ONE (18:38)
[2025-01-02] MEDS: ketorolac trometh 15mg/ml vial 15 MG/ML ML IM ONE (18:42)
[2025-01-02 19:54] VITALS: BP 146/91; PULSE 107; RESP 22; TEMP 98.1; O2SAT 99
== END 2025-01-02 19:56 | disposition home or self-care (01) ==
LOC: ER 14:39
DX: R10.13 Epigastric pain (principal); R07.89 Other chest pain; E78.00 Pure hypercholesterolemia, unspecified; E11.9 Type 2 diabetes mellitus without complications; K21.9 Gastro-esophageal reflux disease without esophagitis; Z88.2 Allergy status to sulfonamides; Z91.040 Latex allergy status; Z79.899 Other long term (current) drug therapy; Z90.49 Acquired absence of other specified parts of digestive tract; Z90.710 Acquired absence of both cervix and uterus; Z56.0 Unemployment, unspecified; Z79.84 Long term (current) use of oral hypoglycemic drugs; Z79.891 Long term (current) use of opiate analgesic; Z87.440 Personal history of urinary (tract) infections
CPT/HCPCS: 36415; 71045; 80048; 83880; 84484; 85025; 93005; 96372; 96374; 99285; J1885; J2274

== ENCOUNTER 2025-01-07 07:14 | Emergency (ER) | payer MEDICAID ==
[~2025-01-07] VITALS: Ht 157.5 cm; Wt 195.3 kg
--- NOTE | 2025-01-07 07:57 | ELECTROCARDIOGRAPH REPORT ---
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 Rober Sotelo Measurements Intervals [place] Rate: 74 P: 63 MN: 153 QRS: 73 QRSD: 88 T: 74 QT: 386 QTc: 429 Interpretive Statements Sinus rhythm Abnormal R-wave progression, early transition Electronically Signed On 01-07-2025 11:53:[address] Rober Sotelo Please click the below link to view image of tracing.
[2025-01-07 08:29] LABS: MEAN PLATELET VOLUME 7.4 FL (7.4-10.4); RED CELL DISTRIBUTION WIDTH 14.3 % (11.5-14.5)
[2025-01-07 08:38] LABS: CREATININE 0.85 MG/DL (0.40-0.90); TOTAL CARBON DIOXIDE 29.1 MMOL/L (24-32); eCRCL 65 ML/MIN; eGFR 72 ML/MIN
--- NOTE | 2025-01-07 09:55 | Physician Documentation ---
History of Present Illness Chief Complaint: Abdominal Pain Stated Complaint: ABD PAIN Time Seen by MD: 07:53 OK to notify your PCP?: Yes Primary Medical Doctor: DONIS Source: patient, RN/, RN notes reviewed, old records Mode of Arrival: Ambulatory Exam Limitations: no limitations HPI Bed 10 This patient is a 44 y/o female who presents to ED with chief complaint of abdominal pain. Patient has been seen here multiple times for abdominal pain in the past few months, the last visit being on 01/02/2025. She has also had multiple abdominal CT scans since 09/19/2024 with the most recent being on 12/22/2024 and did not show any acute processes. Patient states that her abdominal pain today is the same abdominal pain she has been dealing with recently. She states she did recently have SBO with surgery, and also had a hysterectomy in August of this year. Patient reports this recent episode of abdominal pain started this morning, after she noticed blood after wiping her vaginal area. She describes her abdominal pain as severe, and localized to the left side, radiating to the right. She has also had 3 episodes of vomiting this morning, and when asked, states her urine is a dark in color. Patient has been passing gas normally, and has soft stools. She states her abdominal pain does not feel similar to the pain she had in August with her SBO. She denies eating anything bad recently. Patient notes she was recently diagnosed with SVT in October of this year. She has been seen by ear mold laboratory technician, Dr. Abdul for this and is currently on 80mg Sodalol, but complains that since she started this medication, she has been "tender to touch all over". She denies any alcohol use. Patient denies any other associated symptoms at this time. Patient denies any other alleviating or exacerbating factors. Medication Reconciliation Allergies: Coded Allergies: Sulfa (Sulfonamide Antibiotics) (Verified Allergy, Unknown, 01/06/25) latex (Verified Allergy, Unknown, 01/06/25) Scheduled Cholecalciferol (Vitamin D3) (Vitamin D3), 1 CAP PO DAILY, (Reported) Duloxetine HCl (Duloxetine HCl), 1 CAP PO BID, (Reported) Escitalopram Oxalate (Escitalopram Oxalate), 1 TAB PO DAILY, (Reported) Fenofibrate,Micronized (Fenofibrate), 1 CAP PO DAILY, (Reported) Lorazepam (Ativan), 1 MG PO DAILY, (Reported) Metformin Hcl* (Glucophage*), 2 TAB PO BIDAC, (Reported) Pantoprazole Sodium (PROTONIX tablet), 1 TAB PO DAILY, (Reported) Polyethylene Glycol 3350 (Miralax), 17 GM PO DAILY, (Reported) Sotalol Hcl* (Betapace*), 80 MG PO BID Scheduled PRN ONDANSETRON ODT 4mg tablet (Ondansetron Odt), 1 TAB PO Q6H PRN for nausea/vomiting, (Reported) Past Medical History Past Medical History: *CARDIOVASCULAR*, Arrhythmia, High Cholesterol, Bowel Obstruction, GERD, Inflammatory Bowel Dz, Peptic Ulcer Disease, Hernia, UTI, Diabetes, Thyroid (unspecified) Past Surgical History: abdominal surgery, cholecystectomy, hysterectomy, other Patient History: Patient reports no known family medical history. Smoking Status: Never smoker Alcohol Use: Sober Drug Use: none Lives with: Family, Other Lives In: Home Occupation: employed, unemployed Review of Systems All Other Systems at this time: Reviewed and Negative ROS As stated in the HPI above, otherwise all other systems have been reviewed and negative. Gastrointestinal: Reports: abdominal pain, nausea, vomiting Physical Exam Vital Signs: RN Vital Signs have been reviewed: Yes, Temperature: 98.0, Source: Temporal, Heart Rate: 76, Respiratory Rate: 18, BP: 95/76, Pulse Oximetry: 98, Weight: 195.300 Oxygen Flow Rate: 0 Physical Exam General: The patient is well developed, well nourished, nontoxic appearing and is in no acute distress. Skin: [place], warm and dry with no rashes. HEENT: Head was normocephalic and atraumatic. Eyes - pupils equal, round, reactive to light and accommodation. Extraocular movements were intact. Conjunctivae were nonicteric. The mouth and oropharynx were clear with moist mucous membranes. There were no pharyngeal exudates or erythema. Neck: Supple and nontender. There was no jugular venous distention, lymphadenopathy, thyromegaly or masses. Chest: Clear to auscultation bilaterally without wheezes, rales or rhonchi. No accessory muscle use. No dullness to percussion. Heart: Rate regular and rhythmic. S1, S2. No murmurs. Palpation of the chest wall was normal. No rubs or thrills. Abdomen: Diffuse periumbilical tenderness to palpation. Otherise abdomen is soft and nondistended. Positive bowel sounds. No guarding or rebound. No hepatosplenomegaly or palpable masses. Extremities: No cyanosis, clubbing or edema. The patient moves all extremities. Pulses were equal and symmetric. Neurologic: Motor and sensation grossly intact. A & O x4. Psychologic: The patient was oriented to person, place and time. Progress Results/Orders Reviewed/noted all lab results: Yes Results/Orders Orders - RAFFY DOUGLAS MD Urinalysis, Cult If Indicated (01/07/25 07:29) Hcg, Ur Ql (01/07/25 07:29) MG (01/07/25 09:51) Drug Screen, Urine (01/07/25 09:51) Completed Orders - RAFFY DOUGLAS MD Cbc/Diff (01/07/25 07:29) BMP (01/07/25 07:29) Lipase (01/07/25 07:29) CMP (01/07/25 07:29) Stat Ekg (01/07/25 ) Vital Signs 01/07/25 01/07/25 01/07/25 01/07/25 07:23 08:07 08:10 09:07 Temp 98.0 Pulse 83 78 76 Resp 20 18 18 B/P (MAP) 128/106 100/81 (87) 95/76 (82) Pulse Ox 100 98 98 O2 Flow Rate 0 0 0 Laboratory Tests Test 01/07/25 08:06 01/07/25 09:47 White Blood Count 8.7 Red Blood Count 4.09 L Hemoglobin 12.3 Hematocrit 36.4 Mean Corpuscular Volume 88.9 Mean Corpuscular Hemoglobin 30.2 Mean Corpuscular Hemoglobin Concent 34.0 Red Cell Distribution Width 14.3 Platelet Count 492 H Mean Platelet Volume 7.4 Neutrophils (%) (Auto) 60.7 Lymphocytes (%) (Auto) 27.9 Monocytes (%) (Auto) 7.5 Eosinophils (%) (Auto) 3.0 Basophils (%) (Auto) 0.9 Neutrophils # (Auto) 5.3 Lymphocytes # (Auto) 2.4 Monocytes # (Auto) 0.6 Eosinophils # (Auto) 0.3 Basophils # (Auto) 0.1 CBC Comment Sodium Level 141 Potassium Level 5.1 Chloride Level 104 Carbon Dioxide Level 29.1 Anion Gap 8 Blood Urea Nitrogen 17 Creatinine 0.85 Estimated GFR/1.73 m2 72 BUN/Creatinine Ratio 20.0 Glucose Level 121 H Calcium Level 9.4 Total Bilirubin 0.2 Aspartate Amino Transf (AST/SGOT) 13 Alanine Aminotransferase (ALT/SGPT) 20 Alkaline Phosphatase 48 Total Protein 7.7 Albumin 3.6 Globulin 4.1 Albumin/Globulin Ratio 0.9 L Lipase 91 H Chemistry Comments Re-Evaluation Re-Evaluation : Re-Evaluation: Improved Progress Patient was seen and examined. Patient is given reassurance. Patient was com plaining of abdominal pain has been seen multiple times for similar complaints and has multiple CAT scans as well. Patient's laboratory work shows a WBC of 8.7 hemoglobin hematocrit are within normal limits no left shift chemistry within normal limits lipase slightly elevated 91 as well as glucose of 121 tox screen is negative urinalysis is also negative hCG is negative. Patient was given Reglan has a history of bowel obstructions x-ray did not show any air- fluid levels or dilated loops of bowels. In addition to fluids patient received Toradol. Patient however seemed to want additional pain medications in left. However patient had normal vitals and did not show any signs of significant pain. There was no kidney stones on x-ray and there was certainly no bowel obstruction. Patient did have a Reglan which may have helped with the symptoms for possible motility issues. With the pancreas levels slightly elevated there was some concern for further management of the patient but the patient left. Continuous cardiac cath lab radiology technologist interpretation shows normal sinus rhythm heart rate 80s, no ectopy, normal, my interpretation. Pulse oximetry monitor interpretation shows normal oxygenation at 98% room air, normal, my interpretation. EKG/XRAY/CT/US/VASC/MRI EKG : Intepreting Monitor?: Yes Additional Comment [facility] [address] [facility], [place], [facility] [id number] ELECTROCARDIOGRAM Patient: MEGAN SOTELO Medical Record: [id number] [facility] : 1980, Age: 44Sex: F Location: ER Patient Status: REG ER Service Date/Time: Ordering Physician: RAFFY DOUGLAS MD Exam Name: STAT EKG Technologist: [facility] Test Date: 2025-01-07 Test Time: 07:55:35 Pat Name: MEGAN SOTELO Department: [facility]- Patient ID: [facility]-[id number] Room: Gender: F Vp Of Marketing: : 1980 Requested By: RAFFY DOUGLAS Order Number: [id number] Reading MD: Dr. Raffy Douglas Measurements Intervals [place] Rate: 74 P: 63 DE: 153 QRS: 73 QRSD: 88 T: 74 QT: 386 QTc: 429 Interpretive Statements Sinus rhythm Abnormal R-wave progression, early transition Electronically Signed On 01-07-2025 11:53:[address] Raffy Douglas Please click the below link to view image of tracing. EKG Date and Time:01/07/25 0755 Electronically Signed by: RAFFY DOUGLAS MD Date and Time: 01/07/25 1153 NO PRIMARY CARE PROVIDER~ cc: ~ Abdominal X-Ray : Interpreted By: both Additional Comment [address] [address] DIAGNOSTIC RADIOLOGY Patient: MEGAN SOTELO Medical Record: [id number] [facility] : 1980, Age: 44 Sex: Female Location: ER Patient Status: REG ER Service Date/Time: 01/07/25/ 1035 Ordering Physician: RAFFY DOUGLAS MD Exam: ABDOMEN,SINGLE VIEW(KUB) DI ABDOMEN,SINGLE VIEW(KUB) HISTORY: pain TECHNICAL DATA: 1 view of the abdomen. COMPARISON: CT CT ABDOMEN PELVIS on DOS: 12/22/24, CT CT ABDOMEN PELVIS on DOS: 11/01/24, CT CT ABDOMEN PELVIS W/ IV CONTRAST on DOS: 10/18/24 FINDINGS: Patchy gas is identified within nondistended small bowel. There are no dilated small bowel loops. There is no abdominal mass effect. The renal and liver shadows are not enlarged. IMPRESSION: Moderate colonic fecal burden. No acute intra-abdominal process. Electronically Signed by:ELIESER HIDALGO MD Date & Time: 01/07/25 113 Dictated by: ELIESER HIDALGO MD Dictation date and time: 01/07/25 1130 Primary Care Provider: NO PRIMARY CARE PROVIDER cc: RAFFY DOUGLAS MD ~ EDMD Dr. Douglas reviewed imaging and agrees with above findings. Medical Decision Making Additional info obtained from: old records Differential Dx:Considerations: Include: Angina/VA, Aortic dissection, A ppendicitis, Bowel obstruction, Cholangitis, Cholelithasis, Constipation, Diverticular disease, Esophageal rupture, Esophagitis, Gastritis/PUD, Gastroenteritis, GI hemorrhage, Hernia, Hepatitis, Inflammatory BD, Ischemic bowel, Pancreatitis, PID, Urinary obstruction, Urinary tract infection, Other Departure Time of Disposition: 11:57 Disposition: 07 LEFT AWOL/ELOPED Impression: Primary Impression: Pancreatitis Qualified Codes: K85.90 - Acute pancreatitis without necrosis or infection, unspecified Additional Impression: Abdominal pain Qualified Codes: R10.9 - Unspecified abdominal pain Condition: Guarded Referrals: NO PRIMARY CARE PROVIDER (PCP) Education Educated: Patient Educated regarding: diagnosis, need for follow up Signature Scribe Signature: Scribed for Raffy Douglas MD by Teresa Rhoades. 01/07/25 10:41 Attestation: The note accurately reflects work and decisions made by me.Raffy Douglas MD 01/07/25 09:55 RAFFY DOUGLAS MD Jan 07, 2025 09:55
[2025-01-07 10:01] LABS: LEUKOCYTE ESTERASE ,URINE NEGATIVE (Neg); NITRITES, URINE NEGATIVE (Neg); OCCULT BLOOD,URINE NEGATIVE (Neg)
[2025-01-07 10:03] LABS: UA COLLECTION TYPE VOIDED; URINE HCG NEGATIVE (NEG)
[2025-01-07 10:07] LABS: AMORPHOUS URATES 3+; MUCUS STRANDS NONE SEEN /LPF (Neg); SQUAMOUS EPITHELIAL CELL,UR MODERATE /LPF (FEW)
[2025-01-07 10:25] LABS: URINE AMPHETAMINE SCREEN NEGATIVE (Neg); URINE BARBITUATE SCREEN NEGATIVE (Neg); URINE BENZODIAZEPINES SCREEN NEGATIVE (Neg); URINE CANNABINOID SCREEN NEGATIVE (Neg); URINE COCAINE SCREEN NEGATIVE (Neg); URINE METHADONE SCREEN NEGATIVE (Neg); URINE OPIATE SCREEN NEGATIVE (Neg); URINE PHENCYCLIDINE SCREEN NEGATIVE (Neg)
[2025-01-07] MEDS: normal saline 1000ML IV soln IVB ONE (10:42)
[2025-01-07] MEDS: ketorolac trometh 15mg/ml vial 15 MG/ML ML IV ONE ×2 (10:46→10:53)
[2025-01-07] MEDS: metoclopramide 5 mg/ml inj IV ONE (10:46)
--- NOTE | 2025-01-07 11:32 | RADIOLOGY REPORT ---
DI ABDOMEN,SINGLE VIEW(KUB) HISTORY: pain TECHNICAL DATA: 1 view of the abdomen. COMPARISON: CT CT ABDOMEN PELVIS on DOS: 12/22/24, CT CT ABDOMEN PELVIS on DOS: 11/01/24, CT CT ABDOMEN PELVIS W/ IV CONTRAST on DOS: 10/18/24 FINDINGS: Patchy gas is identified within nondistended small bowel. There are no dilated small bowel loops. Th ere is no abdominal mass effect. The renal and liver shadows are not enlarged. IMPRESSION: Moderate colonic fecal burden. No acute intra-abdominal process.
[2025-01-07 12:02] VITALS: BP 141/96; PULSE 79; RESP 18; TEMP 98; O2SAT 98
== END 2025-01-07 11:45 | disposition left against medical advice (07) ==
LOC: ER 07:14
DX: K85.90 Acute pancreatitis without necrosis or infection, unspecified (principal); E11.9 Type 2 diabetes mellitus without complications; K21.9 Gastro-esophageal reflux disease without esophagitis; E78.00 Pure hypercholesterolemia, unspecified; Z88.2 Allergy status to sulfonamides; Z91.040 Latex allergy status; Z90.710 Acquired absence of both cervix and uterus; Z90.49 Acquired absence of other specified parts of digestive tract; Z79.899 Other long term (current) drug therapy; Z79.84 Long term (current) use of oral hypoglycemic drugs; Z56.0 Unemployment, unspecified
CPT/HCPCS: 36415; 74018; 80053; 80305; 81001; 81025; 83690; 83735; 85025; 93005; 96361; 96374; 96375; 99285; J1885; J2765; J7030

== ENCOUNTER 2025-02-06 19:46 | Emergency (ER) | payer MEDICAID ==
[~2025-02-06] VITALS: Ht 157.5 cm; Wt 87.7 kg
[2025-02-06 19:49] VITALS: TEMP 98.2
[2025-02-06 20:06] LABS: MEAN PLATELET VOLUME 7.8 FL (7.4-10.4); RED CELL DISTRIBUTION WIDTH 14.4 % (11.5-14.5)
[2025-02-06 20:25] LABS: CREATININE 1.27 MG/DL (0.40-0.90); PRO BRAIN NATRIURETIC PEPTIDE 50 PG/ML (0-125); TOTAL CARBON DIOXIDE 32.5 MMOL/L (24-32); eCRCL 44 ML/MIN; eGFR 45 ML/MIN
--- NOTE | 2025-02-06 20:25 | RADIOLOGY REPORT ---
CHEST RADIOGRAPH Indication: CP Technique: 1 view Comparison: DI CHEST,SINGLE VIEW on DOS: 01/06/25, DI CHEST,SINGLE VIEW on DOS: 01/02/25, DI CHEST,SINGLE VIEW on DOS: 12/27/24, DI CHEST,SINGLE VIEW on DOS: 12/06/24, DI CHEST,SINGLE VIEW on DOS: 11/25/24 FINDINGS: Lines and Tubes: None. Lungs/Pleura: No focal consolidation, pleural effusion or pneumothorax. Cardiomediastinum: Unremarkable. Other: No acute osseous abnormality. Cervical fixation hardware. IMPRESSION: 1. No acute cardiopulmonary abnormality.
--- NOTE | 2025-02-06 22:04 | Physician Documentation ---
History of Present Illness ~ Chief Complaint: Chest Pain Stated Complaint: CHEST PAIN/BACKPAIN Time Seen by MD: 22:02 Primary Medical Doctor: DONIS HPI Patient presents to the emergency room for evaluation of chest pain. Last stress test was less than three months ago and was negative per review of records. She states she is sitting in her television when she felt some central chest pain radiating to her neck. No nausea or vomiting. No current chest pain. She reports history of POTS Medication Reconciliation Allergies: Coded Allergies: Sulfa (Sulfonamide Antibiotics) (Verified Allergy, Unknown, 01/06/25) latex (Verified Allergy, Unknown, 01/06/25) Scheduled Cholecalciferol (Vitamin D3) (Vitamin D3), 1 CAP PO DAILY, (Reported) Duloxetine HCl (Duloxetine HCl), 1 CAP PO BID, (Reported) Escitalopram Oxalate (Escitalopram Oxalate), 1 TAB PO DAILY, (Reported) Fenofibrate,Micronized (Fenofibrate), 1 CAP PO DAILY, (Reported) Lorazepam (Ativan), 1 MG PO DAILY, (Reported) Metformin Hcl* (Glucophage*), 2 TAB PO BIDAC, (Reported) Pantoprazole Sodium (PROTONIX tablet), 1 TAB PO DAILY, (Reported) Polyethylene Glycol 3350 (Miralax), 17 GM PO DAILY, (Reported) Sotalol Hcl* (Betapace*), 80 MG PO BID Scheduled PRN ONDANSETRON ODT 4mg tablet (Ondansetron Odt), 1 TAB PO Q6H PRN for n ausea/vomiting, (Reported) Past Medical History Past Medical History: *CARDIOVASCULAR*, Arrhythmia, High Cholesterol, Bowel Obstruction, GERD, Inflammatory Bowel Dz, Peptic Ulcer Disease, Hernia, UTI, Diabetes, Thyroid (unspecified) Past Surgical History: abdominal surgery, cholecystectomy, hysterectomy, other Patient History: Patient reports no known family medical history. Alcohol Use: Sober Drug Use: none Lives with: Family, Other Lives In: Home Occupation: employed, unemployed Review of Systems ROS All review of systems negative except as per HPI Physical Exam Vital Signs: Temperature: 98.2, Source: Temporal, Heart Rate: 102, Respiratory Rate: 18, BP: 150/84, Pulse Oximetry: 99, Weight: 87.700 Oxygen Flow Rate: 0 Physical Exam General: Patient is awake, alert, oriented x4 in no acute distress Head: Normocephalic and atraumatic. Eyes: Conjunctival normal. EOMI. PERRL. ENT: Mucous membranes moist. Neck: Supple, trachea is midline. Chest: Clear to auscultation bilaterally without rales, rhonchi, or wheezes. There is no accessory muscle use or retractions. Cardiac: RRR without murmurs, gallops, or rubs. Abd: Soft, nondistended, nontender, with normoactive bowel sounds. No guarding, rebound, or rigidity. Progress Results/Orders Results/Orders Orders - BRIAN MUNOZ MD Chest,Single View (02/06/25 20:05) Monitor (02/06/25 19:48) Saline Lock (02/06/25 19:48) Oxygen (02/06/25 19:48) Electrocardiogram (02/06/25 19:48) Hs Troponin I W Calculations (02/06/25 22:48) Normal Saline 1000ml (0.9% Sodium Chlori (02/06/25 22:10) Completed Orders - BRIAN MUNOZ MD Chest,Single View (02/06/25 20:05) Cbc/Diff (02/06/25 19:48) BMP (02/06/25 19:48) PBNP (02/06/25 19:48) Hs Troponin I W Calculations (02/06/25 19:48) Hs Troponin I W Calculations (02/06/25 21:48) Acetaminophen 1,000mg/100ml Iv (Ofirmev (02/06/25 22:10) Tramadol Tablet (Ultram Tablet) (02/06/25 22:10) Medications Received in ER Medications (Trade) Dose Ordered Sig/Aaron Route PRN Reason Start Time Stop Time Status Last Admin Dose Admin Acetaminophen 100 ml @ 400 mls/hr ONCE ONCE IV 02/06/25 22:10 02/06/25 22:24 DC 02/06/25 22:23 400 MLS/HR Sodium Chloride 1,000 ml @ 1,000 mls/hr ONCE ONCE IV 02/06/25 22:10 02/06/25 23:09 02/06/25 22:23 1,000 MLS/HR (Ultram tablet) 50 mg ONCE ONCE PO 02/06/25 22:10 02/06/25 22:12 DC 02/06/25 22:24 50 MG Vital Signs 02/06/25 02/06/25 02/06/25 02/06/25 19:49 22:24 22:38 22:38 Temp 98.2 Pulse 102 90 Resp 18 16 15 12 B/P (MAP) 150/84 150/108 (122) Pulse Ox 99 97 O2 Flow Rate 0 Laboratory Tests Test 02/06/25 19:56 02/06/25 22:03 White Blood Count 9.0 Red Blood Count 4.18 L Hemoglobin 12.7 Hematocrit 37.2 Mean Corpuscular Volume 89.0 Mean Corpuscular Hemoglobin 30.4 Mean Corpuscular Hemoglobin Concent 34.1 Red Cell Distribution Width 14.4 Platelet Count 443 H Mean Platelet Volume 7.8 Neutrophils (%) (Auto) 58.4 Lymphocytes (%) (Auto) 29.5 Monocytes (%) (Auto) 9.3 Eosinophils (%) (Auto) 2.0 Basophils (%) (Auto) 0.8 Neutrophils # (Auto) 5.2 Lymphocytes # (Auto) 2.7 Monocytes # (Auto) 0.8 Eosinophils # (Auto) 0.2 Basophils # (Auto) 0.1 CBC Comment Sodium Level 145 Potassium Level 4.5 Chloride Level 105 Carbon Dioxide Level 32.5 H Anion Gap 8 Blood Urea Nitrogen 17 Creatinine 1.27 H Estimated GFR/1.73 m2 45 BUN/Creatinine Ratio 13.4 Glucose Level 135 H Calcium Level 9.0 Troponin I High Sensitivity < 4 L < 4 L Troponin I High Sens Percent Delta Troponin I Hi Sens Absolute Change Pro-B-Type Natriuretic Peptide 50 Albumin 3.6 Chemistry Comments EKG/XRAY/CT/US/VASC/MRI EKG : Additional Comment EKG interpreted by myself shows time of 1999, rate 91, sinus rhythm, normal axis, no ST changes Chest X-Ray : Additional Comments Exam: CHEST,SINGLE VIEW CHEST RADIOGRAPH Indication: CP Technique: 1 view Comparison: DI CHEST,SINGLE VIEW on DOS: 01/06/25, DI CHEST,SINGLE VIEW on DOS: 01/02/25, DI CHEST,SINGLE VIEW on DOS: 12/27/24, DI CHEST,SINGLE VIEW on DOS: 5, DI CHEST,SINGLE VIEW on DOS: 11/25/24 FINDINGS: Lines and Tubes: None. Lungs/Pleura: No focal consolidation, pleural effusion or pneumothorax. Cardiomediastinum: Unremarkable. Other: No acute osseous abnormality. Cervical fixation hardware. IMPRESSION: 1. No acute cardiopulmonary abnormality. Medical Decision Making Findings Patient presents to the emergency room with chest pain as per HPI. Diffe rentials include but are not limited to ACS, pulmonary embolism, aortic pathology, musculoskeletal pain, referred pain therefore emergent labs and imaging indicated. Labs reassuring for troponins negative x2. Heart score of three. Patient had a recent stress test that has-2-3 3 months ago. 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 No current pain therefore I do not feel patient requires investigation into pulmonary embolism or aortic pathology. Departure Disposition: HOME / SELF CARE / HOMELESS Impression: Primary Impression: Chest pain Condition: Stable Discharge Instructions: Nonspecific Chest Pain, Adult Referrals: NO PRIMARY CARE PROVIDER (PCP) Signature Scribe Signature: No scribe Attestation: The note accurately reflects work and decisions made by me.Brian Munoz MD 02/06/25 22:53 BRIAN MUNOZ MD Feb 06, 2025 22:04
[2025-02-06] MEDS: normal saline 1000ml 1,000 ML IV ONE (22:23)
[2025-02-06] MEDS: acetaminophen 1,000mg/100ml IV 100 ML IV ONE (22:23)
[2025-02-06 23:30] VITALS: BP 134/90; PULSE 85; RESP 15; O2SAT 96
--- NOTE | 2025-02-07 06:14 | ELECTROCARDIOGRAPH REPORT ---
[facility] Test Date: 2025-02-06 Test Time: 20:00:13 Pat Name: MEGAN SOTELO Department: EMERGENCY ROOM Room: Gender: F Welcome Wagon Hostess: : 1980 Requested By: DAGO KAPOOR Order Number: [id number] Reading MD: Measurements Intervals [place] Rate: 91 P: 44 MS: 120 QRS: 54 QRSD: 90 T: 62 QT: 367 QTc: 452 Interpretive Statements Sinus rhythm Please click the below link to view image of tracing.
== END 2025-02-06 23:32 | disposition home or self-care (01) ==
LOC: ER 19:47
DX: R07.9 Chest pain, unspecified (principal); E78.00 Pure hypercholesterolemia, unspecified; E11.9 Type 2 diabetes mellitus without complications; K21.9 Gastro-esophageal reflux disease without esophagitis; Z88.2 Allergy status to sulfonamides; Z91.040 Latex allergy status; Z90.710 Acquired absence of both cervix and uterus; Z90.49 Acquired absence of other specified parts of digestive tract; Z56.0 Unemployment, unspecified; Z87.440 Personal history of urinary (tract) infections; Z87.11 Personal history of peptic ulcer disease; Z79.82 Long term (current) use of aspirin; Z79.84 Long term (current) use of oral hypoglycemic drugs; Z79.899 Other long term (current) drug therapy
CPT/HCPCS: 36415; 71045; 80048; 83880; 84484; 85025; 93005; 96361; 96374; 99285; J0131; J7030

== ENCOUNTER 2025-02-09 07:38 | Emergency (ER) | payer MEDICAID ==
[~2025-02-09] VITALS: Ht 157.5 cm; Wt 87.5 kg
[2025-02-09 07:42] VITALS: TEMP 97.5; O2SAT 100
--- NOTE | 2025-02-09 07:51 | ELECTROCARDIOGRAPH REPORT ---
[facility] Test Date: 2025-02-09 Test Time: 07:49:26 Pat Name: MEGAN SOTELO Department: EMERGENCY ROOM Room: Gender: F Enamel Applier: AFTAB : 1980 Requested By: RENETTA DONOHUE Order Number: [id number] Reading MD: Measurements Intervals [place] Rate: 95 P: 49 UT: 113 QRS: 51 QRSD: 91 T: 27 QT: 355 QTc: 447 Interpretive Statements Sinus rhythm Borderline short UT interval Baseline wander in lead(s) V3 Please click the below link to view image of tracing.
--- NOTE | 2025-02-09 07:56 | Physician Documentation ---
History of Present Illness General Chief Complaint: Chest Pain Stated Complaint: CHEST PAIN/SHOULDER PAIN Time Seen by MD: 07:55 Primary Medical Doctor: DONIS History of Present Illness Initial Comments The patient is a 44-year-old female with a history of POTS, patient states she has had increased dizziness and four episodes of syncope this week. 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 The patient states her episodes of syncope are increasing and she has had increased amounts of dizziness. She states she has been on sotalol for the last three months. Patient also complains of a sore throat which he has had for last 24 hours. The patient denies any fevers or chills. She denies any shortness of breath. The patient's symptoms are moderate and persistent. Medication Reconciliation Allergies: Coded Allergies: Sulfa (Sulfonamide Antibiotics) (Verified Allergy, Unknown, 02/09/25) latex (Verified Allergy, Unknown, 02/09/25) Scheduled Amoxicillin Trihydrate (Amoxicillin), 2 CAP PO BID Cholecalciferol (Vitamin D3) (Vitamin D3), 1 CAP PO DAILY, (Reported) Duloxetine HCl (Duloxetine HCl), 1 CAP PO BID, (Reported) Escitalopram Oxalate (Escitalopram Oxalate), 1 TAB PO DAILY, (Reported) Fenofibrate,Micronized (Fenofibrate), 1 CAP PO DAILY, (Reported) Lorazepam (Ativan), 1 MG PO DAILY, (Reported) Metformin Hcl* (Glucophage*), 2 TAB PO BIDAC, (Reported) Pantoprazole Sodium (PROTONIX tablet), 1 TAB PO DAILY, (Reported) Polyethylene Glycol 3350 (Miralax), 17 GM PO DAILY, (Reported) Sotalol Hcl* (Betapace*), 80 MG PO BID Scheduled PRN Hydrocodone Bit/Acetaminophen (Hydrocodone-Apap 10-325 Tablet), 1 TABLET PO Q8H PRN for pain ONDANSETRON ODT 4mg tablet (Ondansetron Odt), 1 TAB PO Q6H PRN for nausea/vomiting, (Reported) Past Medical History Past Medical History: *CARDIOVASCULAR*, Arrhythmia, High Cholesterol, Bowel Obstruction, GERD, Inflammatory Bowel Dz, Peptic Ulcer Disease, Hernia, UTI, Diabetes, Thyroid (unspecified) Past Surgical History: abdominal surgery, cholecystectomy, hysterectomy, other Smoking: Quit greater than 1 year, Cigarettes, Less than 1 pack/day Alcohol Use: Sober Drug Use: none Lives with: Family, Other Lives In: Home Occupation: employed, unemployed Review of Systems All Other Systems at this time: Reviewed and Negative Physical Exam Physical Exam Vital Signs: Temperature: 97.5, Source: Temporal, Heart Rate: 100, Respiratory Rate: 16, BP: 152/89, Pulse Oximetry: 100, Weight: 87.500 Oxygen Flow Rate: 0 Physical Exam VITALS: Reviewed and as above. GENERAL: Alert, no apparent distress. HEENT: Normocephalic, atraumatic, PERRL, EOMI, dry mucosa, no erythema opacified TMs RESPIRATORY: Lungs clear, normal breath sounds, no respiratory distress. CHEST: No accessory muscle use, no retractions CV: Regular rate, rhythm, no edema, no murmur, No: JVD GI: Soft, non-tender, bowels sounds present, no rebound, guarding, or rigidity BACK: No CVA tenderness, or swelling paraspinal thoracic midthoracic muscle tenderness with some spasm no midline tenderness or deformity MUSCULOSKELETAL: No deformities, no edema SKIN: Warm and dry, no rash NEURO: Oriented x4, No motor or sensory deficit PSYCH: Normal mood and affect, no agitation Progress Results/Orders Results/Orders Orders - RENETTA MALONEY MD Chest,Single View (02/09/25 08:05) Monitor (02/09/25 07:46) Saline Lock (02/09/25 07:46) Oxygen (02/09/25 07:46) Hs Troponin I W Calculations (02/09/25 09:46) Hs Troponin I W Calculations (02/09/25 10:46) Covid19 Binax Poc Result Entry (02/09/25 08:16) Thoracic Spine Litd (02/09/25 10:00) Completed Orders - RENETTA MALONEY MD Chest,Single View (02/09/25 08:05) Cbc/Diff (02/09/25 07:46) BMP (02/09/25 07:46) PBNP (02/09/25 07:46) Electrocardiogram (02/09/25 07:46) Hs Troponin I W Calculations (02/09/25 07:46) Ketorolac Trometh 15mg/Ml Vial (Toradol (02/09/25 08:15) Normal Saline 1000ml (0.9% Sodium Chlori (02/09/25 08:15) Hydrocodone/Apap 10/325 ([place] 10/325mg (02/09/25 09:50) Thoracic Spine Litd (02/09/25 10:00) Medications Received in ER Medications (Trade) Dose Ordered Sig/Aaron Route PRN Reason Start Time Stop Time Status Last Admin Dose Admin (Toradol injection) 15 mg ONCE ONCE IV 02/09/25 08:15 02/09/25 08:16 DC 02/09/25 08:46 15 MG (0.9% sodium chloride (NS) 1000ml IV soln) 1,000 ml ONCE ONCE IVB 02/09/25 08:15 02/09/25 08:16 DC 02/09/25 08:45 1,000 ML ([place] 10/325mg tab) 1 tab ONCE ONCE PO 02/09/25 09:50 02/09/25 09:52 DC 02/09/25 10:10 1 TAB Vital Signs 02/09/25 02/09/25 02/09/25 02/09/25 07:42 08:24 08:46 08:49 Temp 97.5 Pulse 100 90 Resp 16 18 18 16 B/P (MAP) 152/89 143/94 (110) Pulse Ox 100 O2 Flow Rate 0 02/09/25 02/09/25 09:45 10:10 Resp 16 16 Laboratory Tests Test 02/09/25 08:01 02/09/25 08:16 02/09/25 10:10 White Blood Count 4.9 Red Blood Count 4.09 L Hemoglobin 12.3 Hematocrit 36.7 Mean Corpuscular Volume 89.7 Mean Corpuscular Hemoglobin 30.1 Mean Corpuscular Hemoglobin Concent 33.6 Red Cell Distribution Width 14.6 H Platelet Count 333 Mean Platelet Volume 7.9 Neutrophils (%) (Auto) 69.8 Lymphocytes (%) (Auto) 19.1 L Monocytes (%) (Auto) 8.2 Eosinophils (%) (Auto) 2.0 Basophils (%) (Auto) 0.9 Neutrophils # (Auto) 3.4 Lymphocytes # (Auto) 0.9 L Monocytes # (Auto) 0.4 Eosinophils # (Auto) 0.1 Basophils # (Auto) 0.0 CBC Comment Sodium Level 142 Potassium Level 4.9 Chloride Level 105 Carbon Dioxide Level 28.4 Anion Gap 9 Blood Urea Nitrogen 11 Creatinine 0.89 Estimated GFR/1.73 m2 68 BUN/Creatinine Ratio 12.4 Glucose Level 157 H Calcium Level 8.7 Troponin I High Sensitivity < 4 L Troponin I High Sens Percent Delta Troponin I Hi Sens Absolute Change Pro-B-Type Natriuretic Peptide 68 Albumin 3.5 Chemistry Comments SARS-CoV-2 Antigen (Rapid) Negative EKG/XRAY/CT/US/VASC/MRI Chest X-Ray : Additional Comments Patient: MEGAN SOTELO Medical Record: [id number] [facility] : 1980, Age: 44 Sex: Female Location: ER Patient Status: [facility] ER Service Date/Time: 02/09/25804 Ordering Physician: RENETTA MALONEY MD Exam: CHEST,SINGLE VIEW CHEST RADIOGRAPH Indication: CP Technique: Single frontal view of the chest was obtained COMPARISON: DI CHEST,SINGLE VIEW on DOS: 02/06/25, DI CHEST,SINGLE VIEW on DOS: , DI CHEST,SINGLE VIEW on DOS: 01/02/25, DI CHEST,SINGLE VIEW on DOS: 12/27/24, CT CTA CHEST PE W/ IV CONTRAST on DOS: 12/06/24 FINDINGS: Lines and Tubes: None Lungs: Clear Pleura: No effusion. No pneumothorax. Cardiomediastinal contours: Unremarkable Bones: Unremarkable IMPRESSION: No acute disease. Electronically Signed by:TIMUR MILLIGAN MD Date & Time: 02/09/25817 Dictated by: TIMUR MILLIGAN MD Dictation date and time: 02/09/25817 Primary Care Provider: NO PRIMARY CARE PROVIDER cc: RENETTA MALONEY MD ~ Medical Decision Making Findings The patient's 12 lead EKG demonstrates sinus rhythm with a normal axis rated 95 and it was interpreted as a normal EKG. The patient's alarm security or surveillance monitor was interpreted as a normal sinus rhythm. And the patient's pulse oximetry was interpreted as normal and adequate. The patient's chest x-ray was interpreted by me as being a normal-appearing chest x-ray the patient has a normal cardiac silhouette normal mediastinum and normal-appearing lung reyes. The patient presented with back pain after a fall the patient had a moderate amount of paraspinal tenderness bilaterally in the thoracic region she also has a complaint of bilateral ear pain her TMs are slightly opacified the patient will be given a prescription for [place] for the back pain her plain film x-rays were interpreted by me as showing no fracture no dislocation no significant soft tissue abnormalities her x-rays were interpreted as normal these with a thoracic x-rays I have also reviewed the radiologist's interpretation the patient will be placed on amoxicillin for the otitis media she will also be given a short prescription for [place]. The patient will be discharged.Patient: MEGAN SOTELO Medical Record: [id number] [facility] : 1980, Age: 44 Sex: Female Location: ER Patient Status: [facility] ER Service Date/Time: 02/09/25999 Ordering Physician: RENETTA MALONEY MD Exam: THORACIC SPINE LITD [facility] INDICATION: fall pain COMPARISON: CT CT THORACIC SPINE on DOS: 12/10/24, CT CTA CHEST PE W/ IV CONTRAST on DOS: 12/06/24, CT CTA CHEST ABDOMEN PELVIS W/ IV CONTRAST on DOS: 11/25/24, CT CHEST ABDOMEN PELVIS on DOS: 02/01/21 TECHNIQUE:3 views of the thoracic spine were obtained. FINDINGS: The thoracic vertebral alignment is normal. The intervertebral disc spaces are well-maintained. No significant facet arthropathy is noted. No acute fracture, vertebral compression deformity or aggressive osseous lesions. The imaged thorax and abdomen are grossly unremarkable. IMPRESSION: No acute fracture. Electronically Signed by:CHRIS NIEVES MD Date & Time: 02/09/25 1033 Dictated by: CHRIS NIEVES MD Dictation date and time: 02/09/25 1000 Primary Care Provider: NO PRIMARY CARE PROVIDER cc: RENETTA MALONEY MD ~ Departure Time of Disposition: Disposition: 01 HOME / SELF CARE / HOMELESS Impression: Primary Impression: Syncope Qualified Codes: R55 - Syncope and collapse Additional Impressions: Thoracic back pain Qualified Codes: M54.6 - Pain in thoracic spine Otitis media Qualified Codes: H66.90 - Otitis media, unspecified, unspecified ear Discharge Instructions: Syncope, Adult, [id number] Referrals: NO PRIMARY CARE PROVIDER (PCP) Prescriptions Amoxicillin Trihydrate (Amoxicillin) 500 Mg Capsule 2 CAP PO BID, #40 CAP Prov: RENETTA MALONEY MD 02/09/25 Hydrocodone Bit/Acetaminophen (Hydrocodone-Apap 10-325 Tablet) 10mg/325mg Tablet 1 TABLET PO Q8H PRN for pain, #10 TABLET Prov: RENETTA MALONEY MD 02/09/25 Signature Scribe Signature: No scribe Attestation: The note accurately reflects work and decisions made by me.Renetta Maloney MD 02/09/25 10:48 RENETTA MALONEY MD Feb 09, 2025 07:56
--- NOTE | 2025-02-09 08:20 | RADIOLOGY REPORT ---
CHEST RADIOGRAPH Indication: CP Technique: Single frontal view of the chest was obtained COMPARISON: DI CHEST,SINGLE VIEW on DOS: 02/06/25, DI CHEST,SINGLE VIEW on DOS: 01/06/25, DI CHEST,SINGLE VIEW on DOS: 01/02/25, DI CHEST,SINGLE VIEW on DOS: 12/27/24, CT CTA CHEST PE W/ IV CONTRAST on DOS: 12/06/24 FINDINGS: Lines and Tubes: None Lungs: Clear Pleura: No effusion. No pneumothorax. Cardiomediastinal contours: Unremarkable Bones: Unremarkable IMPRESSION: No acute disease.
[2025-02-09 08:38] LABS: MEAN PLATELET VOLUME 7.9 FL (7.4-10.4); RED CELL DISTRIBUTION WIDTH 14.6 % (11.5-14.5)
[2025-02-09] MEDS: normal saline 1000ML IV soln IVB ONE (08:45)
[2025-02-09] MEDS: ketorolac trometh 15mg/ml vial 15 MG/ML ML IV ONE (08:46)
[2025-02-09 08:49] VITALS: BP 143/94; PULSE 90
[2025-02-09 09:24] LABS: CREATININE 0.89 MG/DL (0.40-0.90); PRO BRAIN NATRIURETIC PEPTIDE 68 PG/ML (0-125); TOTAL CARBON DIOXIDE 28.4 MMOL/L (24-32); eCRCL 62 ML/MIN; eGFR 68 ML/MIN
[2025-02-09 10:10] VITALS: RESP 16
[2025-02-09] MEDS: HYDROcodone/acetaminophen 10/325mg tab PO ONE (10:10)
[2025-02-09] MEDS ORDERED: HYDR-3973 PO (10:16)
--- NOTE | 2025-02-09 10:35 | RADIOLOGY REPORT ---
[facility] INDICATION: fall pain COMPARISON: CT CT THORACIC SPINE on DOS: 12/10/24, CT CTA CHEST PE W/ IV CONTRAST on DOS: 12/06/24, CT CTA CHEST ABDOMEN PELVIS W/ IV CONTRAST on DOS: 11/25/24, CT CHEST ABDOMEN PELVIS on DOS: 02/01/21 TECHNIQUE:3 views of the thoracic spine were obtained. FINDINGS: The thoracic vertebral alignment is normal. The intervertebral disc spaces are well-maintained. No significant facet arthropathy is noted. No acute fracture, vertebral compression deformity or aggressive osseous lesions. The imaged thorax and abdomen are grossly unremarkable. IMPRESSION: No acute fracture.
[2025-02-09] MEDS ORDERED: AMOX-101 PO (10:45)
== END 2025-02-09 10:48 | disposition home or self-care (01) ==
LOC: ER 07:39
DX: R55 Syncope and collapse (principal); M54.6 Pain in thoracic spine; H66.90 Otitis media, unspecified, unspecified ear; R42 Dizziness and giddiness; R06.02 Shortness of breath; E11.9 Type 2 diabetes mellitus without complications; K21.9 Gastro-esophageal reflux disease without esophagitis; E78.00 Pure hypercholesterolemia, unspecified; F10.90 Alcohol use, unspecified, uncomplicated; Z88.2 Allergy status to sulfonamides; Z88.8 Allergy status to other drugs, medicaments and biological substances; Z90.49 Acquired absence of other specified parts of digestive tract; Z90.710 Acquired absence of both cervix and uterus; Z91.040 Latex allergy status; Z20.822 Contact with and (suspected) exposure to COVID-19; Y90.9 Presence of alcohol in blood, level not specified
CPT/HCPCS: 36415; 71045; 72070; 80048; 83880; 84484; 85025; 87811; 93005; 96361; 96374; 99285; J1885; J7030

== ENCOUNTER 2025-02-13 14:26 | Emergency (ER) | payer MEDICAID ==
[~2025-02-13] VITALS: Ht 157.5 cm; Wt 89.5 kg
[~2025-02-13 14:26] MED LIST changes: +AMOX-101 PO; +HYDR-3973 PO
--- NOTE | 2025-02-13 14:40 | Physician Documentation ---
History of Present Illness ~ Chief Complaint: Headache Stated Complaint: MULTIPLE MED COMPLAINTS Time Seen by MD: 15:19 Primary Medical Doctor: DONIS RUBALCAVA Patient is seen today with multiple complaints including low back pain and headache for three days. Patient does admit to chronic low back pain. She denies any recent injury or illness or fevers or chills or chest pain or shor tness of breath or abdominal pain or nausea, vomiting, diarrhea. Patient states her left shoulder sometimes hurts at night off and on in his throbbing since. Patient denies any recent head trauma or loss of consciousness and denies any weakness of her upper or lower extremities. She has no other concern or complaint at this time. Medication Reconciliation Allergies: Coded Allergies: Sulfa (Sulfonamide Antibiotics) (Verified Allergy, Unknown, 02/13/25) latex (Verified Allergy, Unknown, 02/13/25) Scheduled Amoxicillin Trihydrate (Amoxicillin), 2 CAP PO BID Cholecalciferol (Vitamin D3) (Vitamin D3), 1 CAP PO DAILY, (Reported) Duloxetine HCl (Duloxetine HCl), 1 CAP PO BID, (Reported) Escitalopram Oxalate (Escitalopram Oxalate), 1 TAB PO DAILY, (Reported) Fenofibrate,Micronized (Fenofibrate), 1 CAP PO DAILY, (Reported) Lorazepam (Ativan), 1 MG PO DAILY, (Reported) Metformin Hcl* (Glucophage*), 2 TAB PO BIDAC, (Reported) Pantoprazole Sodium (PROTONIX tablet), 1 TAB PO DAILY, (Reported) Polyethylene Glycol 3350 (Miralax), 17 GM PO DAILY, (Reported) Sotalol Hcl* (Betapace*), 80 MG PO BID Scheduled PRN Hydrocodone Bit/Acetaminophen (Hydrocodone-Apap 10-325 Tablet), 1 TABLET PO Q8H PRN for pain ONDANSETRON ODT 4mg tablet (Ondansetron Odt), 1 TAB PO Q6H PRN for nausea/vomiting, (Reported) Past Medical History Past Medical History: *CARDIOVASCULAR*, Arrhythmia, High Cholesterol, Bowel Obstruction, GERD, Inflammatory Bowel Dz, Peptic Ulcer Disease, Hernia, UTI, Diabetes, Thyroid (unspecified) Past Surgical History: abdominal surgery, cholecystectomy, hysterectomy, other Patient History: Patient reports no known family medical history. Alcohol Use: Sober Drug Use: none Lives with: Family, Other Lives In: Home Occupation: employed, unemployed Physical Exam Vital Signs: Temperature: 99.6, Source: Temporal, Heart Rate: 76, Respiratory Rate: 18, BP: 126/85, Pulse Oximetry: 99, Weight: 89.500 Oxygen Flow Rate: 0 Physical Exam General: Awake and Alert, no acute distress. HEENT: Conjunctiva pink, Sclera clear, Mucus Membranes moist. Face: Patient has full strength of all facial muscles equal laterally and bilaterally. Neck: Supple without masses and tenderness. Resp: Unlabored. Lungs clear to auscultation bilaterally. Heart: Regular Rate and rhythm, normal S1 and S2 without murmur, rub or gallop. Musculoskeletal: Patient on exam does have decreased range of motion of the left shoulder in all planes of motion. Patient is neurovascularly intact distally. Motor function intact distally. Patient has equal newborn photographer strength bilaterally. Extremities: No cyanosis,clubbing or edema. Skin: Warm and Dry. Progress Results/Orders Results/Orders Completed Orders - TRANG ROCA DIMENSION QUARRY SUPERVISOR Diazepam Tablet (Valium Tablet) (02/13/25 16:20) Ondansetron Disint. Tablet (Zofran Odt T (02/13/25 16:20) Hydrocodone/Apap 10/325 ([place] 10/325mg (02/13/25 16:20) Medications Received in ER Medications (Trade) Dose Ordered Sig/Aaron Route PRN Reason Start Time Stop Time Status Last Admin Dose Admin (Toradol inj. 30mg/ml) 30 mg ONCE STAT IM 02/13/25 14:47 02/13/25 14:48 DC 02/13/25 15:14 30 MG (Valium tablet) 10 mg ONCE ONCE PO 02/13/25 16:20 02/13/25 16:21 DC 02/13/25 17:17 10 MG (Zofran ODT tablet) 4 mg ONCE ONCE PO 02/13/25 16:20 02/13/25 16:21 DC 02/13/25 17:16 4 MG ([place] 10/325mg tab) 1 tab ONCE ONCE PO 02/13/25 16:20 02/13/25 16:21 DC 02/13/25 17:17 1 TAB Vital Signs 02/13/25 02/13/25 02/13/25 02/13/25 14:34 15:14 17:17 17:17 Temp 99.6 Pulse 76 Resp 18 16 15 16 B/P (MAP) 126/85 Pulse Ox 99 O2 Flow Rate 0 02/13/25 02/13/25 17:21 18:36 Temp 98.6 Pulse 74 72 Resp 16 18 B/P (MAP) 103/66 (78) 111/68 Pulse Ox 98 99 O2 Flow Rate 0 Medical Decision Making Additional information obtaine: N/A Findings PATIENT RECEIVED MULTIPLE MEDICATIONS WHILE IN THE ED SUSPECT LUMBAR STRAIN SECONDARY TO HER RECENT MOVING LARGE OBJECTS SLED TO LUMBAR CERVICAL STRAIN Differential Dx:Considerations: Include: MULLER-Cluster, MULLER-Migraine, MULLER- Hypertensive, MULLER-Muscular contraction, MULLER-Post lumbar puncture, Carbon monoxide toxicity, Close head injuyr, CVA, Fever induced, Hemorrhage-Epidural, Hemorrhage-Intracerebral, Hemorrhage-Subarachnoid, Hemorrhage-Subdural, Mass lesion, Meningitis, Post-traumtic, Pseudotumor cerebri, Sinusitis, Temporal arteritis, Trigeminal neuralgia, Other Departure Disposition: 01 HOME / SELF CARE / HOMELESS Impression: Primary Impression: Migraine Additional Impression: Thoracic back pain Condition: Improved Discharge Instructions: Headache Referrals: NO PRIMARY CARE PROVIDER (PCP) Signature Scribe Signature: R Attestation: Scribed for Trang Roca Flooring Machine Operator by Trang Kelly NP . 02/13/25 15:39 NAM BOWENS PAC Feb 13, 2025 14:40 TRANG ROCA D[employer]ENSION QUARRY SUPERVISOR Feb 13, 2025 15:40
[2025-02-13] MEDS: ketorolac trometh 30MG/ML vial 30 MG/ML VIAL IM STA (15:14)
[2025-02-13] MEDS: ondansetron 4mg rapidly disintigrating tab PO ONE (17:16)
[2025-02-13] MEDS: HYDROcodone/acetaminophen 10/325mg tab PO ONE (17:17)
[2025-02-13 18:36] VITALS: BP 111/68; PULSE 72; RESP 18; TEMP 98.6; O2SAT 99
== END 2025-02-13 18:38 | disposition home or self-care (01) ==
LOC: ER 14:27
DX: G43.909 Migraine, unspecified, not intractable, without status migrainosus (principal); M54.6 Pain in thoracic spine; E78.00 Pure hypercholesterolemia, unspecified; E11.9 Type 2 diabetes mellitus without complications; G89.29 Other chronic pain; K21.9 Gastro-esophageal reflux disease without esophagitis; Z56.0 Unemployment, unspecified; Z88.2 Allergy status to sulfonamides; Z91.040 Latex allergy status; Z90.49 Acquired absence of other specified parts of digestive tract; Z90.710 Acquired absence of both cervix and uterus; Z87.440 Personal history of urinary (tract) infections; Z87.11 Personal history of peptic ulcer disease
CPT/HCPCS: 96372; 99284; J1885

== ENCOUNTER 2025-02-17 17:27 | Emergency (ER) | payer MEDICAID ==
[~2025-02-17] VITALS: Ht 157.5 cm; Wt 84.7 kg
--- NOTE | 2025-02-17 18:29 | Physician Documentation ---
History of Present Illness ~ Chief Complaint: Sore Throat Stated Complaint: WEAKNESS/ NECK PAIN Time Seen by MD: 18:00 Primary Medical Doctor: DONIS HPI Continued R ear pain after diagnosis of ear infection on Wednesday. Denies fevers, discharge from ear. Reports swollen tonsils and throat pain as well. Denies fevers, swallowing difficulty, dental pain. Taking antibiotic as prescribed. Medication Reconciliation Allergies: Coded Allergies: Sulfa (Sulfonamide Antibiotics) (Verified Allergy, Unknown, 02/17/25) latex (Verified Allergy, Unknown, 02/17/25) Scheduled Amoxicillin Trihydrate (Amoxicillin), 2 CAP PO BID Cholecalciferol (Vitamin D3) (Vitamin D3), 1 CAP PO DAILY, (Reported) Duloxetine HCl (Duloxetine HCl), 1 CAP PO BID, (Reported) Escitalopram Oxalate (Escitalopram Oxalate), 1 TAB PO DAILY, (Reported) Fenofibrate,Micronized (Fenofibrate), 1 CAP PO DAILY, (Reported) Lorazepam (Ativan), 1 MG PO DAILY, (Reported) Metformin Hcl* (Glucophage*), 2 TAB PO BIDAC, (Reported) Pantoprazole Sodium (PROTONIX tablet), 1 TAB PO DAILY, (Reported) Polyethylene Glycol 3350 (Miralax), 17 GM PO DAILY, (Reported) Sotalol Hcl* (Betapace*), 80 MG PO BID Scheduled PRN Hydrocodone Bit/Acetaminophen (Hydrocodone-Apap 10-325 Tablet), 1 TABLET PO Q8H PRN for pain ONDANSETRON ODT 4mg tablet (Ondansetron Odt), 1 TAB PO Q6H PRN for nausea/vomiting, (Reported) Past Medical History Past Medical History: *CARDIOVASCULAR*, Arrhythmia, High Cholesterol, Bowel Obstruction, GERD, Inflammatory Bowel Dz, Peptic Ulcer Disease, Hernia, UTI, Diabetes, Thyroid (unspecified) Past Surgical History: abdominal surgery, cholecystectomy, hysterectomy, other Patient History: Patient reports no known family medical history. Alcohol Use: Sober Drug Use: none Lives with: Family, Other Lives In: Home Occupation: employed, unemployed Review of Systems All Other Systems at this time: Reviewed and Negative Physical Exam Vital Signs: RN Vital Signs have been reviewed: Yes, Temperature: 97.2, Heart Rate: 99, Respiratory Rate: 20, BP: 115/73, Pulse Oximetry: 98, Weight: 84.700 Oxygen Flow Rate: 0 Physical Exam HEENT: PERRL, moist oral mucosa, EOMI; R TM erythematous but not bulging, no discharge or external ear canal swelling, nontender; posterior oropharynx erythematous without tonsillar hypertrophy nor exudate Pulmonary: No respiratory distress MSK: no deformity Skin: w/d/i, no rash Neuro: alert, nonfocal Psych: normal affect Progress Results/Orders Results/Orders Vital Signs 02/17/25 17:43 Temp 97.2 Pulse 99 Resp 20 B/P (MAP) 115/73 Pulse Ox 98 O2 Flow Rate 0 Medical Decision Making Additional information obtaine: N/A Findings 44 year old female with likely viral sydrome given constellation of ENT symptoms, lack of sequalae of bacterial infection, and nonresponsiveness to antibiotics. Steroid dose, return precautions. Ear Diff. Dx: Considerations: Unlikely: Abrasion, Cerumen impaction, Foreign body, Otitis externa, Barotrauma, Otitis media, Perforation, Referred pain- dental, Referred pain-pharyngitis, Referred pain-sinusitis, Referred pain-TMJ syn., Tympanic Membrane Injury, Other Eye Diff. Dx: Considerations: Unlikely: Chalazoin, Conjuctivits-allergic, Conjuctivitis-bacterial, Conjuctivits-chlamydial, Conjuctivitis-viral, Corneal abrasion, Corneal laceration, Corneal ulceration, Foreign body-conjuctiva, Foreign body-corneal, Foreign body-intraocular, Foreign body-lid, Glaucoma, Globe rupture, Hordeolum, Iritis, Orbital cellulitis, Periobital cellulitis, Retinal artery occulsion, Retinal vein occlusion, Rust ring, Subconjunctival hem, Ultraviolet keratitis, Uveitis, Vitreous hemorrhage, Other Nose Diff. Dx: Considerations: Unlikely: Abrasion, Anterior nasal bleed, Avulsion, Contusion, Coagulopathy, Fracture-nasal bone, Fracture-septum, Hypertension, Laceration, Other, Posterior nasal bleed, Retained foreign body, Septal hematoma Tooth Diff. Dx: Considerations: Unlikely: Alveolar fracture, Aveolar osteitis, ANUG, Facial cellulitis, Periapical abscess, Periodontal abscess, Post- extraction bleeding, Pulpitis, Trigeminal neuralgia, Tooth-avulsion, Tooth- eruption, Tooth-fracture, Tooth-subluxation, Other Throat Diff Dx: Considerations: Unlikely: AIDS, Epiglottitis, Esophageal candidiasis, Hand foot mouth disease, Herpangina, Herpetic stomatitis, Herpes simplex, Infection mononucleosis, Immunodeficiency, Marck's angina, Peritonsillar abscess, Peritonsillar cellulitis, Pharyngitis-diphtheria, Pharyngitis-strepococcal, Pharyngitis-viral, Thrush, URI, Other Additional Comment Ddx = dental decay, otitis media, otitis externa, viral syndrome, strep throat, viral pharyngitis Departure Disposition: HOME / SELF CARE / HOMELESS Impression: Primary Impression: Viral URI Condition: Stable Discharge Instructions: Upper Respiratory Infection, Adult Referrals: NO PRIMARY CARE PROVIDER (PCP) Education Educated: Patient Educated regarding: diagnosis, treatment, prognosis, need for follow up Signature Scribe Signature: . Attestation: . DONNA ALVES MD Feb 17, 2025 18:29
[2025-02-17] MEDS: dexamethasone sod phosphate 10mg/ml inj PO STA (18:36)
[2025-02-17 18:51] VITALS: BP 124/80; PULSE 70; RESP 16; TEMP 97.8; O2SAT 99
== END 2025-02-17 18:53 | disposition home or self-care (01) ==
LOC: ER 17:27
DX: J06.9 Acute upper respiratory infection, unspecified (principal); E11.9 Type 2 diabetes mellitus without complications; E78.00 Pure hypercholesterolemia, unspecified; K21.9 Gastro-esophageal reflux disease without esophagitis; Z88.2 Allergy status to sulfonamides; Z91.040 Latex allergy status; Z90.710 Acquired absence of both cervix and uterus; Z90.49 Acquired absence of other specified parts of digestive tract; Z87.440 Personal history of urinary (tract) infections; Z87.11 Personal history of peptic ulcer disease; Z56.0 Unemployment, unspecified; Z79.899 Other long term (current) drug therapy; Z79.84 Long term (current) use of oral hypoglycemic drugs
CPT/HCPCS: 99283; J1100

== ENCOUNTER 2025-02-20 07:47 | Emergency (ER) | payer MEDICAID ==
[~2025-02-20] VITALS: Ht 157.5 cm; Wt 83.7 kg
--- NOTE | 2025-02-20 08:06 | Physician Documentation ---
History of Present Illness General Chief Complaint: Headache Stated Complaint: BACK PAIN,NECK PAIN Time Seen by MD: 08:06 OK to notify your PCP?: No Primary Medical Doctor: DONIS Source: patient, RN notes reviewed, old records Mode of Arrival: POV Exam Limitations: no limitations History of Present Illness Initial Comments 44-year-old female, seen multiple times for similar also with a history of SVT and POTS, presents complaining of posterior headache radiating to the top of her head. Headache began a proximally one week ago. She has been taking Tylenol without improvement. She also reports some nausea and occasional vomiting. She describes chills but denies fevers. Per old records, patient was seen in January for similar and had a CT of her head which was negative for acute abnormality. Medication Reconciliation Allergies: Coded Allergies: Sulfa (Sulfonamide Antibiotics) (Verified Allergy, Unknown, 02/21/25) latex (Verified Allergy, Unknown, 02/21/25) Scheduled Amox Tr/Potassium Clavulanate 875/125 MG (Augmentin 875/125 MG), 1 TAB PO Q12H Amoxicillin Trihydrate (Amoxicillin), 2 CAP PO BID Cholecalciferol (Vitamin D3) (Vitamin D3), 1 CAP PO DAILY, (Reported) Duloxetine HCl (Duloxetine HCl), 1 CAP PO BID, (Reported) Escitalopram Oxalate (Escitalopram Oxalate), 1 TAB PO DAILY, (Reported) Fenofibrate,Micronized (Fenofibrate), 1 CAP PO DAILY, (Reported) Lorazepam (Ativan), 1 MG PO DAILY, (Reported) Metformin Hcl* (Glucophage*), 2 TAB PO BIDAC, (Reported) Pantoprazole Sodium (PROTONIX tablet), 1 TAB PO DAILY, (Reported) Polyethylene Glycol 3350 (Miralax), 17 GM PO DAILY, (Reported) Sotalol Hcl* (Betapace*), 80 MG PO BID Scheduled PRN Hydrocodone Bit/Acetaminophen (Hydrocodone-Apap 10-325 Tablet), 1 TABLET PO Q8H PRN for pain ONDANSETRON ODT 4mg tablet (Ondansetron Odt), 1 TAB PO Q6H PRN for nausea/vomiting, (Reported) Past Medical History Past Medical History: *CARDIOVASCULAR*, Arrhythmia, High Cholesterol, Bowel Obstruction, GERD, Inflammatory Bowel Dz, Peptic Ulcer Disease, Hernia, UTI, Diabetes, Thyroid (unspecified) Past Surgical History: abdominal surgery, cholecystectomy, hysterectomy, other Smoking: Quit greater than 1 year, Cigarettes, Less than 1 pack/day Alcohol Use: Sober Drug Use: none Lives with: Family, Other Lives In: Home Occupation: employed, unemployed Review of Systems All Other Systems at this time: Reviewed and Negative ROS As stated above in the HPI, otherwise all systems are reviewed and negative. Physical Exam Physical Exam Vital Signs: RN Vital Signs have been reviewed: Yes, Temperature: 98.5, Source: Temporal, Heart Rate: 83, Respiratory Rate: 18, BP: 139/84, Pulse Oximetry: 99, Weight: 83.700 Oxygen Flow Rate: 0 Pulse Oximetry Reflects: adequate oxygenation Physical Exam VITALS: Reviewed and as above. GENERAL: Alert, no apparent distress. HEENT: Normocephalic, atraumatic, PERRL, EOMI, dry mucosa RESPIRATORY: Lungs clear, normal breath sounds, no respiratory distress. CHEST: No accessory muscle use, no retractions CV: Regular rate, rhythm, no edema, no murmur, No: JVD MUSCULOSKELETAL No deformities, no edema SKIN: Warm and dry, no rash NEURO: Oriented x4, No motor or sensory deficit. Cranial nerves II-XII grossly intact. No facial droop. Normal speech. PSYCH: Normal mood and affect, no agitation Progress Results/Orders Results/Orders Completed Orders - FLLFS,RENETTA Lynn MD Ketorolac Trometh 15mg/Ml Vial (Toradol (02/20/25 08:20) Metoclopramide Inj (Reglan Inj) (02/20/25 08:20) Diphenhydramine Inj (Benadryl Inj.) (02/20/25 08:20) Normal Saline 1000ml (0.9% Sodium Chlori (02/20/25 08:20) Hydrocodone/Apap 10/325 ([place] 10/325mg (02/20/25 08:25) Vital Signs 02/20/25 02/20/25 02/20/25 02/20/25 07:49 08:25 08:34 08:40 Temp 98.5 98.5 Pulse 83 75 Resp 18 16 16 16 B/P (MAP) 139/84 106/66 (79) Pulse Ox 99 99 O2 Flow Rate 0 0 02/20/25 02/20/25 08:47 09:43 Temp 98.5 Pulse 72 71 Resp 14 16 B/P (MAP) 102/66 (78) 99/74 Pulse Ox 96 98 O2 Flow Rate 0 Medical Decision Making Additional information obtaine: old records (seen one week ago for galindoelisabeth) Findings The patient is a 44-year-old female with a history of chronic migraine headaches patient presents with a similar headache, the patient is nontoxic appearing. The patient was treated with a cocktail of medications for her migraine with improvement of her symptoms. Prior hospitalizations has been reviewed. The patient's pulse oximetry was interpreted as normal and adequate. The patient will be discharged Differential Diagnosis Migraine headache, tension headache, malignancy Departure Time of Disposition: 09:32 Disposition: 01 HOME / SELF CARE / HOMELESS Impression: Primary Impression: Headache Qualified Codes: R51.9 - Headache, unspecified Condition: Stable Discharge Instructions: Headache Signature Scribe Signature: Scribed for Renetta Maloney MD by Otto Sotomayor . 02/20/25 08:23 Attestation: The note accurately reflects work and decisions made by me.Renetta Maloney MD 02/21/25 16:44 RENETTA MALONEY MD Feb 20, 2025 08:06 OTTO STAPLES Feb 20, 2025 08:23
[2025-02-20] MEDS: HYDROcodone/acetaminophen 10/325mg tab PO ONE (08:34)
[2025-02-20] MEDS: normal saline 1000ML IV soln IVB ONE (08:40)
[2025-02-20] MEDS: metoclopramide 5 mg/ml inj IV ONE (08:40)
[2025-02-20] MEDS: ketorolac trometh 15mg/ml vial 15 MG/ML ML IV ONE (08:40)
[2025-02-20 08:47] VITALS: TEMP 98.5
[2025-02-20 09:43] VITALS: BP 99/74; PULSE 71; RESP 16; O2SAT 98
[2025-02-21] MEDS ORDERED: AMOX-580 PO (09:19)
== END 2025-02-20 09:44 | disposition home or self-care (01) ==
LOC: ER 07:48
DX: R51.9 Headache, unspecified (principal); R11.2 Nausea with vomiting, unspecified; E11.9 Type 2 diabetes mellitus without complications; E78.00 Pure hypercholesterolemia, unspecified; K21.9 Gastro-esophageal reflux disease without esophagitis; Z88.2 Allergy status to sulfonamides; Z88.8 Allergy status to other drugs, medicaments and biological substances; Z90.49 Acquired absence of other specified parts of digestive tract; Z90.710 Acquired absence of both cervix and uterus; Z91.040 Latex allergy status
CPT/HCPCS: 96361; 96374; 96375; 99284; J1200; J1885; J2765; J7030

== ENCOUNTER 2025-02-21 08:17 | Emergency (ER) | payer MEDICAID ==
[~2025-02-21] VITALS: Ht 157.5 cm; Wt 83.0 kg
[2025-02-21 08:30] VITALS: BP 119/83; PULSE 81; RESP 18; TEMP 97.6; O2SAT 100
--- NOTE | 2025-02-21 09:17 | Physician Documentation ---
History of Present Illness ~ Chief Complaint: Sore Throat Stated Complaint: SORE THROAT Time Seen by MD: 09:03 Primary Medical Doctor: DONIS [facility] This is a 44-year-old female who presents with sore throat for the past two days, patient reports she was seen for headache yesterday though forgot to tell provider about her sore throat. Patient reports no other acute symptoms or concerns. Medication Reconciliation Allergies: Coded Allergies: Sulfa (Sulfonamide Antibiotics) (Verified Allergy, Unknown, 02/21/25) latex (Verified Allergy, Unknown, 02/21/25) Scheduled Amox Tr/Potassium Clavulanate 875/125 MG (Augmentin 875/125 MG), 1 TAB PO Q12H Amoxicillin Trihydrate (Amoxicillin), 2 CAP PO BID Cholecalciferol (Vitamin D3) (Vitamin D3), 1 CAP PO DAILY, (Reported) Duloxetine HCl (Duloxetine HCl), 1 CAP PO BID, (Reported) Escitalopram Oxalate (Escitalopram Oxalate), 1 TAB PO DAILY, (Reported) Fenofibrate,Micronized (Fenofibrate), 1 CAP PO DAILY, (Reported) Lorazepam (Ativan), 1 MG PO DAILY, (Reported) Metformin Hcl* (Glucophage*), 2 TAB PO BIDAC, (Reported) Pantoprazole Sodium (PROTONIX tablet), 1 TAB PO DAILY, (Reported) Polyethylene Glycol 3350 (Miralax), 17 GM PO DAILY, (Reported) Sotalol Hcl* (Betapace*), 80 MG PO BID Scheduled PRN Hydrocodone Bit/Acetaminophen (Hydrocodone-Apap 10-325 Tablet), 1 TABLET PO Q8H PRN for pain ONDANSETRON ODT 4mg tablet (Ondansetron Odt), 1 TAB PO Q6H PRN for nausea/vomiting, (Reported) Past Medical History Past Medical History: *CARDIOVASCULAR*, Arrhythmia, High Cholesterol, Bowel Obstruction, GERD, Inflammatory Bowel Dz, Peptic Ulcer Disease, Hernia, UTI, Diabetes, Thyroid (unspecified) Past Surgical History: abdominal surgery, cholecystectomy, hysterectomy, other Patient History: Patient reports no known family medical history. Alcohol Use: Sober Drug Use: none Lives with: Family, Other Lives In: Home Occupation: employed, unemployed Review of Systems ROS As stated above in the HPI, otherwise all systems are reviewed and negative. Physical Exam Vital Signs: Temperature: 97.6, Source: Temporal, Heart Rate: 81, Respiratory Rate: 18, BP: 119/83, Pulse Oximetry: 100, Weight: 83.000 Physical Exam VITALS: Reviewed and as above. GENERAL: Alert, nontoxic appearing, no apparent distress. HEENT: 3+ tonsils swollen with patchy white exudates, uvula midline, mildly erythematous, no drooling, no stridor, no muffled voice. TMs intact bilaterally without bulging, scarring to TMs noted RESPIRATORY: No increased work of breathing, no respiratory distress, speaking in full clear sentences Progress Results/Orders Results/Orders Vital Signs 02/21/25 08:30 Temp 97.6 Pulse 81 Resp 18 B/P (MAP) 119/83 Pulse Ox 100 Medical Decision Making Additional information obtaine: N/A Findings This is a 44-year-old female presented with sore throat and tonsillar swelling with patchy exudates consistent with strep pharyngitis, will treat empirically with Augmentin given patient recently treated for ear infection with amoxicillin. Otherwise well-appearing and appropriate for outpatient follow up, patient provided home care instructions, return to care precautions, and follow up instructions which he verbalized understanding of. Ear Diff. Dx: Considerations: Include: Abrasion, Otitis externa, Otitis media Eye Diff. Dx: Considerations: Unlikely: Chalazoin, Conjuctivits-allergic, Conjuctivitis-bacterial, Conjuctivits-chlamydial, Conjuctivitis-viral, Corneal abrasion, Corneal laceration, Corneal ulceration, Foreign body-conjuctiva, Foreign body-corneal, Foreign body-intraocular, Foreign body-lid, Glaucoma, Globe rupture, Hordeolum, Iritis, Orbital cellulitis, Periobital cellulitis, Retinal artery occulsion, Retinal vein occlusion, Rust ring, Subconjunctival hem, Ultraviolet keratitis, Uveitis, Vitreous hemorrhage, Other Nose Diff. Dx: Considerations: Unlikely: Abrasion, Anterior nasal bleed, Avulsion, Contusion, Coagulopathy, Fracture-nasal bone, Fracture-septum, Hypertension, Laceration, Other, Posterior nasal bleed, Retained foreign body, Septal hematoma Tooth Diff. Dx: Considerations: Unlikely: Alveolar fracture, Aveolar osteitis, ANUG, Facial cellulitis, Periapical abscess, Periodontal abscess, Post- extraction bleeding, Pulpitis, Trigeminal neuralgia, Tooth-avulsion, Tooth-erup tion, Tooth-fracture, Tooth-subluxation, Other Throat Diff Dx: Considerations: Include: Epiglottitis, Esophageal candidiasis, Hand foot mouth disease, Herpangina, Herpes simplex, Infection mononucleosis, Marck's angina, Peritonsillar abscess, Peritonsillar cellulitis, Pharyngitis- diphtheria, Pharyngitis-strepococcal, Pharyngitis-viral, Thrush, URI Departure Time of Disposition: 09:17 Disposition: 01 HOME / SELF CARE / HOMELESS Impression: Primary Impression: Pharyngitis Qualified Codes: J02.0 - Streptococcal pharyngitis Condition: Improved Discharge Instructions: Strep Throat, Adult Additional Instructions: Please take the antibiotics as prescribed. You may use ibuprofen and or Tylenol as needed for pain and fever. Please follow up with your primary care provider in the next few days. Please return to the emergency department for any new or worsening concerning symptoms. Referrals: NO PRIMARY CARE PROVIDER (PCP) Prescriptions Amox Tr/Potassium Clavulanate 875/125 MG (Augmentin 875/125 MG) 875 Mg-125 Mg Tablet 1 TAB PO Q12H for 10 Days, #20 TAB Prov: SHELDON MENDEZ 02/21/25 Signature Scribe Signature: No scribe Attestation: The note accurately reflects work and decisions made by me.BROOKS Tony 02/21/25 20:14 SHELDON MENDEZ Feb 21, 2025 09:17
[2025-02-21] MEDS ORDERED: AMOX-580 PO (09:19)
== END 2025-02-21 09:28 | disposition home or self-care (01) ==
LOC: ER 08:17
DX: J02.9 Acute pharyngitis, unspecified (principal); E78.00 Pure hypercholesterolemia, unspecified; E11.9 Type 2 diabetes mellitus without complications; K21.9 Gastro-esophageal reflux disease without esophagitis; Z88.2 Allergy status to sulfonamides; Z90.49 Acquired absence of other specified parts of digestive tract; Z90.710 Acquired absence of both cervix and uterus; Z91.040 Latex allergy status; Z87.440 Personal history of urinary (tract) infections; Z87.11 Personal history of peptic ulcer disease; Z56.0 Unemployment, unspecified; Z79.899 Other long term (current) drug therapy
CPT/HCPCS: 99283

== ENCOUNTER 2025-02-24 23:59 | Emergency (ER) | payer MEDICAID ==
[~2025-02-24] VITALS: Ht 157.5 cm; Wt 80.9 kg
[~2025-02-24 23:59] MED LIST changes: +AMOX-580 PO
[2025-02-25 00:29] LABS: MEAN PLATELET VOLUME 6.7 FL (7.4-10.4); RED CELL DISTRIBUTION WIDTH 14.1 % (11.5-14.5)
--- NOTE | 2025-02-25 00:40 | Physician Documentation ---
History of Present Illness General Chief Complaint: Abdominal Pain w/vomiting Stated Complaint: VOMITING Time Seen by MD: 00:29 Primary Medical Doctor: DONIS History of Present Illness Initial Comments This is a 44-year-old female who presents to our facility for evaluation of right-sided abdominal pain as well as periumbilical pain at the site of where she has a known umbilical hernia, nausea and vomiting. She states that she had this pain for several days, actually has been evaluated by myself at [facility] on , three days ago, had unremarkable workup including unremarkable CT, was discharged with the Bentyl and ondansetron. She states that the medications are not working. She states that since discharge from [facility], for the last two days, she has been vomiting multiple times, 4 times yesterday, 5 times today. Most recent emesis 30 minutes prior to arrival. The particular palliating or aggravating factors for the pain. She states that she has not passed bowel movement or flatus since discharge from [facility]. Denies any concerns for tobacco, alcohol or illicit substances use Medication Reconciliation Allergies: Coded Allergies: Sulfa (Sulfonamide Antibiotics) (Verified Allergy, Unknown, 02/21/25) latex (Verified Allergy, Unknown, 02/21/25) Scheduled Amox Tr/Potassium Clavulanate 875/125 MG (Augmentin 875/125 MG), 1 TAB PO Q12H Amoxicillin Trihydrate (Amoxicillin), 2 CAP PO BID Cholecalciferol (Vitamin D3) (Vitamin D3), 1 CAP PO DAILY, (Reported) Duloxetine HCl (Duloxetine HCl), 1 CAP PO BID, (Reported) Escitalopram Oxalate (Escitalopram Oxalate), 1 TAB PO DAILY, (Reported) Fenofibrate,Micronized (Fenofibrate), 1 CAP PO DAILY, (Reported) Lorazepam (Ativan), 1 MG PO DAILY, (Reported) Metformin Hcl* (Glucophage*), 2 TAB PO BIDAC, (Reported) Pantoprazole Sodium (PROTONIX tablet), 1 TAB PO DAILY, (Reported) Polyethylene Glycol 3350 (Miralax), 17 GM PO DAILY, (Reported) Sotalol Hcl* (Betapace*), 80 MG PO BID Scheduled PRN Hydrocodone Bit/Acetaminophen (Hydrocodone-Apap 10-325 Tablet), 1 TABLET PO Q8H PRN for pain ONDANSETRON ODT 4mg tablet (Ondansetron Odt), 1 TAB PO Q6H PRN for nausea/vomiting, (Reported) Past Medical History Past Medical History: *CARDIOVASCULAR*, Arrhythmia, High Cholesterol, Bowel Obstruction, GERD, Inflammatory Bowel Dz, Peptic Ulcer Disease, Hernia, UTI, Diabetes, Thyroid (unspecified) Past Surgical History: abdominal surgery, cholecystectomy, hysterectomy, other Smoking: Quit greater than 1 year, Cigarettes, Less than 1 pack/day Alcohol Use: Sober Drug Use: none Lives with: Family, Other Lives In: Home Occupation: employed, unemployed Review of Systems ROS 10 point review of systems was performed and unless noted above in HPI is negative for acute process/complaint. Physical Exam Physical Exam Vital Signs: Temperature: 97.6, Source: Temporal, Heart Rate: 86, Respiratory Rate: 18, BP: 159/99, Pulse Oximetry: 99, Weight: 80.900 Oxygen Flow Rate: 0 Physical Exam GENERAL: Awake, alert, oriented, GCS 15, no apparent distress, non-toxic appearing, answers questions, follows commands appropriately. Examined in bed 1. HEENT: Atraumatic, normocephalic, pupils equal, extraocular muscles intact, sclerae anicteric, mucus membranes moist, oropharynx is clear, no stridor. NECK: supple, full active range of motion, trachea midline, no thyromegaly, no lymphadenopathy, no JVD. CARDIOVASCULAR: regular rate/rhythm, no murmurs/gallops/rubs, Pulses are 2+ in all extremities and symmetric. Capillary refill less than 2 seconds. PULMONARY: Nonlabored, good air movement ,no respiratory distress, speaking in full sentences, clear to auscultation bilaterally, no wheezing, no ronchi, no rales, no accessory muscle use. GASTROINTESTINAL: Soft, diffuse tenderness to palpation without guarding or rebound reproducing chief complaint, non-distended, normal active bowel sounds, no organomegaly, no pulsatile masses, no CVA tenderness. NEUROLOGIC: Lucid with normal mental status. Normal facial symmetry. Moves all extremities symmetrically and with purpose. No truncal ataxia. Speech is fluid without evidence of dysarthria or aphasia, no focal deficits appreciated. MUSCULOSKELETAL: There is full range of motion of all extremities. There is no joint pain or joint swelling or joint erythema. There is no muscle pain or tenderness or swelling. EXTREMITIES: warm, well-perfused, no cyanosis, no clubbing, no edema, no acute deformities. Skin: warm, dry, no rashes or lesions, no jaundice, no petechiae orpurpura. No ecchymosis. PSYCHIATRIC: Normal affect, normal insight, normal concentration. Focused exam: [] Progress Results/Orders Results/Orders Orders - ARIAN LEVIN DO Straight Cath For Urine Sample (02/25/25 00:10) Monitor (02/25/25:32) Saline Lock (02/25/25:32) Ct Abdomen Pelvis (02/25/25:32) Completed Orders - ARIAN LEVIN DO Urinalysis, Cult If Indicated (02/25/25:10) Hcg, Ur Ql (02/25/25 00:10) Cbc/Diff (02/25/25:10) BMP (02/25/25 00:10) Lipase (02/25/25 00:10) CMP (02/25/25 00:10) Lacticsepsis (02/25/25:32) ESR (02/25/25:32) Normal Saline 1000ml (0.9% Sodium Chlori (02/25/25 00:35) Ct Abdomen Pelvis (02/25/25:32) Hs Troponin I W Calculations (02/25/25:32) Diatr Meglu/Diatrizoate 30ml (Gastrograf (02/25/25 00:35) Prochlorperazine Inj (Compazine Inj) (02/25/25 00:35) Morphine 4mg/Ml Inj. (Morphine Inj.) (02/25/25 00:35) C-Reactive Protein (02/25/25 00:21) Ketorolac Trometh 30mg/Ml Vial (Toradol (02/25/25 02:25) Iohexol 300mg/Ml 100ml Inj. (Omnipaque-3 (02/25/25 03:38) Medications Received in ER Medications (Trade) Dose Ordered Sig/Aaron Route PRN Reason Start Time Stop Time Status Last Admin Dose Admin (0.9% sodium chloride (NS) 1000ml IV soln) 1,000 ml ONCE ONCE IVB 02/25/25 00:35 02/25/25 00:38 DC 02/25/25 01:13 1,000 ML (Gastrografin 66-10 oral solution) 10 ml Q45M PO 02/25/25 00:35 02/25/25 02:06 DC 02/25/25 03:52 10 ML (Compazine inj) 10 mg ONCE ONCE IV 02/25/25 00:35 02/25/25 00:38 DC 02/25/25 01:12 10 MG (morphine inj.) 4 mg ONCE ONCE IV 02/25/25 00:35 02/25/25 00:38 DC 02/25/25 01:12 4 MG (Toradol inj. 30mg/ml) 30 mg ONCE ONCE IV 02/25/25 02:25 02/25/25 02:26 DC 02/25/25 03:52 30 MG Vital Signs 02/25/25 02/25/25 02/25/25 02/25/25 00:05 01:12 01:24 03:52 Temp 97.6 Pulse 86 78 Resp 18 18 18 18 B/P (MAP) 159/99 126/83 (97) Pulse Ox 99 99 O2 Flow Rate 0 0 Laboratory Tests Test 02/25/25 00:21 02/25/25 01:56 White Blood Count 7.9 Red Blood Count 4.21 Hemoglobin 12.6 Hematocrit 36.5 Mean Corpuscular Volume 86.8 Mean Corpuscular Hemoglobin 30.0 Mean Corpuscular Hemoglobin Concent 34.5 Red Cell Distribution Width 14.1 Platelet Count 554 H Mean Platelet Volume 6.7 L Neutrophils (%) (Auto) 40.5 L Lymphocytes (%) (Auto) 48.7 Monocytes (%) (Auto) 9.5 Eosinophils (%) (Auto) 0.5 Basophils (%) (Auto) 0.8 Neutrophils # (Auto) 3.2 Lymphocytes # (Auto) 3.8 Monocytes # (Auto) 0.7 Eosinophils # (Auto) 0.0 Basophils # (Auto) 0.1 CBC Comment Erythrocyte Sedimentation Rate 28 H Sodium Level 134 L Potassium Level 4.0 Chloride Level 99 Carbon Dioxide Level 29.1 Anion Gap 6 L Blood Urea Nitrogen 8 Creatinine 0.75 Estimated GFR/1.73 m2 83 BUN/Creatinine Ratio 10.7 Glucose Level 114 H Lactic Acid Level 0.9 Calcium Level 8.9 Total Bilirubin 0.5 Aspartate Amino Transf (AST/SGOT) 20 Alanine Aminotransferase (ALT/SGPT) 23 Alkaline Phosphatase 47 Troponin I High Sensitivity < 4 L Troponin I High Sens Percent Delta Troponin I Hi Sens Absolute Change C-Reactive Protein 0.15 Total Protein 8.6 H Albumin 3.7 Globulin 4.9 H Albumin/Globulin Ratio 0.8 L Lipase 45 Chemistry Comments Urine Specimen Description Non-specified Urine Color Yellow Urine Clarity Clear Urine pH 6.0 Urine Specific [place] 1.010 Urine Protein Negative Urine Glucose (UA) Negative Urine Ketones Negative Urine Occult Blood Negative Urine Nitrite Negative Urine Bilirubin Negative Urine Urobilinogen 1.0 Urine Leukocyte Esterase Negative Urine Culture Indicated Not ind Volume Urine Centrifuged 10 ml Urine HCG, Qualitative Negative Urine Comment Medical Decision Making Additional information obtaine: old records, other Findings Facility Status: ED Holds, [facility] process The plan was discussed with the patient, who demonstrates clear understanding of the plan and is in agreement with the plan unless otherwise noted in the chart. All questions have been answered, all concerns were addressed unless otherwise documented. I was available throughout their ED stay for frequent reassessment and questions. Differential Diagnoses (considered and possible or likely): [Differential diagnosis considered includes acute appendicitis, acute cholecystitis, pancreatitis, gastritis, PUD, diverticulitis, mesenteric ischemia, abdominal aortic aneurysm, bowel obstruction, enteritis, colitis, fecal impaction, volvulus, IBS, inflammatory bowel disease, specific food intolerance, peritonitis, perforated viscous, malignancy, UTI, abscess, and abdominal pain NOS. Pelvic source of pain was also considered including endometritis, dysmenorrhea, ovarian cyst, ovarian torsion, PID, TOA, cervicitis, vaginitis, or uterine fibroid. History, physical exam, and workup exclude many of the more serious causes listed above. ] ??Differential Diagnoses (considered and unlikely, not requiring evaluation cu rrently): [Aortic/great vessels dissection was considered but it is unlikely based on absence of ripping, tearing, migratory chest pain, absence of syncope or focal neurologic deficits, physical examination indicating equal and symmetric pulses.] MDM Data Please see HPI for the following: Independent Historians and external Records Review. Historian: [Patient] Independent Historians: ?[Record review] Medication Management: [Reviewed medication list] Social History and determinants: [Reviewed] Please see the body of the note for the following: Any independent interpretations of ECG, imaging studies. All vitals signs/haemodynamics, ordered tests were independently reviewed and interpreted by myself. Nursing triage complaint and vitals reviewed, additional nursing notes were reviewed as available and I agree unless otherwise noted or documented in contradiction in the chart Vital Signs: Independently reviewed Labs: Independently interpreted Imaging: Independently interpreted Old Medical Records: Independently reviewed, see HPI for relevant summary and information Pulse Oximetry: [97%] interpreted as [normal on room air] by me [Athletic Shoe Designer: [Regular Rate, Regular rhythm, no ectopy, NSR] reviewed and interpreted by me] Additionally notably showing: [Hemodynamics reviewed. The patient isn't febrile, not tachycardic, no evidence of hypotension respiratory distress. CBC normal. There was no leukocytosis, no anemia, slightly elevated platelets noted. ESR is minimally elevated. Chemistry is unremarkable. Lipase is normal. Troponin is negative. Lactic acid is negative decreasing suspicion for mesenteric ischemia or tissue ischemia. UA nondiagnostic for UTI. She is not . Considerably ongoing complaint and reports of no flatus, the advanced imaging was repeated based on shared decision-making with the patient. It shows no acute intra-abdominal process. There is moderate umbilical hernia containing fat and fluid. When compared to the image that I had obtained three days ago at [facility], there was no significant change.] Tests considered but not ordered include: [Ultrasound has been considerably she is status post cholecystectomy] Social Determinants of Health Impact: Patient was evaluated in [facility], [facility] [place] access to healthcare due to below par ratio of patient to medical providers. [] Comorbid Conditions Impacting Present Evaluation and Care/Treatment: [None reported with the patient] Management Discussions with other Healthcare Providers: [None] Treatment and Disposition Medication Management (Given or considered): [Nausea and pain management]. See EMR for details Consideration for Hospitalization/Escalation/Deescalation of Care: Admission for observation has been considered, [however the patient is able to tolerate p.o., their symptoms are controlled, they are able to rely on oral medications, and their chief complaint/diagnosis can be managed on outpatient basis.] ?ED Course:?[No clinical deterioration. Patient is sleeping very comfortably.] ?Shared decision making:?[Patient is hemodynamically stable for discharge home with follow with their primary care provider. [ ] Specific and cautious return precautions provided and discussed with full understanding. Any incidental findings were also discussed and follow up recommendations given. [] All questions answered. Patient/family were able to verbalize back return precautions. Patient/family agree to plan. Copies of imaging and laboratory studies were provided.] Code status:?FULL Please see the full Electronic Medical Record for full details of nursing documentation, medications list, other records of complete past medical history and conditions, vital signs, laboratory studies, and any radiologic study interpretations by radiologists. Portions of this note were completed using [employer] dictation software and as a result there may exist minor errors in spelling. I have reviewed elements of past family and social history and agree as included in note. Differential Diagnosis See the body of main note Departure Disposition: HOME / SELF CARE / HOMELESS Impression: Primary Impression: Abdominal pain Additional Impressions: Umbilical hernia without obstruction and without gangrene Nausea and vomiting Condition: Stable Discharge Instructions: Umbilical Granuloma Additional Instructions: You need to follow-up with general surgeon of your choice for your umbilical hernia repair. Currently on a CT it did not contain any bowel, there was no evidence of bowel obstruction. It does however contain fat and fluid. At some point in time, you will need to have this hernia repaired. Referrals: NO PRIMARY CARE PROVIDER (PCP) SHELDON MANSFIELD MD 2 days Follow-up with the general surgeon of your choice Prescriptions Prochlorperazine Maleate (Compazine) 10 Mg Tablet 1 TAB PO Q6H for 7 Days, #28 TAB 0 Refills Prov: ARIAN LEVIN DO 02/25/25 Education Educated: Patient Educated regarding: diagnosis, treatment, prognosis, need for follow up Signature Scribe Signature: No scribe Attestation: Date: Feb 25, 2025 Time: 00:39 This note accurately reflects clinical decisions, work performed by myself, Arian Levin, ARIAN CARRASQUILLO DO Feb 25, 2025 00:39
[2025-02-25 00:47] LABS: CREATININE 0.75 MG/DL (0.40-0.90); TOTAL CARBON DIOXIDE 29.1 MMOL/L (24-32); eCRCL 74 ML/MIN; eGFR 83 ML/MIN
[2025-02-25] MEDS: diatr meglu/diatrizoate 30ml oral sol.-(3 dose) bottle PO SCH (01:12)
[2025-02-25] MEDS: morphine 4 MG/ML inj SYRINge IV ONE (01:12)
[2025-02-25] MEDS: normal saline 1000ML IV soln IVB ONE (01:13)
[2025-02-25 02:14] LABS: URINE HCG NEGATIVE (NEG)
[2025-02-25 02:38] LABS: LEUKOCYTE ESTERASE ,URINE NEGATIVE (Neg); NITRITES, URINE NEGATIVE (Neg); OCCULT BLOOD,URINE NEGATIVE (Neg)
[2025-02-25 02:39] LABS: UA COLLECTION TYPE NON-SPECIFIED
[2025-02-25] MEDS ORDERED: iohexol 300mg/ml 100ml inj. ONE (03:38)
--- NOTE | 2025-02-25 03:41 | RADIOLOGY REPORT ---
Exam: CT CT ABDOMEN PELVIS W/ IV ORAL CONTRAST History: R sided abd pain, n/v, no BM/flatus COMPARISON: CT CT ABDOMEN PELVIS on DOS: 12/22/24, CT CT ABDOMEN PELVIS on DOS: 11/01/24, CT CT ABDOMEN PELVIS W/ IV CONTRAST on DOS: 10/18/24, CT CT ABDOMEN PELVIS W/ IV CONTRAST on DOS: 10/11/24, CT CT ABDOMEN PELVIS W/ IV CONTRAST on DOS: 10/03/24 Technique: Multidetector spiral CT of the abdomen and pelvis was performed from lung bases to pubic symphysis. Intravenous contrast was administered during this examination. Portal venous imaging was obtained. Axial, coronal and sagittal multiplanar reformats were performed by the technologist on a separate workstation. Radiation Dose : 1. Abdomen/Pelvis: CTDIvol 28.53 mGy, DLP 1484.57 mGy*cm. CONTRAST: Type of contrast: Omnipaque 300 Contrast injected: 100 ml Findings: Lung Bases: No acute or significant lung base finding. Normal heart size. No pleural or pericardial effusion. Liver: The liver is enlarged, measuring 20.6 cm in craniocaudal dimension. No focal lesions. Normal hepatic vascular enhancement. Gallbladder and Biliary Tree: Mild reservoir effect status post cholecystectomy. Spleen: Unremarkable Pancreas: The pancreas is normal in appearance without focal lesions or abnormal enhancement. Adrenal Glands: Unremarkable Kidneys: No hydronephrosis. Bladder: Unremarkable Bowel: The stomach is grossly normal in appearance. Attained colorectal stool. Small bowel and colon are otherwise normal in caliber and distribution. The appendix is normal. Ascites: Absent Lymphadenopathy: No mesenteric, retroperitoneal or periportal lymphadenopathy. Abdominal Wall and Mesentery: Moderate umbilical hernia containing fat and fluid. Vasculature: The visualized abdominal aorta is normal in size and caliber. Abdominal and pelvic vessels demonstrate normal enhancement. Pelvic Organs: Unremarkable status post hysterectomy. Musculoskeletal: No aggressive focal bony lesions, acute fractures or dislocation. IMPRESSION: 1. No acute abdominal or pelvic finding. 2. Moderate umbilical hernia containing fat and fluid. 3. Hepatomegaly. 4. Retained colorectal stool. Radiation optimization: All CT scans at this facility use at least one of these dose optimization techniques: automated exposure control mA and/or kV adjustment per patient size (includes targeted exams where dose is matched to clinical indication) or iterative reconstruction.
[2025-02-25] MEDS: ketorolac trometh 30MG/ML vial 30 MG/ML VIAL IV ONE (03:52)
[2025-02-25] MEDS ORDERED: PROC-8 PO (04:20)
[2025-02-25 04:36] VITALS: BP 132/80; PULSE 70; RESP 18; TEMP 98.1; O2SAT 99
== END 2025-02-25 05:01 | disposition home or self-care (01) ==
LOC: ER 02-25
DX: K42.9 Umbilical hernia without obstruction or gangrene (principal); R11.2 Nausea with vomiting, unspecified; E78.00 Pure hypercholesterolemia, unspecified; E11.9 Type 2 diabetes mellitus without complications; K21.9 Gastro-esophageal reflux disease without esophagitis; Z88.2 Allergy status to sulfonamides; Z90.710 Acquired absence of both cervix and uterus; Z90.49 Acquired absence of other specified parts of digestive tract; Z91.040 Latex allergy status; Z87.440 Personal history of urinary (tract) infections; Z87.11 Personal history of peptic ulcer disease; Z79.84 Long term (current) use of oral hypoglycemic drugs; Z79.899 Other long term (current) drug therapy; Z56.0 Unemployment, unspecified
CPT/HCPCS: 36415; 74177; 80053; 81003; 81025; 83605; 83690; 84484; 85025; 85651; 86140; 96361; 96374; 96375; 99285; J0780; J1885; J2270; J7030; Q9963; Q9967

== ENCOUNTER 2025-03-01 14:53 | Emergency (ER) | payer MEDICAID ==
[~2025-03-01] VITALS: Ht 157.5 cm; Wt 83.7 kg
[~2025-03-01 14:53] MED LIST changes: +PROC-8 PO
--- NOTE | 2025-03-01 15:14 | ELECTROCARDIOGRAPH REPORT ---
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 Raffy Douglas Measurements Intervals [place] Rate: 70 P: 45 WV: 126 QRS: 31 QRSD: 93 T: 59 QT: 420 QTc: 454 Interpretive Statements Sinus rhythm Abnormal R-wave progression, early transition Baseline wander in lead(s) V3 Electronically Signed On 03-06-2025 20:45:[address] Raffy Douglas Please click the below link to view image of tracing.
[2025-03-01 15:33] LABS: MEAN PLATELET VOLUME 7.2 FL (7.4-10.4); RED CELL DISTRIBUTION WIDTH 14.1 % (11.5-14.5)
--- NOTE | 2025-03-01 15:33 | Physician Documentation ---
History of Present Illness ~ Chief Complaint: Weakness Stated Complaint: LIGHT HEADED Time Seen by MD: 15:33 OK to notify your PCP?: Yes Primary Medical Doctor: DONIS HPI 44-year-old female, reported diagnosis of POTS, presenting with headache, dizziness, and general malaise. She tells me that she was recently seen in the emergency department for similar symptoms. She also recently was diagnosed and treated for strep throat, finished her antibiotics yesterday. She says that over the last week she has been having worsening pots episodes. She states that she has had frequent lightheadedness and dizziness. She has been having a constant headache for about 1 month. She reports feeling sweaty and fatigued. She has not been eating well and has vomited several times. She denies any congestion. No productive cough. She has had some neuro stools but no diarrhea. No dysuria. Medication Reconciliation Allergies: Coded Allergies: Sulfa (Sulfonamide Antibiotics) (Verified Allergy, Unknown, 03/01/25) latex (Verified Allergy, Unknown, 03/01/25) Scheduled Amox Tr/Potassium Clavulanate 875/125 MG (Augmentin 875/125 MG), 1 TAB PO Q12H Amoxicillin Trihydrate (Amoxicillin), 2 CAP PO BID Cholecalciferol (Vitamin D3) (Vitamin D3), 1 CAP PO DAILY, (Reported) Duloxetine HCl (Duloxetine HCl), 1 CAP PO BID, (Reported) Escitalopram Oxalate (Escitalopram Oxalate), 1 TAB PO DAILY, (Reported) Fenofibrate,Micronized (Fenofibrate), 1 CAP PO DAILY, (Reported) Lorazepam (Ativan), 1 MG PO DAILY, (Reported) Metformin Hcl* (Glucophage*), 2 TAB PO BIDAC, (Reported) Pantoprazole Sodium (PROTONIX tablet), 1 TAB PO DAILY, (Reported) Polyethylene Glycol 3350 (Miralax), 17 GM PO DAILY, (Reported) Prochlorperazine Maleate (Compazine), 1 TAB PO Q6H Sotalol Hcl* (Betapace*), 80 MG PO BID Scheduled PRN Hydrocodone Bit/Acetaminophen (Hydrocodone-Apap 10-325 Tablet), 1 TABLET PO Q8H PRN for pain ONDANSETRON ODT 4mg tablet (Ondansetron Odt), 1 TAB PO Q6H PRN for nausea/vomiting, (Reported) Past Medical History Past Medical History: *CARDIOVASCULAR*, Arrhythmia, High Cholesterol, Bowel Obstruction, GERD, Inflammatory Bowel Dz, Peptic Ulcer Disease, Hernia, UTI, Diabetes, Thyroid (unspecified) Past Surgical History: abdominal surgery, cholecystectomy, hysterectomy, other Patient History: Patient reports no known family medical history. Alcohol Use: Sober Drug Use: none Lives with: Family, Other Lives In: Home Occupation: employed, unemployed Review of Systems Constitutional: Reports: diaphoresis, weakness; Denies: fever Cardiovascular: Reports: lightheadedness; Denies: chest pain, syncope Physical Exam Vital Signs: Temperature: 97.2, Source: Temporal, Heart Rate: 70, Respiratory Rate: 18, BP: 134/89, Pulse Oximetry: 99, Weight: 83.700 Oxygen Flow Rate: 0 Physical Exam General: This is a tired appearing middle-aged woman, not in distress HEENT: Atraumatic, oropharynx appears dry Heart: Regular rate and rhythm, normal-appearing peripheral perfusion Lungs: normal work of breathing, normal oxygen saturation on room air Abdomen: Soft, nondistended, no significant focal tenderness, the patient reports mild generalized discomfort on palpation, no rebound or guarding Neuro: Alert and oriented Psychiatric: Anxious and appears uncomfortable Progress Results/Orders Results/Orders Orders - LIZETTE HANEY MD Urinalysis, Cult If Indicated (03/01/25 16:03) Completed Orders - LIZETTE HANEY MD Electrocardiogram (03/01/25 ) PBNP (03/01/25 15:01) Cbc/Diff (03/01/25 15:01) Normal Saline 1000ml (0.9% Sodium Chlori (03/01/25 15:45) Normal Saline 1000ml (0.9% Sodium Chlori (03/01/25 15:45) Ketorolac Trometh 15mg/Ml Vial (Toradol (03/01/25 15:45) Prochlorperazine Inj (Compazine Inj) (03/01/25 15:45) CMP (03/01/25 15:11) MG (03/01/25 15:11) Morphine 4mg/Ml Inj. (Morphine Inj.) (03/01/25 17:25) Medications Received in ER Medications (Trade) Dose Ordered Sig/Aaron Route PRN Reason Start Time Stop Time Status Last Admin Dose Admin Sodium Chloride 1,000 ml @ 1,000 mls/hr ONCE ONCE IV 03/01/25 15:45 03/01/25 16:44 DC 03/01/25 16:07 1,000 MLS/HR (Toradol injection) 15 mg ONCE ONCE IV 03/01/25 15:45 03/01/25 15:46 DC 03/01/25 16:03 15 MG (Compazine inj) 5 mg ONCE ONCE IV 03/01/25 15:45 03/01/25 15:46 DC 03/01/25 16:03 5 MG Vital Signs 03/01/25 03/01/25 03/01/25 03/01/25 14:58 15:42 15:42 16:03 Temp 97.2 Pulse 70 81 Resp 18 18 19 18 B/P (MAP) 134/89 158/115 (129) Pulse Ox 99 99 O2 Flow Rate 0 0 03/01/25 16:09 Pulse 67 Resp 18 B/P (MAP) 118/86 (97) Pulse Ox 96 O2 Flow Rate 0 Laboratory Tests Test 03/01/25 15:11 White Blood Count 6.8 Red Blood Count 4.00 L Hemoglobin 11.9 L Hematocrit 35.3 Mean Corpuscular Volume 88.2 Mean Corpuscular Hemoglobin 29.8 Mean Corpuscular Hemoglobin Concent 33.7 Red Cell Distribution Width 14.1 Platelet Count 401 Mean Platelet Volume 7.2 L Neutrophils (%) (Auto) 44.1 Lymphocytes (%) (Auto) 46.0 Monocytes (%) (Auto) 9.2 Eosinophils (%) (Auto) 0.3 Basophils (%) (Auto) 0.4 Neutrophils # (Auto) 3.0 Lymphocytes # (Auto) 3.2 Monocytes # (Auto) 0.6 Eosinophils # (Auto) 0.0 Basophils # (Auto) 0.0 CBC Comment Sodium Level 137 Potassium Level 4.1 Chloride Level 100 Carbon Dioxide Level 27.5 Anion Gap 10 Blood Urea Nitrogen 8 Creatinine 0.81 Estimated GFR/1.73 m2 76 BUN/Creatinine Ratio 9.9 L Glucose Level 121 H Calcium Level 8.6 Magnesium Level 1.6 Total Bilirubin 0.4 Aspartate Amino Transf (AST/SGOT) 15 Alanine Aminotransferase (ALT/SGPT) 20 Alkaline Phosphatase 37 L Pro-B-Type Natriuretic Peptide 112 Total Protein 7.6 Albumin 3.4 Globulin 4.2 Albumin/Globulin Ratio 0.8 L Chemistry Comments EKG/XRAY/CT/US/VASC/MRI EKG : Additional Comment I personally interpreted the EKG and this shows: Sinus rhythm, rate 70, QTC 454, no STEMI Medical Decision Making Additional information obtaine: old records Findings Reviewed previous records from recent ER visit Differential Dx:Considerations: Include: anemia, dehydration, dysrhythmia, el ectrolyte imbalance, hypotension Additional Information The patient presents with headache, dizziness, and reported vomiting. She has a history of recurrent episodes recently and has been seen in the emergency department recently for similar. She had a recent head CT that was unremarkable. Her labs are also unremarkable. She was given aggressive IV fluids for hydration and for possible pots syndrome. She was given pain and nausea medicine for her headache. After this she did feel better. No dangerous cause identified for her symptoms. She will be discharged home with ongoing outpatient management. Departure Time of Disposition: 17:24 Disposition: 01 HOME / SELF CARE / HOMELESS Impression: Primary Impression: Dehydration Additional Impressions: Dizziness Headache Condition: Improved Discharge Instructions: Dehydration, Adult Referrals: NO PRIMARY CARE PROVIDER (PCP) Education Educated: Patient Educated regarding: diagnosis, need for follow up Signature Scribe Signature: na Attestation: LIZETTE Castellanos MD Mar 01, 2025 15:33
[2025-03-01 15:54] LABS: PRO BRAIN NATRIURETIC PEPTIDE 112 PG/ML (0-125)
[2025-03-01] MEDS: ketorolac trometh 15mg/ml vial 15 MG/ML ML IV ONE (16:03)
[2025-03-01] MEDS: normal saline 1000ml 1,000 ML IV ONE ×2 (16:07→17:31)
[2025-03-01 16:39] LABS: CREATININE 0.81 MG/DL (0.40-0.90); TOTAL CARBON DIOXIDE 27.5 MMOL/L (24-32); eCRCL 69 ML/MIN; eGFR 76 ML/MIN
[2025-03-01] MEDS: morphine 4 MG/ML inj SYRINge IV ONE (17:32)
[2025-03-01 17:37] VITALS: BP 132/87; PULSE 78; RESP 16; TEMP 98.4; O2SAT 98
== END 2025-03-01 17:42 | disposition home or self-care (01) ==
LOC: ER 14:53
DX: E86.0 Dehydration (principal); R42 Dizziness and giddiness; R51.9 Headache, unspecified; K21.9 Gastro-esophageal reflux disease without esophagitis; E11.9 Type 2 diabetes mellitus without complications; E78.00 Pure hypercholesterolemia, unspecified; Z56.0 Unemployment, unspecified; Z88.2 Allergy status to sulfonamides; Z87.440 Personal history of urinary (tract) infections; Z87.11 Personal history of peptic ulcer disease; Z90.49 Acquired absence of other specified parts of digestive tract; Z91.040 Latex allergy status; Z90.710 Acquired absence of both cervix and uterus; Z79.899 Other long term (current) drug therapy
CPT/HCPCS: 36415; 80053; 83735; 83880; 85025; 93005; 96361; 96374; 96375; 99284; J0780; J1885; J2270; J7030

== ENCOUNTER 2025-03-14 10:36 | Inpatient (IN) | payer MEDICAID ==
[~2025-03-14] VITALS: Ht 157.5 cm; Wt 85.7 kg
[~2025-03-14 10:36] MED LIST changes: -AMOX-101 PO; -AMOX-580 PO
[2025-03-14 11:03] LABS: LEUKOCYTE ESTERASE ,URINE NEGATIVE (Neg); NITRITES, URINE NEGATIVE (Neg); OCCULT BLOOD,URINE NEGATIVE (Neg)
[2025-03-14 11:03] LABS: MEAN PLATELET VOLUME 6.9 FL (7.4-10.4); RED CELL DISTRIBUTION WIDTH 15.3 % (11.5-14.5)
[2025-03-14 11:04] LABS: UA COLLECTION TYPE CLN CATCH MIDSTREAM
[2025-03-14 11:05] LABS: URINE HCG NEGATIVE (NEG)
[2025-03-14 11:21] LABS: CREATININE 0.70 MG/DL (0.40-0.90); TOTAL CARBON DIOXIDE 27.9 MMOL/L (24-32); eCRCL 79 ML/MIN; eGFR 90 ML/MIN
--- NOTE | 2025-03-14 11:38 | Physician Documentation ---
History of Present Illness Chief Complaint: Abdominal Pain w/vomiting Stated Complaint: ABDOMINAL PAIN/NAUSEA Time Seen by MD: 11:02 Primary Medical Doctor: DONIS RUBALCAVA 44-year-old female presents to the ED with the acute onset severe mid epigastric abdominal pain. She does have a already established umbilical hernia and Dr. Foley is her surgeon who intends to repair it in the outpatient setting. Denies any fevers she reports vomiting a history of bowel obstruction states everything she does causes her abdominal pain whether it is coughing or moving States she has been having bowel movements and has does not complain of diarrhea. Day of Onset: Mar 14, 2025 Medication Reconciliation Allergies: Coded Allergies: Sulfa (Sulfonamide Antibiotics) (Verified Allergy, Unknown, 03/14/25) latex (Verified Allergy, Unknown, 03/14/25) Scheduled Cholecalciferol (Vitamin D3) (Vitamin D3), 1 CAP PO DAILY, (Reported) Duloxetine HCl (Duloxetine HCl), 1 CAP PO BID, (Reported) Escitalopram Oxalate (Escitalopram Oxalate), 1 TAB PO DAILY, (Reported) Fenofibrate,Micronized (Fenofibrate), 1 CAP PO DAILY, (Reported) Lorazepam (Ativan), 1 MG PO DAILY, (Reported) Metformin Hcl* (Glucophage*), 2 TAB PO BIDAC, (Reported) Pantoprazole Sodium (PROTONIX tablet), 1 TAB PO DAILY, (Reported) Polyethylene Glycol 3350 (Miralax), 17 GM PO DAILY, (Reported) Prochlorperazine Maleate (Compazine), 1 TAB PO Q6H Sotalol Hcl* (Betapace*), 80 MG PO BID Scheduled PRN Hydrocodone Bit/Acetaminophen (Hydrocodone-Apap 10-325 Tablet), 1 TABLET PO Q8H PRN for pain ONDANSETRON ODT 4mg tablet (Ondansetron Odt), 1 TAB PO Q6H PRN for nausea/vo miting, (Reported) Discontinued Medications Amoxicillin Trihydrate (Amoxicillin), 2 CAP PO BID Discontinued Reason: Auto Discontinued Past Medical History Past Medical History: *CARDIOVASCULAR*, Arrhythmia, High Cholesterol, Bowel Obstruction, GERD, Inflammatory Bowel Dz, Peptic Ulcer Disease, Hernia, UTI, Diabetes, Thyroid (unspecified) Past Surgical History: abdominal surgery, cholecystectomy, hysterectomy, other Patient History: Patient reports no known family medical history. Alcohol Use: Sober Drug Use: none Lives with: Family, Other Lives In: Home Occupation: employed, unemployed Review of Systems All Other Systems at this time: Reviewed and Negative ROS As stated above in the HPI, otherwise all systems are reviewed and negative. Physical Exam Vital Signs: Temperature: 96.5, Source: Temporal, Heart Rate: 75, Respiratory Rate: 12, BP: 149/81, Pulse Oximetry: 99, Weight: 85.700 Oxygen Flow Rate: 0 Physical Exam General: Alert, gaurding. Respiratory: Lungs clear, no respiratory distress. Chest: No accessory muscle use. Cardiovascular: Regular rate and rhythm, no murmurs. Gastrointestinal: Soft, tender midepigastric distended Neurologic: Oriented x4. Psychiatric: Normal mood and affect. Skin: Normal color, warm and dry. No edema, no ecchymosis. Progress Results/Orders Results/Orders Completed Orders - JULIAN ROCA APPOINTMENT MANAGER Morphine 4mg/Ml Inj. (Morphine Inj.) (03/14/25 11:30) Ondansetron Inj. (Zofran 4mg/2ml Vial) (03/14/25 11:30) Vital Signs 03/14/25 03/14/25 03/14/25 10:40 11:07 11:09 Temp 96.5 Pulse 76 75 Resp 16 12 12 B/P (MAP) 197/105 149/81 (103) Pulse Ox 100 99 O2 Flow Rate 0 0 Laboratory Tests Test 03/14/25 10:43 03/14/25 10:52 Urine Specimen Description Cln catch midstream Urine Color Yellow Urine Clarity Clear Urine pH 7.0 Urine Specific [place] <=1.005 Urine Protein Negative Urine Glucose (UA) Negative Urine Ketones Negative Urine Occult Blood Negative Urine Nitrite Negative Urine Bilirubin Negative Urine Urobilinogen 0.2 Urine Leukocyte Esterase Negative Urine Culture Indicated Not ind Volume Urine Centrifuged 10 ml Urine HCG, Qualitative Negative Urine Comment White Blood Count 11.7 H Red Blood Count 4.35 Hemoglobin 12.9 Hematocrit 38.6 Mean Corpuscular Volume 88.9 Mean Corpuscular Hemoglobin 29.7 Mean Corpuscular Hemoglobin Concent 33.4 Red Cell Distribution Width 15.3 H Platelet Count 405 Mean Platelet Volume 6.9 L Neutrophils (%) (Auto) 58.8 Lymphocytes (%) (Auto) 34.0 Monocytes (%) (Auto) 5.8 Eosinophils (%) (Auto) 0.5 Basophils (%) (Auto) 0.9 Neutrophils # (Auto) 6.9 Lymphocytes # (Auto) 4.0 Monocytes # (Auto) 0.7 Eosinophils # (Auto) 0.1 Basophils # (Auto) 0.1 CBC Comment Sodium Level 134 L Potassium Level 4.2 Chloride Level 99 Carbon Dioxide Level 27.9 Anion Gap 7 L Blood Urea Nitrogen 8 Creatinine 0.70 Estimated GFR/1.73 m2 90 BUN/Creatinine Ratio 11.4 Glucose Level 123 H Calcium Level 9.0 Total Bilirubin 0.4 Aspartate Amino Transf (AST/SGOT) 19 Alanine Aminotransferase (ALT/SGPT) 24 Alkaline Phosphatase 61 Total Protein 8.4 H Albumin 3.7 Globulin 4.7 H Albumin/Globulin Ratio 0.8 L Lipase 34 Chemistry Comments Medical Decision Making Additional information obtaine: N/A Findings I discussed this case with Dr. Foley. The patient currently has a mildly elevated white count which could be attributed to vomiting. I was mostly concerned about her umbilical hernia combined with the abdominal pain. He advised that he is well aware this patient and stated that her abdominal pain could not be caused by the hernia that he has already evaluated. He suggested working her up in the ED to find the cause of her abdominal pain. Her recent CT indicated that she does have a fat containing umbilical hernia After rescanning the patient there was no change to stranding however the CT radiologist's indicated there was a possible infarct or strangulation at the umbilical hernia. Remains hemodynamically stable pain is somewhat controlled via morphine. Patient has been NPO since yesterday due to vomiting. Consulted with Dr. Foley he agrees to correct the hernia while patient is at the hospital in the inpatient status Patient will remain NPO Differential Dx:Considerations: Appendicitis, Bowel obstruction, Constipation Departure Disposition: ADMITTED INPATIENT Impression: Primary Impression: Ventral hernia Additional Impression: Umbilical hernia without obstruction and without gangrene Condition: Stable Referrals: NO PRIMARY CARE PROVIDER (PCP) Signature Scribe Signature: t Attestation: Scribed for Julian Roca [employer] Admin by Julian Kelly NP . 03/14/25 11:37 JULIAN ROCA NP Mar 14, 2025 11:38
[2025-03-14] MEDS: morphine 4 MG/ML inj SYRINge IV ONE (11:58)
[2025-03-14] MEDS: ondansetron/PF 4mg/2ml inj IV ONE (11:58)
[2025-03-14] MEDS ORDERED: iohexol 300mg/ml 100ml inj. ONE (12:40)
--- NOTE | 2025-03-14 13:22 | RADIOLOGY REPORT ---
Indication: sever abd pain prexisiting umbilical; hernia Comparison: CT CT ABDOMEN PELVIS W/ IV ORAL CONTRAST on DOS: 02/25/25, Technique: Helical axial scans were performed through the abdomen and pelvis with iodinated intravenous contrast. Subsequently, coronal and sagittal reformations were obtained. Dose lowering techniques have been used including automated exposure control and adjustment of mA and/or kv according to patient size. FINDINGS: LUNGS BASES: Clear LIVER: Hepatomegaly. SPLEEN: Normal GALLBLADDER: Surgically absent. PANCREAS: Normal ADRENAL GLANDS: Normal KIDNEYS: No hydronephrosis or obstructing renal stone. GI: No bowel dilation or wall thickening. Normal appendix. LYMPH NODES: Normal VASCULAR STRUCTURES: Normal BLADDER: Normal PELVIC ORGAN: Normal FREE AIR OR FREE FLUID: None OSSEOUS STRUCTURES: Multilevel degenerative changes of the spine. SOFT TISSUES: Slight size increase of previously seen moderate umbilical hernia containing fat and fluid, currently measuring 5.9 x 3.2 cm and previously 5.0 x 2.6 cm. Stranding of the herniated fat and adjacent mesentery is unchanged. DLP is 1470.9 mGy-cm. CTDI vol is 30.7 mGy. IMPRESSION: 1. Slight size increase of previously seen moderate umbilical hernia containing fat and fluid. 2. Unchanged stranding of the herniated fat and adjacent mesentery. Fat strangulation/omental infarct possible.
[2025-03-14] MEDS ORDERED: morphine 4 MG/ML inj SYRINge IV ONE (13:55)
[2025-03-14] MEDS ORDERED: ondansetron/PF 4mg/2ml inj IV PRN (14:05)
[2025-03-14] MEDS ORDERED: labetalol 20mg/4ml (5mg/ml) syringe IV PRN (14:05)
[2025-03-14] MEDS ORDERED: enalaprilat 1.25mg/ml 2ml vial IV PRN (14:05)
[2025-03-14] MEDS ORDERED: morphine 4 MG/ML inj SYRINge IV PRN (14:05)
[2025-03-14] MEDS ORDERED: HYDROmorphone/PF 0.2 MG/ML SYRINGE IV PRN ×2 (14:05)
[2025-03-14] MEDS ORDERED: fentaNYL/PF 50MCG/1 ML 2ML syringe IV PRN ×2 (14:05)
[2025-03-14] MEDS: ringers solution, lacted 1,000 ML IV SCH (14:20)
[2025-03-14] MEDS ORDERED: LIDOcaine 1% 30ml preserv. free vial ONE (14:29)
[2025-03-14] MEDS ORDERED: BUPIVAcaine 2.5mg/ml inj 50ml vial (contains preservative) ONE (14:29)
--- NOTE | 2025-03-14 14:34 | HISTORY AND PHYSICAL-Residence ---
History & Physical Providers to CC Resident Creating Document: BRANDYJANETTPaulaRODRIGO STEPHEN ~ History of Present Illness Primary Medical Doctor: DONIS Reason for Admit\Complaint: Abdominal pain and vomiting since 1 week History of Present Illness Here is a 44-year-old female with medical history uterine cancer s/p hysterectomy presented to the ER with chief complaints of abdominal pain and vomiting since 1 week. She says the pain is not relieved and is constant in nature and rates it on a scale of 10/10. The pain is around the umbilicus and describes radiating to the back. She has been having multiple episodes of vomiting since a week. She feels nauseous and describes the vomitus as a dark brown/yellow colored. She is unable to keep any food or liquids down. She has a history of umbilical hernia that was strangulated and caused bowel obstruction and underwent surgery for the same with Dr. Foley 4-5 months back. She has been having multiple episodes of abdominal pain on and off for the past 3 months. She had a normal bowel movement twice earlier today. She has no loose stools, no dark brown stools, No hematemesis, no weight loss, or loss of appetite, no jaundice,pruritus or changes in bowel habits. No history of alcohol abuse, NSAIDs use or chronic liver disease. No recent antibiotic use, or travel history, or sick contacts. Allergies: Coded Allergies: Sulfa (Sulfonamide Antibiotics) (Verified Allergy, Unknown, 03/14/25) latex (Verified Allergy, Unknown, 03/14/25) Active prescriptions Sotalol 80 mg b.i.d Metformin Home Medications Home Medications Active Compazine (Prochlorperazine Maleate) 10 Mg Tablet 1 Tab PO Q6H 7 Days Hydrocodone-Apap 10-325 Tablet (Acetaminophen/Hydrocodone Bitart) 10mg/325mg Tablet 1 Tablet PO Q8H PRN Betapace* (Sotalol HCl) 80 Mg Tablet 80 Mg PO BID 30 Days Reported Vitamin D3 (Cholecalciferol (Vitamin D3)) 25 Mcg (1000 Unit) Tablet 1 Cap PO DAILY Ativan (Lorazepam) 1 Mg Tablet 1 Mg PO DAILY Escitalopram Oxalate 10 Mg Tablet 1 Tab PO DAILY Fenofibrate (Fenofibrate,Micronized) 134 Mg Capsule 1 Cap PO DAILY Ondansetron Odt (Ondansetron HCl) 4 Mg Tab.rapdis 1 Tab PO Q6H PRN Duloxetine HCl 60 Mg Capsule. 1 Cap PO BID 30 Days PROTONIX tablet (Pantoprazole Sodium) 40 Mg Tablet.dr 1 Tab PO DAILY 30 Days Miralax (Polyethylene Glycol 3350) 17 Gram/Dose Powder 17 Gm PO DAILY dissolve in water Glucophage* (Metformin HCl) 500 Mg Tablet 2 Tab PO BIDAC Past Medical History Past Medical History During , she had multiple episodes of bilateral ear infections and pneumonia. Twelve sets of tympanostomy tubes were placed for the same. She has postural orthostatic tachycardia syndrome (POTS). She had an episode of diverticulitis in December that was treated. She underwent a colonoscopy on January 12 and 3 polyps were found and removed. She was diagnosed with SVT in October and is following up with Dr. Abdul. She is on sotalol 80 mg b.i.d. for the same. Past Surgical History Surgical History Comment She is s/p hysterectomy and bilateral salpingo-oophorectomy for uterine cancer that was diagnosed in August. Following up with her oncologist. She underwent a cholecystectomy in 2016. She had a surgery in her neck for cervical disc prolapse. Family History Family History: FH: HTN (hypertension) Hypertriglyceridemia Past Social History Social History Comment She smoked for 15 years, 2-3 cigarettes a day. Quit 4 years ago. She quit alcohol 10 years ago. Earlier was a social drinker. No illicit drug use. Lives with a cousin and an adopted daughter. 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 Her primary care is Dr. Dahl from [facility]. Smoking: Quit greater than 1 year, Cigarettes, Less than 1 pack/day Alcohol Use: None Drug Use: None Lives with: Family, Other Lives In: Home, Other Occupation: employed ROS All Other Systems: Reviewed and Negative Exam Vitals: Vital Signs Date Time Temp Pulse Resp B/P (MAP) Pulse Ox O2 Delivery O2 Flow Rate FiO2 03/14/25 14:13 15 03/14/25 13:57 76 98 0 03/14/25 10:40 96.5 General: General: Patient awake, oriented to time place person. Not in acute distress HEENT: Conjunctiva pink, Sclera clear, Mucus Membranes moist. Neck: Supple without masses and tenderness. Resp: Unlabored. No adventitious breath sounds heard. Heart: Regular Rate and rhythm, normal S1 and S2 without murmur, rub or gallop. Abdomen: Soft, diffuse tenderness. No protrusion of any mass seen. No guarding or rigidity. No rebound tenderness. Extremities: No cyanosis,clubbing or edema. Skin: Warm and Dry. Neurology: Cranial nerves 2-12 intact. No focal motor or sensory deficits. Psychiatric: Normal mood and affect. Diagnostic Data Last Recorded Lab Results: 03/14/25 1052 03/14/25 1052 Advance Care Planning Advanced Care plannin - 30 Minutes (Full code) Additional Plan Assessment- 44-year-old female patient presented to the ER with chief complaint of abdominal pain and vomiting since 1 week. Acute abdominal pain Umbilical hernia Concern for possible fat strangulation Increased WBC count 11.7, procal normal Lactic acid normal Vitals stable CT scan abdomen pelvis shows 1. Slight size increase of previously seen moderate umbilical hernia containing fat and fluid. 2. Unchanged stranding of the herniated fat and adjacent mesentery. Fat strangulation/omental infarct possible. Surgery has been consulted. Patient NPO Mild hyponatremia- Na- 134 Patient on NS 100 cc/hour We will continue to monitor her sodium levels. CODE STATUS: Full code DVT prophylaxis: Heparin subQ GI prophylaxis: None Diet: NPO Disposition: Surgery has been consulted, Dr. Foley aware of the patient. Will likely be taken for surgery. Currently NPO Patient seen, examined, discussed with attending Md Dr Sai White PGY-1 Date of Service: Mar 14, 2025 Billing Provider: TETE ZAPATA MD Common Visit Codes: 32142-[id number] INP/OBS CARE (HIGH) Secondary Visit Codes: 59664-[id number] CARE PLAN 30 MINUTES RODRIGO WHITE, RES Mar 14, 2025 14:34 TETE ZAPATA MD Mar 16, 2025 06:37
[2025-03-14] MEDS ORDERED: magnesium hydroxide 30ml (MOM) UD suspension PO PRN (14:40)
[2025-03-14] MEDS ORDERED: HYDROcodone/acetaminophen 5mg/325mg tablet PO PRN (14:40)
[2025-03-14] MEDS ORDERED: potassium Cl 40MEQ/1/2NS 520ml 520 ML IV PRN (14:40)
[2025-03-14] MEDS ORDERED: magnesium sulf-water 4G/100mL 100 ML IV PRN (14:40)
[2025-03-14] MEDS ORDERED: potassium Cl 20 mEq SR tablet PO PRN ×2 (14:40)
[2025-03-14] MEDS ORDERED: magnesium Cl slow-release 64mg tablet PO PRN (14:40)
[2025-03-14] MEDS ORDERED: magnesium sulf-water 2g/50mL 50 ML IV PRN (14:40)
[2025-03-14] MEDS ORDERED: mag hydrox/Alum hydrox/simeth 30ml oral suspension PO PRN (14:40)
[2025-03-14 15:11] LABS: PRO BRAIN NATRIURETIC PEPTIDE 75 PG/ML (0-125)
[2025-03-14 18:00] VITALS: BP 148/94; PULSE 71; RESP 18; TEMP 97.9; O2SAT 97
[2025-03-14] MEDS: HYDROcodone/acetaminophen 10/325mg tab PO PRN (18:04)
[2025-03-14] MEDS: normal saline 1000ml 1,000 ML IV SCH (18:07)
[2025-03-14 20:00] VITALS: RESP 18; O2SAT 97
[2025-03-14] MEDS: K and/or MAG REPLACEMENT MC SCH (20:00)
[2025-03-14] MEDS: docusate sod 100mg capsule PO SCH (20:00)
[2025-03-14] MEDS: heparin, porcine 5000 units/ml vial SQ SCH (20:05)
[2025-03-14 22:00] VITALS: BP 106/51; PULSE 80; RESP 18; TEMP 97.6; O2SAT 96
--- NOTE | 2025-03-14 22:36 | CONSULTATION REPORT ---
History of Present Illness Providers to CC CC: SHELDON MANSFIELD MD ~ Reason for Admit\Admit Dx: Abdominal pain and vomiting since 1 week Refering MD: DONIS History of Present Illness Patient admitted with severe periumbilical pain I am August of this year patient underwent laparoscopic-assisted vaginal hysterectomy. During that case, surgeon states that she noted an infraumbilical hernia that was reduced. She presented to the emergency room four weeks later with incarcerated incisional hernia with small-bowel obstruction. She underwent robotic assisted, laparoscopic reduction and repair by me at that time. No mesh was used given the fact that the bowel was so edematous. Over the past couple of months she has developed severe periumbilical pain. Repeat CT scans have shown small hernias at both the umbilicus and a small recurrence at the repaired incisional hernia. She also has a seroma that has not yet resolved. She was admitted today with severe periumbilical pain in hopes that her hernias could be repaired. Allergies: Coded Allergies: Sulfa (Sulfonamide Antibiotics) (Verified Allergy, Unknown, 03/14/25) latex (Verified Allergy, Unknown, 03/14/25) Home Medications Home Medications Active Compazine (Prochlorperazine Maleate) 10 Mg Tablet 1 Tab PO Q6H 7 Days Hydrocodone-Apap 10-325 Tablet (Acetaminophen/Hydrocodone Bitart) 10mg/325mg Tablet 1 Tablet PO Q8H PRN Betapace* (Sotalol HCl) 80 Mg Tablet 80 Mg PO BID 30 Days Reported Vitamin D3 (Cholecalciferol (Vitamin D3)) 25 Mcg (1000 Unit) Tablet 1 Cap PO DAILY Ativan (Lorazepam) 1 Mg Tablet 1 Mg PO DAILY Escitalopram Oxalate 10 Mg Tablet 1 Tab PO DAILY Fenofibrate (Fenofibrate,Micronized) 134 Mg Capsule 1 Cap PO DAILY Ondansetron Odt (Ondansetron HCl) 4 Mg Tab.rapdis 1 Tab PO Q6H PRN Duloxetine HCl 60 Mg Capsule.dr 1 Cap PO BID 30 Days PROTONIX tablet (Pantoprazole Sodium) 40 Mg Tablet.dr 1 Tab PO DAILY 30 Days Miralax (Polyethylene Glycol 3350) 17 Gram/Dose Powder 17 Gm PO DAILY dissolve in water Glucophage* (Metformin HCl) 500 Mg Tablet 2 Tab PO BIDAC Past Medical History Medical History Comment Depression Anxiety Reflux Chronic pain Cardiac dysrhythmia Past Surgical History Surgical History Comment Laparoscopic cholecystectomy Laparoscopic-assisted vaginal hysterectomy Laparoscopic reduction and repair of incisional hernia Past Family History Family History Comment Non contributory Family History: FH: HTN (hypertension) Hypertriglyceridemia Past Social History Social History Comment Not applicable Health Maintenance Health Maintenance Not applicable Physical Exam Last Vital Signs Recorded: RN Vital Signs have been reviewed: Yes, Temperature: 96.5, Source: Temporal, Heart Rate: 76, Respiratory Rate: 16, BP: 147/86, Pulse Oximetry: 98, Weight: 85.700 General Appearance: alert, WD/WN EENT: PERRL/EOMI Neck: normal inspection Respiratory: lungs clear Cardiovascular: regular rate, rhythm Gastrointestinal Soft and nondistended Periumbilical pain with no erythematous changes Small umbilical hernia Infraumbilical fullness Rectal: deferred Back: normal inspection, no CVA tenderness Extremities: normal range of motion, no edema Neurologic: oriented x4 Psychiatric: depressed affect Skin: normal color Lymphatic: no adenopathy Results Diagram Lab Result Diagram: 03/14/25 1052 03/14/25 1052 Assessment/Plan Problems/Diagnosis: (1) Recurrent incisional hernia (2) Umbilical hernia Assessment & Plan: The risks, benefits, and alternatives to robotic assisted, laparoscopic recurrent incisional and umbilical hernia repairs with mesh were discussed with the patient. Risks include, but are not limited to, bleeding, infection, injury to intra-abdominal structures, hernia recurrence and chronic postoperative pain. Patient verbalized understanding and wishes to proceed with surgery. We will do so tomorrow. SHELDON MANSFIELD MD Mar 14, 2025 22:36
[2025-03-15] VITALS (22 sets, daily range): BP systolic 118–164; BP diastolic 66–94; PULSE 74–106; RESP 13–18; TEMP 97.5–98.2; O2SAT 95–99
[2025-03-15 04:40] LABS: MEAN PLATELET VOLUME 7.2 FL (7.4-10.4); RED CELL DISTRIBUTION WIDTH 15.4 % (11.5-14.5)
[2025-03-15 04:46] LABS: APTT 26 SECONDS (22-32); INR 1.0 INR
[2025-03-15 04:53] LABS: CHOL/HDL RATIO 4.1 (0.00-4.99); CREATININE 0.67 MG/DL (0.40-0.90); LDL CHOLESTEROL 81 MG/DL (50-100); TOTAL CARBON DIOXIDE 29.6 MMOL/L (24-32); eCRCL 83 ML/MIN; eGFR > 90 ML/MIN
--- NOTE | 2025-03-15 06:52 | RADIOLOGY REPORT ---
CHEST RADIOGRAPH Indication: pre-op Technique: Single frontal view of the chest was obtained COMPARISON: DI CHEST,SINGLE VIEW on DOS: 02/09/25, DI CHEST,SINGLE VIEW on DOS: 02/06/25, DI CHEST,SINGLE VIEW on DOS: 01/06/25, DI CHEST,SINGLE VIEW on DOS: 01/02/25, DI CHEST,SINGLE VIEW on DOS: 12/27/24 FINDINGS: Lungs and pleural spaces are clear. Cardiac silhouette and day are within normal limits. Bones and soft tissues demonstrate no significant abnormality. IMPRESSION: No acute disease.
--- NOTE | 2025-03-15 08:02 | ELECTROCARDIOGRAPH REPORT ---
[facility] Test Date: 2025-03-15 Test Time: 07:59:55 Pat Name: MEGAN SOTELO Department: [facility] 3N Patient ID: [id number] Room: [place] [id number] B Gender: F Board Of Directors: RACHEL : 1980 Requested By: SHELDON MANSFIELD Order Number: [id number] Reading MD: Dr. WEST Abdul Measurements Intervals [place] Rate: 72 P: 42 TX: 117 QRS: 73 QRSD: 88 T: 75 QT: 408 QTc: 447 Interpretive Statements Sinus rhythm Borderline short [place] interval Electronically Signed On 03-15-2025 17:36:[address] WEST Abdul Please click the below link to view image of tracing.
[2025-03-15] MEDS: HYDROmorphone inj. 0.5 MG/0.5 ML DISP.SYRIN IV PRN (12:14)
[2025-03-15] MEDS: albuterol 2.5 MG/3 ML nebule NEB ONE (14:06)
[2025-03-15] MEDS: sodium polystyrene sulfonate 15gm/60ml oral suspension PO SCH (16:00)
[2025-03-15] MEDS ORDERED: LIDOcaine 1% (10mg/ml)w/preservative inj. 20ml MDV ONE (16:20)
[2025-03-15] MEDS ORDERED: BUPIVAcaine/PF 2.5mg/ml (0.25%) 10ml vial ONE ×2 (16:20→16:22)
--- NOTE | 2025-03-15 17:22 | PROGRESS NOTE- Residence ---
Progress Note - Resident Providers to CC Resident Creating Document: RODRIGO WHITE RES ~ Antibiotic Timeout Antibiotic Ordered?: No Subjective Patient was seen and examined at the bedside today. Patient was complaining of abdominal pain, giving Dilaudid 0.5 q.4h. No acute overnight events recorded. Patient will be taken for surgery today by Dr. Foley. Objective Vital Signs Date Time Temp Pulse Resp B/P (MAP) Pulse Ox O2 Delivery O2 Flow Rate FiO2 03/15/25 17:01 80 164/94 (117) 96 03/15/25 16:00 98.2 14 Room Air 03/15/25 14:12 0.0 03/15/25 14:07 21 Result Diagram: 03/15/2535103/15/25 035 General: Patient awake, oriented to time place person. HEENT: Conjunctiva pink, Sclera clear, Mucus Membranes moist. Neck: Supple without masses and tenderness. Resp: Unlabored. No adventitious breath sounds heard. Heart: Regular Rate and rhythm, normal S1 and S2 without murmur, rub or gallop. Abdomen: Soft, diffuse tenderness. No protrusion of any mass seen. No guarding or rigidity. No rebound tenderness. Extremities: No cyanosis,clubbing or edema. Skin: Warm and Dry. Neurology: Cranial nerves 2-12 intact. No focal motor or sensory deficits. Psychiatric: Normal mood and affect. Coagulation Studies Laboratory Tests Test 03/15/25 03:52 Prothrombin Time 10.4 SECONDS (9.0-12.0) INR International Normalized Ratio 1.0 INR Activated Partial Thromboplast Time 26 SECONDS (22-32) Coagulation Comments Plan Plan Acute abdominal pain Umbilical hernia Concern for possible fat strangulation WBC count back to normal- 9.3 Lactic acid normal Vitals stable CT scan abdomen pelvis shows 1. Slight size increase of previously seen moderate umbilical hernia containing fat and fluid. 2. Unchanged stranding of the herniated fat and adjacent mesentery. Fat strangulation/omental infarct possible. Patient taken for surgery by Dr. Foley. Patient's abdominal pain is being managed by Dilaudid 0.5, [place] 5 mg. Hyperkalemia- Patient's potassium- 5.4 Given albuterol Also wanted to start Kayexalate, but as the patient was going to the surgery, senior java architect did not want the ordered to be placed. We will continue to monitor her potassium levels. Mild hyponatremia- Na- 134 Patient on NS 100 cc/hour We will continue to monitor her sodium levels. CODE STATUS: Full code DVT prophylaxis: Heparin subQ GI prophylaxis: None Diet: NPO Disposition: Patient taken for surgery by Dr. Foley. Patient seen, examined, discussed with attending Md Dr Sai White PGY-1 Date of Service: Mar 15, 2025 Billing Provider: TETE ZAPATA MD Common Visit Codes: [id number] INP/OBS CARE(HIGH) RODRIGO WHITE, RES Mar 15, 2025 17:22 TETE ZAPATA MD Mar 16, 2025 06:38
[2025-03-15] MEDS: ceFAZolin 2gm/dext,iso 50mL 50 ML IV ONE (17:42)
[2025-03-15] MEDS ORDERED: hydrALAZINE 20mg/ml inj. IV PRN (17:45)
[2025-03-15] MEDS ORDERED: morphine 4 MG/ML inj SYRINge IV PRN (17:45)
[2025-03-15] MEDS ORDERED: labetalol 20mg/4ml (5mg/ml) syringe IV PRN (17:45)
[2025-03-15] MEDS ORDERED: ondansetron/PF 4mg/2ml inj IV PRN (17:45)
[2025-03-15] MEDS ORDERED: HYDROmorphone/PF 0.2 MG/ML SYRINGE IV PRN (17:45)
[2025-03-15] MEDS ORDERED: fentaNYL/PF 50MCG/1 ML 2ML syringe ONE (17:46)
[2025-03-15] MEDS ORDERED: midazolam 1 mg/ML 2ml injection ONE (17:47)
[2025-03-15] MEDS ORDERED: propofol inj 20 ML IV ONE (17:48)
[2025-03-15] MEDS ORDERED: rocuronium 10mg/ml inj IV ONE (17:48)
[2025-03-15] MEDS ORDERED: dexamethasone sod phosphate 4mg/ml inj. ONE (18:55)
[2025-03-15] MEDS ORDERED: glycopyrrolate 0.2mg/ml inj ONE (18:55)
[2025-03-15] MEDS ORDERED: HYDROmorphone inj. 0.5 MG/0.5 ML DISP.SYRIN IV PRN (19:15)
[2025-03-15] MEDS ORDERED: PCA WASTE DOCUMENTATION 1 MG ML MC SCH (19:15)
[2025-03-15] MEDS: acetaminophen 1,000mg/100ml IV 100 ML IV PRN (19:27)
--- NOTE | 2025-03-15 19:28 | OPERATIVE REPORT ---
Operative Report Providers to CC CC: RD MANSFIELD MD ~ Date of Procedure: Mar 15, 2025 Pre-Operative Diagnosis: Umbilical hernia, recurrent incisional hernia Post-Operative Diagnosis 4 cm recurrent incisional hernia 1 cm ventral hernia Procedure Performed Robotic assisted, laparoscopic recurrent 4 cm incisional hernia repair with mesh Robotic assisted, laparoscopic 1 cm ventral hernia repair with mesh Bilateral transversus abdominis plane nerve blocks by injection Surgeon: Rd Mansfield MD FACS Inspector Soldering None Anesthesiologist: Sage Wolf Type of Anesthesia: General Findings: Omentum containing recurrent incisional hernia just below the umbilicus with seroma and moderate hernia sac Small incidental ventral hernia about 2 cm above the umbilicus. Wound Class I Complications NONE Prosthetics\Implants used: 10 x 17 cm coated polyester mesh Estimated Blood Loss: Minimal Specimen Removed: Suture material Description of Procedure: Patient was brought to the operating room and identified by the nursing staff and the attending physician. Patient was placed supine and a general anesthesia was induced. Preoperative antibiotics were given. The abdomen was prepped and draped in the standard sterile fashion. Through a left subcostal stab incision the abdomen was accessed with a Veress needle technique. Abdomen was insufflated without incident. The incision was lengthened to accommodate a 12 mm optical trocar and the abdomen was entered under laparoscopic visualization. The abdomen was surveyed laparoscopically. Omentum was tented up to the anterior abdominal wall and herniated through a fascial defect. Under laparoscopic visualization, robotic trochars were placed in the left lateral and left lower quadrant. The da John robotic arm was docked to the patient and instruments guided intra-abdominally under laparoscopic visualization. Closer inspection revealed that omentum was herniated between sutures in a previously repaired midline fascial defect. Attempts at reducing the omentum were unsuccessful and suture was cut. Fascial defect measured 4 cm in diameter and ischemic appearing omentum was reduced. There was moderate amount of serous fluid within a moderate-sized hernia sac that appeared chronic in nature. Just above the umbilicus there was a 1 x 1 cm fascial defect consistent with ventral hernia or hernia related to previous laparoscopic port site. Fascial defect(s) were then reapproximated with running, long-absorbable, 0V lock suture. Good fascial apposition was obtained without significant tension. Attempts at including portions of the chronic hernia sac were made. Some success was achieved, however, the entire hernia sac could not be reduced given its tunneling nature and fibrotic chronic status. A coated polyester mesh was then fixed to the anterior abdominal wall with running, absorbable, 2/0, V lock suture. Mesh laid without wrinkles or folds. The mesh measured 10 x 17 cm The da John instruments were then removed and the robot undocked from the patient. Bilateral transversus abdominis plane nerve blocks by injection were then placed under laparoscopic visualization using a combination of Marcaine and 266 mg of Exparel. The left subcostal trocar was removed and its fascia closed percutaneously with 0 Vicryl suture under laparoscopic visualization. Remaining trochars were removed after the abdomen was allowed to deflate. Skin was closed at all sites with 4-0 Monocryl sutures and dressed with sterile dressings. Patient was awakened and taken to the postanesthesia care unit in stable condition. Counts repoted as correct: Yes RD MANSFIELD MD Mar 15, 2025 19:28
[2025-03-15] MEDS: HYDROmorphone/PF 0.2 MG/ML SYRINGE IV PRN (19:31)
[2025-03-15] MEDS: ringers solution, lacted 1,000 ML IV SCH (20:37)
[2025-03-15] MEDS: ondansetron/PF 4mg/2ml inj IV PRN (21:06)
[2025-03-16 02:00] VITALS: BP 138/76; PULSE 87; RESP 16; TEMP 98.7; O2SAT 97
[2025-03-16 05:11] LABS: MEAN PLATELET VOLUME 6.7 FL (7.4-10.4); RED CELL DISTRIBUTION WIDTH 15.5 % (11.5-14.5)
[2025-03-16 05:22] LABS: CREATININE 0.68 MG/DL (0.40-0.90); TOTAL CARBON DIOXIDE 25.2 MMOL/L (24-32); eCRCL 82 ML/MIN; eGFR > 90 ML/MIN
[2025-03-16 06:00] VITALS: BP_SYST 138; BP_SYST 38; BP_DIAS 78; PULSE 83; RESP 14; TEMP 97.9; O2SAT 98
[2025-03-16] MEDS ORDERED: ondansetron 4mg rapidly disintigrating tab PO PRN (08:15)
[2025-03-16 08:28] VITALS: RESP 14; O2SAT 98
[2025-03-16] MEDS: ESCITALOPRAM 10 mg tablet 10 MG TABLET PO SCH (08:28)
[2025-03-16 10:00] VITALS: BP 127/60; PULSE 82; RESP 16; TEMP 99; O2SAT 96
--- NOTE | 2025-03-16 12:28 | PROGRESS NOTE- Residence ---
Progress Note - Resident Providers to CC Resident Creating Document: PADMINI GODOYEDMOND, RES ~ Antibiotic Timeout Antibiotic Ordered?: No Subjective The patient has been evaluated at bedside. The patient reports abdominal pain 6/10 in intensity-well controlled with pain medication. The patient reports one normal bowel movement this morning. Objective Vital Signs Date Time Temp Pulse Resp B/P (MAP) Pulse Ox O2 Delivery O2 Flow Rate FiO2 03/16/25 08:29 14 03/16/25 08:28 98 Room Air 03/16/25 06:00 97.9 83 138/78 (98) 03/16/25 02:00 2.0 03/15/25 14:07 21 Physical exam: General: Awake, alert, oriented. No acute distress. Well-developed, hydrated and well-built nourished. No anemia, Jaundice or clubbing. HEENT: Conjunctive are pink, sclerae clear, no icterus, pupil is equal in both sides, reactive to light, no ear discharge, no pharyngeal erythema or an edema. Neck: Supple, no adenopathy, thyromegaly. Trachea is midline. No JVD. Chest: Respiratory: Vesicular breath sounds. No ronchi, crepitus or wheezing. Resonance is normal upon percussion of all lung reyes. Cardiovascular: S1-S2 regular sinus rhythm and, regular rate, no gallops, no rubs, no murmurs Abdomen: No visible distention, Bowel sounds present on auscultation, on palpation: soft, mild tenderness, no guarding, no rigidity, presence of clean dressing in the left side of the abdomen from surgery. Extremities: No obvious deformities, no pitting edema bilaterally, capillary refill intact, peripheral pulsations are intact on both sides Neurologic: Mental status: alert and conscious, oriented to place, person and time, preserved memory, normal speech. Cranial nerves I-XII: Normal. Motor system: Preserved power, coordination, no evidenced involuntary movements, strength 5/5 in four extremities. Sensory system: Preserved temperature, pain and vibration sensation. Skin: Warm and dry. Result Diagram: 03/16/25 0445 03/16/25 0445 Coagulation Studies Laboratory Tests Test 03/15/25 03:52 Prothrombin Time 10.4 SECONDS (9.0-12.0) INR International Normalized Ratio 1.0 INR Activated Partial Thromboplast Time 26 SECONDS (22-32) Coagulation Comments Assessment Assessment 44-year-old female patient presented to the hospital with chief complaint of abdominal pain. Plan Plan Acute abdominal pain Umbilical hernia, recurrent incisional hernia s/p laparoscopic recurrent incisional hernia repair with mesh on 03/15/2025 The patient presented to the hospital with chief complaint of abdominal pain, CT scan of the abdomen was obtained which showed slight size increase of previously seen moderate umbilical hernia containing fat and fluid. Unchanged stranding of the herniated fat and adjacent mesentery. Fat strangulation/omental infarct possible. General surgeon was consulted who performed Robotic assisted, laparoscopic recurrent 4 cm incisional hernia repair with mesh. Robotic assisted, laparoscopic 1 cm ventral hernia repair with mesh on 03/15/2024. Today the patient reports moderate pain in the level of the surgical area well controlled with pain medication. Tolerating diet, reported one bowel movement this morning. Pain control with Percocet 10 mg q.4h PRN for moderate or severe pain. Dilaudid for breakthrough pain. Hyperkalemia-resolved: Current potassium levels within reference range. Continue to monitor with CMP. Mild hyponatremia-resolved: Sodium levels within reference range. Discontinue IV fluids today. H/O SVT: Continue sotalol 80 mg b.i.d.. Code status: Full code DVT prophylaxis: Heparin Analgesia/sedation: Percocet/Dilaudid Line/tube: PIV GI prophylaxis: None Nutrition: Full liquid diet advance as tolerated. PT: The patient is able to walk independently. Prognosis: Guarded Disposition: Continue medical management, plan for discharge home when cleared by surgeon. Edmond Godoy Internal Medicine Resident [facility] Date of Service: Mar 16, 2025 Billing Provider: TETE ZAPATA MD,EDMOND HERNANDEZ, RES Mar 16, 2025 12:28
[2025-03-16] MEDS ORDERED: OXYC-150 PO (16:46)
--- NOTE | 2025-03-16 19:05 | DISCHARGE SUMMARY-Residence ---
Discharge Summary Providers to CC Resident Creating Document: PADMINI PANKAJEDMOND Preciado, RES ~ Discharge Summary Admission Diagnosis: Umbilical hernia, recurrent incisional hernia Hospital Course DATE OF ADMISSION: 03/14/2025 DATE OF DISCHARGE: 03/16/2025 Discharge Diagnosis\Comment: Acute abdominal pain Umbilical hernia, recurrent incisional hernia s/p laparoscopic recurrent incisional hernia repair with mesh on 03/15/2025 Hyperkalemia-resolved Mild hyponatremia-resolved H/O SVT Operations\Procedures: Robotic assisted, laparoscopic recurrent 4 cm incisional hernia repair with mesh Robotic assisted, laparoscopic 1 cm ventral hernia repair with mesh Bilateral transversus abdominis plane nerve blocks by injection Consultants: General surgeon Complications: None Condition on DC: Stable Continued Medications: Cholecalciferol (Vitamin D3) (Vitamin D3) 25 Mcg (1000 Unit) Tablet 1 CAP PO DAILY Duloxetine HCl (Duloxetine HCl) 60 Mg Capsule.dr 1 CAP PO BID for 30 Days, #30 CAP 0 Refills Escitalopram Oxalate (Escitalopram Oxalate) 10 Mg Tablet 1 TAB PO DAILY Fenofibrate,Micronized (Fenofibrate) 134 Mg Capsule 1 CAP PO DAILY Lorazepam (Ativan) 1 Mg Tablet 1 MG PO DAILY Metformin Hcl* (Glucophage*) 500 Mg Tablet 2 TAB PO BIDAC, TAB ONDANSETRON ODT 4mg tablet (Ondansetron Odt) 4 Mg Tab.rapdis 1 TAB PO Q6H PRN for nausea/vomiting Pantoprazole Sodium (PROTONIX tablet) 40 Mg Tablet.dr 1 TAB PO DAILY for 30 Days, #30 TAB 0 Refills Polyethylene Glycol 3350 (Miralax) 17 Gram/Dose Powder 17 GM PO DAILY for constipation, #255 GM 0 Refills dissolve in water Prochlorperazine Maleate (Compazine) 10 Mg Tablet 1 TAB PO Q6H for 7 Days, #28 TAB 0 Refills Sotalol Hcl* (Betapace*) 80 Mg Tablet 80 MG PO BID for 30 Days, #30 TAB Discontinued Medications: Hydrocodone Bit/Acetaminophen (Hydrocodone-Apap 10-325 Tablet) 10mg/325mg Tablet 1 TABLET PO Q8H PRN for pain, #10 TABLET Discharge Summary: HPI: Here is a 44-year-old female with medical history uterine cancer s/p hysterectomy presented to the ER with chief complaints of abdominal pain and vomiting since 1 week. She says the pain is not relieved and is constant in nature and rates it on a scale of 10/10. The pain is around the umbilicus and describes radiating to the back. She has been having multiple episodes of vomiting since a week. She feels nauseous and describes the vomitus as a dark brown/yellow colored. She is unable to keep any food or liquids down. She has a history of umbilical hernia that was strangulated and caused bowel obstruction and underwent surgery for the same with Dr. Foley 4-5 months back. She has been having multiple episodes of abdominal pain on and off for the past 3 months. She had a normal bowel movement twice earlier today. She has no loose stools, no dark brown stools, No hematemesis, no weight loss, or loss of appetite, no jaundice,pruritus or changes in bowel habits. No history of alcohol abuse, NSAIDs use or chronic liver disease. No recent antibiotic use, or travel hist ory, or sick contacts. Hospital course: 44-year-old female patient presented to the hospital with chief complaint of abdominal pain and vomiting. CT scan of the abdomen was obtained which showed slight size increase of previously seen moderate umbilical hernia containing fat and fluid. Unchanged stranding of the herniated fat and adjacent mesentery. Fat strangulation/omental infarct is possible. General surgeon was consulted regarding this findings who recommended surgical repair during this admission. The patient underwent laparoscopic hernia repair with mesh placement on 03/15/2025. Upon the following day the patient reported one normal bowel movement, the patient is home independent, completely able to walk by herself. General surgeon, Dr. Foley assessed the patient who mentioned that the patient is cleared to be discharged home. The patient is tolerating regular diet, stable, the patient will be discharged home. Discharge course: The patient remained hemodynamically stable. The patient will be discharged with the following instructions: Activity as tolerated No lifting greater than 15 pounds for 4 weeks May remove Band-Aids two days after surgery Leave Steri-Strips in place for 10-14 days May shower after Band-Aids removed Abdominal binder is for comfort reasons only. Wear at your discretion. Leave bandages in place for 10-14 days Diet as tolerated Call Dr. Foley's office to schedule 2-3 week appointment Call [phone] Do not make any legal or monetary decisions for the next [address] for the next 24 hours. Continue your home medication as described above. Percocet 10 mg every 8 hours as needed for [id number] pain. Physical exam: General: Awake, alert, oriented. No acute distress. Well-developed, hydrated and well-built nourished. No anemia, Jaundice or clubbing. HEENT: Conjunctive are pink, sclerae clear, no icterus, pupil is equal in both sides, reactive to light, no ear discharge, no pharyngeal erythema or an edema. Neck: Supple, no adenopathy, thyromegaly. Trachea is midline. No JVD. Chest: Respiratory: Vesicular breath sounds. No ronchi, crepitus or wheezing. Resonance is normal upon percussion of all lung reyes. Cardiovascular: S1-S2 regular sinus rhythm and, regular rate, no gallops, no rubs, no murmurs Abdomen: No visible distention, Bowel sounds present on auscultation, on palpation: soft, mild tenderness, no guarding, no rigidity, presence of clean dressing in the left side of the abdomen from surgery. Extremities: No obvious deformities, no pitting edema bilaterally, capillary refill intact, peripheral pulsations are intact on both sides Neurologic: Mental status: alert and conscious, oriented to place, person and time, preserved memory, normal speech. Cranial nerves I-XII: Normal. Motor system: Preserved power, coordination, no evidenced involuntary movements, strength 5/5 in four extremities. Sensory system: Preserved temperature, pain and vibration sensation. Skin: Warm and dry. Vital Signs Date Time Temp Pulse Resp B/P (MAP) Pulse Ox O2 Delivery O2 Flow Rate FiO2 03/16/25 10:00 99.0 82 16 127/60 (82) 96 Room Air 03/16/25 02:00 2.0 03/15/25 14:07 21 Laboratory Tests Test 03/15/25 03:52 03/15/25 08:40 03/15/25 13:56 03/15/25 16:33 White Blood Count 9.3 X10'3 Red Blood Count 4.06 X10'6 Hemoglobin 12.1 g/dl Hematocrit 36.2 % Mean Corpuscular Volume 89.2 FL Mean Corpuscular Hemoglobin 29.9 PG Mean Corpuscular Hemoglobin Concent 33.5 g/dL Red Cell Distribution Width 15.4 % Platelet Count 369 X10'3 Mean Platelet Volume 7.2 FL Neutrophils (%) (Auto) 49.6 % Lymphocytes (%) (Auto) 38.7 % Monocytes (%) (Auto) 10.5 % Eosinophils (%) (Auto) 0.8 % Basophils (%) (Auto) 0.4 % Neutrophils # (Auto) 4.6 X10'3 Lymphocytes # (Auto) 3.6 X10'3 Monocytes # (Auto) 1.0 X10'3 Eosinophils # (Auto) 0.1 X10'3 Basophils # (Auto) 0.0 X10'3 CBC Comment Prothrombin Time 10.4 SECONDS INR International Normalized Ratio 1.0 INR Activated Partial Thromboplast Time 26 SECONDS Coagulation Comments Sodium Level 134 MMOL/L Potassium Level 5.4 MMOL/L Chloride Level 101 MMOL/L Carbon Dioxide Level 29.6 MMOL/L Anion Gap 3 Blood Urea Nitrogen 9 MG/DL Creatinine 0.67 MG/DL Estimated GFR/1.73 m2 > 90 ML/MIN BUN/Creatinine Ratio 13.4 Glucose Level 106 MG/DL Calcium Level 8.8 MG/DL Magnesium Level 1.8 MG/DL Total Bilirubin 0.5 MG/DL Aspartate Amino Transf (AST/SGOT) 22 U/L Alanine Aminotransferase (ALT/SGPT) 28 U/L Alkaline Phosphatase 58 IU/L Total Protein 7.6 G/DL Albumin 3.2 G/DL Globulin 4.4 G/DL Albumin/Globulin Ratio 0.7 Triglycerides Level 232 MG/DL Cholesterol Level 147 MG/DL LDL Cholesterol 81 MG/DL HDL Cholesterol 36 MG/DL Cholesterol/HDL Ratio 4.1 Chemistry Comments Glucometer 111 mg/dl 104 mg/dl 92 mg/dl Test 03/15/25 21:36 03/16/25 04:45 Potassium Level 4.1 MMOL/L 4.2 MMOL/L White Blood Count 10.6 X10'3 Red Blood Count 3.98 X10'6 Hemoglobin 11.8 g/dl Hematocrit 35.2 % Mean Corpuscular Volume 88.4 FL Mean Corpuscular Hemoglobin 29.8 PG Mean Corpuscular Hemoglobin Concent 33.7 g/dL Red Cell Distribution Width 15.5 % Platelet Count 376 X10'3 Mean Platelet Volume 6.7 FL Neutrophils (%) (Auto) 70.4 % Lymphocytes (%) (Auto) 23.7 % Monocytes (%) (Auto) 5.7 % Eosinophils (%) (Auto) 0 % Basophils (%) (Auto) 0.2 % Neutrophils # (Auto) 7.5 X10'3 Lymphocytes # (Auto) 2.5 X10'3 Monocytes # (Auto) 0.6 X10'3 Eosinophils # (Auto) 0.0 X10'3 Basophils # (Auto) 0.0 X10'3 CBC Comment Sodium Level 135 MMOL/L Chloride Level 102 MMOL/L Carbon Dioxide Level 25.2 MMOL/L Anion Gap 8 Blood Urea Nitrogen 7 MG/DL Creatinine 0.68 MG/DL Estimated GFR/1.73 m2 > 90 ML/MIN BUN/Creatinine Ratio 10.3 Glucose Level 146 MG/DL Calcium Level 8.1 MG/DL Magnesium Level 1.7 MG/DL Total Bilirubin 0.4 MG/DL Aspartate Amino Transf (AST/SGOT) 19 U/L Alanine Aminotransferase (ALT/SGPT) 27 U/L Alkaline Phosphatase 48 IU/L Total Protein 7.5 G/DL Albumin 3.2 G/DL Globulin 4.3 G/DL Albumin/Globulin Ratio 0.7 Chemistry Comments Imaging: Abdomen/pelvis CT scan: Slight size increase of previously seen moderate umbilical hernia containing fat and fluid. Unchanged stranding of the herniated fat and adjacent mesentery. Fat strangulation/omental infarct possible. Chest x-ray: No acute disease. *Problems/Diagnosis: (1) Recurrent incisional hernia Status: Acute (2) Umbilical hernia Status: Acute (3) SVT (supraventricular tachycardia) Status: Chronic Total Time Spent on D/C: > 30 Minutes Date of Service: Mar 16, 2025 Billing Provider: TETE ZAPATA MD Common Visit Codes: 35036-LRI/OBS DISCH DAY >30min EDMOND LUNDBERG, RES Mar 16, 2025 19:04 TETE ZAPATA MD Mar 17, 2025 07:45
[2025-03-16] MEDS ORDERED: duloxetine 30mg CAPSULE.DR PO SCH (20:00)
[2025-03-17] MEDS ORDERED: OXYC-150 PO (07:42)
[2025-03-17] MEDS ORDERED: cholecalciferol (vitamin D3) 1,000 unit (25mcg) tablet PO SCH (08:00)
== END 2025-03-16 17:39 | disposition home or self-care (01) | DRG 228 ==
LOC: ER 10:37 → ED HOLD 13:49 → SUR 3N 17:57
PROVIDERS: ADMIT Internal Medicine; ATTEND Internal Medicine
PROC: BW211ZZ Computerized Tomography (CT Scan) of Abdomen and Pelvis using Low Osmolar Contrast (ICD-10-PCS; 2025-03-14)
PROC: 8E0W4CZ Robotic Assisted Procedure of Trunk Region, Percutaneous Endoscopic Approach (ICD-10-PCS; 2025-03-15)
PROC: 3E0T3BZ Introduction of Anesthetic Agent into Peripheral Nerves and Plexi, Percutaneous Approach (ICD-10-PCS; 2025-03-15)
PROC: 0WUF4JZ Supplement Abdominal Wall with Synthetic Substitute, Percutaneous Endoscopic Approach (ICD-10-PCS; principal; 2025-03-15 17:44)
DX: K42.9 Umbilical hernia without obstruction or gangrene (principal); E87.1 Hypo-osmolality and hyponatremia; E11.9 Type 2 diabetes mellitus without complications; F32.A Depression, unspecified; K43.2 Incisional hernia without obstruction or gangrene; E78.00 Pure hypercholesterolemia, unspecified; E87.5 Hyperkalemia; K21.9 Gastro-esophageal reflux disease without esophagitis; F41.9 Anxiety disorder, unspecified; Z88.2 Allergy status to sulfonamides; Z90.710 Acquired absence of both cervix and uterus; Z91.040 Latex allergy status; Z79.84 Long term (current) use of oral hypoglycemic drugs; Z79.899 Other long term (current) drug therapy; Z90.49 Acquired absence of other specified parts of digestive tract; Z82.49 Family history of ischemic heart disease and other diseases of the circulatory system; Z87.11 Personal history of peptic ulcer disease
CPT/HCPCS: 36415; 71045; 74177; 80053; 80061; 81003; 81025; 82948; 83036; 83605; 83690; 83735; 83880; 84132; 84145; 85025; 85610; 85730; 87081; 93005; 94640; 94760; 96361; 96374; 96375; 96376; 99285; A4215; A4615; A4618; C1713; C1781; G0378; J0131; J1100; J1171; J1644; J2003; J2250; J2270; J2405; J2704; J2710; J3010; J3490; J7030; J7120; Q9967

== ENCOUNTER 2025-03-19 14:30 | Emergency (ER) | payer MEDICAID ==
[~2025-03-19] VITALS: Ht 157.5 cm; Wt 85.8 kg
[~2025-03-19 14:30] MED LIST changes: -HYDR-3973 PO; +OXYC-150 PO
[2025-03-19 14:42] VITALS: TEMP 98.7
[2025-03-19 16:45] LABS: MEAN PLATELET VOLUME 7.0 FL (7.4-10.4); RED CELL DISTRIBUTION WIDTH 15.1 % (11.5-14.5)
[2025-03-19 16:48] VITALS: BP 141/83; PULSE 69; O2SAT 97
[2025-03-19 16:57] LABS: CREATININE 0.61 MG/DL (0.40-0.90); TOTAL CARBON DIOXIDE 26.5 MMOL/L (24-32); eCRCL 91 ML/MIN; eGFR > 90 ML/MIN
--- NOTE | 2025-03-19 17:19 | Physician Documentation ---
History of Present Illness Chief Complaint: Post-operative complication Stated Complaint: POST OP COMPLICATIONS Time Seen by MD: 16:17 Primary Medical Doctor: DONIS Mode of Arrival: POV HPI This is a 44-year-old female who presents with left-sided surgical site pain and nausea, patient reports she had a hernia repair five days prior this recently run out of prescribed Percocet for pain. Patient reports she has been feeling nauseous for the past two days without vomiting or diarrhea, patient reports that she has been having soft foul-smelling bowel movements and is passing gas. Patient reports no other acute symptoms or concerns including no fever. Medication Reconciliation Allergies: Coded Allergies: Sulfa (Sulfonamide Antibiotics) (Verified Allergy, Unknown, 03/14/25) latex (Verified Allergy, Unknown, 03/14/25) Scheduled Cholecalciferol (Vitamin D3) (Vitamin D3), 1 CAP PO DAILY, (Reported) Duloxetine HCl (Duloxetine HCl), 1 CAP PO BID, (Reported) Escitalopram Oxalate (Escitalopram Oxalate), 1 TAB PO DAILY, (Reported) Fenofibrate,Micronized (Fenofibrate), 1 CAP PO DAILY, (Reported) Lorazepam (Ativan), 1 MG PO DAILY, (Reported) Metformin Hcl* (Glucophage*), 2 TAB PO BIDAC, (Reported) Pantoprazole Sodium (PROTONIX tablet), 1 TAB PO DAILY, (Reported) Polyethylene Glycol 3350 (Miralax), 17 GM PO DAILY, (Reported) Prochlorperazine Maleate (Compazine), 1 TAB PO Q6H Sotalol Hcl* (Betapace*), 80 MG PO BID Scheduled PRN ONDANSETRON ODT 4mg tablet (Ondansetron Odt), 1 TAB PO Q6H PRN for nausea /vomiting, (Reported) Oxycodone HCl/Acetaminophen (Percocet 10-325 mg Tablet), 1 TAB PO QID PRN PRN for pain Discontinued Medications Hydrocodone Bit/Acetaminophen (Hydrocodone-Apap 10-325 Tablet), 1 TABLET PO Q8H PRN for pain Past Medical History Past Medical History: *CARDIOVASCULAR*, Arrhythmia, High Cholesterol, Bowel Obstruction, GERD, Inflammatory Bowel Dz, Peptic Ulcer Disease, Hernia, UTI, Diabetes, Thyroid (unspecified) Past Surgical History: abdominal surgery, cholecystectomy, hysterectomy, other Patient History: : HTN (hypertension) Hypertriglyceridemia Alcohol Use: None Drug Use: none Lives with: Family, Other Lives In: Home, Other Occupation: employed Review of Systems ROS As stated above in the HPI, otherwise all systems are reviewed and negative. Physical Exam Vital Signs: Temperature: 98.7, Source: Oral, Heart Rate: 69, Respiratory Rate: 18, BP: 141/83, Pulse Oximetry: 97, Weight: 85.800 Oxygen Flow Rate: 0 Physical Exam VITALS: Reviewed and as above. GENERAL: Alert, nontoxic appearing, no apparent distress. RESPIRATORY: No increased work of breathing, no respiratory distress, speaking in full clear sentences, clear lung sounds in all reyes CV: Regular rate and rhythm no murmur BACK: No CVA tenderness GI: Tenderness to areas of surgical site otherwise abdomen nontender, nondistended, no rebound, no guarding, bowel sounds present SKIN: Mild ecchymosis surrounding surgical sites otherwise no erythema no swelling and no discharge from surgical sites Progress Results/Orders Results/Orders Completed Orders - SHELDON MENDEZ Cbc/Diff (03/19/25 16:09) BMP (03/19/25 16:09) Vital Signs 03/19/25 03/19/25 03/19/25 14:42 16:48 16:48 Temp 98.7 Pulse 80 69 Resp 16 18 18 B/P (MAP) 171/104 141/83 (102) Pulse Ox 99 97 O2 Flow Rate 0 0 Laboratory Tests Test 03/19/25 16:18 White Blood Count 9.9 Red Blood Count 4.22 Hemoglobin 12.7 Hematocrit 37.2 Mean Corpuscular Volume 88.1 Mean Corpuscular Hemoglobin 30.0 Mean Corpuscular Hemoglobin Concent 34.0 Red Cell Distribution Width 15.1 H Platelet Count 413 Mean Platelet Volume 7.0 L Neutrophils (%) (Auto) 47.7 Lymphocytes (%) (Auto) 38.6 Monocytes (%) (Auto) 10.2 Eosinophils (%) (Auto) 3.0 Basophils (%) (Auto) 0.5 Neutrophils # (Auto) 4.7 Lymphocytes # (Auto) 3.8 Monocytes # (Auto) 1.0 H Eosinophils # (Auto) 0.3 Basophils # (Auto) 0.1 CBC Comment Sodium Level 135 Potassium Level 4.1 Chloride Level 98 L Carbon Dioxide Level 26.5 Anion Gap 11 Blood Urea Nitrogen 7 Creatinine 0.61 Estimated GFR/1.73 m2 > 90 BUN/Creatinine Ratio 11.5 Glucose Level 105 H Calcium Level 8.8 Albumin 3.4 Chemistry Comments Medical Decision Making Additional information obtaine: N/A Findings This is a 44-year-old female who presented with left-sided abdominal wall pain after a recent hernia repair surgery, patient had run out of prescribed Percocet for pain presented to the emergency department due to pain and nausea, her p hysical exam was reassuring with tenderness only at the surgical sites in no evidence of surgical site infection or other complication. It was reassuring that patient is still passing gas and having bowel movements and does not have persistent vomiting, she was medicated for pain and reported adequate decrease in pain. With shared decision-making further imaging we will be defer and a strategy of watchful waiting we will be employed. Remainder of her physical exam was benign and she is hemodynamically stable and appropriate for outpatient follow up, she has prompt follow up with primary care and surgeon and will contact both offices in the morning for refill of prescribed Percocet for postsurgical pain. Patient provided home care instructions, follow up instructions, and return to care precautions verbalized understanding of. Differential Dx:Considerations: Angina/[place], Aortic dissection, Appendicitis, Bowel obstruction, Cholangitis, Cholelithasis, Constipation, Diverticular disease, Esophageal rupture, Esophagitis, Gastritis/PUD, Gastroenteritis, GI hemorrhage, Hernia, Hepatitis, Inflammatory BD, Ischemic bowel, Ovarian cyst/torsion, Pancreatitis, PID, Urinary obstruction, Urinary tract infection, Urolithiasis Departure Time of Disposition: 17:43 Disposition: 01 HOME / SELF CARE / HOMELESS Impression: Primary Impression: Abdominal pain Condition: Improved Discharge Instructions: Abdominal Pain, Adult Additional Instructions: Your lab work was reassuring, given your surgical site pain we have provided you pain medication in the emergency department, you may use your previously prescribed Zofran as needed for nausea. Please contact your primary care provider for continued pain management as I am unable to send another prescription for Percocet today. Please follow up with your primary care provider in the next few days. Please return to the emergency department for any new or worsening concerning symptoms but not limited to vomiting or if you are unable to have a bowel movement. Referrals: NO PRIMARY CARE PROVIDER (PCP) Education Educated: Patient Educated regarding: diagnosis, treatment, prognosis, need for follow up Signature Scribe Signature: No scribe Attestation: The note accurately reflects work and decisions made by me.BROOKS Tony 03/20/25 00:44 SHELDON MENDEZ Mar 19, 2025 17:19
[2025-03-19 17:25] VITALS: RESP 18
[2025-03-19] MEDS: HYDROcodone/acetaminophen 10/325mg tab PO ONE (17:25)
[2025-03-19] MEDS: ondansetron 4mg rapidly disintigrating tab PO ONE (17:25)
== END 2025-03-19 17:52 | disposition home or self-care (01) ==
LOC: ER 14:31
DX: R10.9 Unspecified abdominal pain (principal); E11.9 Type 2 diabetes mellitus without complications; E78.00 Pure hypercholesterolemia, unspecified; K21.9 Gastro-esophageal reflux disease without esophagitis; Z88.2 Allergy status to sulfonamides; Z91.040 Latex allergy status; Z90.49 Acquired absence of other specified parts of digestive tract; Z90.710 Acquired absence of both cervix and uterus
CPT/HCPCS: 36415; 80048; 85025; 99283

== ENCOUNTER 2025-03-23 08:12 | Outpatient (CLI) | payer MEDICAID ==
[~2025-03-23 08:12] MED LIST changes: +iohexol 300mg/ml 100ml inj. ONE
--- NOTE | 2025-03-23 11:07 | RADIOLOGY REPORT ---
Indication: UMBILICAL HERNIA WITHOUT OBSTRUCTION OR GANGRENE Technique: CT axial images of the abdomen and pelvis are obtained with and without intravenous contrast. Coronal and sagittal reformats were obtained. Radiation Dose Information: CTDI volume is 28. mGy. Dose-length product is 2952 mGy*cm Comparison: CT CT ABDOMEN PELVIS W/ IV CONTRAST on DOS: 03/14/25, CT CT ABDOMEN PELVIS W/ IV ORAL CONTRAST on DOS: 02/25/25, CT CT FINDINGS: Lung bases demonstrate no pleural effusion. Pulmonary emphysematous changes. Adrenal glands, pancreas unable. Cholecystectomy. No enhancing hepatic lesion. Hepatosplenomegaly. No hydronephrosis. Stomach partially distended. Small bowel loops are normal in caliber. Moderate volume stool within the colon. Normal appendix. Abdominal aorta normal in caliber. Periaortic/retroperitoneal lymph nodes measuring up to 18 mm. Bladder partially distended. No inguinal lymphadenopathy. There is a left paraumbilical hernia which contains fluid measuring 3.0 x 2.4 x 4.8 cm cm, previously 5.2 x 3.9 X 8.1 cm. There is surrounding inflammatory stranding extending posteriorly as well into the mesentery. [id number] bilateral sacroiliac degenerative joint disease. [id number]-[id number] thoracolumbar degenerative disc disease. IMPRESSION: Left paraumbilical hernia containing fluid measuring 3.0 x 2.4 x 4.8 cm. There is fluid within the hernia and inflammatory stranding surrounding the hernia extending posteriorly is specially into the mesenteric fat, raising concern for incarceration / strangulation /omental infarction. Recommend surgical consultation for further evaluation. Retroperitoneal/periaortic lymphadenopathy, similar to previous examination. Hepatosplenomegaly. Other findings as detailed above.
[2025-03-27] MEDS ORDERED: LACT-373 PO (10:53)
[2025-03-27] MEDS ORDERED: HYOS-24 PO (10:53)
[2025-03-27] MEDS ORDERED: HYDR-3965 PO (10:53)
== END 2025-03-23 23:59 | disposition home or self-care (01) ==
LOC: RAD 08:12
PROVIDERS: ATTEND Student in an Organized Health Care Education/Training Program
DX: R16.0 Hepatomegaly, not elsewhere classified (principal); R11.10 Vomiting, unspecified; Z90.49 Acquired absence of other specified parts of digestive tract; K42.9 Umbilical hernia without obstruction or gangrene; R10.9 Unspecified abdominal pain
CPT/HCPCS: 74178; Q9967